=== PATIENT | female | born 1960 | race African-American/Black ===

== ENCOUNTER 2018-09-05 11:25 | Inpatient (IN) | payer OTHER ==
[2018-09-05 11:47] VITALS: BMI 39.7
--- NOTE | 2018-09-05 14:29 | HP ---
COWS - Scale Resting Pulse: 0= [place] 80 or Below Sweatin= Chills/Flushing Restless Observation: 3= Extraneous Movement Pupil Size: 1= Pupils >than Normal Bone or Joint Aches: 2= Severe Diffuse Aches Runny Nose/ Eye Tearin= Runny Nose/Eyes GI Upset > 30mins: 2= Nausea/Diarrhea Tremor Observation: 2= Slight Tremor Visible Yawning Observation: 1= 1-2x During Session Anxiety or Irritability: 2=Irritable/Anxious Goose Flesh Skin: 0=Smooth Skin COWS Score: 16 CIWA Score Nausea/Vomitin Muscle Tremors: 2 Anxiety: 2 Agitation: 2 Paroxysmal Sweats: 1-Minimal Palms Moist Orientation: 0-Oriented Tacttile Disturbances: 1-Very Mild Itch/Numbness Auditory Disturbances: 1-Very Mild Visual Disturbances: 0-None Headache: 2-Mild CIWA-Ar Total Score: 13 - Admission Criteria OASAS Guidelines: Admission for Medically Managed Detox: Requires at least one of the followin. CIWA greater than 12 2. Seizures within the past 24 hours 3. Delirium tremens within the past 24 hours 4. Hallucinations within the past 24 hours 5. Acute intervention needed for co occurring medical disorder 6. Acute intervention needed for co occurring psychiatric disorder 7. Severe withdrawal that cannot be handled at a lower level of care (continued vomiting, continued diarrhea, abnormal vital signs) requiring intravenous medication and/or fluids 8. Admission ROS [facility] - [facility] Chief Complaint: i need help to stop using heroin and alcohol Allergies/Adverse Reactions: Allergies Allergy/AdvReac Type Severity Reaction Status Date / Time Penicillins Allergy Severe Rash Verified 09/05/18 14:18 History of Present Illness: this 58 years old female with heroin and alcohol dependence,seeking detox, withdrawal symptom,never been in detox before in [facility] 2003 hepatitis c treated nicotine 20 to 30 cigarette/day,patch bipolar disorder,2005 overdose low back pain herniated disc on injection hypertension asthma longest sobriety 3 years [facility] - Ebola screening Have you traveled outside of the country in the last 21 days: No Have you had contact with anyone from an Ebola affected area: No Have you been sick,other than usual withdrawal symptoms: No Do you have a fever: No - Review of Systems Constitutional: Chills, Loss of Appetite, Malaise, Night Sweats, Changes in sleep, Weakness EENT: reports: Tearing, Nose Congestion Respiratory: reports: No Symptoms reported, Other (ashma) Cardiac: reports: No Symptoms Reported GI: reports: Constipated, Abdominal cramping : reports: No Symptoms Reported Musculoskeletal: reports: Back Pain, Joint Pain, Muscle Pain, Joint Stiffness Integumentary: reports: Dryness Neuro: reports: Headache, Tremors Endocrine: reports: No Symptoms Reported Hematology: reports: No Symptoms Reported Psychiatric: reports: No Sypmtoms Reported, Judgement Intact, Mood/Affect Appropiate, Orientated x3 Other Systems: Reviewed and Negative Patient History - Patient Medical History Hx Anemia: No Hx Asthma: Yes (on albuterol inhaler and symbicort) Hx Chronic Obstructive Pulmonary Disease (COPD): No Hx Cancer: No Hx Cardiac Disorders: No Hx Congestive Heart Failure: No Hx Hypertension: Yes (on med) Hx Hypercholesterolemia: No Hx Pacemaker: No HX Cerebrovascular Accident: No Hx Seizures: No Hx Dementia: No Hx Diabetes: No Hx Gastrointestinal Disorders: No Hx Liver Disease: No Hx Genitourinary Disorders: No Hx Sexually Transmitted Disorders: No Hx Renal Disease (ESRD): No Hx Thyroid Disease: No Hx Human Immunodeficiency Virus (HIV): No (last 2018 negative) Hx Hepatitis C: Yes (treated ) Hx Depression: Yes Hx Suicide Attempt: Yes Hx Bipolar Disorder: Yes Hx Schizophrenia: No Other Medical History: no suicidal,no homicidal,low back pain,herniated disc - Patient Surgical History Hx Section: Yes (in 1987) - PPD History Previous Implant?: Yes Documented Results: Negative w/o proof Implanted On Prior R Admission?: No PPD to be Administered?: Yes - Reproductive History Patient : No - Smoking Cessation Smoking history: Current every day smoker Have you smoked in the past 12 months: Yes Aproximately how many cigarettes per day: 30 Cigars Per Day: 0 Hx Chewing Tobacco Use: No Initiated information on smoking cessation: Yes 'Breaking Loose' booklet given: 09/05/18 - Substance & Tx. History Hx Alcohol Use: Yes Hx Substance Use: Yes Substance Use Type: Alcohol, Heroin Hx Substance Use Treatment: No - Substances Abused Heroin Route: Inhalation Frequency: Daily Amount used: 10 BAGS Age of first use: 12 Date of Last Use: 09/05/18 Alcohol Route: Oral Frequency: Daily Amount used: 2 -3 cups of banana liquer Age of first use: 12 Date of Last Use: 09/05/18 Marijuana/Hashish Route: Smoking Frequency: Daily Amount used: 1 joint Age of first use: 12 Date of Last Use: 09/04/18 Family Disease History - Family Disease History Family History: Denies Admission Physical Exam [facility] - Vital Signs Vital Signs: Vital Signs - 24 hr 09/05/18 11:45 Temperature 98.7 F Pulse Rate 71 Respiratory 18 Rate Blood Pressure 110/66 - Physical General Appearance: Yes: Moderate Distress, Tremorous, Irritable, Sweating, Anxious HEENTM: Yes: Normal ENT Inspection, ROBERTA, Pharynx Normal Respiratory: Yes: Lungs Clear, Normal Breath Sounds, No Respiratory Distress Neck: Yes: Within Normal Limits, Supple, Trachea in good position Breast: Yes: Breast Exam Deferred Cardiology: Yes: Within Normal Limits, Regular Rhythm, Regular Rate, S1, S2 Abdominal: Yes: Within Normal Limits, Normal Bowel Sounds, Soft, Pulsatile Mass Genitourinary: Yes: Within Normal Limits Back: Yes: Muscle Spasm Musculoskeletal: Yes: Back pain, Joint Stiffness, Muscle Pain Extremities: Yes: Within Normal Limits, Normal Range of Motion, Tremors 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, Alert, Motor Strength 5/5 Integumentary: Yes: Dry Lymphatic: Yes: Within Normal Limits - Diagnostic (1) Opioid dependence with withdrawal Current Visit: Yes Status: Acute (2) Alcohol abuse Current Visit: Yes Status: Acute (3) Low back pain Current Visit: Yes Status: Acute (4) Herniated vertebral disc Current Visit: Yes Status: Acute (5) Nicotine dependence Current Visit: Yes Status: Acute (6) No natural teeth Current Visit: Yes Status: Acute (7) Hepatitis C Current Visit: Yes Status: Acute (8) Dry skin Current Visit: Yes Status: Acute (9) Carpal tunnel syndrome Current Visit: Yes Status: Acute Cleared for Admission [facility] - Detox or Rehab [facility] Level of Care: Medically Managed Detox Regimen/Protocol: Methadone [facility] Breath Alcohol Content Breath Alcohol Content: 0 Urine Pregancy Test - Result Urine Test Results: Negative - NO line present Urine Drug Screen - Results Drug Screen Negative: No Urine Drug Screen Results: THC-Marijuana, OPI-Opiates, BZO-Benzodiazepines, OXY- Oxycodone, FEN-Fentanyl Inpatient Rehab Admission - Rehab Decision to Admit Inpatient rehab admission?: No
[2018-09-05] MEDS ORDERED: METHOCARBAMOL 500 MG TABLET PO PRN (14:50)
[2018-09-05] MEDS ORDERED: MAG HYDROX/AL HYDROX/SIMETH 30 ML UNIT-DOSE CUP PO PRN (14:50)
[2018-09-05] MEDS ORDERED: MELATONIN 5 MG TABLETS PO PRN (14:50)
[2018-09-05] MEDS ORDERED: hydrOXYzine PAMOATE 25 MG CAPSULE (FP) PO PRN (14:50)
[2018-09-05] MEDS ORDERED: ACETAMINOPHEN 325 MG TABLET (FP) PO PRN ×2 (14:50)
[2018-09-05] MEDS ORDERED: MENTHOL/PHENOL 1 EACH UD MM PRN (14:50)
[2018-09-05] MEDS ORDERED: BISMUTH SUBSALICYLATE 262 MG/15 ML BTL PO PRN (14:50)
[2018-09-05] MEDS ORDERED: IBUPROFEN 400 MG TABLET (FP) PO PRN (14:50)
[2018-09-05] MEDS ORDERED: MAGNESIUM HYDROX 2400MG/30ML ORAL SUSPENSION 30 ML CUP PO PRN (14:50)
[2018-09-05] MEDS ORDERED: MAGNESIUM CITRATE 300 ML BOTTLE PO PRN (14:50)
[2018-09-05] MEDS ORDERED: cloNIDine HCL 0.1 MG TABLET PO PRN (14:50)
[2018-09-05] MEDS ORDERED: METHADONE HCL 10 MG TABLET (FOR DETOX USE ONLY) PO ONE ×2 (15:41→23:00)
[2018-09-05] MEDS: GABAPENTIN 100 MG CAPSULE (FP) PO SCH ×2 (17:07→22:25)
[2018-09-05] MEDS: VITAMINS A AND D TOPICAL OINTMENT 60 GM TUBE TP SCH ×2 (18:25→23:02)
[2018-09-05] MEDS: THIAMINE HCL 100 MG TABLET (FP) PO SCH (22:24)
[2018-09-05] MEDS: BUDESONIDE/FORMETEROL FUMARATE 160/4.5 mcg INHALER IH SCH (22:24)
[2018-09-06] MEDS: GABAPENTIN 100 MG CAPSULE (FP) PO SCH ×3 (05:59→22:34)
[2018-09-06] MEDS: VITAMINS A AND D TOPICAL OINTMENT 60 GM TUBE TP SCH ×3 (05:59→19:52)
--- NOTE | 2018-09-06 09:30 | EKG ---
Test Reason : Blood Pressure : / mmHG Vent. Rate : 062 BPM Atrial Rate : 062 BPM P-R Int : 146 ms QRS Dur : 084 ms QT Int : 450 ms P-R-T Axes : 076 067 045 degrees QTc Int : 456 ms NORMAL SINUS RHYTHM NORMAL ECG NO PREVIOUS ECGS AVAILABLE Confirmed by JOSUÉ TIMMONS MD ([id number]) on 09/06/2018 9:29:35 AM Referred By: Confirmed By:JOSUÉ TIMMONS MD
[2018-09-06] MEDS ORDERED: METHADONE HCL 10 MG TABLET (FOR DETOX USE ONLY) PO ONE (10:00)
[2018-09-06] MEDS: PRENATAL VITAMINS W/ FOLIC ACID TABLET (FP) PO SCH (10:42)
[2018-09-06] MEDS: FUROSEMIDE 20 MG TABLET (FP) PO SCH (10:42)
[2018-09-06] MEDS: BUDESONIDE/FORMETEROL FUMARATE 160/4.5 mcg INHALER IH SCH ×2 (10:43→22:31)
[2018-09-06] MEDS: LOSARTAN 50MG/HCTZ 12.5MG 1 TAB (FP) PO SCH (10:44)
--- NOTE | 2018-09-06 11:48 | PN ---
[facility] CIWA - CIWA Score Nausea/Vomitin-No Nausea/No Vomiting Muscle Tremors: 4-Moderate,w/Arms Extend Anxiety: 3 Agitation: 4-Moderately Restless Paroxysmal Sweats: 3 Orientation: 0-Oriented Tacttile Disturbances: 0-None Auditory Disturbances: 0-None Visual Disturbances: 0-None Headache: 0-None Present CIWA-Ar Total Score: 14 [facility] COWS - Scale Resting Pulse: 0= [place] 80 or Below Sweatin=Flushed/Facial Moisture Restless Observation: 1= Difficult to Sit Still Pupil Size: 0= Normal to Room Light Bone or Joint Aches: 2= Severe Diffuse Aches Runny Nose/ Eye Tearin= Runny Nose/Eyes GI Upset > 30mins: 1= Stomach Cramp Tremor Observation of Outstretched Hands: 2= Slight Tremor Visible Yawning Observation: 2= >3x During Session Anxiety or Irritability: 2=Irritable/Anxious Goose Flesh Skin: 0=Smooth Skin COWS Score: 14 [facility] Progress Note (SOAP) Subjective: agitation sweats shakes interrupted sleep stomach ache nausea chills Objective: 09/06/18 11:45 Vital Signs Temperature 98.2 F 09/06/18 09:38 Pulse Rate 64 09/06/18 09:38 Respiratory Rate 18 09/06/18 09:38 Blood Pressure 144/74 09/06/18 09:38 O2 Sat by Pulse Oximetry (%) labs pending aaox3 ambulating no acute distress Assessment: 09/06/18 11:46 withdrawal sx Plan: continue detox increase fluids zofran prn
[2018-09-06] MEDS ORDERED: ONDANSETRON *ODT* 4 MG TABLET SL PRN (11:50)
[2018-09-06 12:28] LABS: HEMOGLOBIN 13.3 GM/dL (10.7-15.3); MCHC 33.2 g/dl (32.0-36.0); MEAN CELL VOLUME 84.4 fl (80-96); MEAN PLT VOLUME 10.4 fl (7.5-11.1); PLATELET COUNT 145 K/MM3 (134-434); RBC 4.74 M/mm3 (3.60-5.2); RDW 14.1 % (11.6-15.6); WHITE BLOOD COUNT 9.9 K/mm3 (4.0-10.0)
[2018-09-06 12:29] LABS: SICKLE CELL SCREEN NEGATIVE (NEGATIVE)
[2018-09-06 12:47] LABS: ALK PHOS 94 U/L (45-117); ANION GAP 7 MMOL/L (8-16); BILIRUBIN,TOTAL 0.5 mg/dL (0.2-1); BLOOD UREA NITROGEN 14 mg/dL (7-18); CALCIUM 8.8 mg/dL (8.5-10.1); CHLORIDE 105 mmol/L (98-107); CO2 30 mmol/L (21-32); CREATININE 0.9 mg/dL (0.55-1.3); GLUCOSE,RANDOM 134 mg/dL (74-106); POTASSIUM 4.1 mmol/L (3.5-5.1); SGOT/AST 15 U/L (15-37); SGPT/ALT 16 U/L (13-61); SODIUM 142 mmol/L (136-145); TOT PROT 6.7 g/dl (6.4-8.2)
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
[2018-09-06] MEDS: ARIPiprazole 10 MG TABLET PO SCH (14:55)
[2018-09-06] MEDS: THIAMINE HCL 100 MG TABLET (FP) PO SCH (22:33)
[2018-09-06] MEDS: diazePAM 5 MG TABLET PO PRN (22:34)
[2018-09-07] MEDS: GABAPENTIN 100 MG CAPSULE (FP) PO SCH ×3 (05:50→22:38)
[2018-09-07] MEDS: VITAMINS A AND D TOPICAL OINTMENT 60 GM TUBE TP SCH ×4 (07:42→23:40)
[2018-09-07] MEDS ORDERED: METHADONE HCL 10 MG TABLET (FOR DETOX USE ONLY) PO ONE (10:00)
[2018-09-07] MEDS: ARIPiprazole 10 MG TABLET PO SCH (10:34)
[2018-09-07] MEDS: BUDESONIDE/FORMETEROL FUMARATE 160/4.5 mcg INHALER IH SCH ×2 (10:34→22:37)
[2018-09-07] MEDS: FLUoxetine HCL 10 MG CAPSULE (FP) PO SCH (10:34)
[2018-09-07] MEDS: LOSARTAN 50MG/HCTZ 12.5MG 1 TAB (FP) PO SCH (10:35)
[2018-09-07] MEDS: PRENATAL VITAMINS W/ FOLIC ACID TABLET (FP) PO SCH (10:35)
[2018-09-07] MEDS: FUROSEMIDE 20 MG TABLET (FP) PO SCH (10:35)
--- NOTE | 2018-09-07 12:04 | PN ---
[facility] COWS - Scale Resting Pulse: 0= [place] 80 or Below Sweatin=Flushed/Facial Moisture Restless Observation: 1= Difficult to Sit Still Pupil Size: 0= Normal to Room Light Bone or Joint Aches: 0= None Runny Nose/ Eye Tearin= Nasal Congestion GI Upset > 30mins: 1= Stomach Cramp Tremor Observation of Outstretched Hands: 1= Tremor [place], Not Seen Yawning Observation: 2= >3x During Session Anxiety or Irritability: 2=Irritable/Anxious Goose Flesh Skin: 0=Smooth Skin COWS Score: 10 [facility] Progress Note (SOAP) Subjective: shakes sweats agitation interrupted sleep Objective: 09/07/18 12:04 Vital Signs Temperature 98.1 F 09/07/18 09:59 Pulse Rate 65 09/07/18 09:59 Respiratory Rate 18 09/07/18 09:59 Blood Pressure 116/73 09/07/18 09:59 O2 Sat by Pulse Oximetry (%) Laboratory Tests 09/06/18 09/06/18 09/06/18 07:30 07:30 07:30 WBC 9.9 RBC 4.74 Hgb 13.3 Hct 40.0 MCV 84.4 MCH 28.0 MCHC 33.2 RDW 14.1 Plt Count 145 MPV 10.4 Sickle Cell Screen Negative Sodium 142 Potassium 4.1 Chloride 105 Carbon Dioxide 30 Anion Gap 7 L BUN 14 Creatinine 0.9 Creat Clearance w eGFR 63.87 Random Glucose 134 H Calcium 8.8 Total Bilirubin 0.5 AST 15 ALT 16 Alkaline Phosphatase 94 Total Protein 6.7 Albumin 3.0 L RPR Titer Nonreactive aaox3 ambulating no acute distress Assessment: 09/07/18 12:06 withdrawal sx Plan: continue detox increase fluids
[2018-09-07] MEDS: THIAMINE HCL 100 MG TABLET (FP) PO SCH (22:39)
[2018-09-08] MEDS: GABAPENTIN 100 MG CAPSULE (FP) PO SCH ×3 (06:13→22:13)
[2018-09-08] MEDS: VITAMINS A AND D TOPICAL OINTMENT 60 GM TUBE TP SCH ×4 (06:14→23:36)
[2018-09-08] MEDS ORDERED: METHADONE HCL 10 MG TABLET (FOR DETOX USE ONLY) PO ONE (10:00)
[2018-09-08] MEDS: ARIPiprazole 10 MG TABLET PO SCH (10:40)
[2018-09-08] MEDS: FLUoxetine HCL 10 MG CAPSULE (FP) PO SCH (10:40)
[2018-09-08] MEDS: LOSARTAN 50MG/HCTZ 12.5MG 1 TAB (FP) PO SCH (10:41)
[2018-09-08] MEDS: FUROSEMIDE 20 MG TABLET (FP) PO SCH (10:41)
[2018-09-08] MEDS: PRENATAL VITAMINS W/ FOLIC ACID TABLET (FP) PO SCH (10:41)
[2018-09-08] MEDS: BUDESONIDE/FORMETEROL FUMARATE 160/4.5 mcg INHALER IH SCH ×2 (10:42→22:14)
--- NOTE | 2018-09-08 11:27 | PN ---
[facility] Progress Note (SOAP) Subjective: body aches anxiety feeling a bit better. Objective: 09/08/18 11:25 Vital Signs Temperature 97.9 F 09/08/18 09:50 Pulse Rate 56 L 09/08/18 09:50 Respiratory Rate 18 09/08/18 09:50 Blood Pressure 148/77 09/08/18 09:50 O2 Sat by Pulse Oximetry (%) aaox3 ambulating no acute distress Assessment: 09/08/18 11:26 mild withdrawal Plan: continue detox increase fluids d/c in am
[2018-09-08 21:32] VITALS: PULSE 64
[2018-09-08] MEDS: THIAMINE HCL 100 MG TABLET (FP) PO SCH (22:14)
[2018-09-08] MEDS: diazePAM 5 MG TABLET PO PRN (22:18)
[2018-09-09] MEDS: GABAPENTIN 100 MG CAPSULE (FP) PO SCH (05:50)
[2018-09-09] MEDS ORDERED: METHADONE HCL 5 MG TABLET (FOR DETOX USE ONLY) PO ONE (06:00)
[2018-09-09 06:29] VITALS: BP 143/70; TEMP 97.7
[2018-09-09] MEDS: VITAMINS A AND D TOPICAL OINTMENT 60 GM TUBE TP SCH (07:03)
--- NOTE | 2018-09-09 10:08 | DS ---
[facility] Detox Discharge Summary Admission Date: 09/05/18 Discharge Date: 09/09/18 - History Present History: Opioid Dependence - Physical Exam Results Vital Signs: Vital Signs Temperature 97.7 F 09/09/18 06:00 Pulse Rate 64 09/09/18 06:00 Respiratory Rate 18 09/09/18 06:00 Blood Pressure 143/70 09/09/18 06:00 O2 Sat by Pulse Oximetry (%) - Treatment Hospital Course: Detox Protocol Followed, Detoxed Safely, Responded well, Discharged Condition Good, Rehab Referral Accepted - Medication Discharge Medications: Ambulatory Orders Aripiprazole [Abilify -] 20 mg PO DAILY 09/05/18 Budesonide/Formeterol Fumarate [SYMBICORT 160/4.5mcg -] 1 inh PO BID 09/05/18 Fluoxetine HCl [Prozac -] 10 mg PO DAILY 09/05/18 Furosemide [Lasix -] 20 mg PO DAILY 09/05/18 Gabapentin [Neurontin -] 100 mg PO Q8H 09/05/18 Losartan/Hydrochlorothiazide [Losartan-Hctz 100-25 mg Tab] 1 each PO DAILY 09/05 - Diagnosis (1) Alcohol abuse Status: Chronic (2) Cannabis abuse Status: Chronic (3) Carpal tunnel syndrome Status: Chronic Qualifiers: Laterality: unspecified laterality Qualified Code(s): G56.00 - Carpal tunnel syndrome, unspecified upper limb (4) Dry skin Status: Chronic (5) No natural teeth Status: Chronic (6) Opioid dependence with withdrawal Status: Chronic (7) Substance-induced anxiety disorder Status: Acute (8) Bipolar disorder Status: Chronic (9) Herniated vertebral disc Status: Chronic (10) Low back pain Status: Chronic (11) Nicotine dependence Status: Chronic (12) Hepatitis C Status: Chronic Qualifiers: Viral hepatitis chronicity: chronic Hepatic coma status: without hepatic coma Qualified Code(s): B18.2 - Chronic viral hepatitis C - AMA Did Patient Leave Against Medical Advice: No (declined rehab; referred to outpatient)
== END 2018-09-09 08:45 | disposition home or self-care (01) | DRG 773 ==
LOC: YASAS 11:25 → Y6N 15:32
PROVIDERS: ADMIT Surgery; ATTEND Surgery
PROC: HZ2ZZZZ Detoxification Services for Substance Abuse Treatment (ICD-10-PCS; principal; 2018-09-05)
DX: F11.23 Opioid dependence with withdrawal (principal); F10.10 Alcohol abuse, uncomplicated; F12.10 Cannabis abuse, uncomplicated; F17.210 Nicotine dependence, cigarettes, uncomplicated; F19.280 Other psychoactive substance dependence with psychoactive substance-induced anxiety disorder; F31.9 Bipolar disorder, unspecified; I10 Essential (primary) hypertension; J45.909 Unspecified asthma, uncomplicated; L85.3 Xerosis cutis; B18.2 Chronic viral hepatitis C; K00.0 Anodontia; M51.27 Other intervertebral disc displacement, lumbosacral region; Z91.5 Personal history of self-harm; Z88.0 Allergy status to penicillin
CPT/HCPCS: 36415; 80053; 85027; 85660; 86593; 93005; 93010; J0735

== ENCOUNTER 2019-01-18 10:08 | Inpatient (IN) | payer OTHER ==
[2019-01-18 11:14] VITALS: BMI 38.5
--- NOTE | 2019-01-18 11:42 | HP ---
COWS - Scale Resting Pulse: 0= [place] 80 or Below Sweatin= Chills/Flushing Restless Observation: 1= Difficult to Sit Still Pupil Size: 1= Pupils >than Normal Bone or Joint Aches: 2= Severe Diffuse Aches Runny Nose/ Eye Tearin= Runny Nose/Eyes GI Upset > 30mins: 2= Nausea/Diarrhea Tremor Observation: 2= Slight Tremor Visible Yawning Observation: 1= 1-2x During Session Anxiety or Irritability: 2=Irritable/Anxious Goose Flesh Skin: 0=Smooth Skin COWS Score: 14 CIWA Score Nausea/Vomitin Muscle Tremors: 2 Anxiety: 3 Agitation: 3 Paroxysmal Sweats: 1-Minimal Palms Moist Orientation: 0-Oriented Tacttile Disturbances: 1-Very Mild Itch/Numbness Auditory Disturbances: 0-None Visual Disturbances: 0-None Headache: 2-Mild CIWA-Ar Total Score: 14 - Admission Criteria OASAS Guidelines: Admission for Medically Managed Detox: Requires at least one of the followin. CIWA greater than 12 2. Seizures within the past 24 hours 3. Delirium tremens within the past 24 hours 4. Hallucinations within the past 24 hours 5. Acute intervention needed for co occurring medical disorder 6. Acute intervention needed for co occurring psychiatric disorder 7. Severe withdrawal that cannot be handled at a lower level of care (continued vomiting, continued diarrhea, abnormal vital signs) requiring intravenous medication and/or fluids 8. Admission ROS [facility] - [facility] Chief Complaint: i need help to stop drinking alcohol and heroin Allergies/Adverse Reactions: Allergies Allergy/AdvReac Type Severity Reaction Status Date / Time Penicillins Allergy Severe Rash Verified 01/18/19 11:04 History of Present Illness: this 58 years old female with heroin and alcohol dependence,seeking detox, withdrawal symptom, multiple admissions in detox,,but keep relapsing last detox [facility] 09/05/18 to 09/09/18 hepatitis c treated nicotine dependence 1 pack/day,would like nicotine patch low back pain herniated disc longest sobriety 5 years plan for out patient program Exam Limitations: No Limitations - Ebola screening Have you traveled outside of the country in the last 21 days: No Have you had contact with anyone from an Ebola affected area: No Do you have a fever: No - Review of Systems Constitutional: Chills, Loss of Appetite, Malaise, Night Sweats, Changes in sleep, Weakness EENT: reports: Tearing, Nose Congestion Respiratory: reports: No Symptoms reported, Other (asthma) Cardiac: reports: No Symptoms Reported GI: reports: Diarrhea, Nausea, Vomiting, Abdominal cramping : reports: No Symptoms Reported Musculoskeletal: reports: No Symptoms Reported, Back Pain, Joint Pain, Muscle Pain Integumentary: reports: Dryness Neuro: reports: Headache, Tremors Endocrine: reports: No Symptoms Reported Hematology: reports: No Symptoms Reported Psychiatric: reports: No Sypmtoms Reported, Judgement Intact, Mood/Affect Appropiate, Orientated x3 Other Systems: Reviewed and Negative Patient History - Patient Medical History Hx Anemia: No Hx Asthma: Yes (on albuterol inhaler and symbicort) Hx Chronic Obstructive Pulmonary Disease (COPD): No Hx Cancer: No Hx Cardiac Disorders: No Hx Congestive Heart Failure: No Hx Hypertension: Yes (on med) Hx Hypercholesterolemia: No Hx Pacemaker: No HX Cerebrovascular Accident: No Hx Seizures: No Hx Dementia: No Hx Diabetes: No Hx Gastrointestinal Disorders: No Hx Liver Disease: No Hx Genitourinary Disorders: No Hx Sexually Transmitted Disorders: No Hx Renal Disease (ESRD): No Hx Thyroid Disease: No Hx Human Immunodeficiency Virus (HIV): No (last 2018 negative) Hx Hepatitis C: Yes (treated ) Hx Depression: Yes Hx Suicide Attempt: Yes Hx Bipolar Disorder: Yes Hx Schizophrenia: No Other Medical History: no suicidal,no homicidal - Patient Surgical History Past Surgical History: Yes Hx Section: Yes (in 1987) Other Surgical History: Pt had a cyst removed from her R eardrum at age 7 yrs old. Anesthesia Reaction: No - PPD History Previous Implant?: Yes Documented Results: Negative w/proof Implanted On Prior [facility] Admission?: Yes Date: 09/07/18 Results: 0 mm PPD to be Administered?: No - Reproductive History Patient is a Female of Child Bearing Age (11 -55 yrs old): No Patient : No - Smoking Cessation Smoking history: Current every day smoker Have you smoked in the past 12 months: Yes Aproximately how many cigarettes per day: 20 Cigars Per Day: 0 Hx Chewing Tobacco Use: No Initiated information on smoking cessation: Yes 'Breaking Loose' booklet given: 01/18/19 - Substance & Tx. History Hx Alcohol Use: Yes Hx Substance Use: Yes Substance Use Type: Alcohol, Heroin Hx Substance Use Treatment: Yes ([facility] 09/05/18 to 09/09/18) - Substances abused Alcohol Substance route: Oral Frequency: Daily Amount used: 3 CANS OF MARGUERITAS (16 OUNCES)/ 1/2pint of mehul Age of first use: 12 Date of last use: 01/18/19 Heroin Substance route: Inhalation Frequency: Daily Amount used: 10 BAGS Age of first use: 11 Date of last use: 01/18/19 Family Disease History - Family Disease History Family Disease History: Other: Mother (alcohol,dsa) Admission Physical Exam [facility] - Vital Signs Vital Signs: Vital Signs - 24 hr 01/18/19 11:07 Temperature 98.0 F Pulse Rate 64 Respiratory 17 Rate Blood Pressure 137/88 - Physical General Appearance: Yes: Moderate Distress, Tremorous, Irritable, Sweating, Anxious HEENTM: Yes: Normal ENT Inspection, ROBERTA, Pharynx Normal Respiratory: Yes: Lungs Clear, Normal Breath Sounds, No Respiratory Distress Neck: Yes: Within Normal Limits, Supple, Trachea in good position Breast: Yes: Breast Exam Deferred Cardiology: Yes: Within Normal Limits, Regular Rhythm, Regular Rate, S1, S2 Abdominal: Yes: Within Normal Limits, Normal Bowel Sounds, Non Tender, Soft Genitourinary: Yes: Within Normal Limits Back: Yes: Muscle Spasm Musculoskeletal: Yes: full range of Motion, Back pain, Muscle Pain Extremities: Yes: Within Normal Limits, Normal Range of Motion, Tremors 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 On medications. (4) Hepatitis C Current Visit: No Status: Chronic Qualifiers: Viral hepatitis chronicity: chronic Hepatic coma status: without hepatic coma Qualified Code(s): B18.2 - Chronic viral hepatitis C (5) Low back pain Current Visit: No Status: Chronic (6) Nicotine dependence Current Visit: Yes Status: Chronic (7) Herniated disc Current Visit: Yes Status: Acute (8) Asthma Current Visit: Yes Status: Acute Cleared for Admission [facility] - Detox or Rehab [facility] Level of Care: Medically Managed Detox Regimen/Protocol: Methadone/Librium Inpatient Rehab Admission - Rehab Decision to Admit Inpatient rehab admission?: No
[2019-01-18] MEDS ORDERED: METHOCARBAMOL 500 MG TABLET PO PRN (11:54)
[2019-01-18] MEDS ORDERED: hydrOXYzine PAMOATE 25 MG CAPSULE (FP) PO PRN (11:54)
[2019-01-18] MEDS ORDERED: MAGNESIUM HYDROX 2400MG/30ML ORAL SUSPENSION 30 ML CUP PO PRN (11:54)
[2019-01-18] MEDS ORDERED: MAG HYDROX/AL HYDROX/SIMETH 30 ML UNIT-DOSE CUP PO PRN (11:54)
[2019-01-18] MEDS ORDERED: ACETAMINOPHEN 325 MG TABLET (FP) PO PRN ×2 (11:54)
[2019-01-18] MEDS ORDERED: MAGNESIUM CITRATE 300 ML BOTTLE PO PRN (11:54)
[2019-01-18] MEDS ORDERED: IBUPROFEN 400 MG TABLET (FP) PO PRN (11:54)
[2019-01-18] MEDS ORDERED: MENTHOL/PHENOL 1 EACH UD MM PRN (11:54)
[2019-01-18] MEDS ORDERED: BISMUTH SUBSALICYLATE 524 MG/30 ML UD PO PRN (11:54)
[2019-01-18] MEDS ORDERED: chlordiazePOXIDE HCL 25 MG CAPSULE PO PRN (11:56)
[2019-01-18] MEDS ORDERED: cloNIDine HCL 0.1 MG TABLET PO PRN (11:57)
[2019-01-18] MEDS ORDERED: ALBUTEROL SO4 8 GM HFA INHALER IH PRN (12:00)
[2019-01-18] MEDS ORDERED: METHADONE HCL 10 MG TABLET (FOR DETOX USE ONLY) PO ONE (12:30)
[2019-01-18] MEDS: NICOTINE 21 MG/24 HOURS TOPICAL PATCH TD SCH (12:52)
[2019-01-18 15:52] LABS: HEMATOCRIT 40.6 % (32.4-45.2); MCH 27.5 pg (25.7-33.7); MEAN CELL VOLUME 85.8 fl (80-96); MEAN PLT VOLUME 11.2 fl (7.5-11.1); PLATELET COUNT 162 K/MM3 (134-434); RBC 4.74 M/mm3 (3.60-5.2); WHITE BLOOD COUNT 7.4 K/mm3 (4.0-10.0)
[2019-01-18 16:39] LABS: ALBUMIN 3.5 g/dl (3.4-5.0); BILIRUBIN,TOTAL 0.3 mg/dL (0.2-1); BLOOD UREA NITROGEN 16.6 mg/dL (7-18); POTASSIUM 3.9 mmol/L (3.5-5.1); TOT PROT 7.1 g/dl (6.4-8.2)
[2019-01-18] MEDS: VITAMINS A AND D TOPICAL OINTMENT 60 GM TUBE TP SCH (17:31)
[2019-01-18] MEDS: chlordiazePOXIDE HCL 25 MG CAPSULE PO SCH ×2 (17:32→22:30)
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
[2019-01-18] MEDS: BUDESONIDE/FORMETEROL FUMARATE 160/4.5 mcg INHALER IH SCH (22:29)
[2019-01-18] MEDS: THIAMINE HCL 100 MG TABLET (FP) PO SCH (22:30)
[2019-01-18] MEDS: MELATONIN 5 MG TABLETS PO PRN (22:31)
[2019-01-19] MEDS: VITAMINS A AND D TOPICAL OINTMENT 60 GM TUBE TP SCH ×4 (07:08→17:32)
[2019-01-19] MEDS: chlordiazePOXIDE HCL 25 MG CAPSULE PO SCH ×4 (07:08→22:21)
[2019-01-19] MEDS ORDERED: METHADONE HCL 5 MG TABLET (FOR DETOX USE ONLY) ONE (09:29)
[2019-01-19] MEDS ORDERED: METHADONE HCL 10 MG TABLET (FOR DETOX USE ONLY) ONE (09:29)
[2019-01-19] MEDS ORDERED: METHADONE (DETOX) 20 MG, METHADONE (DETOX) 5 MG PO ONE (10:00)
[2019-01-19] MEDS ORDERED: ARIPiprazole 20 MG TABLET PO SCH (10:00)
[2019-01-19] MEDS: PRENATAL VITAMINS W/ FOLIC ACID TABLET (FP) PO SCH (10:37)
[2019-01-19] MEDS: BUDESONIDE/FORMETEROL FUMARATE 160/4.5 mcg INHALER IH SCH ×2 (10:37→22:20)
[2019-01-19] MEDS: NICOTINE 21 MG/24 HOURS TOPICAL PATCH TD SCH (10:38)
[2019-01-19] MEDS: LOSARTAN 50MG/HCTZ 12.5MG 1 TAB (FP) PO SCH (10:38)
[2019-01-19] MEDS: FLUoxetine HCL 10 MG CAPSULE (FP) PO SCH (12:16)
[2019-01-19] MEDS: ARIPiprazole 10 MG TABLET PO SCH (12:17)
--- NOTE | 2019-01-19 15:10 | PN ---
S CIWA - CIWA Score Nausea/Vomitin-Mild Nausea/No Vomiting Muscle Tremors: 3 Anxiety: 3 Agitation: 2 Paroxysmal Sweats: 1-Minimal Palms Moist Orientation: 0-Oriented Tacttile Disturbances: 1-Very Mild Itch/Numbness Auditory Disturbances: 0-None Visual Disturbances: 0-None Headache: 0-None Present CIWA-Ar Total Score: 11 BHS COWS - Scale Resting Pulse: 0= [place] 80 or Below Sweatin= Chills/Flushing Restless Observation: 0= Sits Still Pupil Size: 0= Normal to Room Light Bone or Joint Aches: 1= Mild Discomfort Runny Nose/ Eye Tearin= Nasal Congestion GI Upset > 30mins: 1= Stomach Cramp Tremor Observation of Outstretched Hands: 2= Slight Tremor Visible Yawning Observation: 0= None Anxiety or Irritability: 2=Irritable/Anxious Goose Flesh Skin: 3=Piloerection COWS Score: 11 S Progress Note (SOAP) Subjective: 58 years old female admitted on 01/18/19 for alcohol and opiate withdrawal sx doing well with librium and methadone detox regimen ambulating on hallway social with peers tremor and body aches discuss medication assisted treatment program Objective: 01/19/19 15:09 Vital Signs Temperature 97.1 F L 01/19/19 13:39 Pulse Rate 58 L 01/19/19 13:39 Respiratory Rate 18 01/19/19 13:39 Blood Pressure 137/86 01/19/19 13:39 O2 Sat by Pulse Oximetry (%) Laboratory Last Values WBC 7.4 K/mm3 (4.0-10.0) 01/18/19 12:00 RBC 4.74 M/mm3 (3.60-5.2) 01/18/19 12:00 Hgb 13.0 GM/dL (10.7-15.3) 01/18/19 12:00 Hct 40.6 % (32.4-45.2) 01/18/19 12:00 MCV 85.8 fl (80-96) 01/18/19 12:00 MCH 27.5 pg (25.7-33.7) 01/18/19 12:00 MCHC 32.0 g/dl (32.0-36.0) 01/18/19 12:00 RDW 14.0 % (11.6-15.6) 01/18/19 12:00 Plt Count 162 K/MM3 (134-434) 01/18/19 12:00 MPV 11.2 fl (7.5-11.1) H 01/18/19 12:00 Sodium 143 mmol/L (136-145) 01/18/19 12:00 Potassium 3.9 mmol/L (3.5-5.1) 01/18/19 12:00 Chloride 107 mmol/L (98-107) 01/18/19 12:00 Carbon Dioxide 31 mmol/L (21-32) 01/18/19 12:00 Anion Gap 6 MMOL/L (8-16) L 01/18/19 12:00 BUN 16.6 mg/dL (7-18) 01/18/19 12:00 Creatinine 1.0 mg/dL (0.55-1.3) 01/18/19 12:00 Est GFR (CKD-EPI)AfAm 70.91 01/18/19 12:00 Est GFR (CKD-EPI)NonAf 61.19 01/18/19 12:00 Random Glucose 110 mg/dL (74-106) H 01/18/19 12:00 Calcium 9.0 mg/dL (8.5-10.1) 01/18/19 12:00 Total Bilirubin 0.3 mg/dL (0.2-1) 01/18/19 12:00 AST 16 U/L (15-37) 01/18/19 12:00 ALT 24 U/L (13-61) 01/18/19 12:00 Alkaline Phosphatase 104 U/L (45-117) 01/18/19 12:00 Total Protein 7.1 g/dl (6.4-8.2) 01/18/19 12:00 Albumin 3.5 g/dl (3.4-5.0) 01/18/19 12:00 RPR Titer Nonreactive (NONREACTIVE) 01/18/19 12:00 lab noted Assessment: 01/19/19 15:10 alcohol and opiate withdrawal sx Plan: continue alcohol and opiate detox
[2019-01-19] MEDS: THIAMINE HCL 100 MG TABLET (FP) PO SCH (22:20)
[2019-01-20] MEDS: VITAMINS A AND D TOPICAL OINTMENT 60 GM TUBE TP SCH ×5 (01:46→23:37)
[2019-01-20] MEDS: chlordiazePOXIDE HCL 25 MG CAPSULE PO SCH ×4 (05:56→22:31)
[2019-01-20] MEDS ORDERED: METHADONE HCL 10 MG TABLET (FOR DETOX USE ONLY) PO ONE (10:00)
[2019-01-20] MEDS: BUDESONIDE/FORMETEROL FUMARATE 160/4.5 mcg INHALER IH SCH ×2 (10:25→23:06)
[2019-01-20] MEDS: ARIPiprazole 10 MG TABLET PO SCH (10:25)
[2019-01-20] MEDS: LOSARTAN 50MG/HCTZ 12.5MG 1 TAB (FP) PO SCH (10:25)
[2019-01-20] MEDS: NICOTINE 21 MG/24 HOURS TOPICAL PATCH TD SCH (10:26)
[2019-01-20] MEDS: FLUoxetine HCL 10 MG CAPSULE (FP) PO SCH (10:26)
[2019-01-20] MEDS: PRENATAL VITAMINS W/ FOLIC ACID TABLET (FP) PO SCH (10:26)
--- NOTE | 2019-01-20 12:23 | PN ---
S CIWA - CIWA Score Nausea/Vomitin-No Nausea/No Vomiting Muscle Tremors: None Anxiety: 1-Mildly Anxious Agitation: 1-Slight > Activity Paroxysmal Sweats: No Perspiration Orientation: 0-Oriented Tacttile Disturbances: 0-None Auditory Disturbances: 0-None Visual Disturbances: 0-None Headache: 0-None Present CIWA-Ar Total Score: 2 BHS Progress Note (SOAP) Subjective: Patient has no complaints. Objective: 01/20/19 12:22 Patient on 3rd Day of detox protocol. Alcohol Withdrawals Laboratory 01/18/19 01/18/19 01/18/19 12:00 12:00 12:00 WBC 7.4 K/mm3 K/mm3 (4.0-10.0) RBC 4.74 M/mm3 M/mm3 (3.60-5.2) Hgb 13.0 GM/dL GM/dL (10.7-15.3) Hct 40.6 % % (32.4-45.2) MCV 85.8 fl fl (80-96) MCH 27.5 pg pg (25.7-33.7) MCHC 32.0 g/dl g/dl (32.0-36.0) RDW 14.0 % % (11.6-15.6) Plt Count 162 K/MM3 K/MM3 (134-434) MPV 11.2 fl H fl (7.5-11.1) Sodium 143 mmol/L mmol/L (136-145) Potassium 3.9 mmol/L mmol/L (3.5-5.1) Chloride 107 mmol/L mmol/L (98-107) Carbon Dioxide 31 mmol/L mmol/L (21-32) Anion Gap 6 MMOL/L L MMOL/L (8-16) BUN 16.6 mg/dL mg/dL (7-18) Creatinine 1.0 mg/dL mg/dL (0.55-1.3) Est GFR (CKD-EPI)AfAm 70.91 Est GFR (CKD-EPI)NonAf 61.19 Random Glucose 110 mg/dL H mg/dL (74-106) Calcium 9.0 mg/dL mg/dL (8.5-10.1) Total Bilirubin 0.3 mg/dL mg/dL (0.2-1) AST 16 U/L U/L (15-37) ALT 24 U/L U/L (13-61) Alkaline Phosphatase 104 U/L U/L (45-117) Total Protein 7.1 g/dl g/dl (6.4-8.2) Albumin 3.5 g/dl g/dl (3.4-5.0) RPR Titer Nonreactive (NONREACTIVE) Assessment: 01/20/19 12:23 Alcohol Withdrawals Plan: 1. Alcohol Withdrawals: Patient is stable and vitals are stable. Doing well on 3rd day of protocol Continue detox. Dr. Vergara
[2019-01-20] MEDS: THIAMINE HCL 100 MG TABLET (FP) PO SCH (22:31)
[2019-01-20] MEDS: MELATONIN 5 MG TABLETS PO PRN (22:31)
[2019-01-21] MEDS ORDERED: chlordiazePOXIDE HCL 10 MG CAPSULE PO PRN
[2019-01-21] MEDS: chlordiazePOXIDE HCL 10 MG CAPSULE PO SCH ×4 (05:53→22:35)
[2019-01-21] MEDS: VITAMINS A AND D TOPICAL OINTMENT 60 GM TUBE TP SCH ×4 (06:54→23:15)
[2019-01-21] MEDS ORDERED: METHADONE HCL 10 MG TABLET (FOR DETOX USE ONLY) ONE (08:26)
[2019-01-21] MEDS ORDERED: METHADONE HCL 5 MG TABLET (FOR DETOX USE ONLY) ONE (08:26)
[2019-01-21] MEDS ORDERED: METHADONE (DETOX) 10 MG, METHADONE (DETOX) 5 MG PO ONE (10:00)
[2019-01-21] MEDS: BUDESONIDE/FORMETEROL FUMARATE 160/4.5 mcg INHALER IH SCH ×2 (10:22→22:57)
[2019-01-21] MEDS: LOSARTAN 50MG/HCTZ 12.5MG 1 TAB (FP) PO SCH (10:22)
[2019-01-21] MEDS: FLUoxetine HCL 10 MG CAPSULE (FP) PO SCH (10:23)
[2019-01-21] MEDS: PRENATAL VITAMINS W/ FOLIC ACID TABLET (FP) PO SCH (10:23)
[2019-01-21] MEDS: ARIPiprazole 10 MG TABLET PO SCH (10:23)
[2019-01-21] MEDS: NICOTINE 21 MG/24 HOURS TOPICAL PATCH TD SCH (10:23)
[2019-01-21 12:58] LABS: PH,URINE 7.5 (5.0-8.0); URINE APPEARANCE CLEAR; URINE BILIRUBIN NEGATIVE (NEGATIVE); URINE COLOR YELLOW; URINE GLUCOSE (UA) NEGATIVE (NEGATIVE); URINE KETONE NEGATIVE (NEGATIVE); URINE LEUK ESTERASE NEGATIVE (NEGATIVE); URINE NITRITE NEGATIVE (NEGATIVE); URINE PROTEIN NEGATIVE (NEGATIVE)
--- NOTE | 2019-01-21 13:19 | PN ---
[facility] CIWA - CIWA Score Nausea/Vomitin-No Nausea/No Vomiting Muscle Tremors: None Anxiety: 3 Agitation: 2 Paroxysmal Sweats: 3 Orientation: 0-Oriented Tacttile Disturbances: 0-None Auditory Disturbances: 0-None Visual Disturbances: 0-None Headache: 0-None Present CIWA-Ar Total Score: 8 S COWS - Scale Resting Pulse: 0= [place] 80 or Below Sweatin= Beads of Sweat on Face Restless Observation: 1= Difficult to Sit Still Pupil Size: 0= Normal to Room Light Bone or Joint Aches: 2= Severe Diffuse Aches Runny Nose/ Eye Tearin= None GI Upset > 30mins: 0= None Tremor Observation of Outstretched Hands: 0= None Yawning Observation: 1= 1-2x During Session Anxiety or Irritability: 2=Irritable/Anxious Goose Flesh Skin: 0=Smooth Skin COWS Score: 9 [facility] Progress Note (SOAP) Subjective: c/o sweats, anxiety, irritability, and interrupted sleep. Objective: 01/21/19 13:19 Vital Signs 01/21/19 01/21/19 06:51 10:52 Temperature 98 F 96.1 F L Pulse Rate 61 73 Respiratory 18 16 Rate Blood Pressure 138/80 116/72 Lab Results WBC 7.4 K/mm3 (4.0-10.0) 01/18/19 12:00 RBC 4.74 M/mm3 (3.60-5.2) 01/18/19 12:00 Hgb 13.0 GM/dL (10.7-15.3) 01/18/19 12:00 Hct 40.6 % (32.4-45.2) 01/18/19 12:00 MCV 85.8 fl (80-96) 01/18/19 12:00 MCHC 32.0 g/dl (32.0-36.0) 01/18/19 12:00 RDW 14.0 % (11.6-15.6) 01/18/19 12:00 Plt Count 162 K/MM3 (134-434) 01/18/19 12:00 Sodium 143 mmol/L (136-145) 01/18/19 12:00 Potassium 3.9 mmol/L (3.5-5.1) 01/18/19 12:00 Chloride 107 mmol/L (98-107) 01/18/19 12:00 Carbon Dioxide 31 mmol/L (21-32) 01/18/19 12:00 Anion Gap 6 MMOL/L (8-16) L 01/18/19 12:00 BUN 16.6 mg/dL (7-18) 01/18/19 12:00 Creatinine 1.0 mg/dL (0.55-1.3) 01/18/19 12:00 Random Glucose 110 mg/dL (74-106) H 01/18/19 12:00 Calcium 9.0 mg/dL (8.5-10.1) 01/18/19 12:00 Labs noted. Assessment: 01/21/19 13:19 AOX3, in no acute respiratory distress Full ROM, ambulating in the unit. withdrawal symptoms. Plan: continue detox.
[2019-01-21] MEDS: MELATONIN 5 MG TABLETS PO PRN (22:35)
[2019-01-21] MEDS: THIAMINE HCL 100 MG TABLET (FP) PO SCH (22:35)
[2019-01-22] MEDS: VITAMINS A AND D TOPICAL OINTMENT 60 GM TUBE TP SCH ×3 (07:19→18:22)
[2019-01-22] MEDS: chlordiazePOXIDE HCL 10 MG CAPSULE PO SCH ×2 (07:49→17:49)
[2019-01-22] MEDS ORDERED: METHADONE HCL 10 MG TABLET (FOR DETOX USE ONLY) PO ONE (10:00)
[2019-01-22] MEDS: PRENATAL VITAMINS W/ FOLIC ACID TABLET (FP) PO SCH (10:19)
[2019-01-22] MEDS: FLUoxetine HCL 10 MG CAPSULE (FP) PO SCH (10:19)
[2019-01-22] MEDS: LOSARTAN 50MG/HCTZ 12.5MG 1 TAB (FP) PO SCH (10:20)
[2019-01-22] MEDS: ARIPiprazole 10 MG TABLET PO SCH (10:20)
[2019-01-22] MEDS: BUDESONIDE/FORMETEROL FUMARATE 160/4.5 mcg INHALER IH SCH ×2 (10:20→22:47)
[2019-01-22] MEDS: NICOTINE 21 MG/24 HOURS TOPICAL PATCH TD SCH (10:20)
--- NOTE | 2019-01-22 12:11 | PN ---
S CIWA - CIWA Score Nausea/Vomitin-No Nausea/No Vomiting Muscle Tremors: 2 Anxiety: 1-Mildly Anxious Agitation: 2 Paroxysmal Sweats: 1-Minimal Palms Moist Orientation: 0-Oriented Tacttile Disturbances: 0-None Auditory Disturbances: 0-None Visual Disturbances: 0-None Headache: 0-None Present CIWA-Ar Total Score: 6 BHS COWS - Scale Resting Pulse: 0= [place] 80 or Below Sweatin= Chills/Flushing Restless Observation: 0= Sits Still Pupil Size: 0= Normal to Room Light Bone or Joint Aches: 1= Mild Discomfort Runny Nose/ Eye Tearin= None GI Upset > 30mins: 0= None Tremor Observation of Outstretched Hands: 1= Tremor Cyrus, Not Seen Yawning Observation: 2= >3x During Session Anxiety or Irritability: 1=Feels Anxious/Irritable Goose Flesh Skin: 0=Smooth Skin COWS Score: 6 S Progress Note (SOAP) Subjective: 58 years old female admitted on 01/18/19 for acute alcohol and opiate withdrawal sx management doing with librium and methadone detox protocol feeling better less tremor mild body aches discharge tomorrow as per estimated date Objective: 01/22/19 12:09 Vital Signs Temperature 97.5 F L 01/22/19 09:28 Pulse Rate 47 L 01/22/19 09:28 Respiratory Rate 18 01/22/19 09:28 Blood Pressure 133/72 01/22/19 09:28 O2 Sat by Pulse Oximetry (%) Laboratory Last Values WBC 7.4 K/mm3 (4.0-10.0) 01/18/19 12:00 RBC 4.74 M/mm3 (3.60-5.2) 01/18/19 12:00 Hgb 13.0 GM/dL (10.7-15.3) 01/18/19 12:00 Hct 40.6 % (32.4-45.2) 01/18/19 12:00 MCV 85.8 fl (80-96) 01/18/19 12:00 MCH 27.5 pg (25.7-33.7) 01/18/19 12:00 MCHC 32.0 g/dl (32.0-36.0) 01/18/19 12:00 RDW 14.0 % (11.6-15.6) 01/18/19 12:00 Plt Count 162 K/MM3 (134-434) 01/18/19 12:00 MPV 11.2 fl (7.5-11.1) H 01/18/19 12:00 Sodium 143 mmol/L (136-145) 01/18/19 12:00 Potassium 3.9 mmol/L (3.5-5.1) 01/18/19 12:00 Chloride 107 mmol/L (98-107) 01/18/19 12:00 Carbon Dioxide 31 mmol/L (21-32) 01/18/19 12:00 Anion Gap 6 MMOL/L (8-16) L 01/18/19 12:00 BUN 16.6 mg/dL (7-18) 01/18/19 12:00 Creatinine 1.0 mg/dL (0.55-1.3) 01/18/19 12:00 Est GFR (CKD-EPI)AfAm 70.91 01/18/19 12:00 Est GFR (CKD-EPI)NonAf 61.19 01/18/19 12:00 Random Glucose 110 mg/dL (74-106) H 01/18/19 12:00 Calcium 9.0 mg/dL (8.5-10.1) 01/18/19 12:00 Total Bilirubin 0.3 mg/dL (0.2-1) 01/18/19 12:00 AST 16 U/L (15-37) 01/18/19 12:00 ALT 24 U/L (13-61) 01/18/19 12:00 Alkaline Phosphatase 104 U/L (45-117) 01/18/19 12:00 Total Protein 7.1 g/dl (6.4-8.2) 01/18/19 12:00 Albumin 3.5 g/dl (3.4-5.0) 01/18/19 12:00 Urine Color Yellow 01/21/19 12:00 Urine Appearance Clear 01/21/19 12:00 Urine pH 7.5 (5.0-8.0) 01/21/19 12:00 Ur Specific [place] 1.019 (1.010-1.035) 01/21/19 12:00 Urine Protein Negative (NEGATIVE) 01/21/19 12:00 Urine Glucose (UA) Negative (NEGATIVE) 01/21/19 12:00 Urine Ketones Negative (NEGATIVE) 01/21/19 12:00 Urine Blood Negative (NEGATIVE) 01/21/19 12:00 Urine Nitrite Negative (NEGATIVE) 01/21/19 12:00 Urine Bilirubin Negative (NEGATIVE) 01/21/19 12:00 Urine Urobilinogen 1.0 mg/dL (0.2-1.0) 01/21/19 12:00 Ur Leukocyte Esterase Negative (NEGATIVE) 01/21/19 12:00 RPR Titer Nonreactive (NONREACTIVE) 01/18/19 12:00 lab noted Assessment: 01/22/19 12:09 alchol and opiate withdrawal sx alert oriented x 3 speech clearlly Plan: continue libirum and methadone detox regimen
[2019-01-22] MEDS: THIAMINE HCL 100 MG TABLET (FP) PO SCH (22:47)
[2019-01-22] MEDS: MELATONIN 5 MG TABLETS PO PRN (22:47)
[2019-01-23] MEDS: VITAMINS A AND D TOPICAL OINTMENT 60 GM TUBE TP SCH ×2 (00:45→06:27)
[2019-01-23] MEDS ORDERED: chlordiazePOXIDE HCL 10 MG CAPSULE PO ONE (05:00)
[2019-01-23] MEDS ORDERED: METHADONE HCL 5 MG TABLET (FOR DETOX USE ONLY) PO ONE (06:00)
[2019-01-23 06:14] VITALS: BP 141/84; PULSE 60; TEMP 97.2
--- NOTE | 2019-01-23 14:01 | DS ---
[facility] Detox Discharge Summary Admission Date: 01/18/19 Discharge Date: 01/23/19 - History Present History: Alcohol Dependence, Opioid Dependence, Sedative Dependence Additional Comments: 58 years old female admitted on 01/18/19 for acute alcohol and opiate withdrawal sx management doing will with libirum and methadone detox regimen no complication through out the detox stay alert oriented x 3 denies dizziness no wheezing bilaterally no shortness of breathe, no dyspepsia, denies burning urination denies pain Pertinent Past History: hepatitis c asthma hypertension - Physical Exam Results Vital Signs: Vital Signs Temperature 97.2 F L 01/23/19 06:13 Pulse Rate 60 01/23/19 06:13 Respiratory Rate 18 01/23/19 06:13 Blood Pressure 141/84 01/23/19 06:13 O2 Sat by Pulse Oximetry (%) Pertinent Admission Physical Exam Findings: alcohol and opiate withdrawal sx Laboratory 01/18/19 01/18/19 01/18/19 12:00 12:00 12:00 WBC 7.4 K/mm3 K/mm3 (4.0-10.0) RBC 4.74 M/mm3 M/mm3 (3.60-5.2) Hgb 13.0 GM/dL GM/dL (10.7-15.3) Hct 40.6 % % (32.4-45.2) MCV 85.8 fl fl (80-96) MCH 27.5 pg pg (25.7-33.7) MCHC 32.0 g/dl g/dl (32.0-36.0) RDW 14.0 % % (11.6-15.6) Plt Count 162 K/MM3 K/MM3 (134-434) MPV 11.2 fl H fl (7.5-11.1) Sodium 143 mmol/L mmol/L (136-145) Potassium 3.9 mmol/L mmol/L (3.5-5.1) Chloride 107 mmol/L mmol/L (98-107) Carbon Dioxide 31 mmol/L mmol/L (21-32) Anion Gap 6 MMOL/L L MMOL/L (8-16) BUN 16.6 mg/dL mg/dL (7-18) Creatinine 1.0 mg/dL mg/dL (0.55-1.3) Est GFR (CKD-EPI)AfAm 70.91 Est GFR (CKD-EPI)NonAf 61.19 Random Glucose 110 mg/dL H mg/dL (74-106) Calcium 9.0 mg/dL mg/dL (8.5-10.1) Total Bilirubin 0.3 mg/dL mg/dL (0.2-1) AST 16 U/L U/L (15-37) ALT 24 U/L U/L (13-61) Alkaline Phosphatase 104 U/L U/L (45-117) Total Protein 7.1 g/dl g/dl (6.4-8.2) Albumin 3.5 g/dl g/dl (3.4-5.0) Urine Color Urine Appearance Urine pH Ur Specific [place] Urine Protein Urine Glucose (UA) Urine Ketones Urine Blood Urine Nitrite Urine Bilirubin Urine Urobilinogen Ur Leukocyte Esterase RPR Titer Nonreactive (NONREACTIVE) 01/21/19 12:00 WBC RBC Hgb Hct MCV MCH MCHC RDW Plt Count MPV Sodium Potassium Chloride Carbon Dioxide Anion Gap BUN Creatinine Est GFR (CKD-EPI)AfAm Est GFR (CKD-EPI)NonAf Random Glucose Calcium Total Bilirubin AST ALT Alkaline Phosphatase Total Protein Albumin Urine Color Yellow Urine Appearance Clear Urine pH 7.5 (5.0-8.0) Ur Specific [place] 1.019 (1.010-1.035) Urine Protein Negative (NEGATIVE) Urine Glucose (UA) Negative (NEGATIVE) Urine Ketones Negative (NEGATIVE) Urine Blood Negative (NEGATIVE) Urine Nitrite Negative (NEGATIVE) Urine Bilirubin Negative (NEGATIVE) Urine Urobilinogen 1.0 mg/dL mg/dL (0.2-1.0) Ur Leukocyte Esterase Negative (NEGATIVE) RPR Titer lab noted - Treatment Hospital Course: Detox Protocol Followed, Detoxed Safely, Responded well, Discharged Condition Good, Rehab Referral Accepted Patient has Accepted a Rehab Referral to: [facility] - Medication Discharge Medications: Ambulatory Orders Aripiprazole [Abilify -] 20 mg PO DAILY 09/05/18 Fluoxetine HCl [Prozac -] 10 mg PO DAILY 09/05/18 Furosemide [Lasix -] 20 mg PO DAILY 09/05/18 Losartan/Hydrochlorothiazide [Losartan-Hctz 100-25 mg Tab] 1 each PO DAILY 09/05 Albuterol Sulfate Inhaler - [Ventolin HFA Inhaler -] 2 puff IH Q4H PRN #1 inhaler 01/22/19 Budesonide/Formeterol Fumarate [SYMBICORT 160/4.5mcg -] 1 inh PO BID #1 inhaler 01/22/19 - Diagnosis (1) Opioid dependence with withdrawal Status: Acute (2) Nicotine dependence Status: Acute Qualifiers: Nicotine product type: cigarettes Substance use status: in withdrawal Qualified Code(s): F17.213 - Nicotine dependence, cigarettes, with withdrawal (3) Hepatitis C Status: Chronic Qualifiers: Viral hepatitis chronicity: chronic Hepatic coma status: without hepatic coma Qualified Code(s): B18.2 - Chronic viral hepatitis C (4) Alcohol dependence with uncomplicated withdrawal Status: Acute (5) Asthma Status: Chronic Qualifiers: Asthma severity: mild Asthma persistence: intermittent Asthma complication type: with status asthmaticus Qualified Code(s): J45.22 - Mild intermittent asthma with status asthmaticus - AMA Did Patient Leave Against Medical Advice: No
== END 2019-01-23 09:20 | disposition home or self-care (01) | DRG 773 ==
LOC: YASAS 10:08 → Y3N 12:06
PROVIDERS: ADMIT Surgery; ATTEND Surgery
PROC: HZ2ZZZZ Detoxification Services for Substance Abuse Treatment (ICD-10-PCS; principal; 2019-01-18)
DX: F11.23 Opioid dependence with withdrawal (principal); F10.230 Alcohol dependence with withdrawal, uncomplicated; F17.213 Nicotine dependence, cigarettes, with withdrawal; F31.9 Bipolar disorder, unspecified; I10 Essential (primary) hypertension; B18.2 Chronic viral hepatitis C; J45.22 Mild intermittent asthma with status asthmaticus; M54.5 Low back pain; G89.29 Other chronic pain; E66.9 Obesity, unspecified; Z68.38 Body mass index [BMI] 38.0-38.9, adult; Z88.0 Allergy status to penicillin
CPT/HCPCS: 36415; 80053; 81003; 85027; 86593; J0735

== ENCOUNTER 2020-01-02 13:48 | Inpatient (IN) | payer OTHER ==
[2020-01-02] MEDS ORDERED: SODIUM CHLORIDE 1,000 ML IV STA (14:35)
[2020-01-02] MEDS ORDERED: ONDANSETRON 4 MG/2 ML VIAL IVPUSH ONE (14:37)
[2020-01-02] MEDS ORDERED: MORPHINE SULFATE 2 MG/ML VIAL IVPUSH ONE (14:55)
[2020-01-02 14:58] LABS: INR 1.44 (0.83-1.09)
[2020-01-02 15:01] LABS: ACTIVATED PTT 38.9 SECONDS (25.2-36.5)
[2020-01-02 15:07] LABS: BASO % 0.6 % (0-2.0); HEMOGLOBIN 9.3 GM/dL (10.7-15.3); LYMPH % 11.6 % (8-40); MCH 26.5 pg (25.7-33.7); MEAN CELL VOLUME 85.4 fl (80-96); MONO % 5.4 % (3.8-10.2); NEUT % 82.4 % (42.8-82.8); PLATELET COUNT 381 K/MM3 (134-434); RBC 3.52 M/mm3 (3.60-5.2); RDW 17.2 % (11.6-15.6); WHITE BLOOD COUNT 16.5 K/mm3 (4.0-10.0)
[2020-01-02] MEDS ORDERED: MORPHINE SULFATE 2 MG/ML VIAL ONE (15:10)
--- NOTE | 2020-01-02 15:12 | PDOC ---
History of Present Illness - General Chief Complaint: Weakness Stated Complaint: Nausea/Vomiting Time Seen by Provider: 01/02/20 14:04 - History of Present Illness Initial Comments: 01/02/20 15:17 59 yo female with pmh of alcohol and drug disorder, HTN, COPD, and Hepatocellular carcinoma presents to the ED for nausea, vomitting, and weakness for two weeks. History was received from both pt and Dr. Abel Gallego oncologist. Pt explains she was recently diagnosed with Hepatocellular carcinoma in August at [facility]. She has been receiving immunotherapy (Atezolizumab with bidacizumab) with her last treatment on December 13. For the past two weeks she has been having chronic bloody diarrhea, decreased PO, and weakness. Today she had one episode of NBNB emesis. She called Dr. Carey through televisit who told her to come in to get admitted. Pt denies fevers, chlls, abdominal pain, chest pain, SOB, cough, skin rashes, or any urinary complaints. PMH: HTN, Hepatocellular Carcinoma (Stage 3), COPD From chart PMH: heroin and alcohol abuse Meds: Albuterol, aripiprazol, furosemide, losartan-hctz PSH: Social: quit smoking 1 month ago; denies alcohol or drug use PCP: Dr. Ella Bryant Onc: Dr. Abel Gallego Past History - Medical History Allergies/Adverse Reactions: Allergies Allergy/AdvReac Type Severity Reaction Status Date / Time Penicillins Allergy Severe Rash Verified 01/18/19 11:04 Home Medications: Ambulatory Orders Aripiprazole [Abilify -] 20 mg PO DAILY 09/05/18 Fluoxetine HCl [Prozac -] 10 mg PO DAILY 09/05/18 Furosemide [Lasix -] 20 mg PO DAILY 09/05/18 Losartan/Hydrochlorothiazide [Losartan-Hctz 100-25 mg Tab] 1 each PO DAILY 09/05/18 Albuterol Sulfate Inhaler - [Ventolin HFA Inhaler -] 2 puff IH Q4H PRN #1 inhaler 01/22/19 Budesonide/Formeterol Fumarate [SYMBICORT 160/4.5mcg -] 1 inh PO BID #1 inhaler 01/22/19 Anemia: No Asthma: Yes (on albuterol inhaler and symbicort) Cancer: No Cardiac Disorders: No CVA: No COPD: Yes CHF: No Dementia: No Diabetes: No GI Disorders: No Disorders: No HTN: Yes (on med) Hypercholesterolemia: No Kidney Stones: No Liver Disease: Yes (liver cancer) Seizures: No Thyroid Disease: No - Surgical History Abdominal Surgery: No Appendectomy: No Cardiac Surgery: No Cholecystectomy: No Lung Surgery: No Neurologic Surgery: No Orthopedic Surgery: No - Reproductive History PID: No - Immunization History Immunization Up to Date: Yes - Psycho-Social/Smoking History Smoking History: Former smoker Have you smoked in the past 12 months: Yes Number of Cigarettes Smoked Daily: 20 If you are a former smoker, when did you quit?: 1 month ago Cigars Per Day: 0 Information on smoking cessation initiated: No 'Breaking Loose' booklet given: 01/18/19 - Substance Abuse Hx (Audit-C & DAST Scrn) How often the patient has a drink containing alcohol: Never Score: In Men: 4 or > Positive; In Women: 3 or > Positive: 0 Screen Result (Pos requires Nsg. Audit-10AR): Negative In the last yr the pt used illegal drug/Rx for NonMed reason: No Score: Yes response is considered Positive: 0 Screen Result (Positive result requires Nsg. DAST-10): Negative Review of Systems - Review of Systems Comments:: 01/02/20 15:28 GENERAL/CONSTITUTIONAL: No fever or chills. Weakness. HEAD, EYES, EARS, NOSE AND THROAT: No change in vision. No ear pain or discharge. No sore throat. CARDIOVASCULAR: No chest pain or shortness of breath RESPIRATORY: No cough, wheezing, or hemoptysis. GASTROINTESTINAL: Nausea vomitting and bloody diarrhea GENITOURINARY: No dysuria, frequency, or change in urination. MUSCULOSKELETAL: No joint or muscle swelling or pain. No neck or back pain. SKIN: No rash NEUROLOGIC: No headache, vertigo, loss of consciousness ENDOCRINE: Decreased appetite for two weeks ALLERGIC/IMMUNOLOGIC: No hives or skin allergy. *Physical Exam - Vital Signs Last Vital Signs Temp Pulse Resp BP Pulse Ox 100.1 F H 95 H 18 119/66 100 01/02/20 14:00 01/02/20 14:00 01/02/20 14:00 01/02/20 14:00 01/02/20 14:00 - Physical Exam 01/02/20 15:29 GENERAL: Awake, alert, and fully oriented, in acute distress HEAD: No signs of trauma, normocephalic, atraumatic EYES: PERRLA, EOMI, sclera anicteric, conjunctiva clear ENT: Auricles normal inspection, hearing grossly normal, nares patent, oropharynx clear without exudates. Moist mucosa NECK: Normal ROM, supple, no lymphadenopathy, JVD, or masses LUNGS: No distress, speaks full sentences, clear to auscultation bilaterally HEART: Regular rate and rhythm, normal S1 and S2, no murmurs, rubs or gallops, peripheral pulses normal and equal bilaterally. ABDOMEN:Tenderness to palpation in RUQ and RLQ. EXTREMITIES : Normal inspection, Normal range of motion, no edema. No clubbing or cyanosis. NEUROLOGICAL: Cranial nerves II through XII grossly intact. Normal speech, 3/5 muscle strength in bilateral lower ext SKIN: Warm, Dry, normal turgor, no rashes or lesions noted ED Treatment Course - LABORATORY CBC & Chemistry Diagram: 01/03/20 06:32 01/03/20 06:32 - ADDITIONAL ORDERS Additional order review: Laboratory Results 01/02/20 14:00 PT with INR 17.00 H INR 1.44 H PTT (Actin FS) 38.9 H 01/02/20 15:00 RBC 3.52 L MCV 85.4 MCHC 31.0 L RDW 17.2 H MPV 10.0 D Neutrophils % 82.4 Lymphocytes % 11.6 Monocytes % 5.4 Eosinophils % 0.0 Basophils % 0.6 - RADIOLOGY Radiology Studies Ordered: Category Date Time Status ABDOMEN & PELVIS CT WITH CONTR [CT] Stat CT Scan 01/02/20 14:41 Ordered CHEST X-RAY PORTABLE* [RAD] Stat Radiology 01/02/20 14:38 Ordered - Medications Given in the ED: ED Medications Discontinued Medications Generic Name Dose Route Start Last Admin Trade Name Freq PRN Reason Stop Dose Admin Ondansetron HCl 4 mg 01/02/20 14:37 01/02/20 14:50 Zofran Injection IVPUSH 01/02/20 14:38 4 mg ONCE ONE Administration Medical Decision Making - Medical Decision Making 01/02/20 15:24 59 yo female with pmh of HCC (stage 3 on immunotherapy two weeks prior) presents with abdominal pain, n/v/d for two weeks. Will rule out neutropenic fever with CBC, CMP, CXR, blood cultures, UA, UC, CT scan of abd and pelvis with contrast. Will give fluids and pain med and admit. Talked to Dr. Carey who said she was dx with HCC on August 2019 at [facility] by imaging and biopsy. Has been receiving immunotherapy atezolizumab with bidacizumab. Pt had 2 cycles with last one December 13. Dr. Roman wants to check Hgb, dehydration status and GI evaluation. He explains sxs may be from medication Atelozumab causes colitis and bidacizumab may cause diarrhea. He also wanted us to consult Dr. Soria, which has been put in. 01/02/20 15:[address] Lantigua discussed case and he has accepted admission. He has said WEED COOKING OPERATOR Kaz will put in orders. 01/02/20 18:08 WEED COOKING OPERATOR Kaz was told about pt. Pt BP and Hgb are low. Will repeat CBC. Will put in order for 1 L NS. Discharge - Discharge Information Problems reviewed: Yes Clinical Impression/Diagnosis: Hepatocellular carcinoma, Melena Condition: Guarded - Admission Yes - Follow up/Referral - Patient Discharge Instructions - Post Discharge Activity
[2020-01-02 15:24] LABS: ALBUMIN 1.8 g/dl (3.4-5.0); ALK PHOS 292 U/L (45-117); ANION GAP 9 MMOL/L (8-16); BILIRUBIN,TOTAL 1.6 mg/dL (0.2-1); BLOOD UREA NITROGEN 41.4 mg/dL (7-18); CALCIUM 8.9 mg/dL (8.5-10.1); CHLORIDE 107 mmol/L (98-107); CO2 23 mmol/L (21-32); CREATININE 1.6 mg/dL (0.55-1.3); GLUCOSE,RANDOM 158 mg/dL (74-106); LIPASE 114 U/L (73-393); PHOSPHOROUS 3.9 mg/dL (2.5-4.9); POTASSIUM 4.6 mmol/L (3.5-5.1); SGOT/AST 201 U/L (15-37); SGPT/ALT 66 U/L (13-61); SODIUM 140 mmol/L (136-145)
--- NOTE | 2020-01-02 16:00 | PDOC ---
Attending Attestation - Resident Resident Name: Jose Black - ED Attending Attestation I have performed the following: I have examined & evaluated the patient, The case was reviewed & discussed with the resident, I agree w/resident's findings & plan - HPI HPI: 01/02/20 15:57 59y/o F h/o recently diagnosed hepatocellular ca on immunomodulators, polysubstance abuse sent by her oncologist for melena for 1-2 days and vomiting today. pt reports progressive abdominal pain, no f/c. no hematemesis, no urinary retention/complaints. no h/o GI bleed. - Physicial Exam PE: 01/02/20 15:58 low grade rectal temp 100.1, HD stable alert, chronically ill appearing, dry mucosa, no jaundice s1s2 rrr, ctab abd distended, diffusely tender with guarding neuro nonfocal - Critical Care Time Total Critical Care Time: 30 Critical Care Statement: The care of this patient involved high complexity decision making to prevent further life threatening deterioration of the patient's condition and/or to evaluate & treat vital organ system(s) failure or risk of failure. - Medical Decision Making 01/02/20 15:59 59y/o F with hepatocellular ca now with progressive abd pain, melena and vomiting. no known diagnosis of cirrhosis/portal hypertension or varices, ? progression of neoplasm verse complicating GI bleed v infection. labs, ivf ekg, cxr ctap admit 01/02/20 16:01 hgb 9 from 13 in 2019, Cr 1.6 from 1. CTAP pending, will do without contrast given VJ. admit Heart Score/ECG Review #1 ECG reviewed & interpreted by me at: 15:17 General ECG Interpretation: Sinus Rhythm, Normal Rate (87), Normal Intervals (qtc 476), No acute ischemic changes Discharge - Discharge Information Problems reviewed: Yes Clinical Impression/Diagnosis: Hepatocellular carcinoma, Melena Condition: Guarded - Follow up/Referral - Patient Discharge Instructions - Post Discharge Activity
--- NOTE | 2020-01-02 16:07 | EKG ---
Test Reason : Blood Pressure : / mmHG Vent. Rate : 087 BPM Atrial Rate : 087 BPM P-R Int : 128 ms QRS Dur : 088 ms QT Int : 396 ms P-R-T Axes : 065 057 067 degrees QTc Int : 476 ms POOR DATA QUALITY, INTERPRETATION MAY BE ADVERSELY AFFECTED NORMAL SINUS RHYTHM NORMAL ECG Confirmed by MD SALVADOR, CHEPE ([id number]) on 01/02/2020 4:07:35 PM Referred By: Confirmed By:CHEPE FRANCO MD
[2020-01-02] MEDS ORDERED: CEFEPIME HCL/D5W 1 GM/50 ML BAG IVPB ONE (16:10)
[2020-01-02] MEDS ORDERED: VANCOMYCIN 1 GM in D5W (PRE-DOCKED) 1,000 MG/250 ML IVPB ONE (16:11)
[2020-01-02] MEDS ORDERED: CEFEPIME HCL/D5W 2 GM/50 ML BAG IVPB ONE (16:25)
[2020-01-02] MEDS ORDERED: VANCOMYCIN 1 GRAM (PRE-DOCKED) 1,000 MG/250 ML BAG IVPB ONE (16:32)
[2020-01-02] MEDS ORDERED: CEFEPIME 2 GM/100 ML BAG IVPB ONE (16:33)
[2020-01-02] MEDS ORDERED: ALBUTEROL SO4 HFA INHALER IH PRN (18:28)
[2020-01-02] MEDS ORDERED: ONDANSETRON 4 MG/2 ML VIAL IVPUSH PRN (18:30)
--- NOTE | 2020-01-02 18:40 | HP ---
Admitting History and Physical - Primary Care Physician PCP: Mariza Lantigua - Admission Chief Complaint: Nausea/Vomiting/Diarrhea History of Present Illness: 59 yo female with pmh of alcohol and drug disorder, HTN, COPD, and Hepatocellular carcinoma presents to the ED for nausea, vomitting, and weakness for two weeks. History was received from both pt and Dr. Abel Gallego oncologist. Pt explains she was recently diagnosed with Hepatocellular carcinoma in August at [facility]. She has been receiving immunotherapy (Atezolizumab with bidacizumab) with her last treatment on December 13. For the past two weeks she has been having chronic bloody diarrhea, decreased PO, and weakness. Today she had one episode of NBNB emesis. She called Dr. Carey through televisit who told her to come in to get admitted. Pt denies fevers, chlls, abdominal pain, chest pain, SOB, cough, skin rashes, or any urinary complaints. History Source: Patient, Medical Record Limitations to Obtaining History: No Limitations - Past Medical History Hepatobiliary: Yes: Other (hepatocellular ca) - Smoking History Smoking history: Former smoker Have you smoked in the past 12 months: Yes Aproximately how many cigarettes per day: 20 If you are a former smoker, when did you quit?: 1 month ago - Alcohol/Substance Use Hx Alcohol Use: Yes Home Medications - Allergies Allergies/Adverse Reactions: Allergies Allergy/AdvReac Type Severity Reaction Status Date / Time Penicillins Allergy Severe Rash Verified 01/18/19 11:04 - Home Medications Home Medications: Ambulatory Orders Aripiprazole [Abilify -] 20 mg PO DAILY 09/05/18 Fluoxetine HCl [Prozac -] 10 mg PO DAILY 09/05/18 Furosemide [Lasix -] 20 mg PO DAILY 09/05/18 Losartan/Hydrochlorothiazide [Losartan-Hctz 100-25 mg Tab] 1 each PO DAILY 09/05/18 Albuterol Sulfate Inhaler - [Ventolin HFA Inhaler -] 2 puff IH Q4H PRN #1 inhaler 01/22/19 Budesonide/Formeterol Fumarate [SYMBICORT 160/4.5mcg -] 1 inh PO BID #1 inhaler 01/22/19 Review of Systems - Review of Systems Constitutional: reports: Fever, Loss of Appetite Eyes: reports: No Symptoms HENT: reports: No Symptoms Neck: reports: No Symptoms Cardiovascular: reports: No Symptoms Respiratory: reports: No Symptoms Gastrointestinal: reports: Abdominal Pain, Diarrhea, Nausea, Vomiting Genitourinary: reports: No Symptoms Breasts: reports: No Symptoms Reported Musculoskeletal: reports: No Symptoms Integumentary: reports: No Symptoms Neurological: reports: Weakness Endocrine: reports: No Symptoms Hematology/Lymphatic: reports: No Symptoms Psychiatric: reports: No Symptoms Pain Intensity: 10 Physical Examination Vital Signs: Vital Signs Temperature 100.1 F H 01/02/20 14:00 Pulse Rate 77 01/02/20 18:00 Respiratory Rate 16 01/02/20 18:00 Blood Pressure 99/58 L 01/02/20 18:00 O2 Sat by Pulse Oximetry (%) 96 01/02/20 18:20 Constitutional: Yes: Well Nourished, No Distress, Calm Cardiovascular: Yes: Regular Rate and Rhythm Respiratory: Yes: Regular, CTA Bilaterally Gastrointestinal: Yes: Soft, Abdomen, Obese, Hypoactive Bowel Sounds, Tenderness (diffuse) Renal/: Yes: WNL Musculoskeletal: Yes: Muscle Weakness Extremities: Yes: WNL Edema: No Peripheral Pulses WNL: Yes Neurological: Yes: Alert, Oriented Psychiatric: Yes: Alert, Oriented Labs: CBC, BMP 01/02/20 14:00 Problem List - Problems (1) Substance abuse Assessment/Plan: -GLOST PLACER no opiates prescribed -Urine tox + opiates + methadone Problems reviewed: Yes Code(s): F19.10 - OTHER PSYCHOACTIVE SUBSTANCE ABUSE, UNCOMPLICATED (2) VJ (acute kidney injury) Assessment/Plan: -Nephrology consult -likely dehydration -Continue IVF Problems reviewed: Yes Code(s): N17.9 - ACUTE KIDNEY FAILURE, UNSPECIFIED (3) Abdominal pain Assessment/Plan: -CTAP: metastatic liver ca, lesion on spleen, BL adrenal nodules -GI consult -Pain management -Oncology consult Problems reviewed: Yes Code(s): R10.9 - UNSPECIFIED ABDOMINAL PAIN (4) Anemia Assessment/Plan: -Low in iron% -Also, CD -monitor trend -transfuse if Hg <7.0 to avoid fluid overload -Check stool OB Problems reviewed: Yes Code(s): D64.9 - ANEMIA, UNSPECIFIED (5) Chemotherapy-induced nausea and vomiting Assessment/Plan: -Zofran PRN -Clear liquids as tolerated -Continue supportive IVF Problems reviewed: Yes Code(s): R11.2 - NAUSEA WITH VOMITING, UNSPECIFIED; T45.1X5A - ADVERSE EFFECT OF ANTINEOPLASTIC AND IMMUNOSUP DRUGS, INIT (6) Diarrhea Assessment/Plan: -Check cdiff -GI consult -Clear liquid diet -ID consult Problems reviewed: Yes Code(s): R19.7 - DIARRHEA, UNSPECIFIED (7) Hepatocellular carcinoma Assessment/Plan: -Sees Dr. Abel Gallego oncologist at [facility] -Last chemo 3 weeks ago dual immunotherapy- Atezolizumab and Bevacizumab -Oncology consult Problems reviewed: Yes Code(s): C22.0 - LIVER CELL CARCINOMA Assessment/Plan See problem list GI ppx DVT ppx
[2020-01-02 18:41] LABS: BASO % 0.2 % (0-2.0); EOS % 0.1 % (0-4.5); HEMATOCRIT 27.2 % (32.4-45.2); HEMOGLOBIN 8.4 GM/dL (10.7-15.3); LYMPH % 10.4 % (8-40); MCH 26.6 pg (25.7-33.7); MCHC 30.9 g/dl (32.0-36.0); MEAN PLT VOLUME 9.5 fl (7.5-11.1); MONO % 5.6 % (3.8-10.2); NEUT % 83.7 % (42.8-82.8); PLATELET COUNT 330 K/MM3 (134-434); RBC 3.17 M/mm3 (3.60-5.2); RDW 16.7 % (11.6-15.6); WHITE BLOOD COUNT 13.6 K/mm3 (4.0-10.0)
[2020-01-02 19:14] LABS: EPI CELLS 18 /uL (0-25.1); HYALINE CASTS 7 /uL (0-3.1); URINE APPEARANCE CLOUDY; URINE BACTERIA 545 /uL (0-1359); URINE BILIRUBIN 2+ (NEGATIVE); URINE COLOR DK YELLOW; URINE GLUCOSE (UA) NEGATIVE (NEGATIVE); URINE KETONE NEGATIVE (NEGATIVE); URINE LEUK ESTERASE TRACE (NEGATIVE); URINE NITRITE NEGATIVE (NEGATIVE); URINE PROTEIN 1+ (NEGATIVE); URINE WBC 12 /uL (0-25.8)
[2020-01-02 19:15] LABS: URINE RBC 20.2 /uL (0-23.9)
[2020-01-02 20:14] LABS: COCAINE, UR NEGATIVE ng/ml (CUTOFF=300); PHENCYCLIDINE,URINE NEGATIVE ng/ml (CUTOFF=25); URINE BARBITURATES NEGATIVE ng/ml (CUTOFF=200); URINE BENZODIAZEPINES NEGATIVE ng/ml (CUTOFF=200)
[2020-01-02 20:25] LABS: URINE AMPHETAMINES NEGATIVE ng/ml (CUTOFF=500)
[2020-01-02 20:28] LABS: OPIATES, URI POSITIVE ng/ml (CUTOFF=300)
[2020-01-02 20:29] LABS: METHADONE, UR POSITIVE ng/ml (CUTOFF=300)
[2020-01-02] MEDS: D5-NS + 20 MEQ KCL - 20 MEQ/1,000 ML INFUS.BAG IV SCH (22:50)
[2020-01-02] MEDS: BUDESONIDE/FORMETEROL FUMARATE 160/4.5 mcg INHALER IH SCH (22:51)
[2020-01-03 07:25] LABS: BASO % 0.4 % (0-2.0); EOS % 0.2 % (0-4.5); HEMATOCRIT 26.5 % (32.4-45.2); HEMOGLOBIN 8.2 GM/dL (10.7-15.3); LYMPH % 12.1 % (8-40); MCH 26.5 pg (25.7-33.7); MCHC 30.9 g/dl (32.0-36.0); MEAN CELL VOLUME 85.9 fl (80-96); MEAN PLT VOLUME 9.6 fl (7.5-11.1); MONO % 5.4 % (3.8-10.2); NEUT % 81.9 % (42.8-82.8); PLATELET COUNT 306 K/MM3 (134-434); RBC 3.09 M/mm3 (3.60-5.2); RDW 16.8 % (11.6-15.6)
[2020-01-03 07:35] VITALS: BMI 28.0
[2020-01-03 08:00] LABS: ALBUMIN 1.5 g/dl (3.4-5.0); BILIRUBIN,TOTAL 1.3 mg/dL (0.2-1); BLOOD UREA NITROGEN 26.4 mg/dL (7-18); CALCIUM 8.2 mg/dL (8.5-10.1); CREATININE 1.2 mg/dL (0.55-1.3); POTASSIUM 4.3 mmol/L (3.5-5.1); TOT PROT 6.1 g/dl (6.4-8.2)
--- NOTE | 2020-01-03 08:05 | CONSULT ---
Consult Consult Specialty:: Nephrology Reason for Consultation:: VJ - History of Present Illness Chief Complaint: weakness and diarrhea History of Present Illness: Pt is a 59 year old female with pmhx of etoh abuse, drug use, htn, copd, hepatocellular ca who presented with vomiting and diarrhea. She was treated with atezolizumab and bidacizumab with the last session being on December 13. She complains of decreased appetite and bloody diarrhea. She was found to have elevated visual merchandising coordinator and I was called to evaluate her. She feels a little better today. She denies shortness of breath. - History Source History Provided By: Patient - Past Medical History Cardio/Vascular: Yes: HTN - Alcohol/Substance Use Hx Alcohol Use: Yes - Smoking History Smoking history: Former smoker Have you smoked in the past 12 months: Yes Aproximately how many cigarettes per day: 20 If you are a former smoker, when did you quit?: 1 month ago Home Medications - Allergies Allergies/Adverse Reactions: Allergies Allergy/AdvReac Type Severity Reaction Status Date / Time Penicillins Allergy Severe Rash Verified 01/18/19 11:04 - Home Medications Home Medications: Ambulatory Orders Aripiprazole [Abilify -] 20 mg PO DAILY 09/05/18 Fluoxetine HCl [Prozac -] 10 mg PO DAILY 09/05/18 Furosemide [Lasix -] 20 mg PO DAILY 09/05/18 Losartan/Hydrochlorothiazide [Losartan-Hctz 100-25 mg Tab] 1 each PO DAILY 09/05/18 Albuterol Sulfate Inhaler - [Ventolin HFA Inhaler -] 2 puff IH Q4H PRN #1 inhaler 01/22/19 Budesonide/Formeterol Fumarate [SYMBICORT 160/4.5mcg -] 1 inh PO BID #1 inhaler 01/22/19 Family Medical History Family History: Denies Review of Systems - Review of Systems Constitutional: reports: Malaise, Weakness Eyes: reports: No Symptoms HENT: reports: No Symptoms Neck: reports: No Symptoms Cardiovascular: reports: No Symptoms Respiratory: reports: No Symptoms Gastrointestinal: reports: Abdominal Pain, Diarrhea, Vomiting Genitourinary: reports: No Symptoms Musculoskeletal: reports: No Symptoms Integumentary: reports: No Symptoms Neurological: reports: No Symptoms Endocrine: reports: No Symptoms Hematology/Lymphatic: reports: No Symptoms Psychiatric: reports: No Symptoms Physical Exam Vital Signs: Vital Signs Temperature 97.8 F 01/03/20 06:00 Pulse Rate 63 01/03/20 06:00 Respiratory Rate 18 01/03/20 06:00 Blood Pressure 119/67 01/03/20 06:00 O2 Sat by Pulse Oximetry (%) 97 01/03/20 06:00 Constitutional: Yes: Calm Eyes: Yes: Conjunctiva Clear HENT: Yes: Atraumatic Cardiovascular: Yes: S1, S2 Respiratory: Yes: CTA Bilaterally Gastrointestinal: Yes: Soft, Distention, Tenderness Renal/: Yes: WNL Musculoskeletal: Yes: WNL Neurological: Yes: Oriented Labs: CBC, BMP 01/03/20 06:32 01/03/20 06:32 Imaging - Results Cat Scan: Report Reviewed Assessment/Plan Current Medications Generic Name Dose Route Start Last Admin Trade Name Freq PRN Reason Stop Dose Admin Albuterol Sulfate 2 puff 01/02/20 18:28 Ventolin Hfa Inhaler - IH Q4H PRN SHORT OF BREATH/WHEEZING Aripiprazole 20 mg 01/03/20 10:00 Abilify PO DAILY [facility]IS[facility] Budesonide/Formoterol Fumarate 1 puff 01/02/20 22:00 01/02/20 22:51 Symbicort 160/4.5mcg - IH 1 puff BID LISSET[facility] Administration Fluoxetine HCl 10 mg 01/03/20 10:00 Prozac - PO DAILY LISSET[facility] Dextrose/Sodium Chloride 20 meq in 1,000 mls @ 75 mls/hr 01/02/20 18:45 01/02/20 22:50 Dextrose 5%-Normal Saline+20 Meq Kcl - IV 75 mls/hr ASDIR LISSET[facility] Administration Morphine Sulfate 2 mg 01/02/20 18:32 Morphine Sulfate IVPUSH Q4H PRN PAIN LEVEL 6-10 Ondansetron HCl 4 mg 01/02/20 18:30 Zofran Injection IVPUSH Q6H PRN NAUSEA AND/OR VOMITING Pantoprazole Sodium 40 mg 01/03/20 10:00 Protonix Iv IVPUSH DAILY [facility] Laboratory Tests 09/06/18 01/18/19 01/02/20 07:30 12:00 14:00 WBC Hgb Sodium Potassium Creatinine 0.9 1.0 1.6 H 07/21/20 07/22/20 07/22/20 18:00 06:32 06:32 WBC 13.6 H 13.0 H Hgb 8.2 L Sodium 141 Potassium 4.3 Creatinine 1.2 Impression 1. vj 2. dehydration 3. hepatocellular ca 4. depression Plan - visual merchandising coordinator improving - cont fluids - repeat labs in am - likely vj from pre-renal disease - oncology follow up - avoid nsaids
--- NOTE | 2020-01-03 09:55 | PN ---
Progress Note, Physician Chief Complaint: Nausea Vomiting Diarrhea History of Present Illness: NAD feels a little better decreased appetite c/o abd pain diarrhea this AM Symptoms ongoing for over a month now Pt is on chronic methadone dosage of 85 mg po daily- confirmed by [place] sushma easley. Pt is not on any other opiates. QUALITATIVE EXECUTIVE RESEARCHER negative. Pt denies using any other opiates. Pt's urine was collected after morphine was given to the pt in the ER- might have caused + results in Urine tox - Current Medication List Current Medications: Active Medications Albuterol Sulfate (Ventolin Hfa Inhaler -) 2 puff IH Q4H PRN PRN Reason: SHORT OF BREATH/WHEEZING Aripiprazole (Abilify) 20 mg PO DAILY [facility] Budesonide/Formoterol Fumarate (Symbicort 160/4.5mcg -) 1 puff IH BID [facility] Last Admin: 01/02/20 22:51 Dose: 1 puff Documented by: Fluoxetine HCl (Prozac -) 10 mg PO DAILY [facility] Dextrose/Sodium Chloride (Dextrose 5%-Normal Saline+20 Meq Kcl -) 20 meq in 1,000 mls @ 75 mls/hr IV ASDIR [facility] Last Admin: 01/02/20 22:50 Dose: 75 mls/hr Documented by: Morphine Sulfate (Morphine Sulfate) 2 mg IVPUSH Q4H PRN PRN Reason: PAIN LEVEL 6-10 Ondansetron HCl (Zofran Injection) 4 mg IVPUSH Q6H PRN PRN Reason: NAUSEA AND/OR VOMITING Pantoprazole Sodium (Protonix Iv) 40 mg IVPUSH DAILY [facility] - Objective Vital Signs: Vital Signs Temperature 97.8 F 01/03/20 06:00 Pulse Rate 63 01/03/20 06:00 Respiratory Rate 18 01/03/20 06:00 Blood Pressure 119/67 01/03/20 06:00 O2 Sat by Pulse Oximetry (%) 97 01/03/20 06:00 Constitutional: Yes: Well Nourished, No Distress, Calm Cardiovascular: Yes: Regular Rate and Rhythm Respiratory: Yes: Regular, CTA Bilaterally Gastrointestinal: Yes: Hypoactive Bowel Sounds, Tenderness (RUQ,RLQ) Genitourinary: Yes: WNL Musculoskeletal: Yes: WNL Labs: CBC, BMP 01/03/20 06:32 01/03/20 06:32 INR, PTT INR 1.44 (0.83-1.09) H 01/02/20 14:00 Problem List - Problems (1) Abdominal pain Assessment/Plan: -CTAP: metastatic liver ca, lesion on spleen, BL adrenal nodules -GI consult -Pain management -Oncology consult Problems reviewed: Yes Code(s): R10.9 - UNSPECIFIED ABDOMINAL PAIN (2) Chemotherapy-induced nausea and vomiting Assessment/Plan: -Zofran PRN -Clear liquids as tolerated -Continue supportive IVF Problems reviewed: Yes Code(s): R11.2 - NAUSEA WITH VOMITING, UNSPECIFIED; T45.1X5A - ADVERSE EFFECT OF ANTINEOPLASTIC AND IMMUNOSUP DRUGS, INIT (3) Diarrhea Assessment/Plan: -Check cdiff -GI consult -Clear liquid diet -ID consult Problems reviewed: Yes Code(s): R19.7 - DIARRHEA, UNSPECIFIED (4) Hepatocellular carcinoma Assessment/Plan: -Sees Dr. Abel Gallego oncologist at [facility] -Last chemo 3 weeks ago dual immunotherapy- Atezolizumab and Bevacizumab -Oncology consult Problems reviewed: Yes Code(s): C22.0 - LIVER CELL CARCINOMA (5) Anemia Assessment/Plan: -Low in iron% -Also, CD -monitor trend -transfuse if Hg <7.0 to avoid fluid overload -Check stool OB Problems reviewed: Yes Code(s): D64.9 - ANEMIA, UNSPECIFIED (6) VJ (acute kidney injury) Assessment/Plan: -Nephrology consult -likely dehydration -Continue IVF Problems reviewed: Yes Code(s): N17.9 - ACUTE KIDNEY FAILURE, UNSPECIFIED (7) Opiate abuse, episodic Assessment/Plan: -Urine + for opiated + methadone -QUALITATIVE EXECUTIVE RESEARCHER registry negative -Detox consult Problems reviewed: Yes Code(s): F11.10 - OPIOID ABUSE, UNCOMPLICATED Assessment/Plan See problem list
[2020-01-03] MEDS ORDERED: ARIPiprazole 20 MG TABLET PO SCH (10:00)
[2020-01-03] MEDS ORDERED: PT OWN MED DRAWER 7, Y5N ONE ×2 (10:10→12:22)
[2020-01-03] MEDS: PANTOPRAZOLE SODIUM 40 MG VIAL IVPUSH SCH (10:34)
[2020-01-03] MEDS: BUDESONIDE/FORMETEROL FUMARATE 160/4.5 mcg INHALER IH SCH ×2 (10:34→21:18)
--- NOTE | 2020-01-03 10:56 | PN ---
Progress Note (short form) - Note Progress Note: ID consult dictated imp/reccd 59 yo female with HCC-no history of liver cirrhosis- on atezolizumab and bevacizumab- admitted with two weeks of diarrhea- occasionally some blood- since last cheom was given vomiting times one yesterday +RUQ pain no fevers at home no cough or sob denies sick contacts denies travel boyfriend lives with her stopped smoking 3 months ago treated hep c, etoh/heroin in the past ct scan with multiple liver lesions, pleen lesion and adrenal lesion, no colitis noted received vanco/cefepime in the ED denies recent antiibotics as outpt diarrhea HCC on immunotherapy vj secondary to dehydration abdominal pain secondary to HCC supect diarrhea may be complication of her chemo would f/u cultures and stool studies (ordered) renal function improved with hydration observe off antibiotics for now Problem List - Problems (1) Diarrhea Code(s): R19.7 - DIARRHEA, UNSPECIFIED (2) Hepatocellular carcinoma Code(s): C22.0 - LIVER CELL CARCINOMA (3) VJ (acute kidney injury) Code(s): N17.9 - ACUTE KIDNEY FAILURE, UNSPECIFIED (4) Abdominal pain Code(s): R10.9 - UNSPECIFIED ABDOMINAL PAIN
[2020-01-03] MEDS: MORPHINE SULFATE 2 MG/ML VIAL IVPUSH PRN (10:58)
--- NOTE | 2020-01-03 11:42 | CON.GI ---
Consult Consult Specialty:: Gastroenterology Referred by:: Darnell Del Rio NP Reason for Consultation:: nausea and vomiting - History of Present Illness Chief Complaint: nausea and vomiting that she relates to her chemotherapy History of Present Illness: 59F tells me that she was diagnosed with hepatocellular carcinoma 3 months ago [address] y Dr Abel Gallego at [facility] who has been administering chemotherapy. This has caused such severe N/V that she has been unable to eat. She denies hematemesis or melena. She had a colonoscopy in 06/[address] Jarrell which revealed diverticulosis. He also treated her for HCV. A Fibroscan in 2016 did reveal F1- F2 fibrosis. She is a recovering alcoholic and multisubstance abuse. She snorted cocaine but denies IVDA - History Source History Provided By: Patient Limitations to Obtaining History: Poor Historian - Past Medical History Cardio/Vascular: Yes: HTN, Hyperlipdemia Pulmonary: Yes: COPD Hepatobiliary: Yes: Hepatitis C (genotype 1A was cured by Dr Jarrell), Other (Hepatocellular carcinoma) Heme/Onc: Yes: Cancer (hepatocellular carcinoma dx'ed [address] Abel Gallego at [facility] who has been administering chemotherapy) Psych: Yes: Bipolar, Other (recoveing multisubstance abuser) - Past Surgical History Past Surgical History: Yes: Additional Surgical History: right ear cyst surgery - Alcohol/Substance Use Hx Alcohol Use: Yes (recovering alcoholic) History of Substance Use: reports: Cocaine, Marijuana, Prescription (opiates) - Smoking History Smoking history: Former smoker Have you smoked in the past 12 months: Yes Aproximately how many cigarettes per day: 20 If you are a former smoker, when did you quit?: 1 month ago - Social History Usual Living Arrangement: Alone ADL: Independent 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 [employer] Place of : [facility] History of Recent Travel: No Home Medications - Allergies Allergies/Adverse Reactions: Allergies Allergy/AdvReac Type Severity Reaction Status Date / Time Penicillins Allergy Severe Rash Verified 01/18/19 11:04 - Home Medications Home Medications: Ambulatory Orders Aripiprazole [Abilify -] 20 mg PO DAILY 09/05/18 Fluoxetine HCl [Prozac -] 10 mg PO DAILY 09/05/18 Furosemide [Lasix -] 20 mg PO DAILY 09/05/18 Losartan/Hydrochlorothiazide [Losartan-Hctz 100-25 mg Tab] 1 each PO DAILY 09/05/18 Albuterol Sulfate Inhaler - [Ventolin HFA Inhaler -] 2 puff IH Q4H PRN #1 inhaler 01/22/19 Budesonide/Formeterol Fumarate [SYMBICORT 160/4.5mcg -] 1 inh PO BID #1 inhaler 01/22/19 Family Medical History Family History: Unremarkable (was adopted) Family Hx Cancer: Mother (had lung xcancer) Review of Systems - Review of Systems Constitutional: reports: Loss of Appetite, Unintentional Wgt. Loss, Weakness Eyes: reports: No Symptoms HENT: reports: No Symptoms Neck: reports: No Symptoms Cardiovascular: reports: No Symptoms Respiratory: reports: No Symptoms Gastrointestinal: reports: Abdominal Pain, Nausea, Vomiting Musculoskeletal: reports: Muscle Pain Physical Exam-GI Vital Signs: Vital Signs Temperature 98 F 01/03/20 10:04 Pulse Rate 93 H 01/03/20 10:04 Respiratory Rate 20 01/03/20 10:04 Blood Pressure 104/64 01/03/20 10:04 O2 Sat by Pulse Oximetry (%) 95 01/03/20 10:04 CBC,CMP WBC 13.0 K/mm3 (4.0-10.0) H 01/03/20 06:32 RBC 3.09 M/mm3 (3.60-5.2) L 01/03/20 06:32 Hgb 8.2 GM/dL (10.7-15.3) L 01/03/20 06:32 Hct 26.5 % (32.4-45.2) L 01/03/20 06:32 MCV 85.9 fl (80-96) 01/03/20 06:32 MCH 26.5 pg (25.7-33.7) 01/03/20 06:32 MCHC 30.9 g/dl (32.0-36.0) L 01/03/20 06:32 RDW 16.8 % (11.6-15.6) H 01/03/20 06:32 Plt Count 306 K/MM3 (134-434) 01/03/20 06:32 MPV 9.6 fl (7.5-11.1) 01/03/20 06:32 Absolute Neuts (auto) 10.7 K/mm3 (1.5-8.0) H 01/03/20 06:32 Neutrophils % 81.9 % (42.8-82.8) 01/03/20 06:32 Lymphocytes % 12.1 % (8-40) 01/03/20 06:32 Monocytes % 5.4 % (3.8-10.2) 01/03/20 06:32 Eosinophils % 0.2 % (0-4.5) D 01/03/20 06:32 Basophils % 0.4 % (0-2.0) 01/03/20 06:32 Nucleated RBC % 0 % (0-0) 01/03/20 06:32 Sodium 141 mmol/L (136-145) 01/03/20 06:32 Potassium 4.3 mmol/L (3.5-5.1) 01/03/20 06:32 Chloride 110 mmol/L (98-107) H 01/03/20 06:32 Carbon Dioxide 25 mmol/L (21-32) 01/03/20 06:32 Anion Gap 6 MMOL/L (8-16) L 01/03/20 06:32 BUN 26.4 mg/dL (7-18) H 01/03/20 06:32 Creatinine 1.2 mg/dL (0.55-1.3) 01/03/20 06:32 Est GFR (CKD-EPI)AfAm 56.49 01/03/20 06:32 Est GFR (CKD-EPI)NonAf 48.74 01/03/20 06:32 Random Glucose 162 mg/dL (74-106) H 01/03/20 06:32 Hemoglobin A1c % 5.5 % (4.2-6.3) 01/03/20 06:32 Lactic Acid 1.2 mmol/L (0.4-2.0) 01/02/20 14:00 Calcium 8.2 mg/dL (8.5-10.1) L 01/03/20 06:32 Phosphorus 3.9 mg/dL (2.5-4.9) 01/02/20 14:00 Magnesium 2.0 mg/dL (1.8-2.4) 01/02/20 14:00 Iron 21 ug/dL (50-175) L 01/03/20 06:32 TIBC 223 ug/dL (250-450) L 01/03/20 06:32 Iron Saturation 9 % (17.5-39) L 01/03/20 06:32 Unsaturated IBC 202 ug/dL (200-275) 01/03/20 06:32 Ferritin 1721.1 ng/ml (8-388) H 01/03/20 06:32 Total Bilirubin 1.3 mg/dL (0.2-1) H 01/03/20 06:32 AST 136 U/L (15-37) H 01/03/20 06:32 ALT 52 U/L (13-61) 01/03/20 06:32 Alkaline Phosphatase 240 U/L (45-117) H 01/03/20 06:32 Creatine Kinase 105 U/L (26-192) 01/02/20 14:00 Troponin I < 0.02 ng/ml (0.00-0.05) 01/02/20 14:00 Total Protein 6.1 g/dl (6.4-8.2) L 01/03/20 06:32 Albumin 1.5 g/dl (3.4-5.0) L 01/03/20 06:32 Lipase 114 U/L (73-393) 01/02/20 14:00 Vitamin B12 840 pg/ml (193-986) 01/03/20 06:32 Current Medications Generic Name Dose Route Start Last Admin Trade Name Freq PRN Reason Stop Dose Admin Albuterol Sulfate 2 puff 01/02/20 18:28 Ventolin Hfa Inhaler - IH Q4H PRN SHORT OF BREATH/WHEEZING Aripiprazole 20 mg 01/03/20 10:00 Abilify PO DAILY LISSETH Budesonide/Formoterol Fumarate 1 puff 01/02/20 22:00 01/03/20 10:34 Symbicort 160/4.5mcg - IH 1 puff BID LISSETH Administration Fluoxetine HCl 10 mg 01/03/20 10:00 Prozac - PO DAILY LISSETH Dextrose/Sodium Chloride 20 meq in 1,000 mls @ 75 mls/hr 01/02/20 18:45 01/02/20 22:50 Dextrose 5%-Normal Saline+20 Meq Kcl - IV 75 mls/hr ASDIR LISSETH Administration Morphine Sulfate 2 mg 01/02/20 18:32 01/03/20 10:58 Morphine Sulfate IVPUSH 2 mg Q4H PRN Administration PAIN LEVEL 6-10 Ondansetron HCl 4 mg 01/02/20 18:30 Zofran Injection IVPUSH Q6H PRN NAUSEA AND/OR VOMITING Pantoprazole Sodium 40 mg 01/03/20 10:00 01/03/20 10:34 Protonix Iv IVPUSH 40 mg DAILY LISSETH Administration Constitutional: Yes: Calm Eyes: Yes: Conjunctiva Clear HENT: Yes: Atraumatic Neck: Yes: Trachea Midline Cardiovascular: Yes: Regular Rate and Rhythm Respiratory: Yes: Rhonchi Gastrointestinal Inspection: Yes: Distention, Scars (healed Pfannensteil incision) ...Auscultate: Yes: Hypoactive Bowel Sounds ...Palpate: Yes: Soft, Tenderness (over palpable irregular liver surface) ...Rectal Exam: Yes: Guaiac Negative (brown guaiac negative stool) Labs: CBC, BMP 01/03/20 06:32 01/03/20 06:32 INR, PTT INR 1.44 (0.83-1.09) H 01/02/20 14:00 Laboratory Tests 04/17/19 01/02/20 01/03/20 10:30 15:00 06:32 Iron 21 L TIBC 223 L Iron Saturation 9 L Unsaturated IBC 202 Ferritin 1721.1 H COVID-19 (ARIANNA) Not detected HCV Quantitation Hcv not detected HCV RNA log copies/mL TNP Imaging - Results Cat Scan: Report Reviewed ( Final Report CT ABDOMEN & PELVIS CT W/O CONT R Show Printer-Friendly Version Patient Name: Nia Jacinto : 1960 ID: [id number] Study Date: 02-Jan-2020 17:29 Ana Jimenes Name: NIA JACINTO DEPARTMENT OF RADIOLOGY Phys: Jose Black RES EM : 1960 Age: 59 Sex: F [facility] Acct: [id number] Loc: [address] Exam Date: 01/02/20 Status: [place] [address] Unit Number: [id number] EXAM#: TYPE/EXAM: RESULT: [id number] CT/ABDOMEN PELVIS CT W/O CONTR Abdomen and pelvis CT (without contrast) Clinical information: right abdominal pain Multiplanar imaging was performed. No intravenous or enteric contrast was administered. In comparison to a prior CT study of 08/12/2012 interval development of multiple solid hepatic mass lesions is noted within the left and right lobes with resultant capsular bulging and hepatomegaly. The most prominent hepatic lesion measures approximate 5.4 cm in diameter. Note is also made of interval development of a 1.1 cm solid lesion within the spleen inferiorly. As on the prior study the spleen appears borderline in overall size. Possible development of a 2 cm bilateral adrenal soft tissue nodules is noted. Evaluation in those regions is somewhat difficult the current exam due to a paucity of retroperitoneal fat and lack of intravenous contrast. No evidence of pneumoperitoneum, ascites or bowel obstruction. There is no CT evidence of acute appendicitis or diverticulitis. No gross noncontrast small bowel abnormality is identified. The gallbladder, pancreas, and kidneys demonstrate no discrete noncontrast pathology. There is no aortic aneurysm. No definite lymphadenopathy is identified on the basis of size criteria. The pelvic soft tissue structures and urinary bladder demonstrate no obvious noncontrast abnormality. The osseous structures demonstrate no obvious acute pathology or neoplastic disease. Impression: In comparison to a 2013 CT exam interval development of multiple hepatic lesions is noted suggestive of metastatic neoplastic disease. There is resultant development of hepatomegaly. Interval development of a 1.1 cm solid splenic lesion is seen also suggestive of metastatic neoplastic disease. Possible bilateral adrenal nodules are noted. Reported By: Dhruv Sellers MD 01/02/201804 Technologist: Segundo Castano Transcribed Date/Time: 01/02/201804 Die Storage Clerk: Dhruv Sellers Printed Date/Time: By: Signed by: Dhruv Sellers Signed on: 02-Jan-2020 18:06) Problem List - Problems (1) Chemotherapy-induced nausea and vomiting Code(s): R11.2 - NAUSEA WITH VOMITING, UNSPECIFIED; T45.1X5A - ADVERSE EFFECT OF ANTINEOPLASTIC AND IMMUNOSUP DRUGS, INIT (2) COPD (chronic obstructive pulmonary disease) Code(s): J44.9 - CHRONIC OBSTRUCTIVE PULMONARY DISEASE, UNSPECIFIED (3) Abdominal pain Code(s): R10.9 - UNSPECIFIED ABDOMINAL PAIN (4) Hepatocellular carcinoma Code(s): C22.0 - LIVER CELL CARCINOMA (5) Alcohol dependence with uncomplicated withdrawal Code(s): F10.230 - ALCOHOL DEPENDENCE WITH WITHDRAWAL, UNCOMPLICATED (6) Opioid dependence with withdrawal Code(s): F11.23 - OPIOID DEPENDENCE WITH WITHDRAWAL (7) Substance-induced anxiety disorder Code(s): F19.980 - OTH PSYCHOACTIVE SUBSTANCE USE, UNSP W ANXIETY DISORDER (8) Bipolar disorder Code(s): F31.9 - BIPOLAR DISORDER, UNSPECIFIED (9) Cannabis abuse Code(s): F12.10 - CANNABIS ABUSE, UNCOMPLICATED (10) Hepatitis C Code(s): B19.20 - UNSPECIFIED VIRAL HEPATITIS C WITHOUT HEPATIC COMA Qualifiers: Viral hepatitis chronicity: chronic Hepatic coma status: without hepatic coma Qualified Code(s): B18.2 - Chronic viral hepatitis C Assessment/Plan Impression: - Chemotherapy associated N/V. Unfortunatelyu she cannot name her chemorx agents. She denies a past h/o ulcer or GERD. Improving with Ondansetron and wants diet to be advanced - Hepatocellular carcinoma - H/O Multiple substance abuse Plan: - Trial of full liquids then advance as tolerated - She informs me that Dr Gallego will see her here on - Continue Ondansetron and PPI
[2020-01-03] MEDS: FLUoxetine HCL 10 MG CAPSULE PO SCH (12:31)
--- NOTE | 2020-01-03 12:48 | CONS ---
INFECTIOUS DISEASE CONSULTATION DATE OF CONSULTATION: DATE OF DICTATION: 01/03/2020 HISTORY: This sis a 59-year-old woman. She has a history of hepatocellular carcinoma followed by Dr. Gallego, her oncologist. She is on immunotherapy, last given about early December which was her second treatment, reports she was diagnosed about 3 months. She reports since the second treatment she has had diarrhea up to 4 or 5 times a day, sometimes with some blood. She had 1 episode of vomiting yesterday. She denies any fevers or chills, any respiratory symptoms or dysuria. She reports right upper quadrant pain. She has no sick contacts and there is no history of any travel. She denies substance use history to me, though looking in the computer she has had a history of heroin and alcohol dependence in the past. She has a history of treated hepatitis C. She was last in rehab at [facility] in 2019. She apparently smokes cigarettes as well. PAST MEDICAL HISTORY: Notable for asthma. She has a history of hypertension. She was HIV tested and negative in 2018; a history of treated hepatitis C, depression. Her PPD status in 2019 was negative. SURGICAL HISTORY: Notable for and a cyst removed from her right ear at age 7. FAMILY HISTORY: Notable for a mother with a history of alcohol use. ALLERGIES: She is allergic to PENICILLIN, which apparently she got a rash in the past. MEDICATIONS: As an outpatient include losartan/hydrochlorothiazide, Prozac, Symbicort, Abilify, Ventolin and Lasix. REVIEW OF SYSTEMS: Notable for the fact that she reports she has had no further vomiting since admission and overnight she has had 1 stool that was apparently mixed with urine, nonbloody. PHYSICAL EXAMINATION: Vital Signs: She is afebrile. Temperature is 98. T-max was 100.1. Pulse of 93, blood pressure 104/64, respiratory rate is 20. She is saturating 95% on room air. General: She is an ill-appearing woman in no acute distress. HEENT: She is normocephalic. She has no thrush. Neck: Supple. Lungs: Clear to auscultation. Heart: Regular rate and rhythm. Abdomen: Protuberant. She has a palpable liver edge right upper quadrant that is very tender to touch. The rest of her abdominal exam is benign. Extremities: Without edema. LABORATORIES: Notable for a white count of 16.5 on admission, today is 13. Hemoglobin is 8.2. Her hemoglobin in January 2019 was 13. Her platelets are 306. INR is 1.4. BUN on admission was 41 and creatinine 1.6; with hydration are now 26 and 1.2. AST 136, alkaline phosphatase of 240, albumin is 1.5. Urinalysis is notable for 12 white cells. Her urine toxicology is notable for opiates and methadone and her COVID-19 is negative. She had recent hepatitis C serology done in April 2019, that shows viral load was not detected. Blood cultures and urine cultures are pending. She had a chest x-ray that is unremarkable. No acute chest pathology. She had a CAT scan of her abdomen and pelvis notable for development of multiple hepatic lesions suggestive of metastatic disease. There is hepatomegaly. There is a 1.1 cm solid splenic lesion and possibly bilateral adrenal nodules. There is no evidence of appendicitis or diverticulitis. In summary, this is a 59-year-old woman admitted with diarrhea on chemotherapy for her hepatitis C. I suspect this is a complication of her immunotherapy. Her treatment has included atezolizumab and bevacizumab. This is a complication of both including the bloody diarrhea. She denies a history of liver cirrhosis. CAT scan shows no evidence of colitis. Suggest we follow up her cultures and stool studies which I have ordered. Renal function appears improved with hydration. Will follow up blood cultures as well. Would observe off antibiotics for now. ROGER GARCIA M.D. [id number]
--- NOTE | 2020-01-03 12:56 | CONSULT ---
Consultation: REQUESTING PROVIDER: Dr. Link CONSULT REQUEST: We have been asked to medically evaluate this patient for adverse reaction to immunotherapy. HISTORY OF PRESENT ILLNESS: Pt. is a 59 y.o. F w/ PMHx. of HTN, Asthma, GERS and Hepatocellular Carcinoma( 2/2 HCV-cured in 2019, HCC diagnosed 3 months ago at [facility] currently on dual immunotherapy- Atezolizumab and Bevacizumab per chart review). Pt. states that she is in exquisite pain and states just talking makes it worse. P. endorses having a dark red bowel movement around 1 weeks ago and states that blood bowel movements are intermittent. Pt. unable to provide focused answers because of pain. Pt. states she has had poor appetite for over 2 months but has had nausea and vomiting for the last 2 weeks. Pt. denies any blood in the emesis. Pt. states she has had subjective intermittent fevers but is unable to state when the last fever was. Per discussion with RN Pt. had 1 BM over night that was brown and soft. Pt. has significant smoking history smoked 1-2 PPD for an unspecified amount of time. Pt. has EtOH and Drug abuse history inhaling heroin and Marijuana, unclear when last use was but UTox performed here was positive for only methadone and opiates (prescription per chart documentation). Pt. endorses rash and shortness of breath as reaction to penicillin. Pt. had CT A/P w/o contrast in ED that did not show any acute findings. It showed hepatomegaly, multiple hepatic masses, bilateral adrenal nodules and 1 solid nodule in the spleen. REVIEW OF SYSTEMS: As above PHYSICAL EXAMINATION Vital Signs - 24 hr 01/02/20 01/02/20 01/02/20 14:00 14:31 15:00 Temperature 100.1 F H Pulse Rate 95 H 92 H Pulse Rate [ 88 Apical] Respiratory 18 12 12 Rate Blood Pressure 119/66 115/78 Blood Pressure 115/78 [Left Arm] O2 Sat by Pulse 100 96 98 Oximetry (%) 01/02/20 01/02/20 01/02/20 16:00 17:00 18:00 Temperature Pulse Rate Pulse Rate [ 84 81 77 Apical] Respiratory 14 18 16 Rate Blood Pressure Blood Pressure 115/68 106/66 99/58 L [Left Arm] O2 Sat by Pulse 98 96 96 Oximetry (%) 01/02/20 01/02/20 01/02/20 18:20 19:30 21:00 Temperature 97.2 F L Pulse Rate 81 Pulse Rate [ 81 Apical] Respiratory 13 16 Rate Blood Pressure Blood Pressure 113/69 [Left Arm] O2 Sat by Pulse 96 95 96 Oximetry (%) 01/02/20 01/03/20 01/03/20 23:27 06:00 10:04 Temperature 97.9 F 97.8 F 98 F Pulse Rate 83 63 93 H Pulse Rate [ Apical] Respiratory 16 18 20 Rate Blood Pressure 116/60 119/67 104/64 Blood Pressure [Left Arm] O2 Sat by Pulse 96 97 95 Oximetry (%) GENERAL: Awake, alert, and fully oriented, in acute distress 2/2 pain. HEAD: Normal with no signs of trauma. EYES: Sclera anicteric, conjunctiva clear. EARS, NOSE, THROAT: Ears normal, nares patent, Moist mucous membranes. LUNGS: Breath sounds equal, clear to auscultation bilaterally anteriorly. No wheezes, and no crackles. No accessory muscle use. HEART: Regular rate and rhythm, normal S1 and S2 without murmur, rub or gallop. ABDOMEN: Diffuse abdominal tenderness most prominent in the RUQ where Pt. guards. Hepatomegaly. BS+, soft but protuberant. UPPER EXTREMITIES: warm, well-perfused. No peripheral edema. LOWER EXTREMITIES: 2+ dorsal pedal pulses, warm, well-perfused. No calf tenderness. No peripheral edema. NEUROLOGICAL: Lethargic PSYCHIATRIC: Minimally cooperative. SKIN: Warm, dry, normal turgor Laboratory Results - last 24 hr 01/02/20 01/02/20 01/02/20 14:00 14:00 14:00 WBC RBC Hgb Hct MCV MCH MCHC RDW Plt Count MPV Absolute Neuts (auto) Neutrophils % Lymphocytes % Monocytes % Eosinophils % Basophils % Nucleated RBC % PT with INR 17.00 H INR 1.44 H PTT (Actin FS) 38.9 H Sodium 140 Potassium 4.6 Chloride 107 Carbon Dioxide 23 Anion Gap 9 BUN 41.4 H Creatinine 1.6 H Est GFR (CKD-EPI)AfAm 39.89 Est GFR (CKD-EPI)NonAf 34.42 Random Glucose 158 H Hemoglobin A1c % Lactic Acid 1.2 Calcium 8.9 Phosphorus 3.9 Magnesium 2.0 Iron TIBC Iron Saturation Unsaturated IBC Ferritin Total Bilirubin 1.6 H AST 201 H ALT 66 H Alkaline Phosphatase 292 H Creatine Kinase 105 Troponin I < 0.02 Total Protein 7.0 Albumin 1.8 L Lipase 114 Vitamin B12 Urine Color Urine Appearance Urine pH Ur Specific Eugene Urine Protein Urine Glucose (UA) Urine Ketones Urine Blood Urine Nitrite Urine Bilirubin Urine Urobilinogen Ur Leukocyte Esterase Urine WBC (Auto) Urine RBC (Auto) Urine Casts (Auto) U Pathogenic Cast Auto U Epithel Cells (Auto) Urine Bacteria (Auto) Opiates Screen Methadone Screen Barbiturate Screen Phencyclidine Screen Ur Amphetamines Screen MDMA (Ecstasy) Screen Benzodiazepines Screen Cocaine Screen U Marijuana (THC) Screen COVID-19 (ARIANNA) Blood Type Antibody Screen 01/02/20 01/02/20 01/02/20 14:00 15:00 15:00 WBC 16.5 H RBC 3.52 L Hgb 9.3 L Hct 30.0 L D MCV 85.4 MCH 26.5 MCHC 31.0 L RDW 17.2 H Plt Count 381 D MPV 10.0 D Absolute Neuts (auto) 13.6 H Neutrophils % 82.4 Lymphocytes % 11.6 Monocytes % 5.4 Eosinophils % 0.0 Basophils % 0.6 Nucleated RBC % 0 PT with INR INR PTT (Actin FS) Sodium Potassium Chloride Carbon Dioxide Anion Gap BUN Creatinine Est GFR (CKD-EPI)AfAm Est GFR (CKD-EPI)NonAf Random Glucose Hemoglobin A1c % Lactic Acid Calcium Phosphorus Magnesium Iron TIBC Iron Saturation Unsaturated IBC Ferritin Total Bilirubin AST ALT Alkaline Phosphatase Creatine Kinase Troponin I Total Protein Albumin Lipase Vitamin B12 Urine Color Urine Appearance Urine pH Ur Specific Eugene Urine Protein Urine Glucose (UA) Urine Ketones Urine Blood Urine Nitrite Urine Bilirubin Urine Urobilinogen Ur Leukocyte Esterase Urine WBC (Auto) Urine RBC (Auto) Urine Casts (Auto) U Pathogenic Cast Auto U Epithel Cells (Auto) Urine Bacteria (Auto) Opiates Screen Methadone Screen Barbiturate Screen Phencyclidine Screen Ur Amphetamines Screen MDMA (Ecstasy) Screen Benzodiazepines Screen Cocaine Screen U Marijuana (THC) Screen COVID-19 (ARIANNA) Not detected Blood Type O POSITIVE Antibody Screen Negative 01/02/20 01/02/20 01/02/20 18:00 18:00 18:00 WBC 13.6 H RBC 3.17 L Hgb 8.4 L Hct 27.2 L MCV 86.0 MCH 26.6 MCHC 30.9 L RDW 16.7 H Plt Count 330 MPV 9.5 Absolute Neuts (auto) 11.3 H Neutrophils % 83.7 H Lymphocytes % 10.4 Monocytes % 5.6 Eosinophils % 0.1 D Basophils % 0.2 Nucleated RBC % 0 PT with INR INR PTT (Actin FS) Sodium Potassium Chloride Carbon Dioxide Anion Gap BUN Creatinine Est GFR (CKD-EPI)AfAm Est GFR (CKD-EPI)NonAf Random Glucose Hemoglobin A1c % Lactic Acid Calcium Phosphorus Magnesium Iron TIBC Iron Saturation Unsaturated IBC Ferritin Total Bilirubin AST ALT Alkaline Phosphatase Creatine Kinase Troponin I Total Protein Albumin Lipase Vitamin B12 Urine Color Dk yellow Urine Appearance Cloudy Urine pH 5.0 D Ur Specific Eugene 1.019 Urine Protein 1+ H Urine Glucose (UA) Negative Urine Ketones Negative Urine Blood 1+ H Urine Nitrite Negative Urine Bilirubin 2+ H Urine Urobilinogen 1.0 Ur Leukocyte Esterase Trace Urine WBC (Auto) 12 Urine RBC (Auto) 20.2 Urine Casts (Auto) 7 U Pathogenic Cast Auto None U Epithel Cells (Auto) 18 Urine Bacteria (Auto) 545 Opiates Screen Positive A* Methadone Screen Positive A* Barbiturate Screen Negative Phencyclidine Screen Negative Ur Amphetamines Screen Negative MDMA (Ecstasy) Screen Negative Benzodiazepines Screen Negative Cocaine Screen Negative U Marijuana (THC) Screen Negative COVID-19 (ARIANNA) Blood Type Antibody Screen 01/03/20 01/03/20 01/03/20 06:32 06:32 06:32 WBC 13.0 H RBC 3.09 L Hgb 8.2 L Hct 26.5 L MCV 85.9 MCH 26.5 MCHC 30.9 L RDW 16.8 H Plt Count 306 MPV 9.6 Absolute Neuts (auto) 10.7 H Neutrophils % 81.9 Lymphocytes % 12.1 Monocytes % 5.4 Eosinophils % 0.2 D Basophils % 0.4 Nucleated RBC % 0 PT with INR INR PTT (Actin FS) Sodium 141 Potassium 4.3 Chloride 110 H Carbon Dioxide 25 Anion Gap 6 L BUN 26.4 H Creatinine 1.2 Est GFR (CKD-EPI)AfAm 56.49 Est GFR (CKD-EPI)NonAf 48.74 Random Glucose 162 H Hemoglobin A1c % Lactic Acid Calcium 8.2 L Phosphorus Magnesium Iron 21 L TIBC 223 L Iron Saturation 9 L Unsaturated IBC 202 Ferritin 1721.1 H Total Bilirubin 1.3 H AST 136 H ALT 52 Alkaline Phosphatase 240 H Creatine Kinase Troponin I Total Protein 6.1 L Albumin 1.5 L Lipase Vitamin B12 840 Urine Color Urine Appearance Urine pH Ur Specific Eugene Urine Protein Urine Glucose (UA) Urine Ketones Urine Blood Urine Nitrite Urine Bilirubin Urine Urobilinogen Ur Leukocyte Esterase Urine WBC (Auto) Urine RBC (Auto) Urine Casts (Auto) U Pathogenic Cast Auto U Epithel Cells (Auto) Urine Bacteria (Auto) Opiates Screen Methadone Screen Barbiturate Screen Phencyclidine Screen Ur Amphetamines Screen MDMA (Ecstasy) Screen Benzodiazepines Screen Cocaine Screen U Marijuana (THC) Screen COVID-19 (ARIANNA) Blood Type Antibody Screen 01/03/20 06:32 WBC RBC Hgb Hct MCV MCH MCHC RDW Plt Count MPV Absolute Neuts (auto) Neutrophils % Lymphocytes % Monocytes % Eosinophils % Basophils % Nucleated RBC % PT with INR INR PTT (Actin FS) Sodium Potassium Chloride Carbon Dioxide Anion Gap BUN Creatinine Est GFR (CKD-EPI)AfAm Est GFR (CKD-EPI)NonAf Random Glucose Hemoglobin A1c % 5.5 Lactic Acid Calcium Phosphorus Magnesium Iron TIBC Iron Saturation Unsaturated IBC Ferritin Total Bilirubin AST ALT Alkaline Phosphatase Creatine Kinase Troponin I Total Protein Albumin Lipase Vitamin B12 Urine Color Urine Appearance Urine pH Ur Specific Eugene Urine Protein Urine Glucose (UA) Urine Ketones Urine Blood Urine Nitrite Urine Bilirubin Urine Urobilinogen Ur Leukocyte Esterase Urine WBC (Auto) Urine RBC (Auto) Urine Casts (Auto) U Pathogenic Cast Auto U Epithel Cells (Auto) Urine Bacteria (Auto) Opiates Screen Methadone Screen Barbiturate Screen Phencyclidine Screen Ur Amphetamines Screen MDMA (Ecstasy) Screen Benzodiazepines Screen Cocaine Screen U Marijuana (THC) Screen COVID-19 (ARIANNA) Blood Type Antibody Screen Active Medications Generic Name Dose Route Start Last Admin Trade Name Freq PRN Reason Stop Dose Admin Albuterol Sulfate 2 puff 01/02/20 18:28 Ventolin Hfa Inhaler - IH Q4H PRN SHORT OF BREATH/WHEEZING Aripiprazole 20 mg 01/03/20 10:00 01/03/20 12:31 Abilify PO 20 mg DAILY LISSETH Administration Budesonide/Formoterol Fumarate 1 puff 01/02/20 22:00 01/03/20 10:34 Symbicort 160/4.5mcg - IH 1 puff BID LISSETH Administration Fluoxetine HCl 10 mg 01/03/20 10:00 01/03/20 12:31 Prozac - PO 10 mg DAILY LISSETH Administration Dextrose/Sodium Chloride 20 meq in 1,000 mls @ 75 mls/hr 01/02/20 18:45 01/02/20 22:50 Dextrose 5%-Normal Saline+20 Meq Kcl - IV 75 mls/hr ASDIR LISSETH Administration Morphine Sulfate 2 mg 01/02/20 18:32 01/03/20 10:58 Morphine Sulfate IVPUSH 2 mg Q4H PRN Administration PAIN LEVEL 6-10 Ondansetron HCl 4 mg 01/02/20 18:30 Zofran Injection IVPUSH Q6H PRN NAUSEA AND/OR VOMITING Pantoprazole Sodium 40 mg 01/03/20 10:00 01/03/20 10:34 Protonix Iv IVPUSH 40 mg DAILY LISSETH Administration ASSESSMENT/PLAN: Pt. is a 59 y.o. F w/ PMHx. of HTN, Asthma, GERS and Hepatocellular Carcinoma( 2/2 HCV-cured in 2019, HCC diagnosed 3 months ago at [facility] currently on dual immunotherapy- Atezolizumab and Bevacizumab per chart review). #Abdominal Pain w/ Hx. of HCC on immunotherapy CT A/P noted, pain may be related to liver capsule stretch from masses. CT performed did not have contrast but did not show any free air or evidence of colitis Pt. describes bloody bowel movements there fore will empirically cover with Ceftriaxone and Flagyl and request GI consult. Pt. reportedly on Bevacizumab which is known to cause intestinal perforation and GI bleeds, will f/u with Dr. Gallego about alternative agents if this is deemed the cause of the abdominal pain. NPO c/w PPI and Zofran IVF Pt. has decreasing HgB, would benefit from IV iron once infective etiology is ruled out. F/u BCx. Trend CBC for WBcs and hemoglobin, Trend CMP to follow LFTs and Bilirubin (ALL currently down trending). Normal transfusion threshold Dispo: We will continue to follow the patient. Thank you for this consultative opportunity. Visit type - Emergency Visit Emergency Visit: Yes ED Registration Date: 01/02/20 Care time: The patient presented to the Emergency Department on the above date and was hospitalized for further evaluation of their emergent condition. - New Patient This patient is new to me today: Yes Date on this admission: 01/03/20 - Critical Care Critical Care patient: No ATTENDING PHYSICIAN STATEMENT I saw and evaluated the patient. I reviewed the resident's note and discussed the case with the resident. I agree with the resident's findings and plan as documented. SUBJECTIVE: OBJECTIVE: ASSESSMENT AND PLAN:
[2020-01-03] MEDS ORDERED: cefTRIAXone SODIUM 1 GM VIAL ONE (13:34)
[2020-01-03] MEDS ORDERED: DEXTROSE 5%-WATER - 50 ML IVPB ONE (13:34)
[2020-01-03] MEDS: D5-NS + 20 MEQ KCL - 20 MEQ/1,000 ML INFUS.BAG IV SCH ×2 (13:42→21:14)
[2020-01-03] MEDS: CEFTRIAXONE 1 GM in DEXTROSE 5%-WATER - 50 ML IVPB SCH (13:43)
--- NOTE | 2020-01-03 15:34 | CONSULT ---
- Consultation REQUESTING PROVIDER: Fidelina Horan MD CONSULT REQUEST: We have been asked to surgically evaluate this patient for abdominal pain, PCP:Mariza Lantigua HISTORY OF PRESENT ILLNESS:JUAN LUISP who is a 59 y/o A/A/F recently (3 months ago) diagnosed w/hepatocellular ca on immunomodulators; she has a h/o polysubstance abuse; she was sent by her oncologist at [facility] for melena for 1-2 days and vomiting today. Patient c/o progressive abdominal pain,she has NOC. PMHx: bipolar disorder/HTN/COPD PSHx: C-S only Home Medications Medication Instructions Recorded Aripiprazole [Abilify -] 20 mg PO DAILY 09/05/18 Fluoxetine HCl [Prozac -] 10 mg PO DAILY 09/05/18 Furosemide [Lasix -] 20 mg PO DAILY 09/05/18 Losartan/Hydrochlorothiazide 1 each PO DAILY 09/05/18 [Losartan-Hctz 100-25 mg Tab] Albuterol Sulfate Inhaler - 2 puff IH Q4H PRN #1 inhaler 01/22/19 [Ventolin HFA Inhaler -] Budesonide/Formeterol Fumarate 1 inh PO BID #1 inhaler 01/22/19 [SYMBICORT 160/4.5mcg -] Allergies Allergy/AdvReac Type Severity Reaction Status Date / Time Penicillins Allergy Severe Rash Verified 01/18/19 11:04 REVIEW OF SYSTEMS: CONSTITUTIONAL: Present: fever, chills, diaphoresis, generalized weakness, malaise, loss of appetite, weight change CARDIOVASCULAR: Absent: chest pain, syncope, palpitations, irregular heart rate, lightheadedness, peripheral edema RESPIRATORY: Present: cough, shortness of breath, dyspnea with exertion, wheezing, stridor, Absent: hemoptysis GASTROINTESTINAL: Present: abdominal pain, abdominal distension, nausea, vomiting, diarrhea, , melena, GENITOURINARY: Absent: dysuria, frequency, urgency, hesitancy, hematuria, flank pain, genital pain MUSCULOSKELETAL: Absent: myalgia, arthralgia, joint swelling, back pain, neck pain SKIN: Absent: rash, itching, pallor HEMATOLOGIC/IMMUNOLOGIC: Absent: easy bleeding, easy bruising, lymphadenopathy NEUROLOGIC: Absent: headache, focal weakness, paresthesias, dizziness, unsteady gait, seizure, mental status changes, bladder or bowel incontinence PSYCHIATRIC: Absent: anxiety, depression, suicidal or homicidal ideation, hallucinations. PHYSICAL EXAM: GENERAL: Awake, alert, and fully oriented, in slight acute distress. HEAD: Normal with no signs of trauma. EYES: sclera anicteric, conjunctiva clear. NECK: Normal ROM, supple without lymphadenopathy, JVD, or masses. ABDOMEN: Soft, tender w/hepatomegaly, not distended, normoactive bowel sounds, guarding, no rebound, no masses. No organomegaly. No evidence of an acute surgical abdomen. MUSCULOSKELETAL: Normal ROM at all joints. No bony deformities or tenderness. No CVA tenderness. UPPER EXTREMITIES: 2+ pulses, warm, well-perfused. No cyanosis. Cap refill <2 seconds. No peripheral edema. LOWER EXTREMITIES: 2+ pulses, warm, well-perfused. No calf tenderness. No peripheral edema. NEUROLOGICAL: Normal speech, gait not observed. PSYCH: Cooperative. Poor eye contact. Inappropriate mood and affect. SKIN: Warm, dry, normal turgor, no rashes or lesions noted. Vital Signs Temperature 98 F 01/03/20 10:04 Pulse Rate 93 H 01/03/20 10:04 Respiratory Rate 20 01/03/20 10:04 Blood Pressure 104/64 01/03/20 10:04 O2 Sat by Pulse Oximetry (%) 95 01/03/20 10:15 Lab Results WBC 13.0 K/mm3 (4.0-10.0) H 01/03/20 06:32 RBC 3.09 M/mm3 (3.60-5.2) L 01/03/20 06:32 Hgb 8.2 GM/dL (10.7-15.3) L 01/03/20 06:32 Hct 26.5 % (32.4-45.2) L 01/03/20 06:32 MCV 85.9 fl (80-96) 01/03/20 06:32 MCHC 30.9 g/dl (32.0-36.0) L 01/03/20 06:32 RDW 16.8 % (11.6-15.6) H 01/03/20 06:32 Plt Count 306 K/MM3 (134-434) 01/03/20 06:32 INR 1.44 (0.83-1.09) H 01/02/20 14:00 Sodium 141 mmol/L (136-145) 01/03/20 06:32 Potassium 4.3 mmol/L (3.5-5.1) 01/03/20 06:32 Chloride 110 mmol/L (98-107) H 01/03/20 06:32 Carbon Dioxide 25 mmol/L (21-32) 01/03/20 06:32 Anion Gap 6 MMOL/L (8-16) L 01/03/20 06:32 BUN 26.4 mg/dL (7-18) H 01/03/20 06:32 Creatinine 1.2 mg/dL (0.55-1.3) 01/03/20 06:32 Random Glucose 162 mg/dL (74-106) H 01/03/20 06:32 Calcium 8.2 mg/dL (8.5-10.1) L 01/03/20 06:32 Blood Type O POSITIVE 01/02/20 14:00 Antibody Screen Negative 01/02/20 14:00 CT scan a/p reviwed images and reports IMP: abdominal pain; metastatic hepatocellular carcinoma; no evidence of an acute surgical abdomen. PLAN: Medical management; I have nothing to contribute from a General Surgery point of view; main most likely from mass effect of liver lesions and hepatic capsular distention; assure adequate pain control. Jovanny Gary MD FACS
[2020-01-03] MEDS: ENOXAPARIN NA (PORCINE) 40 MG/0.4 ML DISP.SYRIN SQ SCH (17:31)
--- NOTE | 2020-01-03 18:58 | PN ---
Teaching Attending Note Name of Resident: Migel Edward ATTENDING PHYSICIAN STATEMENT I saw and evaluated the patient. I reviewed the resident's note and discussed the case with the resident. I agree with the resident's findings and plan as documented. ASSESSMENT AND PLAN: 59 y.o. F w/ PMHx. of HTN, Asthma, GERD and Hepatocellular Carcinoma( 2/2 HCV- cured in 2019, HCC diagnosed 3 months ago at [facility] currently on- Atezolizumab and Bevacizumab ). PAtient comes in with one episode of bloody diarrhea Multiple hepatic lesions, 1.1cm splenic lesion , b/l adrenal nodules on CT scan On exam hepatomegaly/RUQ tenderness Disease burden and pain control On rocephin/flagyl while awaiting cultures Pain control Monitor for further episodes of bleeding/ clinical course
[2020-01-03] MEDS ORDERED: FERRIC CARBOXYMALTOSE 750 MG in SODIUM CHLORIDE 250 ML IVPB ONE (19:52)
[2020-01-04] MEDS: D5-NS + 20 MEQ KCL - 20 MEQ/1,000 ML INFUS.BAG IV SCH ×2 (04:05→20:09)
[2020-01-04 07:31] LABS: BASO % 0.5 % (0-2.0); EOS % 0.1 % (0-4.5); HEMATOCRIT 26.4 % (32.4-45.2); HEMOGLOBIN 8.2 GM/dL (10.7-15.3); LYMPH % 10.7 % (8-40); MCH 26.6 pg (25.7-33.7); MEAN CELL VOLUME 85.6 fl (80-96); MEAN PLT VOLUME 9.9 fl (7.5-11.1); MONO % 4.2 % (3.8-10.2); NEUT % 84.5 % (42.8-82.8); PLATELET COUNT 267 K/MM3 (134-434); RBC 3.08 M/mm3 (3.60-5.2); RDW 16.7 % (11.6-15.6); WHITE BLOOD COUNT 12.2 K/mm3 (4.0-10.0)
[2020-01-04 07:59] LABS: ALBUMIN 1.4 g/dl (3.4-5.0); BLOOD UREA NITROGEN 14.5 mg/dL (7-18); CALCIUM 7.8 mg/dL (8.5-10.1); POTASSIUM 4.4 mmol/L (3.5-5.1); TOT PROT 5.9 g/dl (6.4-8.2)
[2020-01-04] MEDS ORDERED: PT OWN MED DRAWER 7, Y5N ONE (09:08)
[2020-01-04] MEDS: ARIPiprazole 10 MG TABLET PO SCH (09:15)
[2020-01-04] MEDS: IRON POLYSACCHARIDES 150 MG CAPSULE PO SCH (09:16)
[2020-01-04] MEDS: FLUoxetine HCL 10 MG CAPSULE PO SCH (09:16)
[2020-01-04] MEDS: PANTOPRAZOLE SODIUM 40 MG VIAL IVPUSH SCH (09:17)
[2020-01-04] MEDS: BUDESONIDE/FORMETEROL FUMARATE 160/4.5 mcg INHALER IH SCH ×2 (09:17→21:24)
[2020-01-04] MEDS: ENOXAPARIN NA (PORCINE) 40 MG/0.4 ML DISP.SYRIN SQ SCH (09:19)
[2020-01-04] MEDS ORDERED: DEXTROSE 5%-WATER - 50 ML IVPB ONE (10:27)
[2020-01-04] MEDS ORDERED: cefTRIAXone SODIUM 1 GM VIAL ONE (10:27)
--- NOTE | 2020-01-04 10:27 | PN ---
Progress Note, Physician Chief Complaint: Nausea Vomiting Diarrhea History of Present Illness: NAD feels a little better decreased appetite c/o abd pain diarrhea this AM Symptoms ongoing for over a month now Pt is on chronic methadone dosage of 85 mg po daily- confirmed by [facility] sushma [facility]. Pt is not on any other opiates. [employer] negative. Pt denies using any other opiates. Pt's urine was collected after morphine was given to the pt in the ER- might have caused + results in Urine tox UC + UTI Cdiff pending - Current Medication List Current Medications: Active Medications Albuterol Sulfate (Ventolin Hfa Inhaler -) 2 puff IH Q4H PRN PRN Reason: SHORT OF BREATH/WHEEZING Aripiprazole (Abilify) 20 mg PO DAILY [facility] Last Admin: 01/04/20 09:15 Dose: 20 mg Documented by: Budesonide/Formoterol Fumarate (Symbicort 160/4.5mcg -) 1 puff IH BID [facility] Last Admin: 01/04/20 09:17 Dose: 1 puff Documented by: Enoxaparin Sodium (Lovenox -) 40 mg SQ DAILY [facility] Last Admin: 01/04/20 09:19 Dose: 40 mg Documented by: Fluoxetine HCl (Prozac -) 10 mg PO DAILY [facility] Last Admin: 01/04/20 09:16 Dose: 10 mg Documented by: Dextrose/Sodium Chloride (Dextrose 5%-Normal Saline+20 Meq Kcl -) 20 meq in 1,000 mls @ 75 mls/hr IV ASDIR [facility] Last Admin: 01/04/20 04:05 Dose: 75 mls/hr Documented by: Metronidazole (Flagyl 500mg Premixed Ivpb -) 500 mg in 100 mls @ 100 mls/hr IVP B Q8H-IV LISSETH Last Admin: 01/04/20 09:16 Dose: 100 mls/hr Documented by: Ceftriaxone Sodium 1 gm/ (Dextrose) 50 mls @ 200 mls/hr IVPB DAILY [facility]; Protocol Last Admin: 01/03/20 13:43 Dose: 200 mls/hr Documented by: Morphine Sulfate (Morphine Sulfate) 2 mg IVPUSH Q4H PRN PRN Reason: PAIN LEVEL 6-10 Last Admin: 01/03/20 10:58 Dose: 2 mg Documented by: Ondansetron HCl (Zofran Injection) 4 mg IVPUSH Q6H PRN PRN Reason: NAUSEA AND/OR VOMITING Pantoprazole Sodium (Protonix Iv) 40 mg IVPUSH DAILY [facility] Last Admin: 01/04/20 09:17 Dose: 40 mg Documented by: Polysaccharide Iron Complex (Niferex-150 -) 150 mg PO DAILY [facility] Last Admin: 01/04/20 09:16 Dose: 150 mg Documented by: - Objective Vital Signs: Vital Signs Temperature 98.0 F 01/04/20 05:49 Pulse Rate 100 H 01/04/20 05:49 Respiratory Rate 18 01/04/20 05:49 Blood Pressure 118/62 01/04/20 05:49 O2 Sat by Pulse Oximetry (%) 94 L 01/04/20 05:49 Constitutional: Yes: Well Nourished, No Distress, Calm Cardiovascular: Yes: Regular Rate and Rhythm Respiratory: Yes: Regular, CTA Bilaterally Gastrointestinal: Yes: Abdomen, Obese, Hypoactive Bowel Sounds, Tenderness (diffuse) Genitourinary: Yes: Incontinence Musculoskeletal: Yes: Muscle Weakness Extremities: Yes: WNL Edema: No Peripheral Pulses WNL: Yes Neurological: Yes: Alert, Oriented Psychiatric: Yes: Alert, Oriented Labs: CBC, BMP 01/04/20 06:20 01/04/20 06:20 INR, PTT INR 1.44 (0.83-1.09) H 01/02/20 14:00 Problem List - Problems (1) Substance abuse Assessment/Plan: -Continue methadone 85 mg po daily-confirmed with [facility] -Opiates + due to morphine being given to pt before urine tox was collected Problems reviewed: Yes Code(s): F19.10 - OTHER PSYCHOACTIVE SUBSTANCE ABUSE, UNCOMPLICATED (2) VJ (acute kidney injury) Assessment/Plan: -Nephrology consult -likely dehydration -Continue IVF Problems reviewed: Yes Code(s): N17.9 - ACUTE KIDNEY FAILURE, UNSPECIFIED (3) Abdominal pain Assessment/Plan: -CTAP: metastatic liver ca, lesion on spleen, BL adrenal nodules -GI consult -Pain management -Oncology consult Problems reviewed: Yes Code(s): R10.9 - UNSPECIFIED ABDOMINAL PAIN (4) Anemia Assessment/Plan: -Low in iron% -Also, CD -monitor trend -transfuse if Hg <7.0 to avoid fluid overload -Check stool OB Problems reviewed: Yes Code(s): D64.9 - ANEMIA, UNSPECIFIED (5) Chemotherapy-induced nausea and vomiting Assessment/Plan: -Zofran PRN -Clear liquids as tolerated -Continue supportive IVF Problems reviewed: Yes Code(s): R11.2 - NAUSEA WITH VOMITING, UNSPECIFIED; T45.1X5A - ADVERSE EFFECT OF ANTINEOPLASTIC AND IMMUNOSUP DRUGS, INIT (6) Diarrhea Assessment/Plan: -Check cdiff -GI consult -Continue Full liquid diet -ID consult Problems reviewed: Yes Code(s): R19.7 - DIARRHEA, UNSPECIFIED (7) Hepatocellular carcinoma Assessment/Plan: -Sees Dr. Abel Gallego oncologist at [facility] -Last chemo 3 weeks ago dual immunotherapy- Atezolizumab and Bevacizumab -Oncology consult Problems reviewed: Yes Code(s): C22.0 - LIVER CELL CARCINOMA (8) UTI (urinary tract infection) Assessment/Plan: -UC- Microbiology 01/02/20 18:00 Urine Culture - Preliminary Urine - Urine Clean Catch Lactose Fermenting Neg Bacilli 01/02/20 15:15 Blood Culture - Preliminary Blood - Peripheral Venous NO GROWTH OBTAINED AFTER 24 HOURS, INCUBATION TO CONTINUE FOR 4 DAYS. 01/02/20 15:15 Blood Culture - Preliminary Blood - Peripheral Venous NO GROWTH OBTAINED AFTER 24 HOURS, INCUBATION TO CONTINUE FOR 4 DAYS. -IV abx -ID consult -Afebrile Problems reviewed: Yes Code(s): N39.0 - URINARY TRACT INFECTION, SITE NOT SPECIFIED Assessment/Plan See problem list
[2020-01-04] MEDS: CEFTRIAXONE 1 GM in DEXTROSE 5%-WATER - 50 ML IVPB SCH (10:31)
--- NOTE | 2020-01-04 10:37 | PN ---
Physical Exam: SUBJECTIVE: Patient seen and examined. Pt. states pain has not improved. Pt. again states that breathing makes her pain worse. Pt. pointing to ?RLQ and stating that where the pain is. OBJECTIVE: Vital Signs Period Temp Pulse Resp BP Sys/Del Rosario Pulse Ox Last 24 Hr 98.0 F-98.5 F 88-100 16-20 103-126/60-73 93-95 GENERAL: Awake, alert, and fully oriented, in acute distress 2/2 pain. HEAD: Normal with no signs of trauma. EYES: Sclera anicteric, conjunctiva clear. EARS, NOSE, THROAT: Ears normal, nares patent, Moist mucous membranes. LUNGS: Breath sounds equal, clear to auscultation bilaterally anteriorly. No wheezes, and no crackles. No accessory muscle use. HEART: Regular rate and rhythm, normal S1 and S2 without murmur, rub or gallop. ABDOMEN: Diffuse abdominal tenderness most prominent in the RUQ where Pt. guards. Hepatomegaly. BS+, soft but protuberant. UPPER EXTREMITIES: warm, well-perfused. No peripheral edema. LOWER EXTREMITIES: 2+ dorsal pedal pulses, warm, well-perfused. No calf tenderness. No peripheral edema. NEUROLOGICAL: Lethargic PSYCHIATRIC: Minimally cooperative. SKIN: Warm, dry, normal turgor Laboratory Results - last 24 hr 01/04/20 01/04/20 01/04/20 06:20 06:20 06:20 WBC 12.2 H RBC 3.08 L Hgb 8.2 L Hct 26.4 L MCV 85.6 MCH 26.6 MCHC 31.0 L RDW 16.7 H Plt Count 267 MPV 9.9 Absolute Neuts (auto) 10.3 H Neutrophils % 84.5 H Lymphocytes % 10.7 Monocytes % 4.2 Eosinophils % 0.1 Basophils % 0.5 Nucleated RBC % 0 Retic Count 3.79 H Sodium 143 Potassium 4.4 Chloride 113 H Carbon Dioxide 22 Anion Gap 8 BUN 14.5 Creatinine 1.0 Est GFR (CKD-EPI)AfAm 70.42 Est GFR (CKD-EPI)NonAf 60.76 Random Glucose 167 H Calcium 7.8 L Total Bilirubin 1.0 AST 85 H ALT 44 Alkaline Phosphatase 230 H Total Protein 5.9 L Albumin 1.4 L Active Medications Generic Name Dose Route Start Last Admin Trade Name Freq PRN Reason Stop Dose Admin Albuterol Sulfate 2 puff 01/02/20 18:28 Ventolin Hfa Inhaler - IH Q4H PRN SHORT OF BREATH/WHEEZING Aripiprazole 20 mg 01/04/20 07:17 01/04/20 09:15 Abilify PO 20 mg DAILY LISSETH Administration Budesonide/Formoterol Fumarate 1 puff 01/02/20 22:00 01/04/20 09:17 Symbicort 160/4.5mcg - IH 1 puff BID LISSETH Administration Enoxaparin Sodium 40 mg 01/03/20 16:30 01/04/20 09:19 Lovenox - SQ 40 mg DAILY LISSET[facility] Administration Fluoxetine HCl 10 mg 01/03/20 10:00 01/04/20 09:16 Prozac - PO 10 mg DAILY LISSETH Administration Dextrose/Sodium Chloride 20 meq in 1,000 mls @ 75 mls/hr 01/02/20 18:45 01/04/20 04:05 Dextrose 5%-Normal Saline+20 Meq Kcl - IV 75 mls/hr ASDIR LIS[facility] Administration Metronidazole 500 mg in 100 mls @ 100 mls/hr 01/03/20 13:00 01/04/20 09:16 Flagyl 500mg Premixed Ivpb - IVPB 100 mls/hr Q8H-IV LISSETH Administration Ceftriaxone Sodium 1 gm/ 50 mls @ 200 mls/hr 01/03/20 13:00 01/04/20 10:31 Dextrose IVPB 200 mls/hr DAILY LISSETH Administration Protocol Morphine Sulfate 2 mg 01/02/20 18:32 01/03/20 10:58 Morphine Sulfate IVPUSH 2 mg Q4H PRN Administration PAIN LEVEL 6-10 Ondansetron HCl 4 mg 01/02/20 18:30 Zofran Injection IVPUSH Q6H PRN NAUSEA AND/OR VOMITING Pantoprazole Sodium 40 mg 01/03/20 10:00 01/04/20 09:17 Protonix Iv IVPUSH 40 mg DAILY LISSETH Administration Polysaccharide Iron Complex 150 mg 01/04/20 10:00 01/04/20 09:16 Niferex-150 - PO 150 mg DAILY LISSETH Administration ASSESSMENT/PLAN: Pt. is a 59 y.o. F w/ PMHx. of HTN, Asthma, GERS and Hepatocellular Carcinoma (2/2 HCV-cured in 2019, HCC diagnosed 3 months ago at [facility] currently on dual immunotherapy- Atezolizumab and Bevacizumab per chart review). #Abdominal Pain w/ Hx. of HCC on immunotherapy CT A/P noted, pain may be related to liver capsule stretch from masses. CT performed did not have contrast but did not show any free air or evidence of colitis Pt. describes bloody bowel movements therefore will empirically cover with Ceftriaxone and Flagyl and request GI consult. Pt. reportedly on Bevacizumab which is known to cause intestinal perforation and GI bleeds, will f/u with Dr. Gallego about alternative agents if this is deemed the cause of the abdominal pain. f/u AFP, Stool O&P, C.Diff, ANCA, Smooth Muscle Abs. and Hepatitis panel Diet advanced per GI Surgery consult appreciated: no intervention at this time and Surgery is contraindicated for 1 month after receiving Bevacizumab. c/w PPI and Zofran IVF Pt. has decreasing HgB, would benefit from IV iron once infective etiology is ruled out. F/u BCx. Trend CBC for WBcs and hemoglobin, Trend CMP to follow LFTs and Bilirubin (ALL currently down trending). Normal transfusion threshold will start Decadron 4mg Q12H - to decrease inflammation in hepatic capsule(low suspicion for infection at this time) f/u NH3 level Visit type - Emergency Visit Emergency Visit: Yes ED Registration Date: 01/02/20 Care time: The patient presented to the Emergency Department on the above date and was hospitalized for further evaluation of their emergent condition. - New Patient This patient is new to me today: No - Critical Care Critical Care patient: No - Discharge Referral Referred to [facility] Med P.C[facility] No ATTENDING PHYSICIAN STATEMENT I saw and evaluated the patient. I reviewed the resident's note and discussed the case with the resident. I agree with the resident's findings and plan as documented. SUBJECTIVE: OBJECTIVE: ASSESSMENT AND PLAN:
[2020-01-04] MEDS ORDERED: METHADONE HCL 10 MG TABLET PO SCH (10:45)
[2020-01-04] MEDS ORDERED: METHADONE HCL 40 MG DISPERSABLE TABLET ONE (12:43)
[2020-01-04] MEDS ORDERED: METHADONE HCL 5 MG TABLET ONE (12:43)
[2020-01-04] MEDS: METHADONE 80 MG, METHADONE 5 MG PO SCH (12:46)
--- NOTE | 2020-01-04 13:47 | PN ---
Progress Note (short form) - Note Progress Note: no stool studies sent GI and surgery notes reviewed- continued RUQ pain (liver) Vital Signs Period Temp Pulse Resp BP Sys/Del Rosario Pulse Ox Last 24 Hr 98.0 F-98.5 F 88-103 16-20 103-126/56-73 93-95 cor-rrr llungs clear abd firm, RUQ tender to palpation ext no edema CBC, BMP 01/04/20 06:20 01/04/20 06:20 Microbiology 01/02/20 18:00 Urine - Urine Clean Catch Urine Culture - Preliminary Lactose Fermenting Neg Bacilli 01/02/20 15:15 Blood - Peripheral Venous Blood Culture - Preliminary NO GROWTH OBTAINED AFTER 24 HOURS, INCUBATION TO CONTINUE FOR 4 DAYS. 01/02/20 15:15 Blood - Peripheral Venous Blood Culture - Preliminary NO GROWTH OBTAINED AFTER 24 HOURS, INCUBATION TO CONTINUE FOR 4 DAYS. diarrhea HCC on immunotherapy vj secondary to dehydration abdominal pain secondary to HCC supect diarrhea may be complication of her chemo would f/u cultures and stool studies (ordered) on rocephin/flagyl- d/c antiiboitcs in am if cultures remain negative low colony count urine culture- no dysuria- she does not have a symptomatic UTI pain management per PMD Problem List - Problems (1) Diarrhea Code(s): R19.7 - DIARRHEA, UNSPECIFIED (2) Hepatocellular carcinoma Code(s): C22.0 - LIVER CELL CARCINOMA (3) VJ (acute kidney injury) Code(s): N17.9 - ACUTE KIDNEY FAILURE, UNSPECIFIED (4) Abdominal pain Code(s): R10.9 - UNSPECIFIED ABDOMINAL PAIN
--- NOTE | 2020-01-04 15:38 | PN ---
Progress Note, Physician History of Present Illness: Pt seen and examined at bedside. She still has abd pain. She has poor po intake. - Current Medication List Current Medications: Active Medications Albuterol Sulfate (Ventolin Hfa Inhaler -) 2 puff IH Q4H PRN PRN Reason: SHORT OF BREATH/WHEEZING Aripiprazole (Abilify) 20 mg PO DAILY [facility] Last Admin: 01/04/20 09:15 Dose: 20 mg Documented by: Budesonide/Formoterol Fumarate (Symbicort 160/4.5mcg -) 1 puff IH BID [facility] Last Admin: 01/04/20 09:17 Dose: 1 puff Documented by: Enoxaparin Sodium (Lovenox -) 40 mg SQ DAILY [facility] Last Admin: 01/04/20 09:19 Dose: 40 mg Documented by: Fluoxetine HCl (Prozac -) 10 mg PO DAILY [facility] Last Admin: 01/04/20 09:16 Dose: 10 mg Documented by: Dextrose/Sodium Chloride (Dextrose 5%-Normal Saline+20 Meq Kcl -) 20 meq in 1,000 mls @ 75 mls/hr IV ASDIR [facility] Last Admin: 01/04/20 04:05 Dose: 75 mls/hr Documented by: Metronidazole (Flagyl 500mg Premixed Ivpb -) 500 mg in 100 mls @ 100 mls/hr IVPB Q8H-IV [facility] Last Admin: 01/04/20 09:16 Dose: 100 mls/hr Documented by: Ceftriaxone Sodium 1 gm/ (Dextrose) 50 mls @ 200 mls/hr IVPB DAILY [facility]; Protocol Last Admin: 01/04/20 10:31 Dose: 200 mls/hr Documented by: Methadone HCl 80 mg/ Methadone (HCl 5 mg) 85 mg PO 0600 [facility] Last Admin: 01/04/20 12:46 Dose: 85 mg Documented by: Morphine Sulfate (Morphine Sulfate) 2 mg IVPUSH Q4H PRN PRN Reason: PAIN LEVEL 6-10 Last Admin: 01/03/20 10:58 Dose: 2 mg Documented by: Ondansetron HCl (Zofran Injection) 4 mg IVPUSH Q6H PRN PRN Reason: NAUSEA AND/OR VOMITING Pantoprazole Sodium (Protonix Iv) 40 mg IVPUSH DAILY [facility] Last Admin: 01/04/20 09:17 Dose: 40 mg Documented by: Polysaccharide Iron Complex (Niferex-150 -) 150 mg PO DAILY [facility] Last Admin: 01/04/20 09:16 Dose: 150 mg Documented by: - Objective Vital Signs: Vital Signs Temperature 98.3 F 01/04/20 08:00 Pulse Rate 103 H 01/04/20 08:00 Respiratory Rate 01/04/20 08:00 Blood Pressure 106/56 L 01/04/20 08:00 O2 Sat by Pulse Oximetry (%) 94 L 01/04/20 08:00 Constitutional: Yes: Calm Eyes: Yes: Conjunctiva Clear HENT: Yes: Atraumatic Cardiovascular: Yes: S1, S2 Respiratory: Yes: CTA Bilaterally Gastrointestinal: Yes: Tenderness Genitourinary: Yes: Incontinence Musculoskeletal: Yes: WNL Edema: No Neurological: Yes: Oriented Labs: CBC, BMP 01/04/20 06:20 01/04/20 06:20 INR, PTT INR 1.44 (0.83-1.09) H 01/02/20 14:00 Assessment/Plan Current Medications Generic Name Dose Route Start Last Admin Trade Name Freq PRN Reason Stop Dose Admin Albuterol Sulfate 2 puff 01/02/20 18:28 Ventolin Hfa Inhaler - IH Q4H PRN SHORT OF BREATH/WHEEZING Aripiprazole 20 mg 01/04/20 07:17 01/04/20 09:15 Abilify PO 20 mg DAILY LISSETH Administration Budesonide/Formoterol Fumarate 1 puff 01/02/20 22:00 01/04/20 09:17 Symbicort 160/4.5mcg - IH 1 puff BID LISSETH Administration Enoxaparin Sodium 40 mg 01/03/20 16:30 01/04/20 09:19 Lovenox - SQ 40 mg DAILY LISSETH Administration Fluoxetine HCl 10 mg 01/03/20 10:00 01/04/20 09:16 Prozac - PO 10 mg DAILY LISSETH Administration Dextrose/Sodium Chloride 20 meq in 1,000 mls @ 75 mls/hr 01/02/20 18:45 01/04/20 04:05 Dextrose 5%-Normal Saline+20 Meq Kcl - IV 75 mls/hr ASDIR LISSETH Administration Metronidazole 500 mg in 100 mls @ 100 mls/hr 01/03/20 13:00 01/04/20 09:16 Flagyl 500mg Premixed Ivpb - IVPB 100 mls/hr Q8H-IV LISSETH Administration Ceftriaxone Sodium 1 gm/ 50 mls @ 200 mls/hr 01/03/20 13:00 01/04/20 10:31 Dextrose IVPB 200 mls/hr DAILY LISSETH Administration Protocol Methadone HCl 80 mg/ Methadone 85 mg 01/04/20 12:15 01/04/20 12:46 HCl 5 mg PO 85 mg 0600 LISSETH Administration Morphine Sulfate 2 mg 01/02/20 18:32 01/03/20 10:58 Morphine Sulfate IVPUSH 2 mg Q4H PRN Administration PAIN LEVEL 6-10 Ondansetron HCl 4 mg 01/02/20 18:30 Zofran Injection IVPUSH Q6H PRN NAUSEA AND/OR VOMITING Pantoprazole Sodium 40 mg 01/03/20 10:00 01/04/20 09:17 Protonix Iv IVPUSH 40 mg DAILY LISSETH Administration Polysaccharide Iron Complex 150 mg 01/04/20 10:00 01/04/20 09:16 Niferex-150 - PO 150 mg DAILY LISSETH Administration Impression 1. jay 2. dehydration 3. hepatocellular ca 4. depression Plan - cont fluids - monitor lytes - likely jay from pre-renal disease - oncology follow up - avoid nsaids
[2020-01-04] MEDS: DEXAMETHASONE SOD PHOSPHATE 4 MG/1 ML VIAL IVPUSH SCH (19:04)
--- NOTE | 2020-01-04 19:40 | PN ---
Teaching Attending Note Name of Resident: Migel Edward ATTENDING PHYSICIAN STATEMENT I saw and evaluated the patient. I reviewed the resident's note and discussed the case with the resident. I agree with the resident's findings and plan as documented. 59 yo F with recent dx of multifocal HCC with dominant R. lobe mass. Prior tx of HCV, negative viral load. No h/o cirrhosis. On methadone program. Baseline RUQ pains and poor appetite. H/o occasional diarrhea prior to HCC tx. S/p cycle #2 of bevacizumab/atezolizumab on 12-14-2019. Admitted with approx 2 weeks of diarrhea, weakness, decreased po, and worsening RUQ abd pains. Concern for adverse effect of atezolizumab including colitis, or worsening diarrhea from bevacizumab. Pt remains weak, not very interactive. Some volume of yellow stool today. Pt did not give h/o N/V when sent to ED on 01-02-2020. On IVFs, and abx's. ID following. GI following. -trial of dexamethasone 4mg iv q12hrs for capsular hepatic pains. -c/w current pain regimen. -c/w ivfs. -check c. diff. -GI follow-up for persistent diarrhea. Tx-related colitis?
[2020-01-05] MEDS ORDERED: METHADONE HCL 5 MG TABLET ONE (04:44)
[2020-01-05] MEDS ORDERED: METHADONE HCL 40 MG DISPERSABLE TABLET ONE (04:44)
[2020-01-05] MEDS: DEXAMETHASONE SOD PHOSPHATE 4 MG/1 ML VIAL IVPUSH SCH ×3 (05:43→17:33)
[2020-01-05] MEDS: METHADONE 80 MG, METHADONE 5 MG PO SCH ×2 (05:43→06:56)
[2020-01-05 06:55] LABS: BASO % 0.1 % (0-2.0); EOS % 0.1 % (0-4.5); HEMATOCRIT 24.6 % (32.4-45.2); HEMOGLOBIN 7.7 GM/dL (10.7-15.3); LYMPH % 14.2 % (8-40); MCH 26.7 pg (25.7-33.7); MCHC 31.3 g/dl (32.0-36.0); MEAN CELL VOLUME 85.3 fl (80-96); MEAN PLT VOLUME 9.8 fl (7.5-11.1); MONO % 4.8 % (3.8-10.2); NEUT % 80.8 % (42.8-82.8); PLATELET COUNT 283 K/MM3 (134-434); RBC 2.88 M/mm3 (3.60-5.2); RDW 16.9 % (11.6-15.6); WHITE BLOOD COUNT 9.5 K/mm3 (4.0-10.0)
[2020-01-05 07:23] LABS: ALBUMIN 1.3 g/dl (3.4-5.0); BILIRUBIN,TOTAL 0.8 mg/dL (0.2-1); CALCIUM 7.9 mg/dL (8.5-10.1); POTASSIUM 4.5 mmol/L (3.5-5.1); TOT PROT 5.8 g/dl (6.4-8.2)
[2020-01-05] MEDS ORDERED: DEXTROSE 5%-WATER - 50 ML IVPB ONE (10:16)
[2020-01-05] MEDS ORDERED: cefTRIAXone SODIUM 1 GM VIAL ONE (10:16)
[2020-01-05] MEDS: IRON POLYSACCHARIDES 150 MG CAPSULE PO SCH (10:21)
[2020-01-05] MEDS: PANTOPRAZOLE SODIUM 40 MG VIAL IVPUSH SCH (10:21)
[2020-01-05] MEDS: ENOXAPARIN NA (PORCINE) 40 MG/0.4 ML DISP.SYRIN SQ SCH (10:21)
[2020-01-05] MEDS: CEFTRIAXONE 1 GM in DEXTROSE 5%-WATER - 50 ML IVPB SCH (10:21)
[2020-01-05] MEDS: BUDESONIDE/FORMETEROL FUMARATE 160/4.5 mcg INHALER IH SCH ×2 (10:22→22:35)
[2020-01-05] MEDS: FLUoxetine HCL 10 MG CAPSULE PO SCH (10:22)
[2020-01-05] MEDS: ARIPiprazole 10 MG TABLET PO SCH ×2 (10:22→10:46)
--- NOTE | 2020-01-05 10:32 | PN ---
Progress Note, Physician Chief Complaint: Nausea Vomiting Diarrhea History of Present Illness: NAD Feels a little better Appetite a bit better c/o abd pain diarrhea yesterday Symptoms ongoing for over a month now, likely colitis r/t chemo Pt is on chronic methadone dosage of 85 mg po daily- confirmed by juan diego claire. Pt is not on any other opiates. [facility]NA[facility] negative. Pt denies using any other opiates. Pt's urine was collected after morphine was given to the pt in the ER- might have caused + results in Urine tox UC + UTI Cdiff + O&P pending Refused her abilify and methadone this AM - Current Medication List Current Medications: Active Medications Albuterol Sulfate (Ventolin Hfa Inhaler -) 2 puff IH Q4H PRN PRN Reason: SHORT OF BREATH/WHEEZING Aripiprazole (Abilify) 20 mg PO DAILY [facility] Last Admin: 01/05/20 10:22 Dose: 20 mg Documented by: Budesonide/Formoterol Fumarate (Symbicort 160/4.5mcg -) 1 puff IH BID [facility] Last Admin: 01/05/20 10:22 Dose: 1 puff Documented by: Dexamethasone Sodium Phosphate (Decadron Injection -) 4 mg IVPUSH Q12H [facility]ISSET[facility] Last Admin: 01/05/20 05:55 Dose: 4 mg Documented by: Enoxaparin Sodium (Lovenox -) 40 mg SQ DAILY [facility] Last Admin: 01/05/20 10:21 Dose: 40 mg Documented by: Fluoxetine HCl (Prozac -) 10 mg PO DAILY [facility] Last Admin: 01/05/20 10:22 Dose: 10 mg Documented by: Dextrose/Sodium Chloride (Dextrose 5%-Normal Saline+20 Meq Kcl -) 20 meq in 1,000 mls @ 75 mls/hr IV ASDIR LISSETH Last Admin: 01/04/20 20:09 Dose: 75 mls/hr Documented by: Metronidazole (Flagyl 500mg Premixed Ivpb -) 500 mg in 100 mls @ 100 mls/hr IVPB Q8H-IV [facility] Last Admin: 01/05/20 10:21 Dose: 100 mls/hr Documented by: Ceftriaxone Sodium 1 gm/ (Dextrose) 50 mls @ 200 mls/hr IVPB DAILY [facility]IS[facility]; Protocol Last Admin: 01/05/20 10:21 Dose: 200 mls/hr Documented by: Methadone HCl 80 mg/ Methadone (HCl 5 mg) 85 mg PO 0600 [facility] Last Admin: 01/05/20 06:56 Dose: Not Given Documented by: Morphine Sulfate (Morphine Sulfate) 2 mg IVPUSH Q4H PRN PRN Reason: PAIN LEVEL 6-10 Last Admin: 01/03/20 10:58 Dose: 2 mg Documented by: Ondansetron HCl (Zofran Injection) 4 mg IVPUSH Q6H PRN PRN Reason: NAUSEA AND/OR VOMITING Pantoprazole Sodium (Protonix Iv) 40 mg IVPUSH DAILY [facility] Last Admin: 01/05/20 10:21 Dose: 40 mg Documented by: Polysaccharide Iron Complex (Niferex-150 -) 150 mg PO DAILY [facility] Last Admin: 01/05/20 10:21 Dose: 150 mg Documented by: - Objective Vital Signs: Vital Signs Temperature 98.2 F 01/05/20 08:50 Pulse Rate 78 01/05/20 08:50 Respiratory Rate 16 01/05/20 08:51 Blood Pressure 112/66 01/05/20 08:50 O2 Sat by Pulse Oximetry (%) 96 01/05/20 08:51 Constitutional: Yes: Well Nourished, No Distress, Calm Cardiovascular: Yes: Regular Rate and Rhythm Respiratory: Yes: Regular, CTA Bilaterally Gastrointestinal: Yes: Soft, Hypoactive Bowel Sounds, Tenderness (diffuse) Genitourinary: Yes: WNL Musculoskeletal: Yes: Muscle Weakness Edema: No Peripheral Pulses WNL: Yes Neurological: Yes: Alert, Oriented Psychiatric: Yes: Alert, Oriented Labs: CBC, BMP 01/05/20 06:15 01/05/20 06:15 INR, PTT INR 1.44 (0.83-1.09) H 01/02/20 14:00 Problem List - Problems (1) Substance abuse Assessment/Plan: -Continue methadone 85 mg po daily-confirmed with [facility] -Opiates + due to morphine being given to pt before urine tox was collected Problems reviewed: Yes Code(s): F19.10 - OTHER PSYCHOACTIVE SUBSTANCE ABUSE, UNCOMPLICATED (2) VJ (acute kidney injury) Assessment/Plan: -Nephrology consult -likely dehydration -Continue IVF Problems reviewed: Yes Code(s): N17.9 - ACUTE KIDNEY FAILURE, UNSPECIFIED (3) Abdominal pain Assessment/Plan: -CTAP: metastatic liver ca, lesion on spleen, BL adrenal nodules -GI consult -Pain management -Oncology consult Problems reviewed: Yes Code(s): R10.9 - UNSPECIFIED ABDOMINAL PAIN (4) Anemia Assessment/Plan: -Low in iron% -Also, CD -monitor trend -transfuse if Hg <7.0 to avoid fluid overload -Check stool OB Problems reviewed: Yes Code(s): D64.9 - ANEMIA, UNSPECIFIED (5) Chemotherapy-induced nausea and vomiting Assessment/Plan: -Zofran PRN -Full liquids as tolerated -Continue supportive IVF Problems reviewed: Yes Code(s): R11.2 - NAUSEA WITH VOMITING, UNSPECIFIED; T45.1X5A - ADVERSE EFFECT OF ANTINEOPLASTIC AND IMMUNOSUP DRUGS, INIT (6) Diarrhea Assessment/Plan: -Cdiff + O&P pending -GI consult -Continue Full liquid diet -ID consult Problems reviewed: Yes Code(s): R19.7 - DIARRHEA, UNSPECIFIED (7) Hepatocellular carcinoma Assessment/Plan: -Sees Dr. Abel Gallego oncologist at [facility] -Last chemo 3 weeks ago dual immunotherapy- Atezolizumab and Bevacizumab -Oncology consult -Started on dexamethasone IV for hepatic pains Problems reviewed: Yes Code(s): C22.0 - LIVER CELL CARCINOMA (8) UTI (urinary tract infection) Assessment/Plan: -UC- Microbiology 01/02/20 18:00 Urine Culture - Preliminary Urine - Urine Clean Catch Lactose Fermenting Neg Bacilli 01/02/20 15:15 Blood Culture - Preliminary Blood - Peripheral Venous NO GROWTH OBTAINED AFTER 24 HOURS, INCUBATION TO CONTINUE FOR 4 DAYS. 01/02/20 15:15 Blood Culture - Preliminary Blood - Peripheral Venous NO GROWTH OBTAINED AFTER 24 HOURS, INCUBATION TO CONTINUE FOR 4 DAYS. -IV abx -ID consult -Afebrile Problems reviewed: Yes Code(s): N39.0 - URINARY TRACT INFECTION, SITE NOT SPECIFIED Assessment/Plan See problem list
--- NOTE | 2020-01-05 13:56 | PN.GI ---
GI Progress Note Subjective: GI NOte: In reviewing other art consultant's notes reference has been made to melena prior to admission and diarrhea in the hospital. Nia cannot confirm either and tells me that she has not moved her bowels sine yesterday. The nurse confirms this but tells me that when Ahsan has a BM it has been pasty. Dr. Gallego raised concerns for colitis associated with her chemotherapeutic agents. Given these I have proposed that Nia undergo an EGD with possible banding of esophageal varices and a colonoscopy to exclude a "Keytruda type colitis". I have informed Ahsan of the potential for such complications as perf oration and hemorrhage that could lead to surgery or transfusions. Nia has granted informed consents for both which I have scheduled for Wednesday - Objective Vital Signs: Vital Signs Temperature 97.8 F 01/05/20 12:33 Pulse Rate 82 01/05/20 12:33 Respiratory Rate 01/05/20 12:33 Blood Pressure 107/70 01/05/20 12:33 O2 Sat by Pulse Oximetry (%) 97 01/05/20 12:33 Laboratory Tests 01/02/20 01/02/20 01/04/20 14:00 15:00 06:20 Hgb 9.3 L Retic Count 3.79 H PT with INR 17.00 H INR 1.44 H Albumin Tumor Marker AFP 01/04/20 01/05/20 01/05/20 06:25 06:15 06:15 Hgb 7.7 L Retic Count PT with INR INR Albumin 1.3 L Tumor Marker AFP Pending Constitutional: Calm ...Auscultate: Yes: Normoactive Bowel Sounds ...Palpate: Yes: Soft, Other (nontender) Labs: CBC, BMP 01/05/20 06:15 01/05/20 06:15 INR, PTT INR 1.44 (0.83-1.09) H 01/02/20 14:00 Assessment/Plan Impression: - Melena and diarrhea as per oncology consultants supported by a dwindling Hb and albumin. - Hepatocellular carcinoma - H/O Multiple substance abuse Plan: - Informed consent has been obtained for EGD and colonoscopy which has been scheduled for Wednesday. Problem List - Problems (1) Chemotherapy-induced nausea and vomiting Code(s): R11.2 - NAUSEA WITH VOMITING, UNSPECIFIED; T45.1X5A - ADVERSE EFFECT OF ANTINEOPLASTIC AND IMMUNOSUP DRUGS, INIT (2) COPD (chronic obstructive pulmonary disease) Code(s): J44.9 - CHRONIC OBSTRUCTIVE PULMONARY DISEASE, UNSPECIFIED (3) Abdominal pain Code(s): R10.9 - UNSPECIFIED ABDOMINAL PAIN (4) Hepatocellular carcinoma Code(s): C22.0 - LIVER CELL CARCINOMA (5) Alcohol dependence with uncomplicated withdrawal Code(s): F10.230 - ALCOHOL DEPENDENCE WITH WITHDRAWAL, UNCOMPLICATED (6) Opioid dependence with withdrawal Code(s): F11.23 - OPIOID DEPENDENCE WITH WITHDRAWAL (7) Substance-induced anxiety disorder Code(s): F19.980 - OTH PSYCHOACTIVE SUBSTANCE USE, UNSP W ANXIETY DISORDER (8) Bipolar disorder Code(s): F31.9 - BIPOLAR DISORDER, UNSPECIFIED (9) Cannabis abuse Code(s): F12.10 - CANNABIS ABUSE, UNCOMPLICATED (10) Hepatitis C Code(s): B19.20 - UNSPECIFIED VIRAL HEPATITIS C WITHOUT HEPATIC COMA Qualifiers: Viral hepatitis chronicity: chronic Hepatic coma status: without hepatic coma Qualified Code(s): B18.2 - Chronic viral hepatitis C (11) Diarrhea Code(s): R19.7 - DIARRHEA, UNSPECIFIED (12) Melena Code(s): K92.1 - MELENA
[2020-01-05] MEDS ORDERED: PHYTONADIONE 10 MG/1 ML AMP IVPB ONE (15:45)
--- NOTE | 2020-01-05 16:00 | PN ---
Progress Note, Physician History of Present Illness: Pt seen and examined at bedside. She is awake and more alert today. She is tolerating clears. - Current Medication List Current Medications: Active Medications Albuterol Sulfate (Ventolin Hfa Inhaler -) 2 puff IH Q4H PRN PRN Reason: SHORT OF BREATH/WHEEZING Aripiprazole (Abilify) 20 mg PO DAILY [facility] Last Admin: 01/05/20 10:46 Dose: Not Given Documented by: Budesonide/Formoterol Fumarate (Symbicort 160/4.5mcg -) 1 puff IH BID [facility] Last Admin: 01/05/20 10:22 Dose: 1 puff Documented by: Dexamethasone Sodium Phosphate (Decadron Injection -) 4 mg IVPUSH Q12H [facility] Last Admin: 01/05/20 05:55 Dose: 4 mg Documented by: Enoxaparin Sodium (Lovenox -) 40 mg SQ DAILY [facility] Last Admin: 01/05/20 10:21 Dose: 40 mg Documented by: Fluoxetine HCl (Prozac -) 10 mg PO DAILY [facility] Last Admin: 01/05/20 10:22 Dose: 10 mg Documented by: Dextrose/Sodium Chloride (Dextrose 5%-Normal Saline+20 Meq Kcl -) 20 meq in 1,000 mls @ 75 mls/hr IV ASDIR [facility] Last Admin: 01/04/20 20:09 Dose: 75 mls/hr Documented by: Metronidazole (Flagyl 500mg Premixed Ivpb -) 500 mg in 100 mls @ 100 mls/hr IVPB Q8H-IV [facility] Last Admin: 01/05/20 10:21 Dose: 100 mls/hr Documented by: Ceftriaxone Sodium 1 gm/ (Dextrose) 50 mls @ 200 mls/hr IVPB DAILY [facility]; Pro tocol Last Admin: 01/05/20 10:21 Dose: 200 mls/hr Documented by: Methadone HCl 80 mg/ Methadone (HCl 5 mg) 85 mg PO 0600 [facility] Last Admin: 01/05/20 06:56 Dose: Not Given Documented by: Morphine Sulfate (Morphine Sulfate) 2 mg IVPUSH Q4H PRN PRN Reason: PAIN LEVEL 6-10 Last Admin: 01/03/20 10:58 Dose: 2 mg Documented by: Ondansetron HCl (Zofran Injection) 4 mg IVPUSH Q6H PRN PRN Reason: NAUSEA AND/OR VOMITING Pantoprazole Sodium (Protonix Iv) 40 mg IVPUSH DAILY [facility] Last Admin: 01/05/20 10:21 Dose: 40 mg Documented by: Polyethylene Glycol (Miralax (For Daily Use) -) 17 gm PO TID [facility] Polyethylene Glycol/Electrolytes (Golytely Solution -) 4,000 ml PO ONCE ONE Stop: 01/07/20 09:01 Polysaccharide Iron Complex (Niferex-150 -) 150 mg PO DAILY [facility] Last Admin: 01/05/20 10:21 Dose: 150 mg Documented by: - Objective Vital Signs: Vital Signs Temperature 97.6 F 01/05/20 14:38 Pulse Rate 85 01/05/20 14:38 Respiratory Rate 20 01/05/20 14:38 Blood Pressure 119/64 01/05/20 14:38 O2 Sat by Pulse Oximetry (%) 97 01/05/20 12:33 Constitutional: Yes: Calm Eyes: Yes: Conjunctiva Clear HENT: Yes: Atraumatic Neck: Yes: Supple Cardiovascular: Yes: S1, S2 Respiratory: Yes: CTA Bilaterally Gastrointestinal: Yes: Normal Bowel Sounds, Soft, Tenderness Musculoskeletal: Yes: WNL Edema: No Neurological: Yes: Oriented Psychiatric: Yes: Oriented Labs: CBC, BMP 01/05/20 06:15 01/05/20 06:15 INR, PTT INR 1.44 (0.83-1.09) H 01/02/20 14:00 Assessment/Plan Current Medications Generic Name Dose Route Start Last Admin Trade Name Freq PRN Reason Stop Dose Admin Albuterol Sulfate 2 puff 01/02/20 18:28 Ventolin Hfa Inhaler - IH Q4H PRN SHORT OF BREATH/WHEEZING Aripiprazole 20 mg 01/04/20 07:17 01/05/20 10:46 Abilify PO Not Given DAILY [facility] Budesonide/Formoterol Fumarate 1 puff 01/02/20 22:00 01/05/20 10:22 Symbicort 160/4.5mcg - IH 1 puff BID [facility] Administration Dexamethasone Sodium Phosphate 4 mg 01/04/20 18:30 01/05/20 05:55 Decadron Injection - IVPUSH 4 mg Q12H [facility] Administration Enoxaparin Sodium 40 mg 01/03/20 16:30 01/05/20 10:21 Lovenox - SQ 40 mg DAILY [facility] Administration Fluoxetine HCl 10 mg 01/03/20 10:00 01/05/20 10:22 Prozac - PO 10 mg DAILY [facility] Administration Dextrose/Sodium Chloride 20 meq in 1,000 mls @ 75 mls/hr 01/02/20 18:45 01/04/20 20:09 Dextrose 5%-Normal Saline+20 Meq Kcl - IV 75 mls/hr ASDIR [facility] Administration Metronidazole 500 mg in 100 mls @ 100 mls/hr 01/03/20 13:00 01/05/20 10:21 Flagyl 500mg Premixed Ivpb - IVPB 100 mls/hr Q8H-IV [facility] Administration Ceftriaxone Sodium 1 gm/ 50 mls @ 200 mls/hr 01/03/20 13:00 01/05/20 10:21 Dextrose IVPB 200 mls/hr DAILY [facility] Administration Protocol Methadone HCl 80 mg/ Methadone 85 mg 01/04/20 12:15 01/05/20 06:56 HCl 5 mg PO Not Given 0600 [facility] Morphine Sulfate 2 mg 01/02/20 18:32 01/03/20 10:58 Morphine Sulfate IVPUSH 2 mg Q4H PRN Administration PAIN LEVEL 6-10 Ondansetron HCl 4 mg 01/02/20 18:30 Zofran Injection IVPUSH Q6H PRN NAUSEA AND/OR VOMITING Pantoprazole Sodium 40 mg 01/03/20 10:00 01/05/20 10:21 Protonix Iv IVPUSH 40 mg DAILY [facility] Administration Polyethylene Glycol 17 gm 01/05/20 22:00 Miralax (For Daily Use) - PO TID [facility] Polyethylene Glycol/Electrolytes 4,000 ml 01/07/20 09:00 Golytely Solution - PO 01/07/20 09:01 ONCE ONE Polysaccharide Iron Complex 150 mg 01/04/20 10:00 01/05/20 10:21 Niferex-150 - PO 150 mg DAILY [facility] Administration Impression 1. jay 2. dehydration 3. hepatocellular ca 4. depression Plan - encourage po intake - cont fluids for now - repaet labs in am - renal function improving - monitor lytes - likely jay from pre-renal disease - avoid nsaids
--- NOTE | 2020-01-05 16:27 | CON.PSL ---
Psychology Consult Consult Specialty:: Clinical Psychology History Provided By: Patient, Medical Record, Caregiver Limitations to Obtaining History: Clinical Condition Current Medications: Active Medications Albuterol Sulfate (Ventolin Hfa Inhaler -) 2 puff IH Q4H PRN PRN Reason: SHORT OF BREATH/WHEEZING Aripiprazole (Abilify) 20 mg PO DAILY [facility] Last Admin: 01/05/20 10:46 Dose: Not Given Documented by: Budesonide/Formoterol Fumarate (Symbicort 160/4.5mcg -) 1 puff IH BID [facility] Last Admin: 01/05/20 10:22 Dose: 1 puff Documented by: Dexamethasone Sodium Phosphate (Decadron Injection -) 4 mg IVPUSH Q12H [facility] Last Admin: 01/05/20 05:55 Dose: 4 mg Documented by: Enoxaparin Sodium (Lovenox -) 40 mg SQ DAILY [facility] Last Admin: 01/05/20 10:21 Dose: 40 mg Documented by: Fluoxetine HCl (Prozac -) 10 mg PO DAILY [facility] Last Admin: 01/05/20 10:22 Dose: 10 mg Documented by: Dextrose/Sodium Chloride (Dextrose 5%-Normal Saline+20 Meq Kcl -) 20 meq in 1,000 mls @ 75 mls/hr IV ASDIR [facility] Last Admin: 01/04/20 20:09 Dose: 75 mls/hr Documented by: Metronidazole (Flagyl 500mg Premixed Ivpb -) 500 mg in 100 mls @ 100 mls/hr IVPB Q8H-IV [facility] Last Admin: 01/05/20 10:21 Dose: 100 mls/hr Documented by: Ceftriaxone Sodium 1 gm/ (Dextrose) 50 mls @ 200 mls/hr IVPB DAILY [facility]; Protocol Last Admin: 01/05/20 10:21 Dose: 200 mls/hr Documented by: Methadone HCl 80 mg/ Methadone (HCl 5 mg) 85 mg PO 0600 [facility] Last Admin: 01/05/20 06:56 Dose: Not Given Documented by: Morphine Sulfate (Morphine Sulfate) 2 mg IVPUSH Q4H PRN PRN Reason: PAIN LEVEL 6-10 Last Admin: 01/03/20 10:58 Dose: 2 mg Documented by: Ondansetron HCl (Zofran Injection) 4 mg IVPUSH Q6H PRN PRN Reason: NAUSEA AND/OR VOMITING Pantoprazole Sodium (Protonix Iv) 40 mg IVPUSH DAILY [facility] Last Admin: 01/05/20 10:21 Dose: 40 mg Documented by: Polyethylene Glycol (Miralax (For Daily Use) -) 17 gm PO TID [facility] Polyethylene Glycol/Electrolytes (Golytely Solution -) 4,000 ml PO ONCE ONE Stop: 01/07/20 09:01 Polysaccharide Iron Complex (Niferex-150 -) 150 mg PO DAILY [facility] Last Admin: 01/05/20 10:21 Dose: 150 mg Documented by: Allergies: Allergies Allergy/AdvReac Type Severity Reaction Status Date / Time Penicillins Allergy Severe Rash Verified 01/18/19 11:04 Does patient have pain?: Yes Pain Location Body Site: Abdomen Pain Description: Non-Descriptive Hx Alcohol Use: Yes Hx Substance Use: Yes Substance Use Type: Alcohol, Heroin Hx Substance Use Treatment: Yes Current Medical Exam-Psy Immediate Term Memory: 06/16 Expressive: Slurred Receptive: Age Appropriate Comprehension of Spoken Words Hallucinations: Absent Thought Process: Intact Depression: None Hopelessness: No Loss of Interest: No Anxiety Level: Mild Danger to Self and Others: No Sleep: Well Appetite: Poor Serial Sevens Intact: No Repeats 3 words told earlier: 0/3 Support System: Significant Other, Child/Children Leisure activities: With Family Problem List - Problem (1) Anxiety about health Code(s): F41.8 - OTHER SPECIFIED ANXIETY DISORDERS Assessment/Plan The patient record was reviewed in addition to speaking with her nurse. She was going to ask the patient if she would be willing to have a telephone session with this provider as he cannot come in to the hospital. As per the medical record, the patient is dealing with a number of medical complaints including hepatocellular carcinoma, abdominal and low back pain, and is on Methadone perhaps related to her hx of heroin abuse. She also has a hx of alcohol abuse. The patient had been given a previous diagnosis of Bipolar Disorder. This consult request was for her depressed feelings associated with her medical conditions. Her nurse indicated that the patient refused taking a couple of her ps ychotropics (Abilify is one of the medications). A consultation with Dr. Mckoy for a psychiatric - pharmacological evaluation is recommended. I finally had the good fortune to speak with Nia Jacinto. She sounded quite fatigued and we were able to perform a basic mental status examination. She denies being depressed but admits to mild anxiety. I shared with her nurse some acupressure technique and a chi gong technique that may relieve her anxiety and life her mood in any case. We plan to have a follow up session next week via telephone. My number is on her room's board. Thank you for the referral. Dr. Segundo Oliveira Certified Heart Math Practitioner Certified Chi Gong/Marty Chi Practice Leader Certificate in Mind Body Medicine-[place] [facility]
[2020-01-05] MEDS: D5-NS + 20 MEQ KCL - 20 MEQ/1,000 ML INFUS.BAG IV SCH (19:25)
--- NOTE | 2020-01-05 21:16 | PN.HO ---
Progress Note (short form) - Note Progress Note: Patient seen and examined Feels well. AFVSS Cor: RSR, No murmurs, No gallops Lungs: Clear to P&A Abd: Soft, Normal bowel sounds,RUQ tenderness/hepatomegaly LAbs/MEds reviewed A/P 59 yo F with recent dx of multifocal HCC with dominant R. lobe mass. Prior tx of HCV, negative viral load. No h/o cirrhosis. On methadone program. Baseline RUQ pains and poor appetite from disease burden H/o occasional diarrhea prior to HCC tx. S/p cycle #2 of bevacizumab/atezolizumab on 12-14-2019. Admitted with approx 2 weeks of diarrhea, weakness, decreased po, and worsening RUQ abd pains. Concern for adverse effect of atezolizumab including colitis, or worsening diarrhea from bevacizumab vs gi pathology related to liver disease For GI w/u on Wednesday On rocephin/flagyl
[2020-01-05] MEDS: POLYETHYLENE GLYCOL 3350 119 GM BTL PO SCH (22:40)
[2020-01-05 23:17] LABS: HEP B CORE AB, TOT Negative (Negative)
[2020-01-06] MEDS: NYSTATIN 500,000 UNITS/5 ML SUSPENSION PO SCH ×5 (01:01→23:43)
[2020-01-06] MEDS: MORPHINE SULFATE 2 MG/ML VIAL IVPUSH PRN ×4 (03:08→23:43)
[2020-01-06 06:05] LABS: BASO % 0.1 % (0-2.0); HEMATOCRIT 24.1 % (32.4-45.2); HEMOGLOBIN 7.6 GM/dL (10.7-15.3); LYMPH % 13.3 % (8-40); MCH 26.9 pg (25.7-33.7); MCHC 31.5 g/dl (32.0-36.0); MEAN CELL VOLUME 85.3 fl (80-96); MONO % 4.3 % (3.8-10.2); NEUT % 82.3 % (42.8-82.8); PLATELET COUNT 296 K/MM3 (134-434); RBC 2.83 M/mm3 (3.60-5.2); RDW 16.7 % (11.6-15.6); WHITE BLOOD COUNT 10.8 K/mm3 (4.0-10.0)
[2020-01-06] MEDS ORDERED: METHADONE HCL 5 MG TABLET ONE (06:10)
[2020-01-06] MEDS ORDERED: METHADONE HCL 40 MG DISPERSABLE TABLET ONE (06:11)
[2020-01-06 06:14] LABS: INR 1.17 (0.83-1.09); PROTHROMBIN TIME (PATIENT) 13.8 SEC (9.7-13.0)
[2020-01-06] MEDS: D5-NS + 20 MEQ KCL - 20 MEQ/1,000 ML INFUS.BAG IV SCH ×2 (06:19→16:23)
[2020-01-06] MEDS: DEXAMETHASONE SOD PHOSPHATE 4 MG/1 ML VIAL IVPUSH SCH ×2 (06:20→17:31)
[2020-01-06] MEDS: METHADONE 80 MG, METHADONE 5 MG PO SCH (06:26)
[2020-01-06] MEDS: POLYETHYLENE GLYCOL 3350 119 GM BTL PO SCH ×3 (06:36→21:02)
[2020-01-06 06:38] LABS: ALBUMIN 1.3 g/dl (3.4-5.0); BILIRUBIN,TOTAL 0.7 mg/dL (0.2-1); BLOOD UREA NITROGEN 18.5 mg/dL (7-18); CALCIUM 7.8 mg/dL (8.5-10.1); CREATININE 0.9 mg/dL (0.55-1.3); POTASSIUM 3.9 mmol/L (3.5-5.1); TOT PROT 5.5 g/dl (6.4-8.2)
[2020-01-06] MEDS ORDERED: cefTRIAXone SODIUM 1 GM VIAL ONE (08:45)
[2020-01-06] MEDS ORDERED: DEXTROSE 5%-WATER - 50 ML IVPB ONE (08:45)
[2020-01-06] MEDS ORDERED: PT OWN MED DRAWER 7, Y5N ONE (09:00)
[2020-01-06] MEDS: PANTOPRAZOLE SODIUM 40 MG VIAL IVPUSH SCH (09:03)
[2020-01-06] MEDS: ENOXAPARIN NA (PORCINE) 40 MG/0.4 ML DISP.SYRIN SQ SCH (09:03)
[2020-01-06] MEDS: IRON POLYSACCHARIDES 150 MG CAPSULE PO SCH (09:03)
[2020-01-06] MEDS: CEFTRIAXONE 1 GM in DEXTROSE 5%-WATER - 50 ML IVPB SCH (09:05)
[2020-01-06] MEDS: FLUoxetine HCL 10 MG CAPSULE PO SCH (09:06)
[2020-01-06] MEDS: ARIPiprazole 10 MG TABLET PO SCH (09:06)
[2020-01-06] MEDS: BUDESONIDE/FORMETEROL FUMARATE 160/4.5 mcg INHALER IH SCH ×2 (09:07→21:03)
--- NOTE | 2020-01-06 09:24 | PN ---
Progress Note, Physician Chief Complaint: Nausea Vomiting Diarrhea History of Present Illness: NAD Feels a little better Appetite is still low c/o abd pain diarrhea overnight Symptoms ongoing for over a month now, likely colitis r/t chemo Pt is on chronic methadone dosage of 85 mg po daily- confirmed by juan diego claire. Pt is not on any other opiates. 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 Pt denies using any other opiates. Pt's urine was collected after morphine was given to the pt in the ER- might have caused + results in Urine tox UC + UTI Cdiff + O&P pending Seen by GI Plan for colonoscopy on Wednesday - Current Medication List Current Medications: Active Medications Albuterol Sulfate (Ventolin Hfa Inhaler -) 2 puff IH Q4H PRN PRN Reason: SHORT OF BREATH/WHEEZING Aripiprazole (Abilify) 20 mg PO DAILY [facility] Last Admin: 01/06/20 09:06 Dose: 20 mg Documented by: Budesonide/Formoterol Fumarate (Symbicort 160/4.5mcg -) 1 puff IH BID [facility] Last Admin: 01/06/20 09:07 Dose: 1 puff Documented by: Dexamethasone Sodium Phosphate (Decadron Injection -) 4 mg IVPUSH Q12H [facility] Last Admin: 01/06/20 06:20 Dose: 4 mg Documented by: Enoxaparin Sodium (Lovenox -) 40 mg SQ DAILY [facility] Last Admin: 01/06/20 09:03 Dose: 40 mg Documented by: Fluoxetine HCl (Prozac -) 10 mg PO DAILY [facility] Last Admin: 01/06/20 09:06 Dose: 10 mg Documented by: Dextrose/Sodium Chloride (Dextrose 5%-Normal Saline+20 Meq Kcl -) 20 meq in 1,000 mls @ 75 mls/hr IV ASDIR [facility] Last Admin: 01/06/20 06:19 Dose: 75 mls/hr Documented by: Metronidazole (Flagyl 500mg Premixed Ivpb -) 500 mg in 100 mls @ 100 mls/hr IVPB Q8H-IV [facility] Last Admin: 01/06/20 09:05 Dose: 100 mls/hr Documented by: Ceftriaxone Sodium 1 gm/ (Dextrose) 50 mls @ 200 mls/hr IVPB DAILY [facility]; Protocol Last Admin: 01/06/20 09:05 Dose: 200 mls/hr Documented by: Methadone HCl 80 mg/ Methadone (HCl 5 mg) 85 mg PO 0600 [facility] Last Admin: 01/06/20 06:26 Dose: 45 mg Documented by: Morphine Sulfate (Morphine Sulfate) 2 mg IVPUSH Q4H PRN PRN Reason: PAIN LEVEL 6-10 Last Admin: 01/06/20 09:04 Dose: 2 mg Documented by: Nystatin (Nystatin Oral Suspension -) 500,000 units PO Q6HPO [facility] Last Admin: 01/06/20 06:19 Dose: 500,000 units Documented by: Ondansetron HCl (Zofran Injection) 4 mg IVPUSH Q6H PRN PRN Reason: NAUSEA AND/OR VOMITING Pantoprazole Sodium (Protonix Iv) 40 mg IVPUSH DAILY [facility] Last Admin: 01/06/20 09:03 Dose: 40 mg Documented by: Polyethylene Glycol (Miralax (For Daily Use) -) 17 gm PO TID [facility] Last Admin: 01/06/20 06:36 Dose: Not Given Documented by: Polyethylene Glycol/Electrolytes (Golytely Solution -) 4,000 ml PO ONCE ONE Stop: 01/07/20 09:01 Polysaccharide Iron Complex (Niferex-150 -) 150 mg PO DAILY [facility] Last Admin: 01/06/20 09:03 Dose: 150 mg Documented by: - Objective Vital Signs: Vital Signs Temperature 98.4 F 01/06/20 06:00 Pulse Rate 66 01/06/20 06:00 Respiratory Rate 18 01/06/20 06:00 Blood Pressure 107/60 01/06/20 06:00 O2 Sat by Pulse Oximetry (%) 98 01/06/20 06:00 Constitutional: Yes: Well Nourished, No Distress, Calm Cardiovascular: Yes: Regular Rate and Rhythm Respiratory: Yes: Regular, Diminished (BLL) Gastrointestinal: Yes: Abdomen, Obese, Hypoactive Bowel Sounds, Tenderness (di ffuse) Genitourinary: Yes: WNL Musculoskeletal: Yes: Muscle Weakness Extremities: Yes: WNL Edema: No Peripheral Pulses WNL: Yes Neurological: Yes: Alert, Oriented Psychiatric: Yes: Alert, Oriented Labs: CBC, BMP 01/06/20 05:20 01/06/20 05:20 INR, PTT INR 1.17 (0.83-1.09) H 01/06/20 05:20 Problem List - Problems (1) Substance abuse Assessment/Plan: -Continue methadone 85 mg po daily-confirmed with [facility] -Opiates + due to morphine being given to pt before urine tox was collected Problems reviewed: Yes Code(s): F19.10 - OTHER PSYCHOACTIVE SUBSTANCE ABUSE, UNCOMPLICATED (2) VJ (acute kidney injury) Assessment/Plan: -Nephrology consult -likely dehydration -Continue IVF Problems reviewed: Yes Code(s): N17.9 - ACUTE KIDNEY FAILURE, UNSPECIFIED (3) Abdominal pain Assessment/Plan: -CTAP: metastatic liver ca, lesion on spleen, BL adrenal nodules -GI consult -Pain management -Oncology consult Problems reviewed: Yes Code(s): R10.9 - UNSPECIFIED ABDOMINAL PAIN (4) Anemia Assessment/Plan: -Low in iron% -Also, CD -monitor trend -transfuse if Hg <7.0 to avoid fluid overload -stool OB negative Problems reviewed: Yes Code(s): D64.9 - ANEMIA, UNSPECIFIED (5) Chemotherapy-induced nausea and vomiting Assessment/Plan: -Zofran PRN -Full liquids as tolerated -Continue supportive IVF Problems reviewed: Yes Code(s): R11.2 - NAUSEA WITH VOMITING, UNSPECIFIED; T45.1X5A - ADVERSE EFFECT OF ANTINEOPLASTIC AND IMMUNOSUP DRUGS, INIT (6) Diarrhea Assessment/Plan: -Cdiff + O&P pending -GI consult -Continue Full liquid diet -ID consult -Colonoscopy on Wednesday Problems reviewed: Yes Code(s): R19.7 - DIARRHEA, UNSPECIFIED (7) Hepatocellular carcinoma Assessment/Plan: -Sees Dr. Abel Gallego oncologist at [facility] -Last chemo 3 weeks ago dual immunotherapy- Atezolizumab and Bevacizumab -Oncology consult -Started on dexamethasone IV for hepatic pains Problems reviewed: Yes Code(s): C22.0 - LIVER CELL CARCINOMA (8) UTI (urinary tract infection) Assessment/Plan: -UC- Microbiology 01/02/20 18:00 Urine Culture - Preliminary Urine - Urine Clean Catch Lactose Fermenting Neg Bacilli 01/02/20 15:15 Blood Culture - Preliminary Blood - Peripheral Venous NO GROWTH OBTAINED AFTER 24 HOURS, INCUBATION TO CONTINUE FOR 4 DAYS. 01/02/20 15:15 Blood Culture - Preliminary Blood - Peripheral Venous NO GROWTH OBTAINED AFTER 24 HOURS, INCUBATION TO CONTINUE FOR 4 DAYS. -IV abx -ID consult -Afebrile Problems reviewed: Yes Code(s): N39.0 - URINARY TRACT INFECTION, SITE NOT SPECIFIED Assessment/Plan See problem list
--- NOTE | 2020-01-06 15:03 | PN ---
Progress Note, Physician History of Present Illness: Pt seen and examined at bedside. She is tolerating full liquid diet. - Current Medication List Current Medications: Active Medications Albuterol Sulfate (Ventolin Hfa Inhaler -) 2 puff IH Q4H PRN PRN Reason: SHORT OF BREATH/WHEEZING Aripiprazole (Abilify) 20 mg PO DAILY [facility] Last Admin: 01/06/20 09:06 Dose: 20 mg Documented by: Budesonide/Formoterol Fumarate (Symbicort 160/4.5mcg -) 1 puff IH BID [facility] Last Admin: 01/06/20 09:07 Dose: 1 puff Documented by: Dexamethasone Sodium Phosphate (Decadron Injection -) 4 mg IVPUSH Q12H [facility] Last Admin: 01/06/20 06:20 Dose: 4 mg Documented by: Enoxaparin Sodium (Lovenox -) 40 mg SQ DAILY [facility] Last Admin: 01/06/20 09:03 Dose: 40 mg Documented by: Fluoxetine HCl (Prozac -) 10 mg PO DAILY [facility] Last Admin: 01/06/20 09:06 Dose: 10 mg Documented by: Dextrose/Sodium Chloride (Dextrose 5%-Normal Saline+20 Meq Kcl -) 20 meq in 1,000 mls @ 75 mls/hr IV ASDIR [facility] Last Admin: 01/06/20 06:19 Dose: 75 mls/hr Documented by: Methadone HCl 80 mg/ Methadone (HCl 5 mg) 85 mg PO 0600 [facility] Last Admin: 01/06/20 06:26 Dose: 45 mg Documented by: Morphine Sulfate (Morphine Sulfate) 2 mg IVPUSH Q4H PRN PRN Reason: PAIN LEVEL 6-10 Last Admin: 01/06/20 09:04 Dose: 2 mg Documented by: Nystatin (Nystatin Oral Suspension -) 500,000 units PO Q6HPO [facility] Last Admin: 01/06/20 12:14 Dose: 500,000 units Documented by: Ondansetron HCl (Zofran Injection) 4 mg IVPUSH Q6H PRN PRN Reason: NAUSEA AND/OR VOMITING Pantoprazole Sodium (Protonix Iv) 40 mg IVPUSH DAILY [facility] Last Admin: 01/06/20 09:03 Dose: 40 mg Documented by: Polyethylene Glycol (Miralax (For Daily Use) -) 17 gm PO TID [facility] Last Admin: 01/06/20 14:19 Dose: 17 gm Documented by: Polyethylene Glycol/Electrolytes (Golytely Solution -) 4,000 ml PO ONCE ONE Stop: 01/07/20 09:01 Polysaccharide Iron Complex (Niferex-150 -) 150 mg PO DAILY [facility] Last Admin: 01/06/20 09:03 Dose: 150 mg Documented by: - Objective Vital Signs: Vital Signs Temperature 97.5 F L 01/06/20 14:01 Pulse Rate 64 01/06/20 14:01 Respiratory Rate 20 01/06/20 14:01 Blood Pressure 104/58 L 01/06/20 14:01 O2 Sat by Pulse Oximetry (%) 94 L 01/06/20 10:00 Constitutional: Yes: Calm Eyes: Yes: Conjunctiva Clear HENT: Yes: Atraumatic Neck: Yes: Supple Cardiovascular: Yes: S1, S2 Respiratory: Yes: CTA Bilaterally Gastrointestinal: Yes: Soft, Tenderness Genitourinary: Yes: WNL Musculoskeletal: Yes: WNL Edema: No Neurological: Yes: Oriented Labs: CBC, BMP 01/06/20 05:20 01/06/20 05:20 INR, PTT INR 1.17 (0.83-1.09) H 01/06/20 05:20 Assessment/Plan Current Medications Generic Name Dose Route Start Last Admin Trade Name Rosas PRN Reason Stop Dose Admin Albuterol Sulfate 2 puff 01/02/20 18:28 Ventolin Hfa Inhaler - IH Q4H PRN SHORT OF BREATH/WHEEZING Aripiprazole 20 mg 01/04/20 07:17 01/06/20 09:06 Abilify PO 20 mg DAILY [facility] Administration Budesonide/Formoterol Fumarate 1 puff 01/02/20 22:00 01/06/20 09:07 Symbicort 160/4.5mcg - IH 1 puff BID [facility] Administration Dexamethasone Sodium Phosphate 4 mg 01/04/20 18:30 01/06/20 06:20 Decadron Injection - IVPUSH 4 mg Q12H [facility] Administration Enoxaparin Sodium 40 mg 01/03/20 16:30 01/06/20 09:03 Lovenox - SQ 40 mg DAILY [facility] Administration Fluoxetine HCl 10 mg 01/03/20 10:00 01/06/20 09:06 Prozac - PO 10 mg DAILY [facility] Administration Dextrose/Sodium Chloride 20 meq in 1,000 mls @ 75 mls/hr 01/02/20 18:45 01/06/20 06:19 Dextrose 5%-Normal Saline+20 Meq Kcl - IV 75 mls/hr ASDIR [facility] Administration Methadone HCl 80 mg/ Methadone 85 mg 01/04/20 12:15 01/06/20 06:26 HCl 5 mg PO 45 mg 0600 [facility] Administration Morphine Sulfate 2 mg 01/02/20 18:32 01/06/20 09:04 Morphine Sulfate IVPUSH 2 mg Q4H PRN Administration PAIN LEVEL 6-10 Nystatin 500,000 units 01/06/20 00:00 01/06/20 12:14 Nystatin Oral Suspension - PO 500,000 units Q6HPO [facility] Administration Ondansetron HCl 4 mg 01/02/20 18:30 Zofran Injection IVPUSH Q6H PRN NAUSEA AND/OR VOMITING Pantoprazole Sodium 40 mg 01/03/20 10:00 01/06/20 09:03 Protonix Iv IVPUSH 40 mg DAILY [facility] Administration Polyethylene Glycol 17 gm 01/05/20 22:00 01/06/20 14:19 Miralax (For Daily Use) - PO 17 gm TID [facility] Administration Polyethylene Glycol/Electrolytes 4,000 ml 01/07/20 09:00 Golytely Solution - PO 01/07/20 09:01 ONCE ONE Polysaccharide Iron Complex 150 mg 01/04/20 10:00 01/06/20 09:03 Niferex-150 - PO 150 mg DAILY [facility] Administration Impression 1. jay 2. dehydration 3. hepatocellular ca 4. depression Plan - encourage po intake - cont fluids, decrease rate - repeat labs in am - likely jay from pre-renal disease - avoid nsaids
--- NOTE | 2020-01-06 20:19 | PN ---
Progress Note (short form) - Note Progress Note: Patient seen in follow up. No new complaints. No significant events overnight. No diarrhea this morning. Denies pain (when she is still) Inpatient Meds reviewed. Current Medications Generic Name Dose Route Start Last Admin Trade Name Freq PRN Reason Stop Dose Admin Albuterol Sulfate 2 puff 01/02/20 18:28 Ventolin Hfa Inhaler - IH Q4H PRN SHORT OF BREATH/WHEEZING Aripiprazole 20 mg 01/04/20 07:17 01/06/20 09:06 Abilify PO 20 mg DAILY [facility] Administration Budesonide/Formoterol Fumarate 1 puff 01/02/20 22:00 01/06/20 09:07 Symbicort 160/4.5mcg - IH 1 puff BID [facility] Administration Dexamethasone Sodium Phosphate 4 mg 01/04/20 18:30 01/06/20 17:31 Decadron Injection - IVPUSH 4 mg Q12H [facility] Administration Enoxaparin Sodium 40 mg 01/03/20 16:30 01/06/20 09:03 Lovenox - SQ 40 mg DAILY [facility] Administration Fluoxetine HCl 10 mg 01/03/20 10:00 01/06/20 09:06 Prozac - PO 10 mg DAILY [facility] Administration Dextrose/Sodium Chloride 20 meq in 1,000 mls @ 50 mls/hr 01/06/20 15:03 01/06/20 16:23 Dextrose 5%-Normal Saline+20 Meq Kcl - IV 50 mls/hr ASDIR [facility] Administration Methadone HCl 40 mg/ Methadone 60 mg 01/07/20 06:00 HCl 20 mg PO DAILY@0600 [facility] Morphine Sulfate 2 mg 01/02/20 18:32 01/06/20 20:08 Morphine Sulfate IVPUSH 2 mg Q4H PRN Administration PAIN LEVEL 6-10 Nystatin 500,000 units 01/06/20 00:00 01/06/20 17:31 Nystatin Oral Suspension - PO 500,000 units Q6HPO [facility] Administration Ondansetron HCl 4 mg 01/02/20 18:30 Zofran Injection IVPUSH Q6H PRN NAUSEA AND/OR VOMITING Pantoprazole Sodium 40 mg 01/03/20 10:00 01/06/20 09:03 Protonix Iv IVPUSH 40 mg DAILY [facility] Administration Polyethylene Glycol 17 gm 01/05/20 22:00 01/06/20 14:19 Miralax (For Daily Use) - PO 17 gm TID [facility] Administration Polyethylene Glycol/Electrolytes 4,000 ml 01/07/20 09:00 Golytely Solution - PO 01/07/20 09:01 ONCE ONE Polysaccharide Iron Complex 150 mg 01/04/20 10:00 01/06/20 09:03 Niferex-150 - PO 150 mg DAILY [facility] Administration On Examination: Last Vital Signs Temp Pulse Resp BP Pulse Ox 97.9 F 63 18 116/67 100 01/06/20 18:53 01/06/20 18:53 01/06/20 18:53 01/06/20 18:53 01/06/20 18:53 General: In no acute distress, lying in bed. Extremities: No pallor or icterus. No pedal edema. No palpable lymphadenopathy. CVS: S1, S2, regular, no gallop or murmur. Chest: good air entry bilaterally, clear Abdomen: Non-distended, tender++. hepatomegaly. Neuro: Alert, oriented, non-focal. Labs: CBC, BMP 01/06/20 05:20 01/06/20 05:20 Assessment. Multifocal HCC, receiving Atezolizumab and Bevacizumab, last dose 12/13, admitted with several weeks diarrhea. 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 Colonoscopy pending
[2020-01-07] MEDS ORDERED: METHADONE HCL 40 MG DISPERSABLE TABLET ONE (04:48)
[2020-01-07] MEDS ORDERED: METHADONE HCL 10 MG TABLET ONE (04:48)
[2020-01-07] MEDS: MORPHINE SULFATE 2 MG/ML VIAL IVPUSH PRN ×2 (04:55→22:59)
[2020-01-07] MEDS: POLYETHYLENE GLYCOL 3350 119 GM BTL PO SCH ×3 (04:57→21:17)
[2020-01-07] MEDS: NYSTATIN 500,000 UNITS/5 ML SUSPENSION PO SCH ×4 (04:59→22:59)
[2020-01-07] MEDS: DEXAMETHASONE SOD PHOSPHATE 4 MG/1 ML VIAL IVPUSH SCH ×2 (05:30→17:38)
[2020-01-07] MEDS ORDERED: METHADONE HCL 10 MG TABLET PO SCH (06:00)
[2020-01-07] MEDS: METHADONE 40 MG, METHADONE 20 MG PO SCH (06:25)
[2020-01-07 06:26] LABS: BASO % 0.2 % (0-2.0); EOS % 0.2 % (0-4.5); LYMPH % 17.1 % (8-40); MCH 26.8 pg (25.7-33.7); MCHC 31.9 g/dl (32.0-36.0); MEAN CELL VOLUME 84.1 fl (80-96); MEAN PLT VOLUME 9.7 fl (7.5-11.1); MONO % 5.5 % (3.8-10.2); PLATELET COUNT 336 K/MM3 (134-434); RBC 2.97 M/mm3 (3.60-5.2); RDW 17.1 % (11.6-15.6); WHITE BLOOD COUNT 8.6 K/mm3 (4.0-10.0)
[2020-01-07 06:53] LABS: ALBUMIN 1.4 g/dl (3.4-5.0); BILIRUBIN,TOTAL 0.6 mg/dL (0.2-1); BLOOD UREA NITROGEN 17.1 mg/dL (7-18); CALCIUM 7.8 mg/dL (8.5-10.1); POTASSIUM 4.1 mmol/L (3.5-5.1); TOT PROT 5.7 g/dl (6.4-8.2)
--- NOTE | 2020-01-07 08:04 | PN ---
Progress Note, Physician Chief Complaint: Nausea Vomiting Diarrhea History of Present Illness: Feeling a lot better today Sitting at the edge of the bed Dexamethasone helping c/o abd pain diarrhea overnight Symptoms ongoing for over a month now, likely colitis r/t chemo Pt is on chronic methadone dosage of 85 mg po daily- confirmed by [place] sushma [facility]. Pt is not on any other opiates. [employer] negative. Pt denies using any other opiates. Pt's urine was collected after morphine was given to the pt in the ER- might hav e caused + results in Urine tox UC + UTI Cdiff + O&P pending Seen by GI Plan for colonoscopy on Wednesday - Current Medication List Current Medications: Active Medications Albuterol Sulfate (Ventolin Hfa Inhaler -) 2 puff IH Q4H PRN PRN Reason: SHORT OF BREATH/WHEEZING Aripiprazole (Abilify) 20 mg PO DAILY [facility] Last Admin: 01/06/20 09:06 Dose: 20 mg Documented by: Budesonide/Formoterol Fumarate (Symbicort 160/4.5mcg -) 1 puff IH BID [facility] Last Admin: 01/06/20 21:03 Dose: 1 puff Documented by: Dexamethasone Sodium Phosphate (Decadron Injection -) 4 mg IVPUSH Q12H [facility] Last Admin: 01/07/20 05:30 Dose: 4 mg Documented by: Enoxaparin Sodium (Lovenox -) 40 mg SQ DAILY [facility] Last Admin: 01/06/20 09:03 Dose: 40 mg Documented by: Fluoxetine HCl (Prozac -) 10 mg PO DAILY [facility] Last Admin: 01/06/20 09:06 Dose: 10 mg Documented by: Dextrose/Sodium Chloride (Dextrose 5%-Normal Saline+20 Meq Kcl -) 20 meq in 1,000 mls @ 50 mls/hr IV ASDIR [facility] Last Admin: 01/06/20 16:23 Dose: 50 mls/hr Documented by: Methadone HCl 40 mg/ Methadone (HCl 20 mg) 60 mg PO DAILY@0600 [facility] Last Admin: 01/07/20 06:25 Dose: 60 mg Documented by: Morphine Sulfate (Morphine Sulfate) 2 mg IVPUSH Q4H PRN PRN Reason: PAIN LEVEL 6-10 Last Admin: 01/07/20 04:55 Dose: 2 mg Documented by: Nystatin (Nystatin Oral Suspension -) 500,000 units PO Q6HPO [facility] Last Admin: 01/07/20 04:59 Dose: 500,000 units Documented by: Ondansetron HCl (Zofran Injection) 4 mg IVPUSH Q6H PRN PRN Reason: NAUSEA AND/OR VOMITING Pantoprazole Sodium (Protonix Iv) 40 mg IVPUSH DAILY [facility] Last Admin: 01/06/20 09:03 Dose: 40 mg Documented by: Polyethylene Glycol (Miralax (For Daily Use) -) 17 gm PO TID [facility] Last Admin: 01/07/20 04:57 Dose: 17 gm Documented by: Polyethylene Glycol/Electrolytes (Golytely Solution -) 4,000 ml PO ONCE ONE Stop: 01/07/20 09:01 Polysaccharide Iron Complex (Niferex-150 -) 150 mg PO DAILY [facility] Last Admin: 01/06/20 09:03 Dose: 150 mg Documented by: - Objective Vital Signs: Vital Signs Temperature 98.7 F 01/07/20 05:03 Pulse Rate 69 01/07/20 05:03 Respiratory Rate 17 01/07/20 05:03 Blood Pressure 130/72 01/07/20 05:03 O2 Sat by Pulse Oximetry (%) 95 01/07/20 05:03 Constitutional: Yes: Well Nourished, No Distress, Calm Cardiovascular: Yes: Regular Rate and Rhythm Respiratory: Yes: Regular, CTA Bilaterally Gastrointestinal: Yes: Normal Bowel Sounds, Soft, Abdomen, Obese, Tenderness (mild-diffuse) Genitourinary: Yes: WNL Musculoskeletal: Yes: Muscle Weakness Extremities: Yes: WNL Edema: Yes Edema: LLE: 1+, RLE: 1+ Peripheral Pulses WNL: Yes Neurological: Yes: Alert, Oriented Psychiatric: Yes: Alert, Oriented Labs: CBC, BMP 01/07/20 05:43 01/07/20 05:43 INR, PTT INR 1.17 (0.83-1.09) H 01/06/20 05:20 Problem List - Problems (1) Substance abuse Assessment/Plan: -Taper methadone over 10 days to the lowest tolerated dose -Opiates + due to morphine being given to pt before urine tox was collected Problems reviewed: Yes Code(s): F19.10 - OTHER PSYCHOACTIVE SUBSTANCE ABUSE, UNCOMPLICATED (2) VJ (acute kidney injury) Assessment/Plan: -Nephrology consult -likely dehydration -Continue IVF Problems reviewed: Yes Code(s): N17.9 - ACUTE KIDNEY FAILURE, UNSPECIFIED (3) Abdominal pain Assessment/Plan: -CTAP: metastatic liver ca, lesion on spleen, BL adrenal nodules -GI consult -Pain management -Oncology consult -Colonoscopy once COVID 19 PCR results Problems reviewed: Yes Code(s): R10.9 - UNSPECIFIED ABDOMINAL PAIN (4) Anemia Assessment/Plan: -Low in iron% -Also, CD -Injectafer x 1 this admission -monitor trend -transfuse if Hg <7.0 to avoid fluid overload -stool OB negative Problems reviewed: Yes Code(s): D64.9 - ANEMIA, UNSPECIFIED (5) Chemotherapy-induced nausea and vomiting Assessment/Plan: -Zofran PRN -Full liquids as tolerated -Continue supportive IVF -Needs COVID PCR before colonoscopy Problems reviewed: Yes Code(s): R11.2 - NAUSEA WITH VOMITING, UNSPECIFIED; T45.1X5A - ADVERSE EFFECT OF ANTINEOPLASTIC AND IMMUNOSUP DRUGS, INIT (6) Diarrhea Assessment/Plan: -Cdiff + O&P pending -GI consult -Continue Full liquid diet -ID consult -Colonoscopy when COVID 19 PCR results Problems reviewed: Yes Code(s): R19.7 - DIARRHEA, UNSPECIFIED (7) Hepatocellular carcinoma Assessment/Plan: -Sees Dr. Abel Gallego oncologist at [facility] -Last chemo 3 weeks ago dual immunotherapy- Atezolizumab and Bevacizumab -Oncology consult -Started on dexamethasone IV for hepatic pains Problems reviewed: Yes Code(s): C22.0 - LIVER CELL CARCINOMA (8) UTI (urinary tract infection) Assessment/Plan: -[facility]- Microbiology 01/02/20 18:00 Urine Culture - Preliminary Urine - Urine Clean Catch Lactose Fermenting Neg Bacilli 01/02/20 15:15 Blood Culture - Preliminary Blood - Peripheral Venous NO GROWTH OBTAINED AFTER 24 HOURS, INCUBATION TO CONTINUE FOR 4 DAYS. 01/02/20 15:15 Blood Culture - Preliminary Blood - Peripheral Venous NO GROWTH OBTAINED AFTER 24 HOURS, INCUBATION TO CONTINUE FOR 4 DAYS. -IV abx -ID consult -Afebrile Problems reviewed: Yes Code(s): N39.0 - URINARY TRACT INFECTION, SITE NOT SPECIFIED Assessment/Plan See problem list
[2020-01-07] MEDS ORDERED: PT OWN MED DRAWER 7, Y5N ONE (08:52)
[2020-01-07] MEDS ORDERED: PEG 3350/NA SULF BICARB CL/KCL 4000 ML SOLN.RECON PO ONE (09:00)
[2020-01-07] MEDS: ARIPiprazole 10 MG TABLET PO SCH ×2 (09:07→09:12)
[2020-01-07] MEDS: FLUoxetine HCL 10 MG CAPSULE PO SCH (09:08)
[2020-01-07] MEDS: IRON POLYSACCHARIDES 150 MG CAPSULE PO SCH (09:08)
[2020-01-07] MEDS: BUDESONIDE/FORMETEROL FUMARATE 160/4.5 mcg INHALER IH SCH ×2 (09:08→21:18)
[2020-01-07] MEDS: PANTOPRAZOLE SODIUM 40 MG VIAL IVPUSH SCH (10:11)
[2020-01-07] MEDS: ENOXAPARIN NA (PORCINE) 40 MG/0.4 ML DISP.SYRIN SQ SCH ×2 (10:11→16:00)
--- NOTE | 2020-01-07 10:17 | PN ---
Progress Note (short form) - Note Progress Note: feels much better much less pain oob and smiling Vital Signs Period Temp Pulse Resp BP Sys/[place] Pulse Ox Last 24 Hr 97.5 F-98.7 F 63-69 17-20 104-130/58-72 94-100 cor-rrr llungs clear abd soft, NT,+liver edge ext no edema CBC, BMP 01/07/20 05:43 01/07/20 05:43 Microbiology 01/02/20 15:15 Blood - Peripheral Venous Blood Culture - Preliminary NO GROWTH OBTAINED AFTER 96 HOURS, INCUBATION TO CONTINUE FOR 1 DAYS. 01/02/20 15:15 Blood - Peripheral Venous Blood Culture - Preliminary NO GROWTH OBTAINED AFTER 96 HOURS, INCUBATION TO CONTINUE FOR 1 DAYS. 01/05/20 01:45 Stool Gram Stain - Final 01/05/20 01:45 Stool Salmonella/Shigella Culture - Preliminary NO ENTERIC PATHOGENS, 24 HOURS, ON PRIMARY PLATES 01/05/20 01:45 Stool Vibrio Culture - Final NO GROWTH OF VIBRIO SPECIES OBTAINED 01/05/20 01:45 Stool Escherichia coli 0157 Culture - Final NO GROWTH OF E COLI 0157 OBTAINED 01/05/20 01:45 Stool Clostridioides difficile Antigen - Final 01/05/20 01:45 Stool Clostridioides difficile Toxin Assay - Final 01/02/20 18:00 Urine - Urine Clean Catch Urine Culture - Final Escherichia Coli a/p diarrhea-resolved HCC on immunotherapy vj secondary to dehydration-resolved abdominal pain secondary to HCC-improved d/c antibiotics please call back if needed Problem List - Problems (1) Diarrhea Code(s): R19.7 - DIARRHEA, UNSPECIFIED (2) Hepatocellular carcinoma Code(s): C22.0 - LIVER CELL CARCINOMA (3) VJ (acute kidney injury) Code(s): N17.9 - ACUTE KIDNEY FAILURE, UNSPECIFIED (4) Abdominal pain Code(s): R10.9 - UNSPECIFIED ABDOMINAL PAIN
[2020-01-07] MEDS: D5-NS + 20 MEQ KCL - 20 MEQ/1,000 ML INFUS.BAG IV SCH (12:12)
--- NOTE | 2020-01-07 14:22 | PN ---
Progress Note (short form) - Note Progress Note: Patient seen in follow up. No new complaints. Reports 3 episodes of non-bloody diarrhea this morning. Abdominal pain improved. Inpatient Meds reviewed. On Examination: Last Vital Signs Temp Pulse Resp BP Pulse Ox 97.7 F 88 18 146/87 97 01/07/20 10:00 01/07/20 10:00 01/07/20 10:00 01/07/20 10:00 01/07/20 10:00 General: In no acute distress. Extremities: No pallor or icterus. No pedal edema. No palpable lymphadenopathy. CVS: S1, S2, regular, no gallop or murmur. Chest: good air entry bilaterally, clear Abdomen: Non-distended, tender+, hepatomegaly. Neuro: Alert, oriented, non-focal. Labs: CBC, BMP 01/07/20 05:43 01/07/20 05:43 Assessment. Multifocal HCC, receiving Atezolizumab and Bevacizumab, last dose 12/13, admitted with several weeks diarrhea. 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 Colonoscopy pending
--- NOTE | 2020-01-07 14:39 | PN.GI ---
GI Progress Note Subjective: GI NOte: Bowel prep cancelled as Nia needs an updated Covid 19 status in order to undergo the endoscopies. She was reswabbed today - Objective Vital Signs: Vital Signs Temperature 97.7 F 01/07/20 10:00 Pulse Rate 88 01/07/20 10:00 Respiratory Rate 18 01/07/20 10:00 Blood Pressure 146/87 01/07/20 10:00 O2 Sat by Pulse Oximetry (%) 97 01/07/20 10:00 Laboratory Tests 01/06/20 01/06/20 01/07/20 05:20 05:20 05:43 Hgb 7.6 L 8.0 L PT with INR 13.80 H Potassium BUN Creatinine Alkaline Phosphatase Albumin 01/07/20 05:43 Hgb PT with INR Potassium 4.1 BUN 17.1 Creatinine 1.0 Alkaline Phosphatase 215 H Albumin 1.4 L Constitutional: Calm ...Auscultate: Yes: Normoactive Bowel Sounds ...Palpate: Yes: Soft, Other (nontender) Labs: CBC, BMP 01/07/20 05:43 01/07/20 05:43 INR, PTT INR 1.17 (0.83-1.09) H 01/06/20 05:20 Assessment/Plan Impression: - Melena and diarrhea as per oncology consultants supported by a dwindling Hb an d albumin. - Hepatocellular carcinoma - H/O Multiple substance abuse Plan: - Informed consent has been obtained for EGD and colonoscopy which has been rescheduled for Wednesday Problem List - Problems (1) Chemotherapy-induced nausea and vomiting Code(s): R11.2 - NAUSEA WITH VOMITING, UNSPECIFIED; T45.1X5A - ADVERSE EFFECT OF ANTINEOPLASTIC AND IMMUNOSUP DRUGS, INIT (2) COPD (chronic obstructive pulmonary disease) Code(s): J44.9 - CHRONIC OBSTRUCTIVE PULMONARY DISEASE, UNSPECIFIED (3) Abdominal pain Code(s): R10.9 - UNSPECIFIED ABDOMINAL PAIN (4) Hepatocellular carcinoma Code(s): C22.0 - LIVER CELL CARCINOMA (5) Alcohol dependence with uncomplicated withdrawal Code(s): F10.230 - ALCOHOL DEPENDENCE WITH WITHDRAWAL, UNCOMPLICATED (6) Opioid dependence with withdrawal Code(s): F11.23 - OPIOID DEPENDENCE WITH WITHDRAWAL (7) Substance-induced anxiety disorder Code(s): F19.980 - OTH PSYCHOACTIVE SUBSTANCE USE, UNSP W ANXIETY DISORDER (8) Bipolar disorder Code(s): F31.9 - BIPOLAR DISORDER, UNSPECIFIED (9) Cannabis abuse Code(s): F12.10 - CANNABIS ABUSE, UNCOMPLICATED (10) Hepatitis C Code(s): B19.20 - UNSPECIFIED VIRAL HEPATITIS C WITHOUT HEPATIC COMA Qualifiers: Viral hepatitis chronicity: chronic Hepatic coma status: without hepatic coma Qualified Code(s): B18.2 - Chronic viral hepatitis C (11) Diarrhea Code(s): R19.7 - DIARRHEA, UNSPECIFIED (12) Melena Code(s): K92.1 - MELENA
--- NOTE | 2020-01-07 15:33 | PN ---
Progress Note, Physician History of Present Illness: Pt seen and examined at bedside. She is awake and alert. - Current Medication List Current Medications: Active Medications Albuterol Sulfate (Ventolin Hfa Inhaler -) 2 puff IH Q4H PRN PRN Reason: SHORT OF BREATH/WHEEZING Aripiprazole (Abilify) 20 mg PO DAILY [facility] Last Admin: 01/07/20 09:12 Dose: Not Given Documented by: Bisacodyl (Dulcolax -) 20 mg PO ONCE ONE Stop: 01/08/20 18:01 Budesonide/Formoterol Fumarate (Symbicort 160/4.5mcg -) 1 puff IH BID [facility] Last Admin: 01/07/20 09:08 Dose: 1 puff Documented by: Dexamethasone Sodium Phosphate (Decadron Injection -) 4 mg IVPUSH Q12H [facility] Last Admin: 01/07/20 05:30 Dose: 4 mg Documented by: Enoxaparin Sodium (Lovenox -) 40 mg SQ DAILY [facility] Fluoxetine HCl (Prozac -) 10 mg PO DAILY [facility] Last Admin: 01/07/20 09:08 Dose: 10 mg Documented by: Dextrose/Sodium Chloride (Dextrose 5%-Normal Saline+20 Meq Kcl -) 20 meq in 1,000 mls @ 50 mls/hr IV ASDIR [facility] Last Admin: 01/07/20 12:12 Dose: 50 mls/hr Documented by: Methadone HCl 40 mg/ Methadone (HCl 20 mg) 60 mg PO DAILY@0600 [facility] Last Admin: 01/07/20 06:25 Dose: 60 mg Documented by: Methylnaltrexone [place] (Relistor -) 12 mg SQ DAILY [facility] Morphine Sulfate (Morphine Sulfate) 2 mg IVPUSH Q4H PRN PRN Reason: PAIN LEVEL 6-10 Last Admin: 01/07/20 04:55 Dose: 2 mg Documented by: Nystatin (Nystatin Oral Suspension -) 500,000 units PO Q6HPO [facility] Last Admin: 01/07/20 12:01 Dose: 500,000 units Documented by: Ondansetron HCl (Zofran Injection) 4 mg IVPUSH Q6H PRN PRN Reason: NAUSEA AND/OR VOMITING Pantoprazole Sodium (Protonix Iv) 40 mg IVPUSH DAILY [facility] Last Admin: 01/07/20 10:11 Dose: 40 mg Documented by: Polyethylene Glycol (Miralax (For Daily Use) -) 17 gm PO TID [facility] Last Admin: 01/07/20 13:43 Dose: Not Given Documented by: Polyethylene Glycol/Electrolytes (Golytely Solution -) 4,000 ml PO ONCE ONE Stop: 01/08/20 11:01 Polysaccharide Iron Complex (Niferex-150 -) 150 mg PO DAILY [facility] Last Admin: 01/07/20 09:08 Dose: 150 mg Documented by: - Objective Vital Signs: Vital Signs Temperature 97.7 F 01/07/20 10:00 Pulse Rate 88 01/07/20 10:00 Respiratory Rate 18 01/07/20 10:00 Blood Pressure 146/87 01/07/20 10:00 O2 Sat by Pulse Oximetry (%) 97 01/07/20 10:00 Constitutional: Yes: Calm Eyes: Yes: WNL Cardiovascular: Yes: S1, S2 Respiratory: Yes: CTA Bilaterally Gastrointestinal: Yes: Soft, Abdomen, Obese, Tenderness Musculoskeletal: Yes: WNL Edema: No Neurological: Yes: Oriented Psychiatric: Yes: Oriented Labs: CBC, BMP 01/07/20 05:43 01/07/20 05:43 INR, PTT INR 1.17 (0.83-1.09) H 01/06/20 05:20 Assessment/Plan Current Medications Generic Name Dose Route Start Last Admin Trade Name Freq PRN Reason Stop Dose Admin Albuterol Sulfate 2 puff 01/02/20 18:28 Ventolin Hfa Inhaler - IH Q4H PRN SHORT OF BREATH/WHEEZING Aripiprazole 20 mg 01/04/20 07:17 01/07/20 09:12 Abilify PO Not Given DAILY [facility] Bisacodyl 20 mg 01/08/20 18:00 Dulcolax - PO 01/08/20 18:01 ONCE ONE Budesonide/Formoterol Fumarate 1 puff 01/02/20 22:00 01/07/20 09:08 Symbicort 160/4.5mcg - IH 1 puff BID [facility] Administration Dexamethasone Sodium Phosphate 4 mg 01/04/20 18:30 01/07/20 05:30 Decadron Injection - IVPUSH 4 mg Q12H [facility] Administration Enoxaparin Sodium 40 mg 01/07/20 14:45 Lovenox - SQ DAILY [facility] Fluoxetine HCl 10 mg 01/03/20 10:00 01/07/20 09:08 Prozac - PO 10 mg DAILY [facility] Administration Dextrose/Sodium Chloride 20 meq in 1,000 mls @ 50 mls/hr 01/06/20 15:03 01/07/20 12:12 Dextrose 5%-Normal Saline+20 Meq Kcl - IV 50 mls/hr ASDIR [facility] Administration Methadone HCl 40 mg/ Methadone 60 mg 01/07/20 06:00 01/07/20 06:25 HCl 20 mg PO 60 mg DAILY@0600 [facility] Administration Methylnaltrexone [place] 12 mg 01/08/20 10:00 Relistor - SQ DAILY [facility] Morphine Sulfate 2 mg 01/02/20 18:32 01/07/20 04:55 Morphine Sulfate IVPUSH 2 mg Q4H PRN Administration PAIN LEVEL 6-10 Nystatin 500,000 units 01/06/20 00:00 01/07/20 12:01 Nystatin Oral Suspension - PO 500,000 units Q6HPO [facility] Administration Ondansetron HCl 4 mg 01/02/20 18:30 Zofran Injection IVPUSH Q6H PRN NAUSEA AND/OR VOMITING Pantoprazole Sodium 40 mg 01/03/20 10:00 01/07/20 10:11 Protonix Iv IVPUSH 40 mg DAILY [facility] Administration Polyethylene Glycol 17 gm 01/05/20 22:00 01/07/20 13:43 Miralax (For Daily Use) - PO Not Given TID [facility] Polyethylene Glycol/Electrolytes 4,000 ml 01/08/20 11:00 Golytely Solution - PO 01/08/20 11:01 ONCE ONE Polysaccharide Iron Complex 150 mg 01/04/20 10:00 01/07/20 09:08 Niferex-150 - PO 150 mg DAILY [facility] Administration Impression 1. jay 2. dehydration 3. hepatocellular ca 4. depression Plan - cont fluid - change fluids to 1/2 ns with potassium - repeat labs in am - likely jay from pre-renal disease - avoid nsaids
[2020-01-07] MEDS: D5-1/2NS+20 MEQ KCL - 20 MEQ/1,000 ML INFUS.BAG IV SCH (17:39)
[2020-01-08] MEDS: D5-NS + 20 MEQ KCL - 20 MEQ/1,000 ML INFUS.BAG IV SCH (00:56)
[2020-01-08] MEDS ORDERED: METHADONE HCL 10 MG TABLET ONE (05:03)
[2020-01-08] MEDS ORDERED: METHADONE HCL 40 MG DISPERSABLE TABLET ONE (05:04)
[2020-01-08] MEDS: NYSTATIN 500,000 UNITS/5 ML SUSPENSION PO SCH ×4 (05:56→23:11)
[2020-01-08] MEDS: METHADONE 40 MG, METHADONE 20 MG PO SCH (05:57)
[2020-01-08] MEDS ORDERED: DEXAMETHASONE SOD PHOSPHATE 4 MG/1 ML VIAL IM ONE (06:03)
[2020-01-08] MEDS: DEXAMETHASONE SOD PHOSPHATE 4 MG/1 ML VIAL IVPUSH SCH ×2 (06:12→17:51)
[2020-01-08] MEDS: POLYETHYLENE GLYCOL 3350 119 GM BTL PO SCH ×3 (06:13→23:11)
[2020-01-08 08:27] LABS: ALBUMIN 1.6 g/dl (3.4-5.0); BILIRUBIN,TOTAL 0.9 mg/dL (0.2-1); BLOOD UREA NITROGEN 13.8 mg/dL (7-18); CREATININE 0.9 mg/dL (0.55-1.3); POTASSIUM 3.8 mmol/L (3.5-5.1); TOT PROT 6.1 g/dl (6.4-8.2)
[2020-01-08 08:35] LABS: BASO % 0.4 % (0-2.0); EOS % 0.3 % (0-4.5); HEMATOCRIT 29.5 % (32.4-45.2); HEMOGLOBIN 8.8 GM/dL (10.7-15.3); LYMPH % 19.7 % (8-40); MCH 26.5 pg (25.7-33.7); MCHC 29.7 g/dl (32.0-36.0); MEAN CELL VOLUME 89.4 fl (80-96); MEAN PLT VOLUME 10.3 fl (7.5-11.1); NEUT % 73.6 % (42.8-82.8); PLATELET COUNT 276 K/MM3 (134-434); RBC 3.31 M/mm3 (3.60-5.2); RDW 17.8 % (11.6-15.6); WHITE BLOOD COUNT 8.3 K/mm3 (4.0-10.0)
--- NOTE | 2020-01-08 08:55 | PN ---
Progress Note, Physician History of Present Illness: Feeling a lot better today Sitting at the edge of the bed Dexamethasone helping c/o abd pain diarrhea overnight Symptoms ongoing for over a month now, likely colitis r/t chemo Pt is on chronic methadone dosage of 85 mg po daily- confirmed by [place] sushma [place]ley. Pt is not on any other opiates. 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 Pt denies using any other opiates. Pt's urine was collected after morphine was given to the pt in the ER- might have caused + results in Urine tox UC + UTI Cdiff + O&P pending Seen by GI Plan for colonoscopy on Wednesday - Current Medication List Current Medications: Active Medications Albuterol Sulfate (Ventolin Hfa Inhaler -) 2 puff IH Q4H PRN PRN Reason: SHORT OF BREATH/WHEEZING Aripiprazole (Abilify) 20 mg PO DAILY [facility] Last Admin: 01/07/20 09:12 Dose: Not Given Documented by: Bisacodyl (Dulcolax -) 20 mg PO ONCE ONE Stop: 01/08/20 18:01 Budesonide/Formoterol Fumarate (Symbicort 160/4.5mcg -) 1 puff IH BID [facility] Last Admin: 01/07/20 21:18 Dose: 1 puff Documented by: Dexamethasone Sodium Phosphate (Decadron Injection -) 4 mg IVPUSH Q12H [facility] Last Admin: 01/08/20 06:12 Dose: Not Given Documented by: Enoxaparin Sodium (Lovenox -) 40 mg SQ DAILY [facility] Last Admin: 01/07/20 16:00 Dose: Not Given Documented by: Fluoxetine HCl (Prozac -) 10 mg PO DAILY [facility] Last Admin: 01/07/20 09:08 Dose: 10 mg Documented by: Potassium Chloride/Dextrose/Sod Cl (D5-1/2ns+20 Meq Kcl -) 20 meq in 1,000 mls @ 50 mls/hr IV ASDIR [facility] Last Admin: 01/07/20 17:39 Dose: Not Given Documented by: Methadone HCl 40 mg/ Methadone (HCl 20 mg) 60 mg PO DAILY@0600 [facility] Last Admin: 01/08/20 05:57 Dose: 60 mg Documented by: Methylnaltrexone [place] (Relistor -) 12 mg SQ DAILY [facility] Morphine Sulfate (Morphine Sulfate) 2 mg IVPUSH Q4H PRN PRN Reason: PAIN LEVEL 6-10 Last Admin: 01/07/20 22:59 Dose: 2 mg Documented by: Nystatin (Nystatin Oral Suspension -) 500,000 units PO Q6HPO [facility] Last Admin: 01/08/20 05:56 Dose: 500,000 units Documented by: Ondansetron HCl (Zofran Injection) 4 mg IVPUSH Q6H PRN PRN Reason: NAUSEA AND/OR VOMITING Pantoprazole Sodium (Protonix Iv) 40 mg IVPUSH DAILY [facility] Last Admin: 01/07/20 10:11 Dose: 40 mg Documented by: Polyethylene Glycol (Miralax (For Daily Use) -) 17 gm PO TID [facility] Last Admin: 01/08/20 06:13 Dose: Not Given Documented by: Polyethylene Glycol/Electrolytes (Golytely Solution -) 4,000 ml PO ONCE ONE Stop: 01/08/20 11:01 Polysaccharide Iron Complex (Niferex-150 -) 150 mg PO DAILY [facility] Last Admin: 01/07/20 09:08 Dose: 150 mg Documented by: - Objective Vital Signs: Vital Signs Temperature 98.1 F 01/08/20 06:00 Pulse Rate 61 01/08/20 06:00 Respiratory Rate 18 01/08/20 06:00 Blood Pressure 124/68 01/08/20 06:00 O2 Sat by Pulse Oximetry (%) 99 01/08/20 06:00 Cardiovascular: Yes: S1, S2 Respiratory: Yes: Regular, CTA Bilaterally Gastrointestinal: Yes: Distention, Tenderness Labs: CBC, BMP 01/08/20 07:29 01/08/20 07:29 INR, PTT INR 1.17 (0.83-1.09) H 01/06/20 05:20 Assessment/Plan - Problems (1) Substance abuse Assessment/Plan: -Taper methadone over 10 days to the lowest tolerated dose -Opiates + due to morphine being given to pt before urine tox was collected Problems reviewed: Yes Code(s): F19.10 - OTHER PSYCHOACTIVE SUBSTANCE ABUSE, UNCOMPLICATED (2) VJ (acute kidney injury) Assessment/Plan: -Nephrology consult -likely dehydration -Continue IVF Problems reviewed: Yes Code(s): N17.9 - ACUTE KIDNEY FAILURE, UNSPECIFIED (3) Abdominal pain Assessment/Plan: -CTAP: metastatic liver ca, lesion on spleen, BL adrenal nodules -GI consult -Pain management -Oncology consult -Colonoscopy once COVID 19 PCR results Problems reviewed: Yes Code(s): R10.9 - UNSPECIFIED ABDOMINAL PAIN (4) Anemia Assessment/Plan: -Low in iron% -Also, CD -Injectafer x 1 this admission -monitor trend -transfuse if Hg <7.0 to avoid fluid overload -stool OB negative Problems reviewed: Yes Code(s): D64.9 - ANEMIA, UNSPECIFIED (5) Chemotherapy-induced nausea and vomiting Assessment/Plan: -Zofran PRN -Full liquids as tolerated -Continue supportive IVF -Needs COVID PCR before colonoscopy Problems reviewed: Yes Code(s): R11.2 - NAUSEA WITH VOMITING, UNSPECIFIED; T45.1X5A - ADVERSE EFFECT OF ANTINEOPLASTIC AND IMMUNOSUP DRUGS, INIT (6) Diarrhea Assessment/Plan: -Cdiff + O&P pending -GI consult -Continue Full liquid diet -ID consult -Colonoscopy when COVID 19 PCR results Problems reviewed: Yes Code(s): R19.7 - DIARRHEA, UNSPECIFIED (7) Hepatocellular carcinoma Assessment/Plan: -Sees Dr. Abel Gallego oncologist at [facility] -Last chemo 3 weeks ago dual immunotherapy- Atezolizumab and Bevacizumab -Oncology consult -Started on dexamethasone IV for hepatic pains Problems reviewed: Yes Code(s): C22.0 - LIVER CELL CARCINOMA (8) UTI (urinary tract infection) Assessment/Plan: -UC- Microbiology 01/02/20 18:00 Urine Culture - Preliminary Urine - Urine Clean Catch Lactose Fermenting Neg Bacilli 01/02/20 15:15 Blood Culture - Preliminary Blood - Peripheral Venous NO GROWTH OBTAINED AFTER 24 HOURS, INCUBATION TO CONTINUE FOR 4 DAYS. 01/02/20 15:15 Blood Culture - Preliminary Blood - Peripheral Venous NO GROWTH OBTAINED AFTER 24 HOURS, INCUBATION TO CONTINUE FOR 4 DAYS. -IV abx -ID consult -Afebrile Problems reviewed: Yes Code(s): N39.0 - URINARY TRACT INFECTION, SITE NOT SPECIFIED
[2020-01-08] MEDS: IRON POLYSACCHARIDES 150 MG CAPSULE PO SCH (09:33)
[2020-01-08] MEDS: ARIPiprazole 10 MG TABLET PO SCH (09:34)
[2020-01-08] MEDS: FLUoxetine HCL 10 MG CAPSULE PO SCH (09:34)
[2020-01-08] MEDS: BUDESONIDE/FORMETEROL FUMARATE 160/4.5 mcg INHALER IH SCH ×2 (09:36→23:11)
--- NOTE | 2020-01-08 10:04 | PN.GI ---
GI Progress Note Subjective: GI NOte: COVID status still pending. Will proceed with bowel prep as I suspect that Nia has a methadone associated fecal impaction and may come to need two days of Golytely prep. Will continue Relistor as she has sluggish BMs - Objective Vital Signs: Vital Signs Temperature 98 F 01/08/20 09:16 Pulse Rate 75 01/08/20 09:16 Respiratory Rate 18 01/08/20 09:16 Blood Pressure 129/76 01/08/20 09:16 O2 Sat by Pulse Oximetry (%) 94 L 01/08/20 09:16 Laboratory Tests 01/04/20 01/04/20 01/07/20 06:20 06:25 05:43 Hgb 8.0 L Retic Count 3.79 H EUGENIO Screen Pending [place] [place]c &TITLE CHECKER Intrp 13 Hep A IgM Ab Confirm Negative Hepatitis A Ab Total Positive H Hep Bs Antigen Negative Hep Bs Antibody Non reactive Hep B Core Total Ab Negative HCV Quantitation Hcv not detected 01/08/20 07:29 Hgb 8.8 L Retic Count EUGENIO Screen Smooth Musc &TITLE CHECKER Intrp Hep A IgM Ab Confirm Hepatitis A Ab Total Hep Bs Antigen Hep Bs Antibody Hep B Core Total Ab HCV Quantitation Constitutional: Calm Gastrointestinal Inspection: Yes: Distention ...Auscultate: Yes: Hypoactive Bowel Sounds, Other (nontender) Labs: CBC, BMP 01/08/20 07:29 01/08/20 07:29 INR, PTT INR 1.17 (0.83-1.09) H 01/06/20 05:20 Assessment/Plan Impression: - Melena and diarrhea as per oncology consultants supported by a dwindling of Hb and albumin. - Hepatocellular carcinoma - H/O Multiple substance abuse Plan: - Informed consent has been obtained for EGD and colonoscopy which has been rescheduled for Wednesday. If COVID status is not ready then will need to push it back Problem List - Problems (1) Chemotherapy-induced nausea and vomiting Code(s): R11.2 - NAUSEA WITH VOMITING, UNSPECIFIED; T45.1X5A - ADVERSE EFFECT OF ANTINEOPLASTIC AND IMMUNOSUP DRUGS, INIT (2) COPD (chronic obstructive pulmonary disease) Code(s): J44.9 - CHRONIC OBSTRUCTIVE PULMONARY DISEASE, UNSPECIFIED (3) Abdominal pain Code(s): R10.9 - UNSPECIFIED ABDOMINAL PAIN (4) Hepatocellular carcinoma Code(s): C22.0 - LIVER CELL CARCINOMA (5) Alcohol dependence with uncomplicated withdrawal Code(s): F10.230 - ALCOHOL DEPENDENCE WITH WITHDRAWAL, UNCOMPLICATED (6) Opioid dependence with withdrawal Code(s): F11.23 - OPIOID DEPENDENCE WITH WITHDRAWAL (7) Substance-induced anxiety disorder Code(s): F19.980 - OTH PSYCHOACTIVE SUBSTANCE USE, UNSP W ANXIETY DISORDER (8) Bipolar disorder Code(s): F31.9 - BIPOLAR DISORDER, UNSPECIFIED (9) Cannabis abuse Code(s): F12.10 - CANNABIS ABUSE, UNCOMPLICATED (10) Hepatitis C Code(s): B19.20 - UNSPECIFIED VIRAL HEPATITIS C WITHOUT HEPATIC COMA Qualifiers: Viral hepatitis chronicity: chronic Hepatic coma status: without hepatic coma Qualified Code(s): B18.2 - Chronic viral hepatitis C (11) Diarrhea Code(s): R19.7 - DIARRHEA, UNSPECIFIED (12) Melena Code(s): K92.1 - MELENA
[2020-01-08] MEDS ORDERED: PEG 3350/NA SULF BICARB CL/KCL 4000 ML SOLN.RECON PO ONE (11:00)
[2020-01-08] MEDS ORDERED: PT OWN MED DRAWER 7, Y5N ONE (11:11)
[2020-01-08] MEDS: Methylnaltrexone Bromide 12 MG/0.6 ML KIT SQ SCH (11:31)
[2020-01-08] MEDS: PANTOPRAZOLE SODIUM 40 MG VIAL IVPUSH SCH (14:28)
--- NOTE | 2020-01-08 16:22 | RAPID ---
<Sonya Cuevas - Last Filed: 01/08/20 17:34> Physical Examination Vital Signs: Last Vital Signs Temp Pulse Resp BP Pulse Ox 98 F 59 L 18 107/69 95 01/08/20 16:24 01/08/20 16:24 01/08/20 16:24 01/08/20 16:24 01/08/20 14:00 Constitutional: Yes: Well Nourished, No Distress, Calm Eyes: Yes: WNL, Conjunctiva Clear, EOM Intact HENT: Yes: WNL, Atraumatic Neck: Yes: WNL, Supple Cardiovascular: Yes: WNL, Regular Rate and Rhythm Respiratory: Yes: WNL, Regular, CTA Bilaterally (R base expiratory wheezing) Gastrointestinal: Yes: Hyperactive Bowel Sounds ...Rectal Exam: Yes: Deferred Renal/: Yes: WNL Breast(s): Yes: WNL Musculoskeletal: Yes: WNL Extremities: Yes: WNL Edema: No Peripheral Pulses WNL: Yes Neurological: Yes: WNL, Alert, Oriented ...Motor Strength: WNL Labs: CBC, BMP 01/08/20 07:29 01/08/20 07:29 Rapid Response - Rapid Response Assessment: RR called 16:17. RR team arrived within 2 minutes. Patient was laying on the floor status post fall. She was trying get up from the bed 1 minute after nursing left the room. She fell on her right side and back, did not hit her hear, no LOC. Denied dizziness, light headedness, weakness, palpitations & chest pain. Patient was wearing slippers she was not supposed to be wearing instead of the fall risk socks. Exam as noted was WNL. Denies pain to palpation of her head, stomach, BL LE, BL UE, and back. Patient stable. <Coleen Forbes - Last Filed: 01/24/20 20:47> Physical Examination Vital Signs: Labs: CBC, BMP 01/10/20 06:40 01/10/20 06:40 Critical Care Total Critical Care Time (in minutes): 20
--- NOTE | 2020-01-08 17:01 | PN ---
Progress Note, Physician History of Present Illness: Pt seen and examined at bedside. She is awake and alert. She is getting her prep for endoscopy. - Current Medication List Current Medications: Active Medications Albuterol Sulfate (Ventolin Hfa Inhaler -) 2 puff IH Q4H PRN PRN Reason: SHORT OF BREATH/WHEEZING Amino Acids (Prosource No Carb Liquid Pkt) 30 ml PO BID@0800,1730 [facility] Aripiprazole (Abilify) 20 mg PO DAILY [facility] Last Admin: 01/08/20 09:34 Dose: 20 mg Documented by: Bisacodyl (Dulcolax -) 20 mg PO ONCE ONE Stop: 01/08/20 18:01 Budesonide/Formoterol Fumarate (Symbicort 160/4.5mcg -) 1 puff IH BID [facility] Last Admin: 01/08/20 09:36 Dose: 1 puff Documented by: Dexamethasone Sodium Phosphate (Decadron Injection -) 4 mg IVPUSH Q12H [facility] Last Admin: 01/08/20 06:12 Dose: Not Given Documented by: Enoxaparin Sodium (Lovenox -) 40 mg SQ DAILY [facility] Last Admin: 01/07/20 16:00 Dose: Not Given Documented by: Fluoxetine HCl (Prozac -) 10 mg PO DAILY [facility] Last Admin: 01/08/20 09:34 Dose: 10 mg Documented by: Potassium Chloride/Dextrose/Sod Cl (D5-1/2ns+20 Meq Kcl -) 20 meq in 1,000 mls @ 50 mls/hr IV ASDIR [facility] Last Admin: 01/07/20 17:39 Dose: Not Given Documented by: Methadone HCl 40 mg/ Methadone (HCl 20 mg) 60 mg PO DAILY@0600 [facility] Last Admin: 01/08/20 05:57 Dose: 60 mg Documented by: Methylnaltrexone [place] (Relistor -) 12 mg SQ DAILY [facility] Last Admin: 01/08/20 11:31 Dose: 12 mg Documented by: Morphine Sulfate (Morphine Sulfate) 2 mg IVPUSH Q4H PRN PRN Reason: PAIN LEVEL 6-10 Last Admin: 01/07/20 22:59 Dose: 2 mg Documented by: Nystatin (Nystatin Oral Suspension -) 500,000 units PO Q6HPO [facility] Last Admin: 01/08/20 14:28 Dose: 500,000 units Documented by: Ondansetron HCl (Zofran Injection) 4 mg IVPUSH Q6H PRN PRN Reason: NAUSEA AND/OR VOMITING Pantoprazole Sodium (Protonix Iv) 40 mg IVPUSH DAILY [facility] Last Admin: 01/08/20 14:28 Dose: Not Given Documented by: Polyethylene Glycol (Miralax (For Daily Use) -) 17 gm PO TID [facility] Last Admin: 01/08/20 14:09 Dose: Not Given Documented by: Polysaccharide Iron Complex (Niferex-150 -) 150 mg PO DAILY [facility] Last Admin: 01/08/20 09:33 Dose: 150 mg Documented by: - Objective Vital Signs: Vital Signs Temperature 97.9 F 01/08/20 14:00 Pulse Rate 58 L 01/08/20 14:00 Respiratory Rate 18 01/08/20 14:00 Blood Pressure 98/60 01/08/20 14:00 O2 Sat by Pulse Oximetry (%) 95 01/08/20 14:00 Constitutional: Yes: Calm Eyes: Yes: Conjunctiva Clear HENT: Yes: Atraumatic Cardiovascular: Yes: S1, S2 Respiratory: Yes: CTA Bilaterally Gastrointestinal: Yes: Soft Musculoskeletal: Yes: WNL Edema: No Neurological: Yes: Oriented Psychiatric: Yes: Oriented Labs: CBC, BMP 01/08/20 07:29 01/08/20 07:29 INR, PTT INR 1.17 (0.83-1.09) H 01/06/20 05:20 Assessment/Plan Current Medications Generic Name Dose Route Start Last Admin Trade Name Freq PRN Reason Stop Dose Admin Albuterol Sulfate 2 puff 01/02/20 18:28 Ventolin Hfa Inhaler - IH Q4H PRN SHORT OF BREATH/WHEEZING Amino Acids 30 ml 01/08/20 17:30 Prosource No Carb Liquid Pkt PO BID@0800,1730 [facility] Aripiprazole 20 mg 01/04/20 07:17 01/08/20 09:34 Abilify PO 20 mg DAILY [facility] Administration Bisacodyl 20 mg 01/08/20 18:00 Dulcolax - PO 01/08/20 18:01 ONCE ONE Budesonide/Formoterol Fumarate 1 puff 01/02/20 22:00 01/08/20 09:36 Symbicort 160/4.5mcg - IH 1 puff BID [facility] Administration Dexamethasone Sodium Phosphate 4 mg 01/04/20 18:30 01/08/20 06:12 Decadron Injection - IVPUSH Not Given Q12H [facility] Enoxaparin Sodium 40 mg 01/07/20 14:45 01/07/20 16:00 Lovenox - SQ Not Given DAILY [facility] Fluoxetine HCl 10 mg 01/03/20 10:00 01/08/20 09:34 Prozac - PO 10 mg DAILY [facility] Administration Potassium Chloride/Dextrose/Sod Cl 20 meq in 1,000 mls @ 50 mls/hr 01/07/20 15:45 01/07/20 17:39 D5-1/2ns+20 Meq Kcl - IV Not Given ASDIR [facility] Methadone HCl 40 mg/ Methadone 60 mg 01/07/20 06:00 01/08/20 05:57 HCl 20 mg PO 60 mg DAILY@0600 [facility] Administration Methylnaltrexone [place] 12 mg 01/08/20 10:00 01/08/20 11:31 Relistor - SQ 12 mg DAILY [facility] Administration Morphine Sulfate 2 mg 01/02/20 18:32 01/07/20 22:59 Morphine Sulfate IVPUSH 2 mg Q4H PRN Administration PAIN LEVEL 6-10 Nystatin 500,000 units 01/06/20 00:00 01/08/20 14:28 Nystatin Oral Suspension - PO 500,000 units Q6HPO [facility] Administration Ondansetron HCl 4 mg 01/02/20 18:30 Zofran Injection IVPUSH Q6H PRN NAUSEA AND/OR VOMITING Pantoprazole Sodium 40 mg 01/03/20 10:00 01/08/20 14:28 Protonix Iv IVPUSH Not Given DAILY [facility] Polyethylene Glycol 17 gm 01/05/20 22:00 01/08/20 14:09 Miralax (For Daily Use) - PO Not Given TID [facility] Polysaccharide Iron Complex 150 mg 01/04/20 10:00 01/08/20 09:33 Niferex-150 - PO 150 mg DAILY [facility] Administration Impression 1. jay 2. dehydration 3. hepatocellular ca 4. depression Plan - will restart fluids as she is taking the endoscopy prep - repeat labs in am - encourage po intake - likely jay from pre-renal disease - avoid nsaids
[2020-01-08] MEDS: D5-1/2NS+20 MEQ KCL - 20 MEQ/1,000 ML INFUS.BAG IV SCH (17:52)
[2020-01-08] MEDS: AMINO ACIDS/PROTEIN HYDROLYS 30 ML LIQUID.PKT PO SCH (17:52)
[2020-01-08] MEDS ORDERED: BISACODYL 5 MG TABLET.DR (FP) PO ONE (18:00)
[2020-01-09] MEDS: D5-1/2NS+20 MEQ KCL - 20 MEQ/1,000 ML INFUS.BAG IV SCH ×2 (03:04→17:25)
[2020-01-09] MEDS: POLYETHYLENE GLYCOL 3350 119 GM BTL PO SCH ×2 (05:48→13:27)
[2020-01-09] MEDS: DEXAMETHASONE SOD PHOSPHATE 4 MG/1 ML VIAL IVPUSH SCH ×2 (05:49→17:30)
[2020-01-09] MEDS: NYSTATIN 500,000 UNITS/5 ML SUSPENSION PO SCH ×3 (05:49→17:25)
[2020-01-09] MEDS: METHADONE 40 MG, METHADONE 20 MG PO SCH (07:06)
[2020-01-09 07:21] LABS: BASO % 0.4 % (0-2.0); EOS % 0.3 % (0-4.5); HEMATOCRIT 26.2 % (32.4-45.2); HEMOGLOBIN 8.2 GM/dL (10.7-15.3); LYMPH % 17.4 % (8-40); MCH 26.6 pg (25.7-33.7); MCHC 31.2 g/dl (32.0-36.0); MEAN CELL VOLUME 85.2 fl (80-96); MEAN PLT VOLUME 9.1 fl (7.5-11.1); MONO % 5.4 % (3.8-10.2); NEUT % 76.5 % (42.8-82.8); PLATELET COUNT 353 K/MM3 (134-434); RBC 3.08 M/mm3 (3.60-5.2); RDW 17.6 % (11.6-15.6); WHITE BLOOD COUNT 7.3 K/mm3 (4.0-10.0)
[2020-01-09 07:59] LABS: ALBUMIN 1.5 g/dl (3.4-5.0); BILIRUBIN,TOTAL 0.6 mg/dL (0.2-1); BLOOD UREA NITROGEN 12.5 mg/dL (7-18); CALCIUM 7.7 mg/dL (8.5-10.1); CREATININE 0.9 mg/dL (0.55-1.3); POTASSIUM 3.4 mmol/L (3.5-5.1); TOT PROT 5.3 g/dl (6.4-8.2)
[2020-01-09] MEDS: AMINO ACIDS/PROTEIN HYDROLYS 30 ML LIQUID.PKT PO SCH ×2 (08:03→17:25)
[2020-01-09] MEDS: ARIPiprazole 10 MG TABLET PO SCH (10:53)
[2020-01-09] MEDS: PANTOPRAZOLE SODIUM 40 MG VIAL IVPUSH SCH (10:54)
[2020-01-09] MEDS: FLUoxetine HCL 10 MG CAPSULE PO SCH (10:54)
[2020-01-09] MEDS: IRON POLYSACCHARIDES 150 MG CAPSULE PO SCH (10:54)
[2020-01-09] MEDS ORDERED: PT OWN MED DRAWER 7, Y5N ONE ×2 (10:57→21:08)
[2020-01-09] MEDS: BUDESONIDE/FORMETEROL FUMARATE 160/4.5 mcg INHALER IH SCH ×2 (10:58→21:41)
[2020-01-09] MEDS: Methylnaltrexone Bromide 12 MG/0.6 ML KIT SQ SCH (10:58)
--- NOTE | 2020-01-09 14:11 | PN.GI ---
GI Progress Note Subjective: GI Procedure NOte: Please see scanned EGD and colonoscopy reports. NO colitis or varices found. Has a patent Schatzki ring above a hiatal hernia, mild sigmoid diverticulosis and large hemorrhoids. Ko resume diet. No GI objections to discharge - Objective Vital Signs: Vital Signs Temperature 97.5 F L 01/09/20 13:40 Pulse Rate 60 01/09/20 13:55 Respiratory Rate 17 01/09/20 13:55 Blood Pressure 114/61 01/09/20 13:55 O2 Sat by Pulse Oximetry (%) 100 01/09/20 13:55 Constitutional: Calm ...Auscultate: Yes: Normoactive Bowel Sounds ...Palpate: Yes: Soft, Other (nontender) Labs: CBC, BMP 01/09/20 07:05 01/09/20 07:05 INR, PTT INR 1.17 (0.83-1.09) H 01/06/20 05:20 Assessment/Plan Impression: - No esophageal or gastric varices. No source of melena found but has sliding hiatal hernia with patent Schatzki ring, - Mild sigmoid diverticulosis but no evidence of colitis - Hepatocellular carcinoma - H/O Multiple substance abuse Plan: - Resume diet - No GI objections to discharge Problem List - Problems (1) Chemotherapy-induced nausea and vomiting Code(s): R11.2 - NAUSEA WITH VOMITING, UNSPECIFIED; T45.1X5A - ADVERSE EFFECT OF ANTINEOPLASTIC AND IMMUNOSUP DRUGS, INIT (2) COPD (chronic obstructive pulmonary disease) Code(s): J44.9 - CHRONIC OBSTRUCTIVE PULMONARY DISEASE, UNSPECIFIED (3) Abdominal pain Code(s): R10.9 - UNSPECIFIED ABDOMINAL PAIN (4) Hepatocellular carcinoma Code(s): C22.0 - LIVER CELL CARCINOMA (5) Alcohol dependence with uncomplicated withdrawal Code(s): F10.230 - ALCOHOL DEPENDENCE WITH WITHDRAWAL, UNCOMPLICATED (6) Opioid dependence with withdrawal Code(s): F11.23 - OPIOID DEPENDENCE WITH WITHDRAWAL (7) Substance-induced anxiety disorder Code(s): F19.980 - OTH PSYCHOACTIVE SUBSTANCE USE, UNSP W ANXIETY DISORDER (8) Bipolar disorder Code(s): F31.9 - BIPOLAR DISORDER, UNSPECIFIED (9) Cannabis abuse Code(s): F12.10 - CANNABIS ABUSE, UNCOMPLICATED (10) Hepatitis C Code(s): B19.20 - UNSPECIFIED VIRAL HEPATITIS C WITHOUT HEPATIC COMA Qualifiers: Viral hepatitis chronicity: chronic Hepatic coma status: without hepatic coma Qualified Code(s): B18.2 - Chronic viral hepatitis C (11) Diarrhea Code(s): R19.7 - DIARRHEA, UNSPECIFIED (12) Melena Code(s): K92.1 - MELENA (13) Schatzki's ring of distal esophagus Code(s): K22.2 - ESOPHAGEAL OBSTRUCTION (14) Hiatal hernia Code(s): K44.9 - DIAPHRAGMATIC HERNIA WITHOUT OBSTRUCTION OR GANGRENE (15) Diverticulosis Code(s): K57.90 - DVRTCLOS OF INTEST, PART UNSP, W/O PERF OR ABSCESS W/O BLEED
[2020-01-09] MEDS ORDERED: POTASSIUM CHLORIDE TABS 10 MEQ TABLET.ER (FP) PO ONE (15:48)
--- NOTE | 2020-01-09 15:48 | PN ---
Progress Note, Physician Chief Complaint: Nausea Vomiting Diarrhea History of Present Illness: Feeling a lot better today Sitting at the edge of the bed, fell last evening, mechanical fall Dexamethasone helping Denies any N/V/D or abd pain Pt is on chronic methadone dosage of 85 mg po daily- confirmed by juan diego sood. Pt is not on any other opiates. TABBER negative. Pt denies using any other opiates. Pt's urine was collected after morphine was given to the pt in the ER- might have caused + results in Urine tox UC + UTI- finished IV rocephin Cdiff + O&P negative Seen by GI - Current Medication List Current Medications: Active Medications Albuterol Sulfate (Ventolin Hfa Inhaler -) 2 puff IH Q4H PRN PRN Reason: SHORT OF BREATH/WHEEZING Amino Acids (Prosource No Carb Liquid Pkt) 30 ml PO BID@0800,1730 [facility] Last Admin: 01/09/20 08:03 Dose: Not Given Documented by: Aripiprazole (Abilify) 20 mg PO DAILY [facility] Last Admin: 01/09/20 10:53 Dose: Not Given Documented by: Budesonide/Formoterol Fumarate (Symbicort 160/4.5mcg -) 1 puff IH BID [facility] Last Admin: 01/09/20 10:58 Dose: 1 puff Documented by: Dexamethasone Sodium Phosphate (Decadron Injection -) 4 mg IVPUSH Q12H [facility] Last Admin: 01/09/20 05:49 Dose: 4 mg Documented by: Enoxaparin Sodium (Lovenox -) 40 mg SQ DAILY [facility] Last Admin: 01/07/20 16:00 Dose: Not Given Documented by: Fluoxetine HCl (Prozac -) 10 mg PO DAILY [facility] Last Admin: 01/09/20 10:54 Dose: Not Given Documented by: Potassium Chloride/Dextrose/Sod Cl (D5-1/2ns+20 Meq Kcl -) 20 meq in 1,000 mls @ 65 mls/hr IV ASDIR [facility] Last Admin: 01/08/20 17:52 Dose: 65 mls/hr Documented by: Methadone HCl 40 mg/ Methadone (HCl 20 mg) 60 mg PO DAILY@0600 [facility] Last Admin: 01/09/20 07:06 Dose: Not Given Documented by: Nystatin (Nystatin Oral Suspension -) 500,000 units PO Q6HPO [facility] Last Admin: 01/09/20 13:27 Dose: Not Given Documented by: Ondansetron HCl (Zofran Injection) 4 mg IVPUSH Q6H PRN PRN Reason: NAUSEA AND/OR VOMITING Pantoprazole Sodium (Protonix -) 40 mg PO DAILY [facility] Polyethylene Glycol (Miralax (For Daily Use) -) 17 gm PO DAILY [facility] Polysaccharide Iron Complex (Niferex-150 -) 150 mg PO DAILY [facility] Last Admin: 01/09/20 10:54 Dose: Not Given Documented by: - Objective Vital Signs: Vital Signs Temperature 97.6 F 01/09/20 15:00 Pulse Rate 79 01/09/20 15:00 Respiratory Rate 16 01/09/20 15:00 Blood Pressure 124/70 01/09/20 15:00 O2 Sat by Pulse Oximetry (%) 98 01/09/20 15:00 Constitutional: Yes: Well Nourished, No Distress, Calm Cardiovascular: Yes: Regular Rate and Rhythm Respiratory: Yes: Regular, CTA Bilaterally Gastrointestinal: Yes: Normal Bowel Sounds, Soft, Abdomen, Obese Genitourinary: Yes: WNL Musculoskeletal: Yes: Muscle Weakness Extremities: Yes: WNL Edema: No Peripheral Pulses WNL: Yes Neurological: Yes: Alert, Oriented Psychiatric: Yes: Alert, Oriented Labs: CBC, BMP 01/09/20 07:05 01/09/20 07:05 INR, PTT INR 1.17 (0.83-1.09) H 01/06/20 05:20 Problem List - Problems (1) Substance abuse Assessment/Plan: -Taper methadone over 10 days to the lowest tolerated dose -Opiates + due to morphine being given to pt before urine tox was collected Problems reviewed: Yes Code(s): F19.10 - OTHER PSYCHOACTIVE SUBSTANCE ABUSE, UNCOMPLICATED (2) VJ (acute kidney injury) Assessment/Plan: -Resolved -Nephrology consult -likely dehydration Problems reviewed: Yes Code(s): N17.9 - ACUTE KIDNEY FAILURE, UNSPECIFIED (3) Abdominal pain Assessment/Plan: -resolved -CTAP: metastatic liver ca, lesion on spleen, BL adrenal nodules -GI consult -Oncology consult -Colonoscopy- no colitis Problems reviewed: Yes Code(s): R10.9 - UNSPECIFIED ABDOMINAL PAIN (4) Anemia Assessment/Plan: -Low in iron% -Also, CD -Injectafer x 1 this admission -monitor trend -transfuse if Hg <7.0 to avoid fluid overload -stool OB negative Problems reviewed: Yes Code(s): D64.9 - ANEMIA, UNSPECIFIED (5) Chemotherapy-induced nausea and vomiting Assessment/Plan: -Zofran PRN -Low sodium diet -Transition to Oral decadron 4 mg po bid Problems reviewed: Yes Code(s): R11.2 - NAUSEA WITH VOMITING, UNSPECIFIED; T45.1X5A - ADVERSE EFFECT OF ANTINEOPLASTIC AND IMMUNOSUP DRUGS, INIT (6) Diarrhea Assessment/Plan: -Resolved -Cdiff + O&P negative -GI consult -Low Na diet -ID consult Problems reviewed: Yes Code(s): R19.7 - DIARRHEA, UNSPECIFIED (7) Hepatocellular carcinoma Assessment/Plan: -Will f/u with Dr. Abel Gallego oncologist at [facility] -Last chemo on 12/14/19 dual immunotherapy- Atezolizumab and Bevacizumab -Oncology consult -Started on dexamethasone IV -transition to oral, can be tapered outpatient by oncology Problems reviewed: Yes Code(s): C22.0 - LIVER CELL CARCINOMA (8) UTI (urinary tract infection) Assessment/Plan: -UC- Microbiology 01/02/20 15:15 Blood - Peripheral Venous Blood Culture - Final NO GROWTH AFTER 5 DAYS INCUBATION 01/02/20 15:15 Blood - Peripheral Venous Blood Culture - Final NO GROWTH AFTER 5 DAYS INCUBATION 01/05/20 01:45 Stool Gram Stain - Final 01/05/20 01:45 Stool Salmonella/Shigella Culture - Final NO GROWTH OF SALMONELLA OR SHIGELLA SPECIES OBTAINED 01/05/20 01:45 Stool Campylobacter Culture - Final NO GROWTH OF CAMPYLOBACTER SPECIES OBTAINED 01/05/20 01:45 Stool Yersinia Culture - Final NO GROWTH OF YERSINIA SPECIES OBTAINED 01/05/20 01:45 Stool Vibrio Culture - Final NO GROWTH OF VIBRIO SPECIES OBTAINED 01/05/20 01:45 Stool Escherichia coli 0157 Culture - Final NO GROWTH OF E COLI 0157 OBTAINED 01/05/20 01:45 Stool Clostridioides difficile Antigen - Final 01/05/20 01:45 Stool Clostridioides difficile Toxin Assay - Final 01/02/20 18:00 Urine - Urine Clean Catch Urine Culture - Final Escherichia Coli -Finished IV rocephin -ID consult -Afebrile Problems reviewed: Yes Code(s): N39.0 - URINARY TRACT INFECTION, SITE NOT SPECIFIED Assessment/Plan See problem list D/C home in AM, if asymptomatic
--- NOTE | 2020-01-09 17:11 | PN ---
Progress Note, Physician History of Present Illness: Pt seen and examined at bedside. She is awake and alert. She denies shortness of breath. - Current Medication List Current Medications: Active Medications Albuterol Sulfate (Ventolin Hfa Inhaler -) 2 puff IH Q4H PRN PRN Reason: SHORT OF BREATH/WHEEZING Amino Acids (Prosource No Carb Liquid Pkt) 30 ml PO BID@0800,1730 [facility] Last Admin: 01/09/20 08:03 Dose: Not Given Documented by: Aripiprazole (Abilify) 20 mg PO DAILY [facility] Last Admin: 01/09/20 10:53 Dose: Not Given Documented by: Budesonide/Formoterol Fumarate (Symbicort 160/4.5mcg -) 1 puff IH BID [facility] Last Admin: 01/09/20 10:58 Dose: 1 puff Documented by: Dexamethasone Sodium Phosphate (Decadron Injection -) 4 mg IVPUSH Q12H [facility] Last Admin: 01/09/20 05:49 Dose: 4 mg Documented by: Enoxaparin Sodium (Lovenox -) 40 mg SQ DAILY [facility] Last Admin: 01/07/20 16:00 Dose: Not Given Documented by: Fluoxetine HCl (Prozac -) 10 mg PO DAILY [facility] Last Admin: 01/09/20 10:54 Dose: Not Given Documented by: Potassium Chloride/Dextrose/Sod Cl (D5-1/2ns+20 Meq Kcl -) 20 meq in 1,000 mls @ 65 mls/hr IV ASDIR [facility] Last Admin: 01/08/20 17:52 Dose: 65 mls/hr Documented by: Methadone HCl (Dolophine -) 40 mg PO DAILY@0600 [facility] Nystatin (Nystatin Oral Suspension -) 500,000 units PO Q6HPO [facility] Last Admin: 01/09/20 13:27 Dose: Not Given Documented by: Ondansetron HCl (Zofran Injection) 4 mg IVPUSH Q6H PRN PRN Reason: NAUSEA AND/OR VOMITING Pantoprazole Sodium (Protonix -) 40 mg PO DAILY [facility] Polyethylene Glycol (Miralax (For Daily Use) -) 17 gm PO DAILY [facility] Polysaccharide Iron Complex (Niferex-150 -) 150 mg PO DAILY [facility] Last Admin: 01/09/20 10:54 Dose: Not Given Documented by: - Objective Vital Signs: Vital Signs Temperature 97.6 F 01/09/20 15:00 Pulse Rate 79 01/09/20 15:00 Respiratory Rate 16 01/09/20 15:00 Blood Pressure 124/70 01/09/20 15:00 O2 Sat by Pulse Oximetry (%) 98 01/09/20 15:00 Constitutional: Yes: Calm Eyes: Yes: Conjunctiva Clear HENT: Yes: Atraumatic Neck: Yes: Supple Cardiovascular: Yes: S1, S2 Respiratory: Yes: CTA Bilaterally Gastrointestinal: Yes: Normal Bowel Sounds, Soft Genitourinary: Yes: WNL Musculoskeletal: Yes: WNL Edema: No Neurological: Yes: Oriented Psychiatric: Yes: Oriented Labs: CBC, BMP 01/09/20 07:05 01/09/20 07:05 INR, PTT INR 1.17 (0.83-1.09) H 01/06/20 05:20 Assessment/Plan Current Medications Generic Name Dose Route Start Last Admin Trade Name Freq PRN Reason Stop Dose Admin Albuterol Sulfate 2 puff 01/02/20 18:28 Ventolin Hfa Inhaler - IH Q4H PRN SHORT OF BREATH/WHEEZING Amino Acids 30 ml 01/08/20 17:30 01/09/20 08:03 Prosource No Carb Liquid Pkt PO Not Given BID@0800,1730 [facility] Aripiprazole 20 mg 01/04/20 07:17 01/09/20 10:53 Abilify PO Not Given DAILY [facility] Budesonide/Formoterol Fumarate 1 puff 01/02/20 22:00 01/09/20 10:58 Symbicort 160/4.5mcg - IH 1 puff BID [facility] Administration Dexamethasone Sodium Phosphate 4 mg 01/04/20 18:30 01/09/20 05:49 Decadron Injection - IVPUSH 4 mg Q12H [facility] Administration Enoxaparin Sodium 40 mg 01/07/20 14:45 01/07/20 16:00 Lovenox - SQ Not Given DAILY [facility] Fluoxetine HCl 10 mg 01/03/20 10:00 01/09/20 10:54 Prozac - PO Not Given DAILY [facility] Potassium Chloride/Dextrose/Sod Cl 20 meq in 1,000 mls @ 65 mls/hr 01/08/20 17:01 01/08/20 17:52 D5-1/2ns+20 Meq Kcl - IV 65 mls/hr ASDIR [facility] Administration Methadone HCl 40 mg 01/10/20 06:00 Dolophine - PO DAILY@0600 [facility] Nystatin 500,000 units 01/06/20 00:00 01/09/20 13:27 Nystatin Oral Suspension - PO Not Given Q6HPO [facility] Ondansetron HCl 4 mg 01/02/20 18:30 Zofran Injection IVPUSH Q6H PRN NAUSEA AND/OR VOMITING Pantoprazole Sodium 40 mg 01/10/20 10:00 Protonix - PO DAILY [facility] Polyethylene Glycol 17 gm 01/10/20 10:00 Miralax (For Daily Use) - PO DAILY [facility] Polysaccharide Iron Complex 150 mg 01/04/20 10:00 01/09/20 10:54 Niferex-150 - PO Not Given DAILY [facility] Impression 1. jay 2. dehydration 3. hepatocellular ca 4. depression Plan - can d/c fluids after endoscopy - repeat labs in am - replace potassium - likely jay from pre-renal disease - avoid nsaids
[2020-01-09] MEDS ORDERED: METHADONE HCL 40 MG DISPERSABLE TABLET PO ONE (17:15)
[2020-01-09] MEDS: DEXAMETHASONE 4 MG TABLET (FP) PO SCH (21:41)
[2020-01-10] MEDS: METHADONE HCL 40 MG DISPERSABLE TABLET PO SCH (05:53)
[2020-01-10 07:24] LABS: BASO % 0.2 % (0-2.0); HEMATOCRIT 28.1 % (32.4-45.2); HEMOGLOBIN 8.8 GM/dL (10.7-15.3); LYMPH % 21.1 % (8-40); MCHC 31.4 g/dl (32.0-36.0); MEAN CELL VOLUME 85.8 fl (80-96); MEAN PLT VOLUME 9.6 fl (7.5-11.1); MONO % 3.5 % (3.8-10.2); NEUT % 75.2 % (42.8-82.8); PLATELET COUNT 472 K/MM3 (134-434); RBC 3.27 M/mm3 (3.60-5.2); RDW 17.8 % (11.6-15.6); WHITE BLOOD COUNT 8.5 K/mm3 (4.0-10.0)
[2020-01-10 07:38] LABS: ALBUMIN 1.8 g/dl (3.4-5.0); BLOOD UREA NITROGEN 12.8 mg/dL (7-18); CALCIUM 8.5 mg/dL (8.5-10.1); CREATININE 0.9 mg/dL (0.55-1.3); POTASSIUM 3.7 mmol/L (3.5-5.1)
[2020-01-10 07:40] LABS: BILIRUBIN,TOTAL 0.7 mg/dL (0.2-1); TOT PROT 6.4 g/dl (6.4-8.2)
[2020-01-10] MEDS: AMINO ACIDS/PROTEIN HYDROLYS 30 ML LIQUID.PKT PO SCH ×2 (08:59→18:24)
[2020-01-10] MEDS ORDERED: PT OWN MED DRAWER 7, Y5N ONE (10:13)
[2020-01-10] MEDS: ENOXAPARIN NA (PORCINE) 40 MG/0.4 ML DISP.SYRIN SQ SCH ×2 (10:15→10:21)
[2020-01-10] MEDS: ARIPiprazole 10 MG TABLET PO SCH (10:15)
[2020-01-10] MEDS: PANTOPRAZOLE 40 MG TABLET PO SCH (10:15)
[2020-01-10] MEDS: IRON POLYSACCHARIDES 150 MG CAPSULE PO SCH (10:15)
[2020-01-10] MEDS: FLUoxetine HCL 10 MG CAPSULE PO SCH (10:15)
[2020-01-10] MEDS: DEXAMETHASONE 4 MG TABLET (FP) PO SCH ×2 (10:15→22:02)
[2020-01-10] MEDS: POLYETHYLENE GLYCOL 3350 119 GM BTL PO SCH (10:16)
[2020-01-10] MEDS: BUDESONIDE/FORMETEROL FUMARATE 160/4.5 mcg INHALER IH SCH ×2 (10:16→22:02)
[2020-01-10] MEDS ORDERED: FUROSEMIDE 40 MG/4 ML INJECTABLE VIAL IVPUSH ONE (10:58)
[2020-01-10] MEDS ORDERED: POTASSIUM CHLORIDE TABS 20 MEQ TABLET.ER (FP) PO ONE ×2 (10:59→11:30)
--- NOTE | 2020-01-10 12:09 | PN ---
Progress Note, Physician Chief Complaint: Nausea Vomiting Diarrhea History of Present Illness: Feeling a lot better today Sitting at the edge of the bed, fell last evening, mechanical fall Pt is on chronic methadone dosage of 85 mg po daily- confirmed by [place] sushma easley. Pt is not on any other opiates. CADDY negative. Pt denies using any other opiates. Pt's urine was collected after morphine was given to the pt in the ER- might have caused + results in Urine tox Dexamethasone helping- changed to PO last evening Denies any N/V/D or abd pain UC + UTI- finished IV rocephin Cdiff + O&P negative Seen by GI KHAI + 3, feals weak today - Current Medication List Current Medications: Active Medications Albuterol Sulfate (Ventolin Hfa Inhaler -) 2 puff IH Q4H PRN PRN Reason: SHORT OF BREATH/WHEEZING Amino Acids (Prosource No Carb Liquid Pkt) 30 ml PO BID@0800,1730 [facility] Last Admin: 01/10/20 08:59 Dose: 30 ml Documented by: Aripiprazole (Abilify) 20 mg PO DAILY [facility] Last Admin: 01/10/20 10:15 Dose: 20 mg Documented by: Budesonide/Formoterol Fumarate (Symbicort 160/4.5mcg -) 1 puff IH BID [facility] Last Admin: 01/10/20 10:16 Dose: 1 puff Documented by: Dexamethasone (Decadron -) 4 mg PO BID [facility] Last Admin: 01/10/20 10:15 Dose: 4 mg Documented by: Enoxaparin Sodium (Lovenox -) 40 mg SQ DAILY [facility] Last Admin: 01/10/20 10:21 Dose: Not Given Documented by: Fluoxetine HCl (Prozac -) 10 mg PO DAILY [facility] Last Admin: 01/10/20 10:15 Dose: 10 mg Documented by: Methadone HCl (Dolophine -) 40 mg PO DAILY@0600 [facility] Last Admin: 01/10/20 05:53 Dose: 40 mg Documented by: Ondansetron HCl (Zofran Injection) 4 mg IVPUSH Q6H PRN PRN Reason: NAUSEA AND/OR VOMITING Pantoprazole Sodium (Protonix -) 40 mg PO DAILY [facility] Last Admin: 01/10/20 10:15 Dose: 40 mg Documented by: Polyethylene Glycol (Miralax (For Daily Use) -) 17 gm PO DAILY [facility] Last Admin: 01/10/20 10:16 Dose: Not Given Documented by: Polysaccharide Iron Complex (Niferex-150 -) 150 mg PO DAILY [facility] Last Admin: 01/10/20 10:15 Dose: 150 mg Documented by: - Objective Vital Signs: Vital Signs Temperature 98.2 F 01/10/20 10:00 Pulse Rate 61 01/10/20 10:00 Respiratory Rate 18 01/10/20 10:00 Blood Pressure 112/60 01/10/20 10:00 O2 Sat by Pulse Oximetry (%) 96 01/10/20 10:00 Constitutional: Yes: Well Nourished, No Distress, Calm Cardiovascular: Yes: Regular Rate and Rhythm Respiratory: Yes: Regular, CTA Bilaterally Gastrointestinal: Yes: Normal Bowel Sounds, Soft, Abdomen, Obese Genitourinary: Yes: WNL Musculoskeletal: Yes: Muscle Weakness Extremities: Yes: WNL Edema: Yes Edema: LLE: 3+, RLE: 3+ Peripheral Pulses WNL: Yes Neurological: Yes: Alert, Oriented Psychiatric: Yes: Alert, Oriented Labs: CBC, BMP 01/10/20 06:40 01/10/20 06:40 INR, PTT INR 1.17 (0.83-1.09) H 01/06/20 05:20 Problem List - Problems (1) Substance abuse Assessment/Plan: -Taper methadone over 10 days to the lowest tolerated dose -Opiates + due to morphine being given to pt before urine tox was collected Problems reviewed: Yes Code(s): F19.10 - OTHER PSYCHOACTIVE SUBSTANCE ABUSE, UNCOMPLICATED (2) VJ (acute kidney injury) Assessment/Plan: -Resolved -Nephrology consult -likely dehydration Problems reviewed: Yes Code(s): N17.9 - ACUTE KIDNEY FAILURE, UNSPECIFIED (3) Abdominal pain Assessment/Plan: -resolved -CTAP: metastatic liver ca, lesion on spleen, BL adrenal nodules -GI consult -Oncology consult -Colonoscopy- no colitis Problems reviewed: Yes Code(s): R10.9 - UNSPECIFIED ABDOMINAL PAIN (4) Anemia Assessment/Plan: -Low in iron% -Also, CD -Injectafer x 1 this admission -monitor trend -transfuse if Hg <7.0 to avoid fluid overload -stool OB negative Problems reviewed: Yes Code(s): D64.9 - ANEMIA, UNSPECIFIED (5) Chemotherapy-induced nausea and vomiting Assessment/Plan: -Zofran PRN -Low sodium diet -Transition to Oral decadron 4 mg po bid Problems reviewed: Yes Code(s): R11.2 - NAUSEA WITH VOMITING, UNSPECIFIED; T45.1X5A - ADVERSE EFFECT OF ANTINEOPLASTIC AND IMMUNOSUP DRUGS, INIT (6) Diarrhea Assessment/Plan: -Resolved -Cdiff + O&P negative -GI consult -Low Na diet -ID consult Problems reviewed: Yes Code(s): R19.7 - DIARRHEA, UNSPECIFIED (7) Hepatocellular carcinoma Assessment/Plan: -Will f/u with Dr. Abel Gallego oncologist at [facility] -Last chemo on 12/14/19 dual immunotherapy- Atezolizumab and Bevacizumab -Oncology consult -Started on dexamethasone IV -transitioned to oral, can be tapered outpatient by oncology Problems reviewed: Yes Code(s): C22.0 - LIVER CELL CARCINOMA (8) UTI (urinary tract infection) Assessment/Plan: -[facility]- Microbiology 01/02/20 15:15 Blood - Peripheral Venous Blood Culture - Final NO GROWTH AFTER 5 DAYS INCUBATION 01/02/20 15:15 Blood - Peripheral Venous Blood Culture - Final NO GROWTH AFTER 5 DAYS INCUBATION 01/05/20 01:45 Stool Gram Stain - Final 01/05/20 01:45 Stool Salmonella/Shigella Culture - Final NO GROWTH OF SALMONELLA OR SHIGELLA SPECIES OBTAINED 01/05/20 01:45 Stool Campylobacter Culture - Final NO GROWTH OF CAMPYLOBACTER SPECIES OBTAINED 01/05/20 01:45 Stool Yersinia Culture - Final NO GROWTH OF YERSINIA SPECIES OBTAINED 01/05/20 01:45 Stool Vibrio Culture - Final NO GROWTH OF VIBRIO SPECIES OBTAINED 01/05/20 01:45 Stool Escherichia coli 0157 Culture - Final NO GROWTH OF E COLI 0157 OBTAINED 01/05/20 01:45 Stool Clostridioides difficile Antigen - Final 01/05/20 01:45 Stool Clostridioides difficile Toxin Assay - Final 01/02/20 18:00 Urine - Urine Clean Catch Urine Culture - Final Escherichia Coli -Finished IV rocephin -ID consult -Afebrile Problems reviewed: Yes Code(s): N39.0 - URINARY TRACT INFECTION, SITE NOT SPECIFIED (9) Bilateral lower extremity edema Assessment/Plan: -Furosemide 40 mg IVP once -KCL 40 meq once -Resume Furosemide 20 mg po daily upon d/c in AM along with KCl 20 meq po daily Code(s): R60.0 - LOCALIZED EDEMA Assessment/Plan See problem list D/C home in AM
--- NOTE | 2020-01-10 12:30 | PN ---
Progress Note, Physician History of Present Illness: Pt seen and examined at bedside. She complains of lower ext edema. - Current Medication List Current Medications: Active Medications Albuterol Sulfate (Ventolin Hfa Inhaler -) 2 puff IH Q4H PRN PRN Reason: SHORT OF BREATH/WHEEZING Amino Acids (Prosource No Carb Liquid Pkt) 30 ml PO BID@0800,1730 [facility] Last Admin: 01/10/20 08:59 Dose: 30 ml Documented by: Aripiprazole (Abilify) 20 mg PO DAILY [facility] Last Admin: 01/10/20 10:15 Dose: 20 mg Documented by: Budesonide/Formoterol Fumarate (Symbicort 160/4.5mcg -) 1 puff IH BID [facility] Last Admin: 01/10/20 10:16 Dose: 1 puff Documented by: Dexamethasone (Decadron -) 4 mg PO BID [facility] Last Admin: 01/10/20 10:15 Dose: 4 mg Documented by: Enoxaparin Sodium (Lovenox -) 40 mg SQ DAILY [facility] Last Admin: 01/10/20 10:21 Dose: Not Given Documented by: Fluoxetine HCl (Prozac -) 10 mg PO DAILY [facility] Last Admin: 01/10/20 10:15 Dose: 10 mg Documented by: Methadone HCl (Dolophine -) 40 mg PO DAILY@0600 [facility] Last Admin: 01/10/20 05:53 Dose: 40 mg Documented by: Ondansetron HCl (Zofran Injection) 4 mg IVPUSH Q6H PRN PRN Reason: NAUSEA AND/OR VOMITING Pantoprazole Sodium (Protonix -) 40 mg PO DAILY [facility] Last Admin: 01/10/20 10:15 Dose: 40 mg Documented by: Polyethylene Glycol (Miralax (For Daily Use) -) 17 gm PO DAILY [facility] Last Admin: 01/10/20 10:16 Dose: Not Given Documented by: Polysaccharide Iron Complex (Niferex-150 -) 150 mg PO DAILY [facility] Last Admin: 01/10/20 10:15 Dose: 150 mg Documented by: - Objective Vital Signs: Vital Signs Temperature 98.2 F 01/10/20 10:00 Pulse Rate 61 01/10/20 10:00 Respiratory Rate 18 01/10/20 10:00 Blood Pressure 112/60 01/10/20 10:00 O2 Sat by Pulse Oximetry (%) 96 07/29/20 10:00 Constitutional: Yes: Calm Eyes: Yes: Conjunctiva Clear HENT: Yes: Atraumatic Neck: Yes: Supple Cardiovascular: Yes: S1, S2 Respiratory: Yes: CTA Bilaterally Gastrointestinal: Yes: Normal Bowel Sounds, Soft Genitourinary: Yes: WNL Musculoskeletal: Yes: WNL Edema: Yes Edema: LLE: 2+, RLE: 2+ Neurological: Yes: Oriented Psychiatric: Yes: Oriented Labs: CBC, BMP 01/10/20 06:40 01/10/20 06:40 INR, PTT INR 1.17 (0.83-1.09) H 01/06/20 05:20 Assessment/Plan Current Medications Generic Name Dose Route Start Last Admin Trade Name Freq PRN Reason Stop Dose Admin Albuterol Sulfate 2 puff 01/02/20 18:28 Ventolin Hfa Inhaler - IH Q4H PRN SHORT OF BREATH/WHEEZING Amino Acids 30 ml 01/08/20 17:30 01/10/20 08:59 Prosource No Carb Liquid Pkt PO 30 ml BID@0800,1730 [facility] Administration Aripiprazole 20 mg 01/04/20 07:17 01/10/20 10:15 Abilify PO 20 mg DAILY [facility] Administration Budesonide/Formoterol Fumarate 1 puff 01/02/20 22:00 01/10/20 10:16 Symbicort 160/4.5mcg - IH 1 puff BID [facility] Administration Dexamethasone 4 mg 01/09/20 22:00 01/10/20 10:15 Decadron - PO 4 mg BID [facility] Administration Enoxaparin Sodium 40 mg 01/07/20 14:45 01/10/20 10:21 Lovenox - SQ Not Given DAILY [facility] Fluoxetine HCl 10 mg 01/03/20 10:00 01/10/20 10:15 Prozac - PO 10 mg DAILY [facility] Administration Methadone HCl 40 mg 01/10/20 06:00 01/10/20 05:53 Dolophine - PO 40 mg DAILY@0600 [facility] Administration Ondansetron HCl 4 mg 01/02/20 18:30 Zofran Injection IVPUSH Q6H PRN NAUSEA AND/OR VOMITING Pantoprazole Sodium 40 mg 01/10/20 10:00 01/10/20 10:15 Protonix - PO 40 mg DAILY [facility] Administration Polyethylene Glycol 17 gm 01/10/20 10:00 01/10/20 10:16 Miralax (For Daily Use) - PO Not Given DAILY [facility] Polysaccharide Iron Complex 150 mg 01/04/20 10:00 01/10/20 10:15 Niferex-150 - PO 150 mg DAILY [facility] Administration Impression 1. jay 2. dehydration 3. hepatocellular ca 4. depression Plan - restart lasix - give potassium - monitor volume status - discussed with medical team - likely jay from pre-renal disease - avoid nsaids
--- NOTE | 2020-01-10 15:28 | PN.GI ---
GI Progress Note Subjective: GI NOte: No adverse reactions to [facility] endoscopis. Findings massimon discussed. She reports postprandial diarrhea today. No overt colitis seen at colonoscopy but biopsy is pending - Objective Vital Signs: Vital Signs Temperature 97.4 F L 01/10/20 15:18 Pulse Rate 62 01/10/20 15:18 Respiratory Rate 20 01/10/20 15:18 Blood Pressure 102/57 L 01/10/20 15:18 O2 Sat by Pulse Oximetry (%) 99 01/10/20 15:18 Constitutional: No Distress ...Auscultate: Yes: Normoactive Bowel Sounds ...Palpate: Yes: Soft, Other (nontender) Labs: CBC, BMP 01/10/20 06:40 01/10/20 06:40 INR, PTT INR 1.17 (0.83-1.09) H 01/06/20 05:20 Assessment/Plan Impression: - No esophageal or gastric varices. No source of melena found but has sliding hiatal hernia with patent Schatzki ring, - Mild sigmoid diverticulosis but no evidence of colitis - Hepatocellular carcinoma - H/O Multiple substance abuse Plan: - Await biopsy Problem List - Problems (1) Chemotherapy-induced nausea and vomiting Code(s): R11.2 - NAUSEA WITH VOMITING, UNSPECIFIED; T45.1X5A - ADVERSE EFFECT OF ANTINEOPLASTIC AND IMMUNOSUP DRUGS, INIT (2) COPD (chronic obstructive pulmonary disease) Code(s): J44.9 - CHRONIC OBSTRUCTIVE PULMONARY DISEASE, UNSPECIFIED (3) Abdominal pain Code(s): R10.9 - UNSPECIFIED ABDOMINAL PAIN (4) Hepatocellular carcinoma Code(s): C22.0 - LIVER CELL CARCINOMA (5) Alcohol dependence with uncomplicated withdrawal Code(s): F10.230 - ALCOHOL DEPENDENCE WITH WITHDRAWAL, UNCOMPLICATED (6) Opioid dependence with withdrawal Code(s): F11.23 - OPIOID DEPENDENCE WITH WITHDRAWAL (7) Substance-induced anxiety disorder Code(s): F19.980 - OTH PSYCHOACTIVE SUBSTANCE USE, UNSP W ANXIETY DISORDER (8) Bipolar disorder Code(s): F31.9 - BIPOLAR DISORDER, UNSPECIFIED (9) Cannabis abuse Code(s): F12.10 - CANNABIS ABUSE, UNCOMPLICATED (10) Hepatitis C Code(s): B19.20 - UNSPECIFIED VIRAL HEPATITIS C WITHOUT HEPATIC COMA Qualifiers: Viral hepatitis chronicity: chronic Hepatic coma status: without hepatic coma Qualified Code(s): B18.2 - Chronic viral hepatitis C (11) Diarrhea Code(s): R19.7 - DIARRHEA, UNSPECIFIED (12) Melena Code(s): K92.1 - MELENA (13) Schatzki's ring of distal esophagus Code(s): K22.2 - ESOPHAGEAL OBSTRUCTION (14) Hiatal hernia Code(s): K44.9 - DIAPHRAGMATIC HERNIA WITHOUT OBSTRUCTION OR GANGRENE (15) Diverticulosis Code(s): K57.90 - DVRTCLOS OF INTEST, PART UNSP, W/O PERF OR ABSCESS W/O BLEED
[2020-01-11] MEDS: METHADONE HCL 40 MG DISPERSABLE TABLET PO SCH (06:03)
[2020-01-11] MEDS: PANTOPRAZOLE 40 MG TABLET PO SCH (09:01)
[2020-01-11] MEDS: IRON POLYSACCHARIDES 150 MG CAPSULE PO SCH (09:01)
[2020-01-11] MEDS: FLUoxetine HCL 10 MG CAPSULE PO SCH (09:01)
[2020-01-11] MEDS: DEXAMETHASONE 4 MG TABLET (FP) PO SCH (09:01)
[2020-01-11] MEDS: AMINO ACIDS/PROTEIN HYDROLYS 30 ML LIQUID.PKT PO SCH ×2 (09:01→09:08)
[2020-01-11] MEDS: ENOXAPARIN NA (PORCINE) 40 MG/0.4 ML DISP.SYRIN SQ SCH (09:02)
[2020-01-11] MEDS: POLYETHYLENE GLYCOL 3350 119 GM BTL PO SCH (09:02)
[2020-01-11] MEDS: ARIPiprazole 10 MG TABLET PO SCH ×2 (09:02→09:08)
[2020-01-11] MEDS: BUDESONIDE/FORMETEROL FUMARATE 160/4.5 mcg INHALER IH SCH (09:02)
[2020-01-11 09:58] VITALS: BP 109/66; PULSE 78; TEMP 98.3
--- NOTE | 2020-01-11 10:09 | DS ---
Physical Examination Vital Signs: Vital Signs Temperature 98.3 F 01/11/20 09:00 Pulse Rate 78 01/11/20 09:00 Respiratory Rate 18 01/11/20 09:00 Blood Pressure 109/66 01/11/20 09:00 O2 Sat by Pulse Oximetry (%) 99 01/11/20 09:00 Findings/Remarks: (1) Substance abuse Assessment/Plan: -Taper methadone over 10 days to the lowest tolerated dose -Opiates + due to morphine being given to pt before urine tox was collected Problems reviewed: Yes Code(s): F19.10 - OTHER PSYCHOACTIVE SUBSTANCE ABUSE, UNCOMPLICATED (2) VJ (acute kidney injury) Assessment/Plan: -Resolved -Nephrology consult -likely dehydration Problems reviewed: Yes Code(s): N17.9 - ACUTE KIDNEY FAILURE, UNSPECIFIED (3) Abdominal pain Assessment/Plan: -resolved -CTAP: metastatic liver ca, lesion on spleen, BL adrenal nodules -GI consult -Oncology consult -Colonoscopy- no colitis Problems reviewed: Yes Code(s): R10.9 - UNSPECIFIED ABDOMINAL PAIN (4) Anemia Assessment/Plan: -Low in iron% -Also, CD -Injectafer x 1 this admission -monitor trend -transfuse if Hg <7.0 to avoid fluid overload -stool OB negative Problems reviewed: Yes Code(s): D64.9 - ANEMIA, UNSPECIFIED (5) Chemotherapy-induced nausea and vomiting Assessment/Plan: -Zofran PRN -Low sodium diet -Transition to Oral decadron 4 mg po bid Problems reviewed: Yes Code(s): R11.2 - NAUSEA WITH VOMITING, UNSPECIFIED; T45.1X5A - ADVERSE EFFECT OF ANTINEOPLASTIC AND IMMUNOSUP DRUGS, INIT (6) Diarrhea Assessment/Plan: -Resolved -Cdiff + O&P negative -GI consult -Low Na diet -ID consult Problems reviewed: Yes Code(s): R19.7 - DIARRHEA, UNSPECIFIED (7) Hepatocellular carcinoma Assessment/Plan: -Will f/u with Dr. Abel Gallego oncologist at [facility] -Last chemo on 12/14/19 dual immunotherapy- Atezolizumab and Bevacizumab -Oncology consult -Started on dexamethasone IV -transitioned to oral-tolerating well , can be tapered outpatient by oncology Problems reviewed: Yes Code(s): C22.0 - LIVER CELL CARCINOMA (8) UTI (urinary tract infection) Assessment/Plan: -UC- Microbiology 01/02/20 15:15 Blood - Peripheral Venous Blood Culture - Final NO GROWTH AFTER 5 DAYS INCUBATION 01/02/20 15:15 Blood - Peripheral Venous Blood Culture - Final NO GROWTH AFTER 5 DAYS INCUBATION 01/05/20 01:45 Stool Gram Stain - Final 01/05/20 01:45 Stool Salmonella/Shigella Culture - Final NO GROWTH OF SALMONELLA OR SHIGELLA SPECIES OBTAINED 01/05/20 01:45 Stool Campylobacter Culture - Final NO GROWTH OF CAMPYLOBACTER SPECIES OBTAINED 01/05/20 01:45 Stool Yersinia Culture - Final NO GROWTH OF YERSINIA SPECIES OBTAINED 01/05/20 01:45 Stool Vibrio Culture - Final NO GROWTH OF VIBRIO SPECIES OBTAINED 01/05/20 01:45 Stool Escherichia coli 0157 Culture - Final NO GROWTH OF E COLI 0157 OBTAINED 01/05/20 01:45 Stool Clostridioides difficile Antigen - Final 01/05/20 01:45 Stool Clostridioides difficile Toxin Assay - Final 01/02/20 18:00 Urine - Urine Clean Catch Urine Culture - Final Escherichia Coli -Finished IV rocephin -ID consult -Afebrile Problems reviewed: Yes Code(s): N39.0 - URINARY TRACT INFECTION, SITE NOT SPECIFIED (9) Bilateral lower extremity edema Assessment/Plan: -Furosemide 40 mg IVP once yesterday -KCL 40 meq once yesterday -Resume Furosemide 20 mg po daily upon d/c along with KCl 20 meq po daily Code(s): R60.0 - LOCALIZED EDEMA Assessment/Plan See problem list Labs: CBC, BMP 01/10/20 06:40 01/10/20 06:40 Discharge Summary Problems reviewed: Yes Reason For Visit: HEPATOCELLULAR CARCINOMA Current Active Problems VJ (acute kidney injury) (Acute) Abdominal pain (Acute) Anemia (Acute) Anxiety about health (Acute) Bilateral lower extremity edema (Acute) COPD (chronic obstructive pulmonary disease) (Acute) Chemotherapy-induced nausea and vomiting (Acute) Diarrhea (Acute) Diverticulosis (Acute) Hepatocellular carcinoma (Acute) Hiatal hernia (Acute) Melena (Acute) Opiate abuse, episodic (Acute) Schatzki's ring of distal esophagus (Acute) Substance abuse (Acute) UTI (urinary tract infection) (Acute) Condition: Stable - Instructions Referrals: Ella Bryant [Primary Care Provider] - Abel Gallego MD [Staff Physician] - Disposition: VNS/HOME HEALTH CARE - Home Medications Comprehensive Discharge Medication List: Ambulatory Orders Aripiprazole [Abilify -] 20 mg PO DAILY 09/05/18 Fluoxetine HCl [Prozac -] 10 mg PO DAILY 09/05/18 Furosemide [Lasix -] 20 mg PO DAILY 09/05/18 Albuterol Sulfate Inhaler - [Ventolin HFA Inhaler -] 2 puff IH Q4H PRN #1 inhaler 01/22/19 Budesonide/Formeterol Fumarate [SYMBICORT 160/4.5mcg -] 1 inh PO BID #1 inhaler 01/22/19 Dexamethasone [Decadron -] 4 mg PO BID #60 tablet 01/10/20 Iron Polysaccharides [Niferex-150 -] 150 mg PO DAILY #30 capsule 01/10/20 Methadone [Dolophine -] 40 mg PO DAILY@0600 tablet 01/10/20 Pantoprazole Sodium [Protonix -] 40 mg PO DAILY #30 tablet.ec 01/10/20 Polyethylene Glycol 3350 [Miralax 119 gm Btl -] 17 gm PO DAILY #1 bottle 01/10/20 Potassium Chloride 20 meq PO DAILY #30 tablet.er 01/10/20
--- NOTE | 2020-01-11 10:09 | PATH ---
Surgical Pathology Report Patient Name: YASMIN SOTO [facility]. Rec. #: [id number] /Age/Gender: 1960 (Age: 59) / F Account: [id number] Location: [facility] MED/SURG Taken: 01/09/2020 Received: 01/09/2020 Reported: 01/11/2020 Physicians: Sarah Lagunas M.D. Specimen(s) Received A: GASTRIC ANTRUM B: SIGMOID COLON Clinical History Melena, rule out colitis (" Keytruda" colitis) Final Diagnosis A. GASTRIC ANTRUM, BIOPSY: GASTRIC ANTRAL MUCOSA WITH MODERATE CHRONIC ACTIVE GASTRITIS. IMMUNOHISTOCHEMICAL STAIN FOR H. PYLORI IS POSITIVE (RARE). B. SIGMOID COLON, BIOPSY: MINUTE SUPERFICIAL FRAGMENTS OF COLONIC EPITHELIUM ADMIXED WITH MUCUS. DEEPER LEVELS HAVE BEEN EXAMINED. SEE COMMENT. Comment: Part B, findings are insufficient for definitive evaluation of colitis. Suggest clinical and endoscopic correlation. Positive and negative controls (internal if applicable) show appropriate results. Electronically Signed Ella Hancock M.D. Gross Description A. Received in formalin, labeled "gastric antrum" is a tejada, irregular portion of soft tissue measuring 0.4 cm. in greatest dimension. The specimen is submitted in toto in one cassette. B. Received in formalin, labeled "sigmoid colon" is a tejada, irregular portion of soft tissue measuring 0.2 cm. in greatest dimension. The specimen is submitted in toto in one cassette.
--- NOTE | 2020-01-11 14:55 | PN ---
Progress Note, Physician History of Present Illness: Pt seen and examined at bedside. She is awake and alert. She feels that her lower ext edema is improving. - Objective Vital Signs: Vital Signs Temperature 98.3 F 01/11/20 09:00 Pulse Rate 78 01/11/20 09:00 Respiratory Rate 18 01/11/20 09:00 Blood Pressure 109/66 01/11/20 09:00 O2 Sat by Pulse Oximetry (%) 99 01/11/20 09:00 Constitutional: Yes: Calm Eyes: Yes: Conjunctiva Clear HENT: Yes: Atraumatic Neck: Yes: Supple Cardiovascular: Yes: S1, S2 Respiratory: Yes: CTA Bilaterally Gastrointestinal: Yes: Normal Bowel Sounds, Soft Genitourinary: Yes: WNL Musculoskeletal: Yes: WNL Edema: Yes Edema: LLE: 2+, RLE: 2+ Neurological: Yes: Oriented Psychiatric: Yes: Oriented Labs: CBC, BMP 01/10/20 06:40 01/10/20 06:40 INR, PTT INR 1.17 (0.83-1.09) H 01/06/20 05:20 Assessment/Plan Current Medications Generic Name Dose Route Start Last Admin Trade Name Freq PRN Reason Stop Dose Admin Albuterol Sulfate 2 puff 01/02/20 18:28 Ventolin Hfa Inhaler - IH Q4H PRN SHORT OF BREATH/WHEEZING Amino Acids 30 ml 01/08/20 17:30 01/10/20 08:59 Prosource No Carb Liquid Pkt PO 30 ml BID@0800,1730 LISSETH Administration Aripiprazole 20 mg 01/04/20 07:17 01/10/20 10:15 Abilify PO 20 mg DAILY LISSETH Administration Budesonide/Formoterol Fumarate 1 puff 01/02/20 22:00 01/10/20 10:16 Symbicort 160/4.5mcg - IH 1 puff BID LISSETH Administration Dexamethasone 4 mg 01/09/20 22:00 01/10/20 10:15 Decadron - PO 4 mg BID LISSETH Administration Enoxaparin Sodium 40 mg 01/07/20 14:45 01/10/20 10:21 Lovenox - SQ Not Given DAILY LISSETH Fluoxetine HCl 10 mg 01/03/20 10:00 01/10/20 10:15 Prozac - PO 10 mg DAILY LISSETH Administration Methadone HCl 40 mg 01/10/20 06:00 01/10/20 05:53 Dolophine - PO 40 mg DAILY@0600 LISSETH Administration Ondansetron HCl 4 mg 01/02/20 18:30 Zofran Injection IVPUSH Q6H PRN NAUSEA AND/OR VOMITING Pantoprazole Sodium 40 mg 01/10/20 10:00 01/10/20 10:15 Protonix - PO 40 mg DAILY LISSETH Administration Polyethylene Glycol 17 gm 01/10/20 10:00 01/10/20 10:16 Miralax (For Daily Use) - PO Not Given DAILY LISSETH Polysaccharide Iron Complex 150 mg 01/04/20 10:00 01/10/20 10:15 Niferex-150 - PO 150 mg DAILY LISSETH Administration Impression 1. jay 2. dehydration 3. hepatocellular ca 4. depression Plan - cont lasix - potassium stable - monitor volume status - outpt followup - likely jay from pre-renal disease - avoid nsaids
== END 2020-01-11 14:08 | disposition home health service (06) | DRG 281 ==
LOC: JER 13:48 → SUPCPDRO 13:48 → JERBED 16:00 → J7W 20:29
PROVIDERS: ADMIT Family Medicine; ATTEND Family Medicine
PROC: 0DB68ZX Excision of Stomach, Via Natural or Artificial Opening Endoscopic, Diagnostic (ICD-10-PCS; 2020-01-09)
PROC: 0DBN8ZX Excision of Sigmoid Colon, Via Natural or Artificial Opening Endoscopic, Diagnostic (ICD-10-PCS; principal; 2020-01-09 12:30)
DX: C22.0 Liver cell carcinoma (principal); F41.8 Other specified anxiety disorders; T45.1X5A Adverse effect of antineoplastic and immunosuppressive drugs, initial encounter; R19.7 Diarrhea, unspecified; K57.90 Diverticulosis of intestine, part unspecified, without perforation or abscess without bleeding; K44.9 Diaphragmatic hernia without obstruction or gangrene; D64.9 Anemia, unspecified; K56.41 Fecal impaction; N17.9 Acute kidney failure, unspecified; F11.20 Opioid dependence, uncomplicated; K22.2 Esophageal obstruction; K52.1 Toxic gastroenteritis and colitis; N39.0 Urinary tract infection, site not specified; R91.8 Other nonspecific abnormal finding of lung field; J44.9 Chronic obstructive pulmonary disease, unspecified; I10 Essential (primary) hypertension; E86.0 Dehydration; B18.2 Chronic viral hepatitis C; F31.9 Bipolar disorder, unspecified; K21.9 Gastro-esophageal reflux disease without esophagitis; K92.1 Melena; F19.980 Other psychoactive substance use, unspecified with psychoactive substance-induced anxiety disorder; R60.0 Localized edema; K64.8 Other hemorrhoids; D49.0 Neoplasm of unspecified behavior of digestive system
CPT/HCPCS: 36415; 71045-TC-FY; 74176-TC; 80048; 80053; 80307; 81003; 82105; 82140; 82272; 82550; 82607; 82728; 83036; 83516; 83540; 83550; 83605; 83690; 83735; 84100; 84484; 85025; 85044; 85610; 85730; 86038; 86140; 86704; 86706; 86707; 86708; 86709; 86850; 86900; 86901; 87040; 87045; 87046; 87086; 87177; 87186; 87205; 87209; 87324; 87340; 87449; 87522; 88305-TC; 93005; 93010; 97116-GP; 97161-GP; 99291; U0003

== ENCOUNTER 2020-03-02 18:11 | Inpatient (IN) | payer OTHER ==
--- OUTSIDE RECORDS SUMMARY | 2020-03-02 18:51 | XMS ---
:1960 [facility] Care Team Providers Name Role Phone Wesley-Banchs, Sandraliz Unavailable [phone] Wesley-Banchs, Sandraliz Unavailable [phone] Wesley-Banchs, Sandraliz Unavailable [phone] DANITA ESPINOZA Unavailable Unavailable Jossy Samayoa MD Unavailable Unavailable Jossy Samayoa MD Unavailable Unavailable Jossy Samayoa MD Unavailable Unavailable Ringstad, Meghan Unavailable Unavailable Ringstad, Meghan Unavailable Unavailable Ringstad, Meghan Unavailable Unavailable Ringstad, Meghan Unavailable Unavailable Ringstad, Meghan Unavailable Unavailable Ringstad, Meghan Unavailable Unavailable Ringstad, Meghan Unavailable Unavailable Ringstad, Meghan Unavailable Unavailable Ringstad, Meghan Unavailable Unavailable Ringstad, Meghan Unavailable Unavailable Ringstad, Meghan Unavailable Unavailable William Ghotra Unavailable [phone] Paradise, William Unavailable [phone] Aszalos, Ella Katina Unavailable Unavailable Aszalos, Katina Unavailable Unavailable Aszalos, Katina Unavailable Unavailable Aszalos, Katina Unavailable Unavailable Aszalos, Katina Unavailable Unavailable Aszalos, Katina Unavailable Unavailable Aszalos, Katina Unavailable Unavailable Aszalos, Katina Unavailable Unavailable Aszalos, Katina Unavailable Unavailable NOLAN Beaulieu Unavailable Unavailable Gabby Chun MD Unavailable Unavailable Gabby Chun MD Unavailable Unavailable Gabby Chun MD Unavailable Unavailable Gabby Chun MD Unavailable Unavailable Gabby Chun MD Unavailable Unavailable Gabby Chun MD Unavailable Unavailable Gabby Chun MD Unavailable Unavailable Gabby Chun MD Unavailable Unavailable Gabby Chun MD Unavailable Unavailable Gabby Chun MD Unavailable Unavailable Gabby Chun MD Unavailable Unavailable Gabby Chun MD Unavailable Unavailable Gabby Chun MD Unavailable Unavailable Gabby Chun MD Unavailable Unavailable Gabby Chun MD Unavailable Unavailable Nlam Unavailable [phone] Nlam Unavailable [phone] Veselinovic Unavailable [phone] Veselinovic Unavailable [phone] Stout Unavailable [phone] Stout Unavailable [phone] Heller Unavailable [phone] Heller Unavailable [phone] Pieter Unavailable [phone] Renee, C Unavailable Unavailable Renee, C Unavailable Unavailable Renee, C Unavailable Unavailable Renee, C Unavailable Unavailable Renee, C Unavailable Unavailable Renee, C Unavailable Unavailable Renee, C Unavailable Unavailable Renee, C Unavailable Unavailable Renee, C Unavailable Unavailable Luis Alberto Unavailable [phone] VESELINOVIC REBECCA Unavailable Unavailable Jenkins Unavailable Unavailable Jenkins Unavailable Unavailable Jenkins Unavailable Unavailable Coon Unavailable Unavailable Coon Unavailable Unavailable Coon Unavailable Unavailable Coon Unavailable Unavailable Coon Unavailable Unavailable Coon Unavailable Unavailable Eun-Edmond Unavailable [phone] Eun-Edmond Unavailable [phone] JASS KHRIS P Unavailable Unavailable Valerio Unavailable Unavailable Valerio Unavailable Unavailable Valerio Unavailable Unavailable Valerio Unavailable Unavailable Valerio Unavailable Unavailable Valerio Unavailable Unavailable Valerio Unavailable Unavailable Valerio Unavailable Unavailable Valerio Unavailable Unavailable Valerio Unavailable Unavailable Aszalos, Katina Unavailable Unavailable Aszalos, Katina Unavailable Unavailable Aszalos, Katina Unavailable Unavailable Aszalos, Katina Unavailable Unavailable Aszalos, Katina Unavailable Unavailable Aszalos, Katina Unavailable Unavailable Aszalos, Katina Unavailable Unavailable Aszalos, Katina Unavailable Unavailable Aszalos, Katina Unavailable Unavailable [facility] Unavailable Unavailable [facility] Unavailable Unavailable Toumeh Unavailable [phone] Javier, J MD Unavailable Unavailable Javier, J MD Unavailable Unavailable Javier, J MD Unavailable Unavailable Javier, J MD Unavailable Unavailable Javier, J MD Unavailable Unavailable Javier, J MD Unavailable Unavailable Javier, J MD Unavailable Unavailable Javier, J MD Unavailable Unavailable Javier, J MD Unavailable Unavailable Javier, J MD Unavailable Unavailable Javier, J MD Unavailable Unavailable Javier, J MD Unavailable Unavailable Javier, J MD Unavailable Unavailable Javier, J MD Unavailable Unavailable Javier, J MD Unavailable Unavailable Javier, J MD Unavailable Unavailable Javier, J MD Unavailable Unavailable Javier, J MD Unavailable Unavailable Javier, J MD Unavailable Unavailable Javier, J MD Unavailable Unavailable Javier, J MD Unavailable Unavailable Dre Unavailable [phone] Dre Unavailable [phone] Re-disclosure Warning The records that you are about to access may contain information from federally- assisted alcohol or drug abuse programs. If such information is present, then the following federally mandated warning applies: This information has been disclosed to you from records protected by federal confidentiality rules (42 CFR part 2). The federal rules prohibit you from making any further disclosure of this information unless further disclosure is expressly permitted by the written consent of the person to whom it pertains or as otherwise permitted by 42 CFR part 2. A general authorization for the release of medical or other information is NOT sufficient for this purpose. The Federal rules restrict any use of the information to criminally investigate or prosecute any alcohol or drug abuse patient.The records that you are about to access may contain highly sensitive health information, the redisclosure of which is protected by Article 27-F of the [facility] Public Health law. If you continue you may haveaccess to information: Regarding HIV / AIDS; Provided by facilities licensed or operated by the [facility] Office of Mental Health; or Provided by the [facility] Office for People With Developmental Disabilities. If such information is present, then the following [facility] mandated warning applies: This information has been disclosed to you from confidential records which are protected by state law. State law prohibits you from making any further disclosure of this information without the specific written consent of the person to whom it pertains, or as otherwise permitted by law. Any unauthorized further disclosure in violation of state law may result in a fine or penitentiary sentence or both. A general authorization for the release of medical or other information is NOT sufficient authorization for further disclosure. Allergies and Adverse Reactions Type Description Substance Reaction Status Data Source(s ) propensity to Substance with Penicillins Anaphylaxis Active NEXT EN ([facility] adverse reactions penicillin [facility] to drug and antibacterial Center) mechanism of action (substance) Family History Family Member Family Member Family Member Date of Description Data Source(s) Name Gender Status Status Unknown [facility] [facility]) Unknown Female Problem [facility] 12[facility]:[address] [facility]) Encounters Encounter Providers Location Date Indications Data Source(s ) Outpatient 03/05/2020 [facility] 01:12:00 [facility] PM EDT Outpatient 03/05/2020 [facility] 12:00:00 [facility] AM EDT Attender: [facility] 02/26/2020 MARIE N ([facility] 10:54:00 [facility]T - Center) 02/26/2020 10:54:00 AM EDT Outpatient 02/20/2020 [facility] 02:29:00 [facility] PM EDT Outpatient Attender: [facility] 02/20/2020 [facility] AsmariilosAdmitter: 10:37:00 [facility] EDT AszalosReferrer: [facility] Manny OutpatientOFFICE/ Attender: [facility] 02/20/2020 [facility] ([facility] OUTPATIENT VISIT, [facility] 10:37:00 [facility] EDT - Center) 02/20/2020 10:37:00 AM EDT Outpatient 02/20/2020 [facility] 12:00:00 [facility] AM EDT Attender: [facility] 02/13/2020 NEXTGEN ([facility] 02:31:00 [facility] [place] PM EDT - Center) 02/13/2020 02:31:00 PM EDT Attender: [facility] 02/09/2020 NEXT N ([facility] 02:50:00 [facility] PM [facility]T - Center) 02/09/2020 02:50:00 PM EDT Attender: [facility] 02/07/2020 NEXTGE N ([facility] 02:11:00 [facility] PM [facility]T - Center) 02/07/2020 02:11:00 PM EDT OutpatientOFFICE/ Attender: Mental Health 02/06/2020 NEXT GEN ([facility] OUTPATIENT VISIT, [facility] 03:19:00 [facility] Medical EST [place] PM EDT - Center) 02/06/2020 03:19:00 PM EDT Outpatient Attender: Ella Pati 01/30/2020 [facility] AszalosAdmitter: 11:21:00 [facility] AM EDT AszalosReferrer: Ella Manny OutpatientOFFICE/ Attender: [facility] 01/30/2020 MARIEGEN ([facility] OUTPATIENT VISIT, [facility] 11:21:00 [facility] Medical EST AM EDT - Center) 01/30/2020 11:21:00 AM EDT 01/30/2020 [facility] 12:00:00 Medical [place] AM EDT Attender: [facility] 01/25/2020 NEXTGE N ([facility] 11:37:00 [facility] AM [facility]T - Center) 01/25/2020 11:37:00 AM EDT Outpatient Attender: Ella Krueger 01/24/2020 [facility] AszagarrettsAdmitter: 05:23:00 [facility] PM EDT AszalosReferrer: Ella Manny OutpatientOFFICE/ Attender: [facility] 01/24/2020 MARIEGEN ([facility] OUTPATIENT VISIT, [facility] 05:23:00 [facility] Medical EST PM EDT - Center) 01/24/2020 05:23:00 PM EDT Outpatient 01/24/2020 [facility] 03:57:00 Medical [place] PM EDT Outpatient 01/24/2020 [facility] 12:00:00 Medical Center AM EDT Attender: [facility] 01/03/2020 NEXTGE N ([facility] 01:40:00 [facility] PM [facility]T - Center) 01/03/2020 01:40:00 PM EDT Attender: [facility] 12/25/2019 NEXTGE N ([facility] 09:55:00 [facility] AM [facility]T - Center) 12/25/2019 09:55:00 AM EDT Attender: [facility] 12/19/2019 [facility] ([facility] 11:48:00 [facility]T - Center) 12/19/2019 11:48:00 AM EDT Outpatient Att[facility] 12/06/2019 [facility] ([facility] 11:36:37 [facility] EDT Collaborative) Patient admitted. Outpatient Attender: [address] 12/06/2019 11:33:36 AM [facility] ([facility] EDT [facility]) Patient admitted. Outpatient Attender: [address] 12/06/2019 11:31:51 AM [facility] ([facility] EDT [facility]) Patient admitted. Attender: [facility] 11/23/2019 [facility] 09:36:00 AM EDT ([facility] 11/23/2019 [facility] 09:36:00 AM EDT Medical Center) Attender: [facility] 11/03/2019 [facility] 04:45:00 PM EDT ([facility] 11/03/2019 [facility] 04:45:00 PM EDT Medical Center) Attender: [facility] 11/02/2019 [facility] 01:20:00 PM EDT ([facility] 11/02/2019 [facility] 01:20:00 PM EDT Medical Center) Attender: [facility] 10/29/2019 [facility] 11:30:00 PM EDT ([facility] 10/29/2019 [facility] 11:30:00 PM EDT Medical Center) Attender: [facility] 10/20/2019 [facility] 04:04:00 PM EDT ([facility] 10/20/2019 [facility] 04:04:00 PM EDT Medical Center) Attender: [facility] Mental [facility] 10/20/2019 [facility] E[facility] 08:24:00 AM EDT ([facility] 10/20/2019 [facility] 08:24:00 AM EDT Medical Center) Individual Attender: [facility] Mental [facility] 10/19/2019 NEXT N Psychotherapy ([facility] 12:02:00 PM EDT ( [facility] - 10/19/2019 [facility] 12:02:00 PM EDT Medical Center) Attender: [facility] 03:36:00 PM EDT (Rochelle t 10/17/2019 [facility] 03:36:00 PM EDT Medical Center) Attender: [facility] 10/12/2019 ANA Bryant [place] 02:00:00 PM EDT ([facility] 10/12/2019 [facility] 02:00:00 PM EDT Medical Center) Attender: [facility] 10/12/2019 ANA Chun MD [place] 09:34:00 AM EDT ([facility] 10/12/2019 [facility] 09:34:00 AM EDT Medical Center) Outpatient Attender: [facility] 10/11/2019 [facility] Mckeonitter: 11:43:00 AM EDT [facility] AszalosReferrer: Elal Bryant PHONE E/M BY PHYS Attender: [facility] 10/11/2019 [facility] 11:[facility] AM [facility] ([facility] 10/11/2019 [facility] 11:43:00 AM EDT Medical Center) Attender: [facility] 10/09/2019 ANA Chun MD [place] 02:04:00 PM EDT ([facility] 10/09/2019 [facility] 02:04:00 PM EDT Medical Center) Attender: [facility] 10/09/2019 ANA Bryant [place] 10:59:00 AM EDT ([facility] 10/09/2019 [facility] 10:59:00 AM EDT Medical Center) Outpatient Attender: Ella 10/05/2019 [facility] Napoleon Mckeonitter: 09:09:00 AM EDT Med [facility] 10/05/2019 [place] AsMarlenerrer: 11:45:00 AM EDT [facility] Manny Attender: [facility] 10/05/2019 [facility] Manny 09:09:00 AM EDT ([facility] 10/05/2019 [facility] 09:09:00 AM EDT Medical Center) Attender: [facility] 10/03/2019 [facility] Manny 12:50:00 PM EDT ([facility] 10/03/2019 [facility] 12:50:00 PM EDT Medical Center) Outpatient 10/03/2019 [facility] 10:30:00 AM EDT Medical Center Outpatient Attender: [facility] 10/03/2019 [facility] Napoleon Hyattdmitter: 10:09:00 AM EDT [facility] AskarleesReferrer: [facility] Manny OutpatientOFFICE/OUT Attender: [facility] 10/03/2019 [facility] PATIENT VISIT, [facility] 10:09:00 AM EDT ( [facility] 10/03/2019 [facility] 10:09:00 AM EDT Medical Center) Outpatient 10/03/2019 [facility] 12:00:00 AM EDT Medical Center Attender: [facility] 10/02/2019 [facility] 10:21:00 AM EDT ([facility] 10/02/2019 [facility] 10:21:00 AM EDT Medical Center) Attender: [facility] 09/29/2019 [facility] 05:05:00 PM EDT ([facility] 09/29/2019 [facility] 05:05:00 PM EDT Medical Center) Attender: [facility] 09[facility]29/2019 [facility] 12:48[facility]00 PM EDT ([facility] 09/29/2019 [facility] 12:48:00 PM EDT Medical Center) Attender: [facility] 09/25/2019 [facility] 04:41:00 PM EDT ([facility] 09/25/2019 [facility] 04:41:00 PM EDT Medical Center) Attender: [facility] 09/24/2019 [facility] 09:41:00 AM EDT ([facility] 09/24/2019 [facility] 09:41:00 AM EDT Medical Center) Attender: Mental Health 09/20/2019 [facility] 04:51:00 PM EDT ([facility] 09/20/2019 [facility] 04:51:00 PM EDT Medical Center) Attender: [facility] 09/18/2019 [facility] 04:23:00 PM EDT ([facility] 09/18/2019 [facility] 04:23:00 PM EDT Medical Center) Outpatient Attender: Ella 09/15/2019 [facility] 03:20:00 PM EDT [facility] AszalosReferrer: Ella Bryant PHONE E/M BY PHYS Attender: Ella [facility]15/2019 [facility]20 [facility] Aszalos [place] 03:20:00 PM EDT ([facility] 09/15/2019 [facility] 03:20:00 PM EDT Medical Center) Attender: [facility] 09/08/2019 [facility] Renee [place] 01:36:00 PM EDT ([facility] 09/08/2019 [facility] 01:36:00 PM EDT Medical Center) Attender: Ella 09/05/2019 [facility] 12:[facility] PM EDT ([facility] 09/05/2019 [facility] 12:42:00 PM EDT Medical Center) Attender: [facility] 08/29/2019 [facility] 02:52:00 PM EDT ([facility] 08/29/2019 [facility] 02:52:00 PM EDT Medical Center) [facility] 08/[facility]/2019 [facility] EN Stout [place] 11:56:00 AM EDT ([facility] 08/24/2019 [facility] 11:56:00 AM EDT Medical Center) Outpatient 08/24/2019 [facility] 10:49:00 AM EDT Medical Center Outpatient 08/24/2019 [facility] 12:00:00 AM EDT Medical Center Outpatient 08/22/2019 [facility] 11:10:00 AM EDT Medical Center Outpatient 08/22/2019 [facility] 12:00:00 AM EDT Medical Center Attender: [facility] 08/18/2019 [facility] 05:07:00 PM EST ([facility] 08/18/2019 [facility] 05:07:00 PM EST Medical Center) Attender: [facility] 08/16/2019 [facility] 10:33:00 AM EST ([facility] 08/16/2019 [facility] 10:33:00 AM EST Medical Center) Individual Attender: [facility] 08/09/2019 NEXT N Psychotherapy (30 [facility] 01:29:00 PM EST ( [facility]) - 08/09/2019 [facility] 01:29:00 PM EST Medical Center) Outpatient 08/08/2019 [facility] 03:38:00 PM [facility] Medical Center Outpatient Attender: KHRIS Krueger 08/08/2019 Shania еленаserafin JASS PINEDO 09:50:00 AM [facility] Medical PAdmitter: KHRIS PINEDO PReferrer: KHRIS Mary OutpatientOFFICE/OUT Attender: [facility] 08/08/2019 [facility] PATIENT VISIT, EST Sunday [place] 09:50:00 AM EST ([facility] 08/08/2019 [facility] 09:50:00 AM [facility] Medical Center) Outpatient 08/08/2019 [facility] 12:00:00 AM [facility] Medical Center Attender: [facility] 08/07/2019 [facility] 11[facility]04:00 AM [facility] ([facility] 08/07/2019 [facility] 11:04:00 AM [facility] Medical [place]) OutpatientOFFICE/OUT Attender: [facility] 08/02/2019 [facility] PATIENT VISIT, EST [facility] 02:43:00 PM [facility] ( [facility] 08/02/2019 [facility] 02:43:00 PM [facility] Medical [place]) Outpatient Attender: MHAW9 08/01/2019 [facility] ([facility] 12:16:00 PM [facility]) Patient admitted. Outpatient Attender: Ella Krueger 07/26/2019 [facility] lucia Hyattdmitter: Ella 06:13:00 PM [facility] Medical AszalosReferrer: Ella Bryant OutpatientOFFICE/OUT Attender: lEla Silveira 07/26/2019 [facility] PATIENT VISIT, EST [facility] 06:13:00 PM [facility] ( [facility] - 07/26/2019 [facility] 06:13:00 PM [facility] Medical Center) Outpatient 07/26/2019 [facility] 04:49:00 PM [facility] Medical Center Outpatient 07/26/2019 [facility] 12:00:00 AM [facility] Medical Center Attender: Ella [facility] 07/20/2019 [facility] 11:23:00 AM [facility] ([facility] - 07/20/2019 [facility] 11:23:00 AM [facility] Medical [place]) Attender: Ella Silveira 07/19/2019 [facility] 04:41:00 PM EST ([facility] 07/19/2019 [facility] 04:41:00 PM [facility] Medical [place]) Outpatient Attender: Ella Pati 07/18/2019 [facility] AszalosAdmitter: Ella 03:14:00 PM EST Medical AszalosReferrer: Ella Bryant OutpatientOFFICE/OUT Attender: Ella Silveira 07/18/2019 [facility] 03:14:[facility] PM EST ( [facility] - 07/18/2019 [facility] 03:14:00 PM [facility] Medical [place]) Outpatient 07/18/2019 [facility] 12:43:00 PM [facility] Medical Center Outpatient 07/18/2019 [facility] 12:00:00 AM [facility] Medical Center Attender: Wanda Chun Family 07/10/2019 MICA SORTO MD Health 03:50:00 PM EST ([facility] - 07/10/2019 [facility] 03:50:00 PM [facility] Medical [place]) Outpatient Attender: DANITA Krueger 06/24/2019 [facility] еленаserafin LOBITO SAMAYOA 01:40:00 PM EST Medic al MAttender: [facility] Ridgedmitter: ADNITA Diaz Attender: Rebecca [facility] 06/24/2019 [facility] 01:40:00 PM EST ([facility] - 06/24/2019 [facility] 01:40:00 PM [facility] Medical [place]) Attender: Tess Mental 05/09/2019 [facility] 04:17:00 PM EST ([facility] - 05/09/2019 [facility] 04:17:00 PM [facility] Medical [place]) Attender: Wanda Adiel 04/28/2019 MICA SORTO MD Health 11:35:00 AM EST ([facility] - 04/28/2019 [facility] 11:35:00 AM [facility] Medical [place]) Outpatient Attender: Ella Pati 04/25/2019 [facility] AszalosAdmitter: Ella 02:16:00 PM EST Medical AszalosReferrer: Ella Bryant Attender: Ella Silveira 04/25/2019 [facility] 02:16:00 PM EST ([facility] - 04/25/2019 [facility] 02:16:00 PM [facility] Medical [place]) Outpatient 04/25/2019 [facility] 12:23:00 PM [facility] Medical Center Outpatient 04/25/2019 [facility] 12:00:00 AM [facility] Medical Center Attender: Troy Silveira 04/21/2019 [facility] 09:39:00 AM EST ([facility] - 04/21/2019 [facility] 09:39:00 AM [facility] Medical [place]) Attender: Wanda Villegasson Family 04/19/2019 MICA SORTO MD Health 02:33:00 PM EST ([facility] - 04/19/2019 [facility] 02:33:00 PM [facility] Medical [place]) Outpatient Attender: Ella Krueger 03/22/2019 [facility] AszalosAdmitter: Ella 05:27:00 PM EDT Medical AszalosReferrer: Ella Proctor peggyleo Asronnell OutpatientOFFICE/OUT Attender: Ella Silveira [facility], [facility] [facility] PM ED[facility] ( [facility] - 03/22/2019 [facility] 05:27:00 PM EDT Medical Center) Outpatient 03/22/2019 [facility] 01:42:00 PM EDT Medical Center Outpatient 03/22/2019 [facility] 12:00:00 AM EDT Medical Center Attender: Ella Silveira 03/21/2019 [facility] 10:00:00 AM EDT ([facility] - 03/21/2019 [facility] 10:00:00 AM EDT Medical Center) Individual Attender: Alberto Brand Mental 03/16/2019 NEXT GEN Psychotherapy (30 Luis [facility] 04:49:00 PM EDT ([facility] - 03/16/2019 [facility] 04:49:00 PM EDT Medical Center) OutpatientOFFICE/OUT Attender: Tess Mental 03/14/2019 [facility]IS[facility], [facility] 04:06:00 PM EDT ( [facility] - 03/14/2019 [facility] 04:06:00 PM EDT Medical Center) Attender: Ella Silveira 02/25/2019 [facility] 02:33:00 PM EDT ([facility] - 02/25/2019 [facility] 02:33:00 PM EDT Medical Center) Outpatient 02/22/2019 [facility] 04:48:00 PM EDT Medical Center Attender: Wanda Chun Family 02/22/2019 MICA SORTO MD Health 02:35:00 PM EDT ([facility] - 02/22/2019 [facility] 02:35:00 PM EDT Medical Center) Outpatient 02/22/2019 [facility] 12:00:00 AM EDT Medical Center Attender: Ella Silveira 02/21/2019 [facility] 04:[facility]00 PM ED[facility] ([facility] - 02/21/2019 [place] 04:57:00 PM EDT Medical Center) Outpatient Attender: Ella Krueger 02/03/2019 [facility] AszalosAdmitter: Ella 03:09:00 PM EDT Medical AszalosReferrer: Ella Bryant OutpatientOFFICE/OUT Attender: Ella Silveira 02/03/2019 [facility], [facility] 03:09:00 PM EDT ( [facility] - 02/03/2019 [facility] 03:09:00 PM EDT Medical Center) Outpatient 02/03/2019 [facility] 02:25:00 PM EDT Medical Center Outpatient 02/03/2019 [facility] 12:00:00 AM EDT Medical Center Attender: Ella Silveira 01/30/2019 [facility] 10:10:00 AM EDT ([facility] - 01/30/2019 [facility] 10:10:00 AM EDT Medical Center) Attender: Wanda Silveira 01/27/2019 [facility] 02:56:00 PM EDT ([facility] - 01/27/2019 [facility] 02:56:00 PM EDT Medical Center) Outpatient 01/27/2019 [facility] 01:56:00 PM EDT Medical Center Outpatient 01/27/2019 [facility] 12:00:00 AM EDT Medical Center Attender: Ella Silveira 01/25/2019 [facility] 10:41:00 AM EDT ([facility] - 01/25/2019 [facility] 10:41:00 AM EDT Medical Center) Outpatient 01/13/2019 [facility] ([facility] 11:31:[address] [facility]) Patient admitted. Outpatient 01/13/2019 11:31:56 AM EDT [facility] ([facility]) Patient admitted. Attender: [facility] 01/06/2019 [facility] ([facility] 04:13:00 PM EDT [place] [facility] - 01/06/2019 Medical 04:13:00 PM EDT Center) Attender: [facility] 01/04/2019 NEXTGEN (Sa int Louis Herrera MD Center 02:46:00 PM EDT [facility] - 01/04/2019 Medical 02:46:00 PM EDT Center) Individual Psychotherapy Attender: Alberto Mental [facility] 12/14/2018 [facility]EXT[facility] ([facility] (30 Min) [facility] 11:59:00 AM EDT [facility] - 12/14/2018 Medical 11:59:00 AM EDT Center) OutpatientOFFICE/OUTPATI Attender: Mental Health 12/14/2018 NEXT[facility] ([facility] ENT VISIT, EST [facility] 11:51:00 AM EDT [facility] - 12/14/2018 Medical 11:51:00 AM EDT Center) OutpatientOFFICE/OUTPATI Attender: Mental Health 10/19/2018 NEXTGEN ([facility] ENT VISIT, EST [facility] 11:12:00 AM EDT [place] [facility] - 10/19/2018 Medical 11:12:00 AM EDT Center) Attender: [facility] 10/18/2018 NEXTGE N ([facility] Adiel [place] 04:09:00 PM EDT [facility] - 10/18/2018 Medical 04:09:00 PM EDT Center) Attender: [facility] 10/14/2018 NEXTRYAN N ([facility] Adiel [facility] [place] 09:03:00 AM EDT [facility] - 10/14/2018 Medical 09:03:00 AM EDT Center) Attender: [facility] 10/13/2018 NEXTGEN ([facility] 02:54:00 PM EDT [facility] [place] - 10/13/2018 Medica l 02:54:00 PM EDT Center) Attender: Lizbet [facility] 10/11/2018 NEXTG EN ([facility] 03:59:00 PM EDT [facility] - 10/11/2018 Medical 03:59:00 PM EDT Center) Attender: Ella [facility] 09/21/2018 NEXTGE N ([facility] 10:50:00 AM EDT [facility] - 09/21/2018 Medical 10:50:00 AM EDT Center) Outpatient 09/20/2018 [facility] [place] 12:19:00 PM EDT Medical C enter Outpatient 09/20/2018 [facility] 12:00:00 AM EDT Medical C enter Outpatient 09/12/2018 [facility] 03:01:00 PM EDT Medical C enter Attender: [facility] 09/12/2018 [facility] N ([facility] 01:01:00 PM EDT [facility] - 09/12/2018 Medical 01:01:00 PM EDT Center) Outpatient Attender: aKelyn Krueger 09/12/2018 Fletcherserafin ValerioAdmitter: 11:45:00 AM EDT Medic al Center Kaelyn ValerioReferrer: Kaelyn Valerio Individual Psychotherapy Attender: [facility] 09/12/2018 [facility] ([facility] (45 Min) [facility] 11:45:00 AM EDT [facility] - 09/12/2018 Medical 11:45:00 AM EDT Center) Outpatient 09/12/2018 [facility] 12:00:00 AM EDT Medical C enter Attender: [facility] 09/02/2018 [facility] N ([facility] 09:40:00 AM EDT [facility] - 09/02/2018 Medical 09:40:00 AM EDT Center) Individual Psychotherapy Attender: [facility] 08/24/2018 [facility] ([facility] (30 Min) [facility] 05:03:00 PM EDT [facility] - 08/24/2018 Medical 05:03:00 PM EDT Center) OutpatientOFFICE/OUTPATI Attender: [facility] 08/24/2018 [facility] ([facility] ENT VISIT, [facility] 03:18:00 PM EDT [place] [facility] - 08/24/2018 Medical 03:18:00 PM EDT Center) Attender: [facility] 08/15/2018 [facility] N ([facility] 02:20:00 PM EST [facility] - 08/15/2018 Medical 02:20:00 PM EST Center) Individual Psychotherapy Attender: [facility] 07/20/2018 [facility] ([facility] (30 Min) [facility] 04:42:00 PM EST [facility] - 07/20/2018 Medical 04:42:00 PM EST Center) OutpatientOFFICE/OUTPATI Attender: [facility] 07/01/2018 [facility] ([facility] ENT VISIT, [facility] 03:00[facility]00 PM EST Johnny taylor - 07/01/2018 Medical 03:00:00 PM EST Center) Individual Psychotherapy Attender: [facility] 06/22/2018 [facility] ([facility] (30 Min) [facility] 04:56:00 PM [facility] - 06/22/2018 Medical 04:56:00 PM EST Center) OutpatientOFFICE/OUTPATI Attender: [facility] 06/22/2018 [facility] ([facility] ENT VISIT, [facility] 04:10:00 PM EST [facility] armando Peralesnett - 06/22/2018 Medical 04:10:00 PM EST Center) Outpatient Attender: H 06/22/2018 [facility] TESS 10:05:00 AM [facility] NOLAN PULIDO RAdmitter: TESS Beaulieu OutpatientOFFICE/OUTPATI Attender: [facility] 03/29/2018 [facility] ([facility] ENT VISIT, [facility] 02:00:00 PM EDT [facility] - 03/29/2018 Medical 02:00:00 PM EDT Center) Individual Psychotherapy Attender: [facility] 03/08/2018 [facility] ([facility] (45 Min) [facility] 12:20:00 PM EDT [facility] - 03/08/2018 Medical 12:20:00 PM EDT Center) OutpatientOFFICE/OUTPATI Attender: [facility] 03/02/2018 [facility] ([facility] ENT VISIT, [facility] 11:08:00 AM EDT [facility] - 03/02/2018 Medical 11:08:00 AM EDT Center) Individual Psychotherapy Attender: [facility] 02/22/2018 [facility] ([facility] (45 Min) [facility] 03:17:00 PM EDT [facility] - 02/22/2018 Medical 03:17:00 PM EDT Center) Attender: [facility] 02/22/2018 [facility] N ([facility] 02:30:00 PM EDT [facility] - 02/22/2018 Medical 02:30:00 PM EDT Center) Individual Psychotherapy Attender: [facility] 02/18/2018 [facility] ([facility] (30 Min) [facility] 10:56:00 AM EDT [facility] - 02/18/2018 Medical 10:56:00 AM EDT Center) OutpatientOFFICE/OUTPATI Attender: [facility] 01/28/2018 [facility]EXTGEN ([facility] ENT VISIT, EST [facility] 03:50:00 PM EDT Johnny hs - 01/28/2018 Medical 03:50:00 PM EDT Center) OutpatientOFFICE/OUTPATI Attender: [facility] 12/29/2017 [facility]EXTGEN ([facility] ENT VISIT, EST [facility] 10:13:00 AM EDT Johnny [facility] - 12/29/2017 Medical 10:13:00 AM EDT Center) OutpatientOFFICE/OUTPATI Attender: [facility] 12/17/2017 [facility]EXT[facility] ([facility] ENT VISIT, EST [facility] 02:49:00 PM EDT Johnny hs - 12/17/2017 Medical 02:49:00 PM EDT Center) OutpatientOFFICE/OUTPATI Attender: [facility] 11/30/2017 [facility] ENT VISIT, EST [facility] 02:21:00 PM EDT [facility] 11/30/2017 Medical 02:21:00 PM EDT Center) Attender: [facility] 11/16/2017 NEXT EN ([facility] 04:43:00 PM EDT [facility] 11/16/2017 Medical 04:43:00 PM EDT Center) OutpatientOFFICE/OUTPATI Attender: [facility] 11/16/2017 NEXTGEN ([facility] ENT VISIT, EST [facility] 01:44:00 PM EDT [facility] 11/16/2017 Medical 01:44:00 PM EDT Center) OutpatientOFFICE/OUTPATI Attender: [facility] 11/02/2017 [facility]EXTGEN ([facility] ENT VISIT, EST [facility] 02:47:00 PM [facility]2017 Medical 02:47:00 PM EDT Center) OutpatientOFFICE/OUTPATI Attender: [facility] 10/19/2017 [facility]EXTGEN ([facility] ENT VISIT, EST [facility] 01:06:00 PM EDT [facility] 10/19/2017 Medical 01:06:00 PM EDT Center) OutpatientOFFICE/OUTPATI Attender: [facility] 10/05/2017 [facility]EXT[facility] ([facility] ENT VISIT, EST [facility] 01:57:00 PM EDT [facility] 10/05/2017 Medical 01:57:00 PM EDT Center) OutpatientOFFICE/OUTPATI Attender: [facility] 09/20/2017 [facility] ENT VISIT, EST [facility] 01:43:00 PM EDT Johnny - 09/20/2017 Medical 01:43:00 PM EDT Center) OutpatientOFFICE/OUTPATI Attender: [facility] 08/31/2017 [facility] ([facility] ENT VISIT, EST [facility] 01:20:00 PM EDT Johnny - 08/31/2017 Medical 01:20:00 PM EDT Center) OutpatientOFFICE/OUTPATI Attender: [facility] 08/17/2017 [facility] ENT VISIT, EST [facility] 02:59:00 PM EST Johnny - 08/17/2017 Medical 02:59:00 PM EST Center) OutpatientOFFICE/OUTPATI Attender: [facility] 07/30/2017 [facility] ([facility] ENT VISIT, EST [facility] 03:37:00 PM EST Johnny - 07/30/2017 Medical 03:37:00 PM EST Center) OutpatientOFFICE/OUTPATI Attender: [facility] 07/23/2017 [facility] ([facility] ENT VISIT, EST [facility] 02:17:00 PM EST Johnny - 07/23/2017 Medical 02:17:00 PM EST Center) OutpatientOFFICE/OUTPATI Attender: [facility] 07/09/2017 [facility] ([facility] ENT VISIT, EST [facility] 02:21:00 PM EST Johnny - 07/09/2017 Medical 02:21:00 PM EST Center) OutpatientOFFICE/OUTPATI Attender: [facility] 06/29/2017 [facility] ([facility] ENT VISIT, EST [facility] 03:02:00 PM EST Johnny - 06/29/2017 Medical 03:02:00 PM EST Center) OutpatientOFFICE/OUTPATI Attender: [facility] 03/01/2017 [facility] ENT VISIT, EST [facility] 10:37:00 AM EDT Johnny - 03/01/2017 Medical 10:37:00 AM EDT Center) OutpatientOFFICE/OUTPATI Attender: [facility] 01/26/2017 [facility] ENT VISIT, EST [facility] 03:32:00 PM EDT Johnny - 01/26/2017 Medical 03:32:00 PM EDT Center) OutpatientOFFICE/OUTPATI Attender: [facility] 01/12/2017 [facility] ENT VISIT, EST [facility] 01:53:00 PM [facility] 01/12/2017 Medical 01:53:00 PM EDT Center) Psychiatric Diagnostic Attender: [facility] 01/12/2017 [facility] ([facility] Interview (45+ Min) [facility] 12:09:00 PM EDT [facility] 01/12/2017 Medical 12:09:00 PM EDT Center) OutpatientOFFICE/OUTPATI Attender: [facility] 12/01/2016 [facility] ENT VISIT, EST [facility] 03:20:00 PM EDT [facility] 12/01/2016 Medical 03:20:00 PM EDT Center) OutpatientOFFICE/OUTPATI [facility] 11/20/2016 [facility] ENT VISIT, EST [facility] 02:15:00 PM [facility] 11/20/2016 Medical 02:15:00 PM EDT Center) OutpatientOFFICE/OUTPATI Attender: [facility] 10/20/2016 [facility] ENT VISIT, EST [facility] 01:44:00 PM EDT [facility] 10/20/2016 Medical 01:44:00 PM EDT Center) OutpatientOFFICE/OUTPATI Attender: [facility] 10/06/2016 [facility] ENT VISIT, EST [facility] 03:14:00 PM EDT [facility] 10/06/2016 Medical 03:14:00 PM EDT Center) OutpatientOFFICE/OUTPATI Attender: [facility] 09/23/2016 [facility] ENT VISIT, EST [facility] 10:42:00 AM EDT [facility] 09/23/2016 Medical 10:42:00 AM EDT Center) OutpatientOFFICE/OUTPATI Attender: [facility] 09/10/2016 [facility] ([facility] ENT VISIT, EST [facility] 12:39:00 PM [facility] 09/10/2016 Medical 12:39:00 PM EDT Center) OutpatientOFFICE/OUTPATI Attender: [facility] 08/28/2016 [facility] ([facility] ENT VISIT, EST [facility] 01:52:00 PM EDT Johnny - 08/28/2016 Medical 01:52:00 PM EDT Center) OutpatientOFFICE/OUTPATI Attender: [facility] 08/17/2016 [facility] ENT VISIT, EST [facility] 10:51:00 AM EST Johnny - 08/17/2016 Medical 10:51:00 AM EST Center) OutpatientOFFICE/OUTPATI Attender: [facility] 07/21/2016 [facility] ENT VISIT, EST [facility] 01:42:00 PM EST Johnny - 07/21/2016 Medical 01:42:00 PM EST Center) OutpatientOFFICE/OUTPATI Attender: [facility] 06/24/2016 [facility] ENT VISIT, EST [facility] 09:50:00 AM EST Johnny - 06/24/2016 Medical 09:50:00 AM EST Center) OutpatientOFFICE/OUTPATI Attender: [facility] 05/26/2016 [facility] ENT VISIT, EST [facility] 03:03:00 PM EST Johnny - 05/26/2016 Medical 03:03:00 PM EST Center) OutpatientOFFICE/OUTPATI Attender: [facility] 04/20/2016 [facility] ENT VISIT, EST [facility] 10:08:00 AM EST Johnny - 04/20/2016 Medical 10:08:00 AM EST Center) OutpatientOFFICE/OUTPATI Attender: [facility] 03/19/2016 [facility] ([facility] ENT VISIT, EST [facility] 02:13:00 PM EDT Johnny hs - 03/19/2016 Medical 02:13:00 PM EDT Center) OutpatientOFFICE/OUTPATI Attender: [facility] 02/19/2016 [facility] ENT VISIT, EST [facility] 11:33:00 AM EDT Johnny - 02/19/2016 Medical 11:33:00 AM EDT Center) OutpatientOFFICE/OUTPATI Attender: [facility] 02/06/2016 [facility] ([facility] ENT VISIT, EST [facility] 10:56:00 AM EDT Johnny - 02/06/2016 Medical 10:56:00 AM EDT Center) OutpatientOFFICE/OUTPATI Attender: [facility] 01/09/2016 [facility] ([facility] ENT VISIT, EST [facility] 09:54:00 AM EDT Johnny hs - 01/09/2016 Medical 09:54:00 AM EDT Center) OutpatientOFFICE/OUTPATI Attender: [facility] 12/18/2015 [facility] ENT VISIT, EST [facility] 10:28:00 AM EDT Johnny hs - 12/18/2015 Medical 10:28:00 AM EDT Center) OutpatientOFFICE/OUTPATI Attender: [facility] 11/21/2015 [facility] ENT VISIT, EST [facility] 10:49:00 AM EDT Johnny hs - 11/21/2015 Medical 10:49:00 AM EDT Center) OutpatientOFFICE/OUTPATI Attender: [facility] 11/08/2015 [facility] ENT VISIT, EST [facility] Center 11:45:00 AM EDT [facility] - 11/08/2015 Medical 11:45:00 AM EDT Center) OutpatientOFFICE/OUTPATI Attender: [facility] 10/24/2015 [facility] ENT VISIT, EST [facility] 01:42:00 PM EDT Johnny hs - 10/24/2015 Medical 01:42:00 PM EDT Center) OutpatientOFFICE/OUTPATI Attender: [facility] 10/10/2015 [facility] ENT VISIT, EST [facility] 10:01:00 AM [facility] 10/10/2015 Medical 10:01:00 AM EDT Center) OutpatientOFFICE/OUTPATI Attender: [facility] 09/26/2015 [facility] ENT VISIT, EST [place] [facility] 11:32:00 AM [facility] 09/26/2015 Medical 11:32:00 AM EDT Center) OutpatientOFFICE/OUTPATI Attender: [facility] 09/12/2015 [facility] ENT VISIT, EST [facility] 11:33:00 AM EDT [facility] 09/12/2015 Medical 11:33:00 AM EDT Center) OutpatientOFFICE/OUTPATI Attender: [facility] 08/29/2015 [facility] ENT VISIT, EST [facility] 11:30:00 AM EDT [facility] 08/29/2015 Medical 11:30:00 AM EDT Center) OutpatientOFFICE/OUTPATI Attender: [facility] 08/09/2015 [facility] ENT VISIT, EST [facility] 10:53:00 AM EST Johnny - 08/09/2015 Medical 10:53:00 AM EST Center) OutpatientOFFICE/OUTPATI Attender: [facility] 07/25/2015 [facility] ENT VISIT, EST [facility] 01:36:00 PM EST Johnny - 07/25/2015 Medical 01:36:00 PM EST Center) OutpatientOFFICE/OUTPATI Attender: [facility] 06/21/2015 [facility] ENT VISIT, EST [facility] 11:12:00 AM EST Johnny - 06/21/2015 Medical 11:12:00 AM EST Center) OutpatientOFFICE/OUTPATI Attender: [facility] 05/23/2015 [facility] ENT VISIT, EST [facility] 10:47:00 AM EST Johnny hs - 05/23/2015 Medical 10:47:00 AM EST Center) OutpatientOFFICE/OUTPATI Attender: [facility] 05/07/2015 [facility] ENT VISIT, EST [facility] 11:06:00 AM EST Johnny hs - 05/07/2015 Medical 11:06:00 AM EST Center) OutpatientOFFICE/OUTPATI Attender: [facility] 04/25/2015 [facility] ([facility] ENT VISIT, EST [facility] 01:31:00 PM EST Johnny hs - 04/25/2015 Medical 01:31:00 PM EST Center) OutpatientOFFICE/OUTPATI Attender: [facility] 04/05/2015 [facility] ENT VISIT, EST [facility] 11:31:00 AM EDT Johnny hs - 04/05/2015 Medical 11:31:00 AM EDT Center) OutpatientOFFICE/OUTPATI Attender: [facility] 03/22/2015 [facility] ([facility] ENT VISIT, EST [facility] 10:13:00 AM EDT Johnny - 03/22/2015 Medical 10:13:00 AM EDT Center) OutpatientOFFICE/OUTPATI Attender: [facility] 02/21/2015 [facility] ENT VISIT, EST [facility] 02:11:00 PM EDT Johnny - 02/21/2015 Medical 02:11:00 PM EDT Center) OutpatientOFFICE/OUTPATI Attender: [facility] 01/24/2015 [facility] ([facility] ENT VISIT, EST [facility] 01:32:00 PM [facility] 01/24/2015 Medical 01:32:00 PM EDT Center) OutpatientOFFICE/OUTPATI Attender: [facility] 12/21/2014 [facility] ([facility] ENT VISIT, EST [facility] 11:45:00 AM EDT Johnny hs - 12/21/2014 Medical 11:45:00 AM EDT Center) OutpatientOFFICE/OUTPATI Attender: [facility] 11/23/2014 [facility] ([facility] ENT VISIT, EST [facility] 11:32:00 AM EDT Johnny hs - 11/23/2014 Medical 11:32:00 AM EDT Center) OutpatientOFFICE/OUTPATI Attender: [facility] 10/26/2014 [facility] ([facility] ENT VISIT, EST [facility] 11:41:00 AM EDT [facility] 10/26/2014 Medical 11:41:00 AM EDT Center) OutpatientFocused Attender: [facility] 09/26/2014 [facility] History/exam - [facility] 11[facility]32[facility] 11:32:00 AM EDT Center) OutpatientOFFICE/OUTPATI Attender: [facility] 08/23/2014 [facility] ([facility] ENT VISIT, EST [facility] 02:00:00 PM [facility] 08/23/2014 Medical 02:00:00 PM EDT Center) OutpatientOFFICE/OUTPATI Attender: [facility] 07/27/2014 [facility] ENT VISIT, EST [facility] 10:52:00 AM EST Johnny hs - 07/27/2014 Medical 10:52:00 AM EST Center) OutpatientOFFICE/OUTPATI Attender: [facility] 07/06/2014 [facility] ([facility] ENT VISIT, EST [facility] 10:42:00 AM EST Johnny hs - 07/06/2014 Medical 10:42:00 AM EST Center) OutpatientOFFICE/OUTPATI Attender: [facility] 06/22/2014 [facility] ENT VISIT, EST [facility] 10:46:00 AM EST Johnny hs - 06/22/2014 Medical 10:46:00 AM EST Center) Attender: [facility] 06/01/2014 NEXTGE N ([facility] 12:54:00 PM EST [facility] - 06/01/2014 Medical 12:54:00 PM EST Center) Attender: [facility] 05/18/2014 MARIE N ([facility] 12:27:00 PM EST [facility] - 05/18/2014 Medical 12:27:00 PM EST Center) OutpatientOFFICE/OUTPATI Attender: [facility] 05/03/2014 [facility] ENT VISIT, EST [facility] 10:48:00 AM EST Johnny hs - 05/03/2014 Medical 10:48:00 AM EST Center) OutpatientOFFICE/OUTPATI Attender: [facility] 04/26/2014 [facility] ENT VISIT, EST [facility] 10:31:00 AM EST Johnny hs - 04/26/2014 Medical 10:31:00 AM EST Center) OutpatientOFFICE/OUTPATI Attender: [facility] 03/22/2014 [facility] ([facility] ENT VISIT, EST [facility] 02:19:00 PM EDT [facility] - 03/22/2014 Medical 02:19:00 PM EDT Center) OutpatientOFFICE/OUTPATI Attender: [facility] 02/23/2014 [facility] ([facility] ENT VISIT, EST [facility] 11:56:00 AM EDT [facility] - 02/23/2014 Medical 11:56:00 AM EDT Center) OutpatientOFFICE/OUTPATI Attender: [facility] 01/23/2014 [facility] ENT VISIT, EST [facility] 04:57:00 PM EDT [facility] - 01/23/2014 Medical 04:57:00 PM EDT Center) OutpatientOFFICE/OUTPATI Attender: [facility] 12/21/2013 [facility] ([facility] ENT VISIT, EST [facility] 11:22:00 AM EDT Johnny hs - 12/21/2013 Medical 11:22:00 AM EDT Center) Outpatient [facility] 12/12/2013 [facility] 02:40:00 PM EDT [facility] - 02/21/2014 04:32:00 PM EDT Attender: [facility] 11/23/2013 [facility] N ([facility] 01:30:00 PM EDT [place] - 11/23/2013 Medical 01:30:00 PM EDT Center) OutpatientOFFICE/OUTPATI Attender: [facility] 10/20/2013 MARIEGEN ([facility] 11:34:00 AM EDT [facility] - 10/20/2013 Medical 11:34:00 AM EDT Center) OutpatientOFFICE/OUTPATI Attender: [facility] 09/20/2013 CAIT ([facility]IT, EST [facility] 11:22:00 AM EDT [facility] hs - 09/20/2013 Medical 11:22:00 AM EDT Center) OutpatientOFFICE/OUTPATI Attender: [facility] 08/24/2013 CAIT ([facility]IT, EST [facility] 01:22:00 PM EDT [facility] hs - 08/24/2013 Medical 01:22:00 PM EDT Center) OutpatientOFFICE/OUTPATI Attender: [facility] 07/26/2013 CAIT ([facility]IT, EST [facility] 09:39:00 AM EST [facility] hs - 07/26/2013 Medical 09:39:00 AM EST Center) OutpatientOFFICE/OUTPATI Attender: [facility] 06/23/2013 CAIT ([facility], EST [facility] 11:23:00 AM EST [facility] - 06/23/2013 Medical 11:23:00 AM EST Center) OutpatientOFFICE/OUTPATI Attender: [facility] 05/25/2013 CAIT ([facility]IT, EST [facility] 01:33:00 PM EST Johnny - 05/25/2013 Medical 01:33:00 PM EST Center) OutpatientOFFICE Attender: [facility] 04/25/2013 LUZ ELENA EN [facility] 01[facility]26:00 PM EST [place] Valerod - 04/25/2013 Medical 01:26:00 PM EST Center) OutpatientOFFICE/OUTPATI Attender: [facility] 03/24/2013 CAIT ([facility]ISIT, EST [facility] 09:24:00 AM EDT Johnny hs - 03/24/2013 Medical 09:24:00 AM EDT Center) OutpatientOFFICE/OUTPATI Attender: [facility] 02/23/2013 NEXTGEN ([facility] 03:[facility]:00 PM EDT Johnny taylor [place] - 02/23/2013 Medical 03:51:00 PM EDT Center) Attender: [facility] 06/17/2012 NEXTGE N ([facility] 10:46:00 AM [facility] - 06/17/2012 Medical 10:46:00 AM EST Center) OutpatientOFFICE Attender: [facility] 06/01/2012 NEXTGEN ([facility] 10:52:00 AM [facility] - 06/01/2012 Medical 10:52:00 AM EST Center) Immunizations Vaccine Date Status Description Data Source(s) Tdap 02/03/2019 12:00:00 AM completed Tdap NEXTG EN ([facility] EDT Center) Source: New Immunization Record IIV3. This is one 03/19/2016 12:00:00 completed Influenza, seaso nal, NEXTGEN ([facility] AM EDT injectable (3 yrs or [facility] Medical replacing CVX 15, older) Center) which is being retired. Source: New Immunization Record This CVX code has little completed Influenza vaccin e NEXTGEN ([facility] utility and should rarely be Medical Center) used. Source: New Immunization Record This CVX code has little completed Td vaccine NEX TGEN ([facility] utility and should rarely be Center) used. Source: New Immunization Record New in 2011. IIV4 completed Influenza, Injectable, NEXTGEN ([facility] Quadrivalent [facility] Center) Note: Refused ; Source: New Immunization Record Medications Medication Brand Start Product Dose Route [facility] Indications Reaction Description Data Name Date Form Instructions Instructions Source(s) Furosemide FUROSE ORAL complet TAKE 1 NEXTGEN 20 MG Oral MIDE 2019 {tabl ed TABLET BY (Sa int Tablet 12:00: et} ORAL ROUTE Johnny hs FUROSEMIDE 20MG 00 AM EVERY DAY Med ical 20MG TAB TAB EDT Center) Medication administered onsite Methadone methadone 02/26/2020 15 ORAL active ta ke 15 NEXTGEN Hydrochloride 2 10 mg/5 mL 12:00:00 AM mL milliliter ([facility] MG/ML Oral oral EDT by oral Dhruv s Solution solution route every Medical methadone [address]) mg/5 mL oral solution of 03/22/19 at [facility]; 30mg as of 02/26/20 Furosemide furosemide 02/26/2020 1 {tablet} ORAL active take 1 NEXTGEN 20 MG Oral 20 mg tablet 12:00:00 AM tablet ([facility] Tablet EDT by oral [place] furosemide route Medical 20 mg tablet every Center ) day sent electronically 120 ACTUAT Symbicort 160 02/20/2020 2.00 RESPIRATORY active 120 ACTUAT NEXTGEN Budesonide mcg-4.5 12:00:00 AM {puff} (INHALATION) budesonide ([facility] 0.16 MG/ACTUAT mcg/actuation EDT 0 .16 [place] / formoterol HFA aerosol MG/AC TUAT / Medical fumarate inhaler formoterol Ce nter) 0.0045 fumarate MG/ACTUAT 0.0045 Metered Dose MG/ACTUAT Inhaler Metered Dose [Symbicort] Inhaler Symbicort 160 [Symbicort] mcg-4.5 mcg/actuation HFA aerosol inhaler Furosemide 20 furosemide 20 02/13/2020 1.00 ORAL complet take 1 NEXTGEN MG Oral Tablet mg tablet 12:00:00 AM {tablet ed tablet by ([facility] furosemide 20 EDT } oral route [place] mg tablet every day Medic al [place]) Hydrochlorothi losartan 100 02/09/2020 1.00 ORAL complet take 1 NEXTGEN azide 25 MG / mg-hydrochloro 12:00:00 AM {tablet ed tablet by ([facility] Losartan thiazide 25 mg EDT } oral r oute [place] Potassium 100 tablet every day Medical MG Oral Tablet Cente r) losartan 100 mg-hydrochloro thiazide 25 mg tablet Fluoxetine 10 Prozac 10 mg 02/06/2020 3 ORAL active fluoxetine NEXTGEN MG Oral capsule 12:00:00 AM {capsul 10 M G Oral ([facility] Capsule EDT e} Capsule [place] [Prozac] [Prozac] Medical Prozac 10 mg [place]) capsule aripiprazole Abilify 20 mg 02/06/2020 1.00 ORAL active aripiprazole NEXTGEN 20 MG Oral tablet 12:00:00 AM {tablet 20 MG Oral ([facility] Tablet EDT } Tablet [place] [Abilify] [Abilify] Medic al Abilify 20 mg [place] ) tablet Methadone methadone 10 01/24/2020 42 mL ORAL complet take 42 NEXTGEN Hydrochloride mg/5 mL oral 12:00:00 AM ed milliliter ([facility] 2 MG/ML Oral solution EDT by oral [place] Solution route every Med ical methadone [address]) mg/5 mL oral solution of 03/22/19 at [facility]; 40mg as of 01/24/20 120 ACTUAT Symbicort 160 01/24/2020 2.00 RESPIRATORY complet ed 120 ACTUAT NEXTGEN Budesonide mcg-4.5 12:00:00 AM {puff} (INHALATION) budesonide ([facility] 0.16 MG/ACTUAT mcg/actuation EDT 0 .16 [place] / formoterol HFA aerosol MG/AC TUAT / Medical fumarate inhaler formoterol Ce nter) 0.0045 fumarate MG/ACTUAT 0.0045 Metered Dose MG/ACTUAT Inhaler Metered Dose [Symbicort] Inhaler Symbicort 160 [Symbicort] mcg-4.5 mcg/actuation HFA aerosol inhaler Furosemide 20 furosemide 20 01/24/2020 1.00 ORAL completed take 1 NEXTGEN MG Oral Tablet mg tablet 12:00:00 AM {tablet tablet by ([facility] furosemide 20 EDT } oral route [place] mg tablet every day Medic al Center) atorvastatin ATORVASTATIN 12/25/2019 completed TAKE ONE NEXTGEN 20 MG Oral 20MG TAB 12:00:00 AM TABLET BY ([facility] Tablet EDT MOUTH DAILY Dhruv s ATORVASTATIN Medical 20MG TAB [place]) 200 ACTUAT ALBUTEROL 11/23/2019 active N [id number] NEXTGEN Albuterol 0.09 (VENTOLIN) 12:00:00 AM 200 ACTUAT ([facility] MG/ACTUAT 90MCG/ACT AER EDT [place] Metered Dose 0.09 Medical Inhaler MG/ACTUAT Center) [Ventolin] Metered Dose ALBUTEROL Inhaler (VENTOLIN) [Ventolin] 90MCG/ACT AER Hydrochlorothi losartan 100 10/29/2019 1.00 ORAL completed take 1 NEXTGEN azide 25 MG / mg-hydrochloro 12:00:00 AM {tablet tablet by ([facility] Losartan thiazide 25 mg EDT } oral r oute [place] Potassium 100 tablet every day Medical MG Oral Tablet Cente r) losartan 100 mg-hydrochloro thiazide 25 mg tablet atorvastatin ATORVASTATIN 09/24/2019 completed TAKE ONE NEXTGEN 20 MG Oral CALCIUM 20MG 12:00:00 AM TABLET BY ([facility] Tablet TAB EDT MOUTH DAILY Dhruv s ATORVASTATIN Medical CALCIUM 20MG [place]) TAB Fluoxetine 10 Prozac 10 mg 09/20/2019 3 ORAL completed fluoxetine NEXTGEN MG Oral capsule 12:00:00 AM {capsul 10 M G Oral ([facility] Capsule EDT e} Capsule [place] [Prozac] [Prozac] Medical Prozac 10 mg [place]) capsule aripiprazole Abilify 20 mg 09/20/2019 1.00 ORAL completed aripiprazole NEXTGEN 20 MG Oral tablet 12:00:00 AM {tablet 20 MG Oral ([facility] Tablet EDT } Tablet [place] [Abilify] [Abilify] Medic al Abilify 20 mg [place] ) tablet aripiprazole Abilify 20 mg 08/02/2019 1.00 ORAL completed aripiprazole NEXTGEN 20 MG Oral tablet 12:00:00 AM {tbl} 20 M G Oral ([facility] Tablet EST Tablet [place] [Abilify] [Abilify] Medic al Abilify 20 mg [place] ) tablet Fluoxetine 10 Prozac 10 mg 08/02/2019 3 ORAL completed Fluoxetine NEXTGEN MG Oral capsule 12:00:00 AM {capsul 10 M G Oral ([facility] Capsule EST e} Capsule [place] [Prozac] [Prozac] Medical Prozac 10 mg [place]) capsule 200 ACTUAT Ventolin HFA 07/26/2019 completed [id number] NEXTGEN Albuterol 0.09 90 12:00:00 AM 200 ACTUAT ([facility] MG/ACTUAT mcg/actuation EST [place] Metered Dose aerosol 0.09 Medi kurtis Inhaler inhaler MG/ACTUAT Cent er) [Ventolin] Metered Dose Ventolin HFA Inhaler 90 [Ventolin] mcg/actuation aerosol inhaler atorvastatin atorvastatin 07/18/2019 1.00 ORAL completed take 1 NEXTGEN 20 MG Oral 20 mg tablet 12:00:00 AM {tbl} tablet by ([facility] Tablet EST oral route [place] atorvastatin every day Me dical 20 mg tablet Center) Methadone methadone 10 07/18/2019 42 mL ORAL completed take 42 NEXTGEN Hydrochloride mg/5 mL oral 12:00:00 AM milliliter ([facility] 2 MG/ML Oral solution EST by oral [place] Solution route every Med ical methadone [address]) mg/5 mL oral solution of 03/22/19 at [facility]; 85mg/ d as of 07/18/19 aripiprazole 20 Abilify 20 05/09/2019 1.00 ORAL completed aripiprazole NEXTGEN MG Oral Tablet mg tablet 12:00:00 AM {tbl} 20 MG Oral (Saint [Abilify] EST Tablet [place] Abilify 20 mg [Abilify] edical tablet [place]) Fluoxetine 10 MG Prozac 10 05/09/2019 3 ORAL completed Fluoxetine 10 NEXTGEN Oral Capsule mg capsule 12:00:00 AM {capsu MG Oral ([facility] [Prozac] Prozac EST le} Capsule J [facility]seph[facility] Hydrochlor[facility] losartan 03/22/2019 1.00 ORAL completed take 1 tablet NEXTGEN angel 25 MG / 100 12:00:00 AM {tbl} by or al route ( Losartan mg-hydroch EDT every day [place] Potassium 100 MG lorothiazi Medical Oral Tablet de 25 mg Cent er) losartan 100 tablet mg-hydrochloroth iazide 25 mg tablet aripiprazole 20 Abilify 20 03/14/2019 1.00 ORAL completed aripiprazole NEXTGEN MG Oral Tablet mg tablet 12:00:00 AM {tbl} 20 MG Oral (Saint [Abilify] EDT Tablet [place] Abilify 20 mg [Abilify] edical tablet [place]) Fluoxetine 10 MG Prozac 10 03/14/2019 3 ORAL completed Fluoxetine 10 NEXTGEN Oral Capsule mg capsule 12:00:00 AM {capsu MG Oral (Saint [Prozac] Prozac EDT le} Capsule J osephs 10 mg [facility] Bup[facility]ine 8 Suboxone 8 02/03/2019 completed Buprenorphine NEXTGEN MG / Naloxone 2 mg-2 mg 12:00:00 AM 8 MG / (Saint MG Oral Strip sublingual EDT Nalox one 2 MG [place] [Suboxone] film Oral Strip Med ical Suboxone 8 mg-2 [Suboxone ] Center) mg sublingual film [id number] Buprenorphine Suboxone 12 02/03/2019 1 SUBLINGUAL complet ed Buprenorphine NEXTGEN 12 MG / mg-3 mg 12:00:00 AM film 12 MG / ([facility] Naloxone 3 MG sublingual EDT Nalox one 3 MG [place] Oral Strip film Oral Strip Med ical [Suboxone] [Suboxone] [place] [facility]) Suboxone 12 mg-3 mg sublingual film Nicotine 2 MG nicotine 02/03/2019 completed take one NEXTGEN Oral Lozenge (polacrilex 12:00:00 AM lozenge ([facility] nicotine ) 2 mg EDT instead of a J osephs (polacrilex) 2 buccal mini cig arette; max Medical mg buccal mini lozenge 6/day C enter) lozenge Hydrochlorothi losartan 01/06/2019 1.00 ORAL completed take 1 tablet NEXTGEN azide 25 MG / 100 12:00:00 AM {tbl} by oral route ([facility] Losartan mg-hydrochl EDT every day [place] Potassium 100 orothiazide Medical MG Oral Tablet 25 mg Cent er) losartan 100 tablet mg-hydrochloro thiazide 25 mg tablet Fluoxetine 10 Prozac 10 12/14/2018 3 ORAL completed Fluoxetine 10 NEXTGEN MG Oral mg capsule 12:00:00 AM {caps MG Oral ([facility] Capsule EDT ule} Capsule [place] [Prozac] [Prozac] Medical Prozac 10 mg Center) capsule aripiprazole Abilify 20 12/14/2018 1.00 ORAL completed aripiprazole NEXTGEN 20 MG Oral mg tablet 12:00:00 AM {tbl} 2 0 MG Oral ([facility] Tablet EDT Tablet [place] [Abilify] [Abilify] Medic al Abilify 20 mg Center ) tablet Fluoxetine 10 Prozac 10 10/19/2018 3 ORAL completed Fluoxetine 10 NEXTGEN MG Oral mg capsule 12:00:00 AM {caps MG Oral ([facility] Capsule EDT ule} Capsule [place] [Prozac] [Prozac] Medical Prozac 10 mg Center) capsule aripiprazole Abilify 20 10/19/2018 1.00 ORAL completed aripiprazole NEXTGEN 20 MG Oral mg tablet 12:00:00 AM {tbl} 2 0 MG Oral ([facility] Tablet EDT Tablet [place] [Abilify] [Abilify] Medic al Abilify 20 mg Center ) tablet Buprenorphine Suboxone 8 09/12/2018 completed Buprenorphine NEXTGEN 8 MG / mg-2 mg 12:00:00 AM 8 MG / ( [facility] Naloxone 2 MG sublingual EDT Nalox one 2 MG [place] Oral Strip film Oral Strip Med ical [Suboxone] [Suboxone] [place] [facility]) Suboxone 8 mg-2 mg sublingual film [id number] Fluoxetine 10 Prozac 10 08/24/2018 3 ORAL completed Fluoxetine 10 NEXTGEN MG Oral mg capsule 12:00:00 AM {capsule} MG Oral ([facility] Capsule EDT Capsule [place] [Prozac] [Proza] Medical Prozac 10 mg [place]) capsule aripiprazole fy 20 08/24/2018 1.00 {tbl} ORAL completed aripiprazole NEXTGEN 20 MG Oral mg tablet 12:00:00 AM 20 MG Oral ([facility] Tablet EDT Tablet [place] [Abilify] [Abilify] Medic al Abilify 20 mg [place] ) tablet Hydrochloroth losartan 08/15/2018 1.00 {tbl} ORAL completed take 1 tablet NEXTGEN iazide 25 MG 100 12:00:00 AM by or al route (Saint / Losartan mg-hydroch EST every d ay [place] Potassium 100 lorothiazi Medical MG Oral de 25 mg [place]) Tablet tablet losartan 100 mg-hydrochlor othiazide 25 mg tablet aripiprazole y 20 06/22/2018 1.00 {tbl} ORAL completed aripiprazole NEXTGEN 20 MG Oral mg tablet 12:00:00 AM 20 MG Oral ([facility] Tablet EST Tablet [place] [Abilify] [Abilify] Medic al Abilify 20 mg [place] ) tablet Fluoxetine 10 Prozac 10 06/22/2018 3 ORAL completed Fluoxetine 10 NEXTGEN MG Oral mg capsule 12:00:00 AM {capsule} MG Oral ([facility] Capsule EST Capsule [place] [Prozac] [Prozac] Medical Prozac 10 mg [place]) capsule Buprenorphine Suboxone 8 02/22/2018 active Buprenorphine NEXTGEN 8 MG / mg-2 mg 12:00:00 AM 8 MG / ( [facility] Naloxone 2 MG sublingual EDT Nalox one 2 MG [place] Oral Strip film Oral Strip Med ical [Suboxone] [Suboxone] [place] [facility]) Suboxone 8 mg-2 mg sublingual film [id number] Aspirin 81 MG Aspir-81 81 mg 12/29/2017 1.00 ORAL completed take 1 NEXTGEN Delayed Release tablet,delayed 12:00:00 AM {tbl} tablet ( Oral Tablet release EDT by oral Shania еленаserafin Aspir-[address] [facility] tablet,delayed every Cent er) release day Acetaminophen acetaminophen 11/16/2017 2 ORAL completed take 2 NEXTGEN 500 MG Oral 500 mg tablet 12:00:00 AM {tbl} tablet ( Tablet EDT by oral [place] acetaminophen route Medic al 500 mg tablet every [address]) hours as needed as needed for arthtrit is pain 24 HR Nicotine nicotine 14 07/23/2017 1.00 TRANSDE completed apply 1 NEXTGEN 0.583 MG/HR mg/24 hr daily 12:00:00 AM patch RMAL patch by ([facility] Transdermal transdermal EST transd er [facility] Patch nicotine patch mal [facility] 14 mg/24 hr route Center) daily every transdermal day patch Narcan 4 naloxone 06/29/2017 0.10 NASAL active nal oxone NEXTGEN mg/actuation hydrochloride 12:00:00 AM mL hydrochl ( nasal spray 40 MG/ML Nasal EST genie de 40 [facility] [place] MG/ML [facility] Nasal [place]) [place] [Narcan] Methadone methadone 10 25 mL ORAL completed t barb 25 NEXTGEN Hydrochloride 2 mg/5 mL oral m illilit (Saint MG/ML Oral solution er by [facility] Solution oral Medical methadone 10 route Center ) mg/5 mL oral every 24 solution hours of 03/22/19 at [facility] Furosemide 20 furosemide 20 1 {tablet} ORAL completed take 1 NEXTGEN MG Oral Tablet mg tablet table t by ( furosemide 20 oral route 2 [place] mg tablet times every Med ical day Center) Fluoxetine 20 Prozac 20 mg 3 ORAL completed Fluoxetine NEXTGEN MG Oral capsule {capsule} 20 MG Ora l ([facility] Capsule Capsule [place] [Prozac] [Prozac] Medical Prozac 20 mg Center) capsule Abilify 15 mg aripiprazole 1.00 {tbl} ORAL completed take 1 NEXTGEN tablet 15 MG Oral tablet (Rochelle t Tablet (15MG) by [place] [Abilify] oral route Medi kurtis every day Center) Clotrimazole clotrimazole 1.00 ORAL completed take 1 NEXTGEN 10 MG Oral 10 mg dani {tablet} ta blet by ([facility] Lozenge oral route 5 [facility] clotrimazole times every Medical 10 mg dani day Center) dissolved slowly in the mouth Potassium potassium 1.00 ORAL active take 1 N EXTGEN Chloride 20 chloride ER 20 {tablet} tablet by ([facility] MEQ Extended mEq oral route J osephs Release Oral tablet,extende ev crystal day Medical Tablet d release with food [place] [facility]) potassium chloride ER 20 mEq tablet,extende d release Fluoxetine 10 fluoxetine 10 3 {tablet} ORAL completed take 3 NEXTGEN MG Oral Tablet mg tablet table t by ([facility] fluoxetine 10 oral route [place] mg tablet every day in Ut dicpr the morning Center) takes 30mg Dexamethasone 4 Decadron 4 1 {tablet} ORAL completed dexamethasone NEXTGEN MG Oral Tablet mg tablet 4 MG Oral (Saint [Decadron] Tablet [place] Decadron 4 mg [Decadron] Medical tablet [place]) Lenvima 4 mg lenvatinib 4 ORAL active Le nvima 4 MG NEXTGEN capsule MG Oral (as lenvatinib ([facility] Capsule mesylate) [place] Daily Dose 30 Medica l [employer] Center) Pack per oncology Vosevi 400 sofosbuvir 400 1.00 ORAL completed sofosbuvir 400 NEXTGEN mg-100 MG / {tbl} MG / (Saint mg-100 mg velpatasvir 100 velp atasvir 100 [place] tablet MG / MG / Medical voxilaprevir voxilaprevir Center) 100 MG Oral 100 MG Oral Tablet Tablet [Vosevi] through ! Folic Acid 1 MG Oral folic acid 1.00 ORAL active take 1 NEXTGEN Tablet folic acid 1 1 mg {tablet} t ablet (Saint mg tablet tablet by oral Johnny hs route Medical every Center) day Hydrochlorothiazide losartan 1.00 {tbl} ORAL completed take 1 NEXTGEN 25 MG / Losartan 100 tablet ( [facility] Potassium 100 MG Oral mg-hydroch by oral [place] Tablet losartan 100 lorothiazi route Medical mg-hydrochlorothiazid de 25 mg every Center) e 25 mg tablet tablet day Insurance Providers Payer name Policy type Policy ID Covered Covered green party's Policy P iesha / Coverage green party ID relationship to Loaiza Inf ormation type loaiza MVP MEDICAID [id number] SP [id number] O MVP/HHP [id number] self [id number] MVP/HHP O [id number] 01 [id number] METHADONE [id number] SP [id number] [employer]TE[employer] [id number] self [id number] MVP PSYCH OP O [id number] 01 [id number] MVP/HHP O [id number] 01 [id number] 1VP/HHP [id number] self [id number] [facility] O [id number] 01 [id number] [facility] [facility] [id number] self [id number] [employer]ION [facility] [id number] SP [id number] HEALTH-MVP MEDICAID OP [id number] Self [id number] [facility] [id number] self [id number] [facility] [id number] SP [id number] HEALTH-MVP "" O [id number] 01 [id number] [facility] O [id number] 01 [id number] [employer]IONS [facility] O [id number] 01 [id number] OPTIONS MVP [id number] self [id number] MVP HEALTH [id number] self [id number] [employer] Problems, Conditions, and Diagnoses Code Display Name Description Problem Type Effective Data Dates Source(s) 125448554 Combined opioid Combined opioid Problem 04/25/2013 NEXT GEN with other drug with other drug 12:00:00 AM ([facility] int dependence in dependence in [facility]) [id number] Child attention Child attention Problem 04/25/2013 NEXT GEN deficit disorder deficit disorder 12:00:00 AM ( [facility]) [id number] Benign essential Benign essential Problem 04/25/2013 [place] XTGEN hypertension hypertension 12:00:00 AM ([facility]) [id number] Bipolar disorder Bipolar disorder Problem 04/25/2013 [place] XTGEN 12:00:00 AM ([facility]) [id number] Acute hepatitis C Acute hepatitis C Problem 06/17/2012 NEXTGEN 12:00:00 AM ([facility]) Z71.9 Counseling, COUNSELING, Diagnosis 02/20/2020 [place] [facility] unspecified UNSPECIFIED 10:37:00 AM Medical EDT Center Z71.3 Dietary counseling DIETARY Diagnosis 02/20/2020 [facility] and surveillance COUNSELING AND 10:37:00 AM Med [facility] SURVEILLANCE EDT Center F11.29 Opioid dependence OPIOID DEPENDENCE Diagnosis 02/20/2020 [facility] with unspecified WITH UNSPECIFIED 10:37:00 AM M edical opioid-induced OPIOID-INDUCED EDT Center disorder DISORDER C22.0 Liver cell LIVER CELL Diagnosis 02/20/2020 [facility] carcinoma CARCINOMA 10:37:00 AM Medical EDT Center Z71.51 Drug abuse DRUG ABUSE Diagnosis 01/30/2020 [facility] counseling and COUNSELING AND 11:21:00 AM Medic al surveillance of SURVEILLANCE OF EDT Cent er drug abuser DRUG ABUSER R60.9 Edema, unspecified EDEMA, Diagnosis 01/30/2020 [facility] UNSPECIFIED 11:21:00 AM Medical EDT Center F11.20 Opioid dependence, OPIOID Diagnosis 01/24/2020 [facility] uncomplicated DEPENDENCE, 05:23:00 PM Medical UNCOMPLICATED EDT Center F32.9 Major depressive MAJOR DEPRESSIVE Diagnosis 01/24/2020 [facility] disorder, single DISORDER, SINGLE 05:23:00 PM M edical episode, EPISODE, EDT Center unspecified UNSPECIFIED E78.5 Hyperlipidemia, HYPERLIPIDEMIA, Diagnosis 10/05/2019 [place] [facility] unspecified UNSPECIFIED 09:09:00 AM Medical EDT Center I10 Essential (primary) ESSENTIAL Diagnosis 10/05/2019 [facility] hypertension (PRIMARY) 09:09:00 AM Medical HYPERTENSION EDT Center R16.0 Hepatomegaly, not HEPATOMEGALY, NOT Diagnosis 10/05/2019 [facility] elsewhere ELSEWHERE 09:09:00 AM Medical classified CLASSIFIED EDT Center R93.2 Abnormal findings ABNORMAL FINDINGS Diagnosis 10/03/2019 [facility] on diagnostic ON DX IMAGING OF 10:09:00 AM Medi kurtis imaging of liver LIVER AND BILIARY EDT C enter and biliary tract TRACT R93.5 Abnormal findings ABN FINDINGS ON Diagnosis 09/15/2019 [facility] on diagnostic DX IMAGING OF ABD 03:20:00 PM Med ical imaging of other [employer], INC EDT Center abdominal regions, RETROPERITON including retroperitoneum L84 Corns and CORNS AND Diagnosis 08/08/2019 [facility] callosities CALLOSITIES 09:50:00 AM Medical EST Center M79.672 Pain in left foot PAIN IN LEFT FOOT Diagnosis 08/08/2019 [place] 09:50:00 AM Medical EST Center M72.2 Plantar fascial PLANTAR FASCIAL Diagnosis 08/08/2019 [place] fibromatosis FIBROMATOSIS 09:50:00 AM Medical EST Center Z71.89 Other specified OTHER SPECIFIED Diagnosis 07/26/2019 [place] counseling COUNSELING 06:13:00 PM Medical EST Center Z71.6 Tobacco abuse TOBACCO ABUSE Diagnosis 07/26/2019 [facility] counseling COUNSELING 06:13:00 PM Medical EST Center F17.200 Nicotine NICOTINE Diagnosis 07/26/2019 [facility] dependence, DEPENDENCE, 06:13:00 PM Medical unspecified, UNSPECIFIED, EST Center uncomplicated UNCOMPLICATED J68.3 Other acute and OTH AC and SUBAC Diagnosis 07/26/2019 A[facility] subacute RESP COND D/T 06:13:00 PM Medical respiratory CHEMICALS, GAS, EST Center conditions due to FUMES and VAPORS chemicals, gases, fumes and vapors E78.00 Pure PURE Diagnosis 07/18/2019 [facility] hypercholesterolemi HYPERCHOLESTEROLE 03:14:00 PM Medical a, unspecified CLARENCE, UNSPECIFIED EST Cent er Z12.2 Encounter for ENCNTR SCREEN FOR Diagnosis 07/18/2019 [place] screening for MALIGNANT 03:14:00 PM Medical malignant neoplasm NEOPLASM OF EST Cente r of respiratory RESPIRATORY organs ORGANS F31.9 Bipolar disorder, BIPOLAR DISORDER, Diagnosis 06/24/2019 [facility] unspecified UNSPECIFIED 01:40:00 PM Medical EST Center Z68.39 Body mass index BODY MASS INDEX Diagnosis 03/22/2019 [facility] (BMI) 39.0-39.9, (BMI) 39.0-39.9, 05:27:[address] [facility] adult ADULT EDT Center E66.9 Obesity, OBESITY, Diagnosis 03/22/2019 [facility] unspecified UNSPECIFIED 05:27:00 PM Medical EDT Center E11.9 Type 2 diabetes TYPE 2 DIABETES Diagnosis 03/22/2019 [place] [place] mellitus without MELLITUS WITHOUT 05:27:00 PM edical complications COMPLICATIONS EDT Center M54.5 Low back pain LOW BACK PAIN Diagnosis 03/22/2019 [facility] 05:27:00 PM Medical EDT Center B18.2 Chronic viral CHRONIC VIRAL Diagnosis 03/22/2019 [facility] hepatitis C HEPATITIS C 05:27:00 PM Medical EDT Center Z68.41 Body mass index BODY MASS INDEX Diagnosis 02/03/2019 [place] [place] (BMI) 40.0-44.9, (BMI) 40.0-44.9, 03:09[facility]00 [facility] Z23 Encounter for ENCOUNTER FOR Diagnosis 02/03/2019 [facility] immunization IMMUNIZATION 03:09:00 PM Medical EDT Center 799.9 OTHER UNKNOWN AND UNKN CAUSE Diagnosis 12/12/2013 [facility] UNSPECIFIED CAUSE MORB/MORT NEC 12:00:00 AM Rohit cents OF MORBIDITY OR EDT Hospital MORTALITY [facility] Diagnosis [facility] Diagnosis [facility] Diagnosis [facility]) Diagnosis [facility]) Diagnosis [facility] ([facility]) Diagnosis [facility] ([facility]) Diagnosis [facility] ([facility]) Surgeries/Procedures Procedure Description Date Indications Data Source(s) OFFICE/OUTPATIENT VISIT, 02/20/2020 NEX TGEN ([facility] EST 12:00:00 AM EDT [facility] - 02/20/2020 [place]) 12:00:00 AM EDT OFFICE/OUTPATIENT VISIT, 02/06/2020 NEX TGEN ([facility] EST 12:00:00 AM EDT [facility] - 02/06/2020 [place]) 12:00:00 AM EDT OFFICE/OUTPATIENT VISIT, 01/30/2020 NEX TGEN ([facility] EST 12:00:00 AM EDT [facility] - 01/30/2020 [place]) 12:00:00 AM EDT OFFICE/OUTPATIENT VISIT, 01/24/2020 NEX TGEN ([facility] EST 12:00:00 AM EDT [facility] - 01/24/2020 [place]) 12:00:00 AM EDT Individual Psychotherapy 10/19/2019 NEX TGEN ([facility] (30 Min) 12:00:00 AM EDT [facility] - 10/19/2019 [place]) 12:00:00 AM EDT PHONE E/M BY PHYS 1110/11/2019 NEXT GEN ([facility] MIN 12:00:00 AM EDT [facility] - 10/11/2019 [place]) 12:00:00 AM EDT OFFICE/OUTPATIENT VISIT, 10/03/2019 NEX TGEN ([facility] EST 12:00:00 AM EDT [facility] 10/03/2019 [place]) 12:00:00 AM EDT PHONE E/M BY PHYS 11-20 09/15/2019 NEXT GEN ([facility] MIN 12:00:00 AM EDT [facility] 09/15/2019 [place]) 12:00:00 AM EDT Individual Psychotherapy 08/09/2019 NEX TGEN ([facility] (30 Min) 12:00:00 AM EST [facility] 08/09/2019 [place]) 12:00:00 AM EST OFFICE/OUTPATIENT VISIT, 08/08/2019 NEX TGEN ([facility] EST 12:00:00 AM EST [facility] 08/08/2019 [place]) 12:00:00 AM EST DEBRIDE SKIN/TISSUE 08/08/2019 NEXTGEN ([facility] 12:00:00 AM EST [facility] 08/08/2019 [place]) 12:00:00 AM EST INJ TENDON SHEATH/LIGAMENT 08/08/2019 N EXTGEN ([facility] 12:00:00 AM EST [facility] 08/08/2019 [place]) 12:00:00 AM EST Triamcinolone acetonide 08/08/2019 NEXT GEN ([facility] inj 12:00:00 AM EST [facility] 08/08/2019 [place]) 12:00:00 AM EST Dexamethasone sodium phos 08/08/2019 NE XTGEN ([facility] 12:00:00 AM EST [facility] 08/08/2019 [place]) 12:00:00 AM EST Psychotherapy (30 Mins) W/ 08/02/2019 N EXTGEN ([facility] E&M 12:00:00 AM EST [facility] 08/02/2019 [place]) 12:00:00 AM EST OFFICE/OUTPATIENT VISIT, 08/02/2019 NEX TGEN ([facility] EST 12:00:00 AM EST [facility] 08/02/2019 [place]) 12:00:00 AM EST OFFICE/OUTPATIENT VISIT, 07/26/2019 NEX TGEN ([facility] EST 12:00:00 AM EST [facility] 07/26/2019 [place]) 12:00:00 AM EST OFFICE/OUTPATIENT VISIT, 07/18/2019 NEX TGEN ([facility] EST 12:00:00 AM EST [facility] 07/18/2019 [place]) 12:00:00 AM EST ROUTINE VENIPUNCTURE 07/18/2019 NEXTGEN ([facility] 12:00:00 AM EST [facility] 07/18/2019 [place]) 12:00:00 AM EST OFFICE/OUTPATIENT VISIT, 03/22/2019 NEX TGEN ([facility] EST 12:00:00 AM EDT [facility] - 03/22/2019 [place]) 12:00:00 AM EDT Individual Psychotherapy 03/16/2019 NEX TGEN ([facility] (30 Min) 12:00:00 AM EDT [facility] - 03/16/2019 [place]) 12:00:00 AM EDT OFFICE/OUTPATIENT VISIT, 03/14/2019 NEX TGEN ([facility] EST 12:00:00 AM EDT [facility] - 03/14/2019 [place]) 12:00:00 AM EDT OFFICE/OUTPATIENT VISIT, 02/03/2019 NEX TGEN ([facility] EST 12:00:00 AM EDT [facility] - 02/03/2019 [place]) 12:00:00 AM EDT OFFICE/OUTPATIENT VISIT, 12/14/2018 NEX TGEN ([facility] EST 12:00:00 AM EDT [facility] 12/14/2018 [place]) 12:00:00 AM EDT Individual Psychotherapy 12/14/2018 NEX TGEN ([facility] (30 Min) 12:00:00 AM EDT [facility] - 12/14/2018 Center) 12:00:00 AM EDT OFFICE/OUTPATIENT VISIT, 10/19/2018 NEX TGEN ([facility] EST 12:00:00 AM EDT [facility] - 10/19/2018 [place]) 12:00:00 AM EDT Individual Psychotherapy 09/12/2018 NEX TGEN ([facility] (45 Min) 12:00:00 AM EDT [facility] - 09/12/2018 [place]) 12:00:00 AM EDT OFFICE/OUTPATIENT VISIT, 08/24/2018 NEX TGEN ([facility] EST 12:00:00 AM EDT [facility] - 08/24/2018 [place]) 12:00:00 AM EDT Individual Psychotherapy 08/24/2018 NEX TGEN ([facility] (30 Min) 12:00:00 AM EDT [facility] - 08/24/2018 [place]) 12:00:00 AM EDT Individual Psychotherapy 07/20/2018 NEX TGEN ([facility] (30 Min) 12:00:00 AM EST [facility] - 07/20/2018 [place]) 12:00:00 AM EST OFFICE/OUTPATIENT VISIT, 07/01/2018 NEX TGEN ([facility] EST 12:00:00 AM EST [facility] 07/01/2018 [place]) 12:00:00 AM EST OFFICE/OUTPATIENT VISIT, 06/22/2018 NEX TGEN ([facility] EST 12:00:00 AM EST [facility] 06/22/2018 [place]) 12:00:00 AM EST Individual Psychotherapy 06/22/2018 NEX TGEN ([facility] (30 Min) 12:00:00 AM EST [facility] 06/22/2018 Center) 12:00:00 AM EST OFFICE/OUTPATIENT VISIT, 03/29/2018 NEX TGEN ([facility] EST 12:00:00 AM EDT [facility] 03/29/2018 [place]) 12:00:00 AM EDT Individual Psychotherapy 03/08/2018 NEX TGEN ([facility] (45 Min) 12:00:00 AM EDT [facility] 03/08/2018 [place]) 12:00:00 AM EDT OFFICE/OUTPATIENT VISIT, 03/02/2018 NEX TGEN ([facility] EST 12:00:00 AM EDT [facility] 03/02/2018 [place]) 12:00:00 AM EDT Individual Psychotherapy 02/22/2018 NEX TGEN ([facility] (45 Min) 12:00:00 AM EDT [facility] - 02/22/2018 Center) 12:00:00 AM EDT Individual Psychotherapy 02/18/2018 NEX TGEN ([facility] (30 Min) 12:00:00 AM EDT [facility] 02/18/2018 Center) 12:00:00 AM EDT OFFICE/OUTPATIENT VISIT, 01/28/2018 NEX TGEN ([facility] EST 12:00:00 AM EDT [facility] 01/28/2018 [place]) 12:00:00 AM EDT OFFICE/OUTPATIENT VISIT, 12/29/2017 NEX TGEN ([facility] EST 12:00:00 AM EDT [facility] - 12/29/2017 Center) 12:00:00 AM EDT OFFICE/OUTPATIENT VISIT, 12/17/2017 NEX TGEN ([facility] EST 12:00:00 AM EDT [facility] 12/17/2017 [place]) 12:00:00 AM EDT OFFICE/OUTPATIENT VISIT, 11/30/2017 NEX TGEN ([facility] EST 12:00:00 AM EDT [facility] 11/30/2017 [place]) 12:00:00 AM EDT OFFICE/OUTPATIENT VISIT, 11/16/2017 NEX TGEN ([facility] EST 12:00:00 AM EDT [facility] - 11/16/2017 Center) 12:00:00 AM EDT OFFICE/OUTPATIENT VISIT, 11/02/2017 NEX TGEN ([facility] EST 12:00:00 AM EDT [facility] - 11/02/2017 Center) 12:00:00 AM EDT OFFICE/OUTPATIENT VISIT, 10/19/2017 NEX TGEN ([facility] EST 12:00:00 AM EDT [facility] - 10/19/2017 Center) 12:00:00 AM EDT OFFICE/OUTPATIENT VISIT, 10/05/2017 NEX TGEN ([facility] EST 12:00:00 AM EDT [facility] - 10/05/2017 Center) 12:00:00 AM EDT OFFICE/OUTPATIENT VISIT, 09/20/2017 NEX TGEN ([facility] EST 12:00:00 AM EDT [facility] - 09/20/2017 Center) 12:00:00 AM EDT OFFICE/OUTPATIENT VISIT, 08/31/2017 NEX TGEN ([facility] EST 12:00:00 AM EDT [facility] - 08/31/2017 Center) 12:00:00 AM EDT OFFICE/OUTPATIENT VISIT, 08/17/2017 NEX TGEN ([facility] EST 12:00:00 AM EST [facility] - 08/17/2017 Center) 12:00:00 AM EST OFFICE/OUTPATIENT VISIT, 07/30/2017 NEX TGEN ([facility] EST 12:00:00 AM EST [facility] - 07/30/2017 Center) 12:00:00 AM EST OFFICE/OUTPATIENT VISIT, 07/23/2017 NEX TGEN ([facility] 12:00:00 AM EST [facility] - 07/23/2017 Center) 12:00:00 AM EST OFFICE/OUTPATIENT VISIT, 07/09/2017 NEX TGEN ([facility] 12:00:00 AM EST [facility] - 07/09/2017 Center) 12:00:00 AM EST OFFICE/OUTPATIENT VISIT, 06/29/2017 NEX TGEN ([facility] EST 12:00:00 AM EST [facility] - 06/29/2017 Center) 12:00:00 AM EST OFFICE/OUTPATIENT VISIT, 03/01/2017 NEX TGEN ([facility] EST 12:00:00 AM EDT [facility] - 03/01/2017 Center) 12:00:00 AM EDT OFFICE/OUTPATIENT VISIT, 01/26/2017 NEX TGEN ([facility] EST 12:00:00 AM EDT [facility] - 01/26/2017 Center) 12:00:00 AM EDT Psychiatric Diagnostic 01/12/2017 NEXTG EN ([facility] Interview (45+ Min) 12:00:00 AM EDT [facility] - 01/12/2017 [facility]) 12:00:00 AM EDT OFFICE/OUTPATIENT VISIT, 01/12/2017 NEX TGEN ([facility] EST 12:00:00 AM EDT [facility] - 01/12/2017 Center) 12:00:00 AM EDT OFFICE/OUTPATIENT VISIT, 12/01/2016 NEX TGEN ([facility] EST 12:00:00 AM EDT [facility] - 12/01/2016 Center) 12:00:00 AM EDT OFFICE/OUTPATIENT VISIT, 11/20/2016 NEX TGEN ([facility] EST 12:00:00 AM EDT [facility] - 11/20/2016 Center) 12:00:00 AM EDT OFFICE/OUTPATIENT VISIT, 10/20/2016 NEX TGEN ([facility] EST 12:00:00 AM EDT [facility] - 10/20/2016 Center) 12:00:00 AM EDT OFFICE/OUTPATIENT VISIT, 10/06/2016 NEX TGEN ([facility] EST 12:00:00 AM EDT [facility] - 10/06/2016 Center) 12:00:00 AM EDT OFFICE/OUTPATIENT VISIT, 09/23/2016 NEX TGEN ([facility] EST 12:00:00 AM EDT [facility] - 09/23/2016 Center) 12:00:00 AM EDT OFFICE/OUTPATIENT VISIT, 09/10/2016 NEX TGEN ([facility] EST 12:00:00 AM EDT [facility] - 09/10/2016 Center) 12:00:00 AM EDT OFFICE/OUTPATIENT VISIT, 08/28/2016 NEX TGEN ([facility] EST 12:00:00 AM EDT [facility] - 08/28/2016 Center) 12:00:00 AM EDT OFFICE/OUTPATIENT VISIT, 08/17/2016 NEX TGEN ([facility] EST 12:00:00 AM EST [facility] - 08/17/2016 Center) 12:00:00 AM EST OFFICE/OUTPATIENT VISIT, 07/21/2016 NEX TGEN ([facility] EST 12:00:00 AM EST [facility] - 07/21/2016 Center) 12:00:00 AM EST OFFICE/OUTPATIENT VISIT, 06/24/2016 NEX TGEN ([facility] EST 12:00:00 AM EST [facility] - 06/24/2016 Center) 12:00:00 AM EST OFFICE/OUTPATIENT VISIT, 05/26/2016 NEX TGEN ([facility] EST 12:00:00 AM EST [facility] - 05/26/2016 Center) 12:00:00 AM EST OFFICE/OUTPATIENT VISIT, 04/20/2016 NEX TGEN ([facility] EST 12:00:00 AM EST [facility] - 04/20/2016 Center) 12:00:00 AM EST OFFICE/OUTPATIENT VISIT, 03/19/2016 NEX TGEN ([facility] EST 12:00:00 AM EDT [facility] - 03/19/2016 Center) 12:00:00 AM EDT OFFICE/OUTPATIENT VISIT, 02/19/2016 NEX TGEN ([facility] EST 12:00:00 AM EDT [facility] - 02/19/2016 Center) 12:00:00 AM EDT OFFICE/OUTPATIENT VISIT, 02/06/2016 NEX TGEN ([facility] EST 12:00:00 AM EDT [facility] - 02/06/2016 Center) 12:00:00 AM EDT OFFICE/OUTPATIENT VISIT, 01/09/2016 NEX TGEN ([facility] EST 12:00:00 AM EDT [facility] - 01/09/2016 Center) 12:00:00 AM EDT OFFICE/OUTPATIENT VISIT, 12/18/2015 NEX TGEN ([facility] EST 12:00:00 AM EDT [facility] - 12/18/2015 Center) 12:00:00 AM EDT OFFICE/OUTPATIENT VISIT, 11/21/2015 NEX TGEN ([facility] EST 12:00:00 AM EDT [facility] - 11/21/2015 Center) 12:00:00 AM EDT OFFICE/OUTPATIENT VISIT, 11/08/2015 NEX TGEN ([facility] EST 12:00:00 AM EDT [facility] - 11/08/2015 Center) 12:00:00 AM EDT OFFICE/OUTPATIENT VISIT, 10/24/2015 NEX TGEN ([facility] EST 12:00:00 AM EDT [facility] - 10/24/2015 Center) 12:00:00 AM EDT OFFICE/OUTPATIENT VISIT, 10/10/2015 NEX TGEN ([facility] EST 12:00:00 AM EDT [facility] - 10/10/2015 Center) 12:00:00 AM EDT OFFICE/OUTPATIENT VISIT, 09/26/2015 NEX TGEN ([facility] EST 12:00:00 AM EDT [facility] - 09/26/2015 Center) 12:00:00 AM EDT OFFICE/OUTPATIENT VISIT, 09/12/2015 NEX TGEN ([facility] EST 12:00:00 AM EDT [facility] - 09/12/2015 Center) 12:00:00 AM EDT OFFICE/OUTPATIENT VISIT, 08/29/2015 NEX TGEN ([facility] EST 12:00:00 AM EDT [facility] - 08/29/2015 Center) 12:00:00 AM EDT OFFICE/OUTPATIENT VISIT, 08/09/2015 NEX TGEN ([facility] EST 12:00:00 AM EST [facility] - 08/09/2015 Center) 12:00:00 AM EST OFFICE/OUTPATIENT VISIT, 07/25/2015 NEX TGEN ([facility] 12:00:00 AM EST [facility] - 07/25/2015 Center) 12:00:00 AM EST OFFICE/OUTPATIENT VISIT, 06/21/2015 NEX TGEN ([facility] 12:00:00 AM EST [facility] - 06/21/2015 Center) 12:00:00 AM EST OFFICE/OUTPATIENT VISIT, 05/23/2015 NEX TGEN ([facility] 12:00:00 AM EST [facility] - 05/23/2015 Center) 12:00:00 AM EST OFFICE/OUTPATIENT VISIT, 05/07/2015 NEX TGEN ([facility] 12:00:00 AM EST [facility] - 05/07/2015 Center) 12:00:00 AM EST OFFICE/OUTPATIENT VISIT, 04/25/2015 NEX TGEN ([facility] 12:00:00 AM EST [facility] - 04/25/2015 Center) 12:00:00 AM EST OFFICE/OUTPATIENT VISIT, 04/05/2015 NEX TGEN ([facility] EST 12:00:00 AM EDT [facility] - 04/05/2015 Center) 12:00:00 AM EDT OFFICE/OUTPATIENT VISIT, 03/22/2015 NEX TGEN ([facility] EST 12:00:00 AM EDT [facility] - 03/22/2015 Center) 12:00:00 AM EDT OFFICE/OUTPATIENT VISIT, 02/21/2015 NEX TGEN ([facility] EST 12:00:00 AM EDT [facility] - 02/21/2015 Center) 12:00:00 AM EDT OFFICE/OUTPATIENT VISIT, 01/24/2015 NEX TGEN ([facility] EST 12:00:00 AM EDT [facility] - 01/24/2015 Center) 12:00:00 AM EDT OFFICE/OUTPATIENT VISIT, 12/21/2014 NEX TGEN ([facility] EST 12:00:00 AM EDT [facility] - 12/21/2014 Center) 12:00:00 AM EDT OFFICE/OUTPATIENT VISIT, 11/23/2014 NEX TGEN ([facility] EST 12:00:00 AM EDT [facility] - 11/23/2014 Center) 12:00:00 AM EDT OFFICE/OUTPATIENT VISIT, 10/26/2014 NEX TGEN ([facility] EST 12:00:00 AM EDT [facility] - 10/26/2014 Center) 12:00:00 AM EDT Focused History/exam - 09/26/2014 NEXTG EN ([facility] 12:00:00 AM EDT OFFICE/OUTPATIENT VISIT, 08/23/2014 [facility]EX TGEN [facility] 12:00:00 AM EDT OFFICE/OUTPATIENT VISIT, 07/27/2014 NEX TGEN ([facility] EST 12:00:00 AM EST [facility] - 07/27/2014 Center) 12:00:00 AM EST OFFICE/OUTPATIENT VISIT, 07/06/2014 NEX TGEN ([facility] EST 12:00:00 AM EST [facility] - 07/06/2014 Center) 12:00:00 AM EST OFFICE/OUTPATIENT VISIT, 06/22/2014 NEX TGEN ([facility] EST 12:00:00 AM EST [facility] - 06/22/2014 Center) 12:00:00 AM EST OFFICE/OUTPATIENT VISIT, 05/03/2014 NEX TGEN ([facility] 12:00:00 AM EST [facility] - 05/03/2014 Center) 12:00:00 AM EST OFFICE/OUTPATIENT VISIT, 04/26/2014 NEX TGEN ([facility] EST 12:00:00 AM EST [facility] - 04/26/2014 Center) 12:00:00 AM EST OFFICE/OUTPATIENT VISIT, 03/22/2014 NEX TGEN ([facility] EST 12:00:00 AM EDT [facility] - 03/22/2014 Center) 12:00:00 AM EDT OFFICE/OUTPATIENT VISIT, 02/23/2014 NEX TGEN ([facility] EST 12:00:00 AM EDT [facility] - 02/23/2014 Center) 12:00:00 AM EDT OFFICE/OUTPATIENT VISIT, 01/23/2014 NEX TGEN ([facility] EST 12:00:00 AM EDT [facility] - 01/23/2014 Center) 12:00:00 AM EDT OFFICE/OUTPATIENT VISIT, 12/21/2013 NEX TGEN ([facility] EST 12:00:00 AM EDT [facility] - 12/21/2013 Center) 12:00:00 AM EDT OFFICE/OUTPATIENT VISIT, 10/20/2013 NEX TGEN ([facility] EST 12:00:00 AM EDT [facility] - 10/20/2013 Center) 12:00:00 AM EDT OFFICE/OUTPATIENT VISIT, 09/20/2013 NEX TGEN ([facility] EST 12:00:00 AM EDT [facility] - 09/20/2013 Center) 12:00:00 AM EDT OFFICE/OUTPATIENT VISIT, 08/24/2013 NEX TGEN ([facility] EST 12:00:00 AM EDT [facility] - 08/24/2013 Center) 12:00:00 AM EDT OFFICE/OUTPATIENT VISIT, 07/26/2013 NEX TGEN ([facility] 12:00:00 AM EST [facility] - 07/26/2013 Center) 12:00:00 AM EST OFFICE/OUTPATIENT VISIT, 06/23/2013 NEX TGEN ([facility] 12:00:00 AM EST [facility] - 06/23/2013 Center) 12:00:00 AM EST OFFICE/OUTPATIENT VISIT, 05/25/2013 NEX TGEN ([facility] 12:00:00 AM EST [facility] - 05/25/2013 Center) 12:00:00 AM EST OFFICE CONSULTATION 04/25/2013 NEXTGEN ([facility] 12:00:00 AM EST [facility] - 04/25/2013 Center) 12:00:00 AM EST OFFICE/OUTPATIENT VISIT, 03/24/2013 NEX TGEN ([facility] EST 12:00:00 AM EDT [facility] - 03/24/2013 Center) 12:00:00 AM EDT OFFICE/OUTPATIENT VISIT, 02/23/2013 NEX TGEN ([facility] EST 12:00:00 AM EDT [facility] - 02/23/2013 [place]) 12:00:00 AM EDT OFFICE CONSULTATION 06/01/2012 NEXTGEN ([facility] 12:00:00 AM EST [facility] - 06/01/2012 [place]) 12:00:00 AM EST Results ID Date Data Source Liver 01/30/2020 12:52:00 PM EDT [facility] Profile.[id number] Name Value Range Interpretation Description Data Sup porting Code Source(s) Document(s ) Alanine 7-30 Above high <content [facility] aminotransferase normal styleCode="Bold"> [facility] [Enzymatic Alanine Medical activity/volume] Aminotransferase Center in Serum or Plasma (ALT) </content>36 IU/L H<content styleCode="Italic s"> (7-30 IU/L)</content> Aspartate 14-36 Above high <content [facility] aminotransferase normal styleCode="Bold"> [facility] [Enzymatic Aspartate Medical activity/volume] Aminotransferase Center in Serum or Plasma (AST) </content>52 IU/L H<content styleCode="Italic s"> (14-36 IU/L)</content> Alkaline 38-126 Above high <content [facility] phosphatase normal styleCode="Bold"> [facility] [Enzymatic Alkaline Medical activity/volume] Phosphatase (ALP) Cente r in Serum or Plasma </content>200 IU/L H<content styleCode="Italic s"> (38-126 IU/L)</content> Bilirubin.total 0.2-1.3 <content [facility] [Mass/volume] in styleCode="Bold"> [facility] Serum or Plasma Bilirubin Total Medical </content>0.7 Center MG/DL<content styleCode="Italic s"> (0.2-1.3 MG/DL)</content> Albumin 3.5-5.0 Below low <content [facility] [Mass/volume] in normal styleCode="Bold"> [facility] Serum or Plasma Albumin Medical </content>3.1 Center G/DL L<content styleCode="Italic s"> (3.5-5.0 G/DL)</content> ID Date Data Source GFR(Creatinine).[id number] 01/30/2020 12:52:[address] [facility] 0-0400 Name Value Range Interpretation Code Description Data Misa rce(s) Supporting Document(s ) UNK > 60 <content [facility] styleCode="Bold"> Medical Cent er EGFR </content>82 GFR<content styleCode="Italic s"> (> 60 GFR)</content> ID Date Data Source [facility]OUTINE[facility]DA.[id number] 01/30/2020 12:52:[address] [facility] -0400 Name Value Range Interpretation Description Data Sup porting Code Source(s) Document(s ) Magnesium 1.6-2.3 <content [facility] [Mass/volume] styleCode="[place] [facility] in Serum or d">Magnesium Medical Plasma </content>1.7 Center MG/DL<content styleCode="Vashti lics"> (1.6-2.3 MG/DL)</conten t> UNK >= 1.0 <content [facility] styleCode="[place] Lyssa d">AG Ratio Medical </content>1.1 Center <content styleCode="Vashti lics"> (>= 1.0 )</content> UNK 2.3-3.5 <content [facility] styleCode="[place] Lyssa d">Globulin Medical </content>2.9 Center G/DL<content styleCode="Vashti lics"> (2.3-3.5 G/DL)</content > Protein 6.3-8.2 Below low normal <content [facility] [Mass/volume] styleCode="[place] in Serum or d">Total Medical Plasma Protein Center </content>6.0 G/DL L<content styleCode="Vashti lics"> (6.3-8.2 G/DL)</content > ID Date Data Source [facility].[id number] 01/30/2020 12:52:00 PM EDT [facility] Name Value Range Interpretation Description Data Sup porting Code Source(s) Document(s ) Sodium 137-145 <content [facility] [Moles/volume] in styleCode="Bold"> [place] [facility] Serum or Plasma Sodium Medical </content>139 Center MEQ/L<content styleCode="Italic s"> (137-145 MEQ/L)</content> Carbon dioxide, 22-30 <content [facility] total styleCode="Bold"> [place] [Moles/volume] in Carbon Dioxide Medical Serum or Plasma </content>29 Center MEQ/L<content styleCode="Italic s"> (22-30 MEQ/L)</content> UNK 7-17 Above high <content [facility] normal styleCode="Bold"> [place] BUN </content>20 Medical MG/DL H<content Center styleCode="Italic s"> (7-17 MG/DL)</content> Potassium 3.5-5.3 <content [facility] [Moles/volume] in styleCode="Bold"> [place] Serum or Plasma Potassium Medical </content>4.0 Center MEQ/L<content styleCode="Italic s"> (3.5-5.3 MEQ/L)</content> Chloride 98-107 <content [facility] [Moles/volume] in styleCode="Bold"> [place] Serum or Plasma Chloride Medical </content>103 Center MEQ/L<content styleCode="Italic s"> (98-107 MEQ/L)</content> Creatinine 0.5-1.3 <content [facility] [Mass/volume] in styleCode="Bold"> [facility] Serum or Plasma Creatinine Medical </content>0.9 Center MG/DL<content styleCode="Italic s"> (0.5-1.3 MG/DL)</content> Calcium 8.4-10. <content [facility] [Mass/volume] in 2 styleCode="Bold"> [facility] Serum or Plasma Calcium Medical </content>8.8 Center MG/DL<content styleCode="Italic s"> (8.4-10.2 MG/DL)</content> Glucose 74-106 Above high <content [facility] [Mass/volume] in normal styleCode="Bold"> [facility] Serum or Plasma Glucose Medical </content>206 Center MG/DL H<content styleCode="Italic s"> (74-106 MG/DL)</content> Aspartate 14-36 Above high <content [facility] aminotransferase normal styleCode="Bold"> [facility] [Enzymatic Aspartate Medical activity/volume] Aminotransferase Center in Serum or Plasma (AST) </content>52 IU/L H<content styleCode="Italic s"> (14-36 IU/L)</content> Alanine 7-30 Above high <content [facility] aminotransferase normal styleCode="Bold"> [facility] [Enzymatic Alanine Medical activity/volume] Aminotransferase Center in Serum or Plasma (ALT) </content>36 IU/L H<content styleCode="Italic s"> (7-30 IU/L)</content> Alkaline 38-126 Above high <content [facility] phosphatase normal styleCode="Bold"> [place] [Enzymatic Alkaline Medical activity/volume] Phosphatase (ALP) Cente r in Serum or Plasma </content>200 IU/L H<content styleCode="Italic s"> (38-126 IU/L)</content> UNK > 60 <content [facility] styleCode="Bold"> [place] EGFR </content>82 Medical GFR<content Center styleCode="Italic s"> (> 60 GFR)</content> Albumin 3.5-5.0 Below low <content [facility] [Mass/volume] in normal styleCode="Bold"> [facility] Serum or Plasma Albumin Medical </content>3.1 Center G/DL L<content styleCode="Italic s"> (3.5-5.0 G/DL)</content> Bilirubin.total 0.2-1.3 <content [facility] [Mass/volume] in styleCode="Bold"> [facility] Serum or Plasma Bilirubin Total Medical </content>0.7 Center MG/DL<content styleCode="Italic s"> (0.2-1.3 MG/DL)</content> ID Date Data Source [id number] 01/07/2020 02:34:00 PM EDT [facility] Name Value Range Interpretation Description Data Sup porting Code Source(s) Document(s ) SARS [facility] coronavirus 2 RNA This lab was ordered by [facility] and reported by [facility]. ID Date Data Source [id number] 01/02/2020 03:00:00 PM EDT [facility] Name Value Range Interpretation Description Data Sup porting Code Source(s) Document(s ) SARS [facility] coronavirus 2 RNA This lab was ordered by [facility] and reported by [facility]. ID Date Data Source [id number] 11/14/2019 08:12:00 AM EDT [facility] Name Value Range Interpretation Code Description Data Misa rce(s) Supporting Document(s ) SARS-CoV-2 [facility] RNA [facility] Ql ARIANNA+probe This lab was ordered by [facility] and reported by [facility]. ID Date Data Source [id number] 11/09/2019 09:02:00 AM EDT [facility] Name Value Range Interpretation Code Description Data Misa rce(s) Supporting Document(s ) SARS-CoV-2 [facility] Ql ARIANNA+probe This lab was ordered by [facility] AT 1695 and reported by [facility]. ID Date Data Source [id number] 10/12/2019 12:00:00 AM EDT [facility] Name Value Range Interpretation Code Description Data Misa rce(s) Supporting Document(s ) 2019-nCoV [facility] RNA XXX ARIANNA+probe- Imp This lab was ordered by [facility] and reported by [employer] INC. ID Date Data Source HematologyRou.[id number] 10/06/2019 06:50:[address] [facility] 0400 Name Value Range Interpretation Description Data Sup porting Code Source(s) Document(s ) Erythrocytes 4.0-5.1 Below low normal <content [facility] [#/volume] in styleCode="Bold [facility] Blood by ">Red Blood Medical Automated count Cell Count Center </content>3.92 MCUMM L<content styleCode="Ital ics"> (4.0-5.1 MCUMM)</content > Leukocytes 4.4-11.0 <content [facility] [#/volume] in styleCode="Bold [facility] Blood by ">White Blood Medical Automated count Cell Count Center </content>6.96 KCUMM<content styleCode="Ital ics"> (4.4-11.0 KCUMM)</content > Hematocrit 36.0-46. Below low normal <content [facility] [Volume 0 styleCode="Bold [facility] Fraction] of ">Hematocrit Medical Blood by </content>33.9 Center Automated count % L<content styleCode="Ital ics"> (36.0-46.0 %)</content> Erythrocyte mean 80.0-100 <content [facility] corpuscular .0 styleCode="Bold [facility] volume [Entitic ">Mean Medical volume] by Corpuscular Center Automated count Volume </content>86.5 FL<content styleCode="Ital ics"> (80.0-100.0 FL)</content> Hemoglobin 12.3-16. Below low normal <content [facility] [Mass/volume] in 0 styleCode="Bold [facility] Blood ">Hemoglobin Medical </content>10.9 Center G/DL L<content styleCode="Ital ics"> (12.3-16.0 G/DL)</content> Erythrocyte mean 32.0-37. <content [facility] corpuscular 0 styleCode="Bold [place] hemoglobin ">Mean Corpus. Medical concentration Hgb Center [Mass/volume] by Concentration Automated count (MCHC) </content>32.2 G/DL<content styleCode="Ital ics"> (32.0-37.0 G/DL)</content> Erythrocyte mean 26.0-34. <content [facility] corpuscular 0 styleCode="Bold [facility] hemoglobin ">Mean Medical [Entitic mass] Corposcular Center by Automated Hemoglobin count </content>27.8 PG<content styleCode="Ital ics"> (26.0-34.0 PG)</content> Erythrocyte 11.5-14. Above high <content [facility] distribution 5 normal styleCode="Bold [place] width [Ratio] by ">Red Cell Medical Automated count Distribution Center Width </content>15.2 % H<content styleCode="Ital ics"> (11.5-14.5 %)</content> Platelets 130-400 <content [facility] [#/volume] in styleCode="Bold [place] Blood by ">Platelet Medical Automated count Count Center </content>224 KCUMM<content styleCode="Ital ics"> (130-400 KCUMM)</content > Platelet mean 8.0-11.0 Above high <content [facility] volume [Entitic normal styleCode="Bold [facility] volume] in Blood ">Mean Platelet Medical by Automated Volume Center count </content>11.7 FL H<content styleCode="Ital ics"> (8.0-11.0 FL)</content> UNK 0 <content [facility] styleCode="Bold [place] ">Nucleated Red Medical Blood Cell Center </content>0.0 /100<content styleCode="Ital ics"> (0 /100)</content> UNK 0.0 <content [facility] styleCode="Bold [facility] ">Nucleated Red Medical Blood Cell Center Count </content>0.00 KCUMM<content styleCode="Ital ics"> (0.0 KCUMM)</content > ID Date Data Source Liver 10/05/2019 05:27:00 PM EDT [facility] Profile.[id number] Name Value Range Interpretation Description Data Sup porting Code Source(s) Document(s ) Alanine 7-30 Above high <content [facility] aminotransferase normal styleCode="Bold"> [facility] [Enzymatic Alanine Medical activity/volume] Aminotransferase Center in Serum or Plasma (ALT) </content>39 IU/L H<content styleCode="Italic s"> (7-30 IU/L)</content> Aspartate 14-36 Above high <content [facility] aminotransferase normal styleCode="Bold"> [facility] [Enzymatic Aspartate Medical activity/volume] Aminotransferase Center in Serum or Plasma (AST) </content>45 IU/L H<content styleCode="Italic s"> (14-36 IU/L)</content> Bilirubin.total 0.2-1.3 <content [facility] [Mass/volume] in styleCode="Bold"> [facility] Serum or Plasma Bilirubin Total Medical </content>0.4 Center MG/DL<content styleCode="Italic s"> (0.2-1.3 MG/DL)</content> Alkaline 38-126 <content [facility] phosphatase styleCode="Bold"> [facility] [Enzymatic Alkaline Medical activity/volume] Phosphatase (ALP) Cente r in Serum or Plasma </content>104 IU/L<content styleCode="Italic s"> (38-126 IU/L)</content> Albumin 3.5-5.0 Below low <content [facility] [Mass/volume] in normal styleCode="Bold"> [facility] Serum or Plasma Albumin Medical </content>3.0 Center G/DL L<content styleCode="Italic s"> (3.5-5.0 G/DL)</content> ID Date Data Source HematologyRou.[id number] 10/05/2019 05:27:[address] [facility] 0400 Name Value Range Interpretation Description Data Sup porting Code Source(s) Document(s ) Leukocytes 4.4-11.0 <content [facility] [#/volume] in styleCode="Bold [place] Blood by ">White Blood Medical Automated count Cell Count Center </content>7.26 KCUMM<content styleCode="Ital ics"> (4.4-11.0 KCUMM)</content > Erythrocytes 4.0-5.1 <content [facility] [#/volume] in styleCode="Bold [place] Blood by ">Red Blood Medical Automated count Cell Count Center </content>4.02 MCUMM<content styleCode="Ital ics"> (4.0-5.1 MCUMM)</content > Hematocrit 36.0-46. Below low normal <content [facility] [Volume 0 styleCode="Bold [place] Fraction] of ">Hematocrit Medical Blood by </content>35.0 Center Automated count % L<content styleCode="Ital ics"> (36.0-46.0 %)</content> Hemoglobin 12.3-16. Below low normal <content [facility] [Mass/volume] in 0 styleCode="Bold [place] Blood ">Hemoglobin Medical </content>11.1 Center G/DL L<content styleCode="Ital ics"> (12.3-16.0 G/DL)</content> Erythrocyte mean 80.0-100 <content [facility] corpuscular .0 styleCode="Bold [place] volume [Entitic ">Mean Medical volume] by Corpuscular Center Automated count Volume </content>87.1 FL<content styleCode="Ital ics"> (80.0-100.0 FL)</content> Erythrocyte mean 26.0-34. <content [facility] corpuscular 0 styleCode="Bold [place] hemoglobin ">Mean Medical [Entitic mass] Corposcular Center by Automated Hemoglobin count </content>27.6 PG<content styleCode="Ital ics"> (26.0-34.0 PG)</content> Erythrocyte mean 32.0-37. Below low normal <content [facility] corpuscular 0 styleCode="Bold [place] hemoglobin ">Mean Corpus. Medical concentration Hgb Center [Mass/volume] by Concentration Automated count (MCHC) </content>31.7 G/DL L<content styleCode="Ital ics"> (32.0-37.0 G/DL)</content> Platelets 130-400 <content [facility] [#/volume] in styleCode="Bold [place] Blood by ">Platelet Medical Automated count Count Center </content>236 KCUMM<content styleCode="Ital ics"> (130-400 KCUMM)</content > Erythrocyte 11.5-14. Above high <content [facility] distribution 5 normal styleCode="Bold [place] width [Ratio] by ">Red Cell Medical Automated count Distribution Center Width </content>15.3 % H<content styleCode="Ital ics"> (11.5-14.5 %)</content> UNK 1.6-7.3 <content [facility] styleCode="Bold [facility] ">Neutrophil Medical Count Center </content>5.01 KCUMM<content styleCode="Ital ics"> (1.6-7.3 KCUMM)</content > Neutrophils 36-66 Above high <content [facility] [#/volume] in normal styleCode="Bold [place] Blood by ">Neutrophil Medical Automated count </content>68.9 Center % H<content styleCode="Ital ics"> (36-66 %)</content> Platelet mean 8.0-11.0 Above high <content [facility] volume [Entitic normal styleCode="Bold [facility] volume] in Blood ">Mean Platelet Medical by Automated Volume Center count </content>11.2 FL H<content styleCode="Ital ics"> (8.0-11.0 FL)</content> Lymphocytes 24.0-44. Below low normal <content [facility] [#/volume] in 0 styleCode="Bold [place] Blood by ">Lymphocyte Medical Automated count </content>22.2 Center % L<content styleCode="Ital ics"> (24.0-44.0 %)</content> Monocytes 3.0-10.0 <content [facility] [#/volume] in styleCode="Bold [place] Blood by ">Monocyte Medical Automated count </content>5.8 Center %<content styleCode="Ital ics"> (3.0-10.0 %)</content> UNK 1.0-4.8 <content [facility] styleCode="Bold [facility] ">Lymphocyte Medical Count Center </content>1.61 KCUMM<content styleCode="Ital ics"> (1.0-4.8 KCUMM)</content > Eosinophils 0-5.0 <content [facility] [#/volume] in styleCode="Bold [place] Blood by ">Eosinophil Medical Automated count </content>2.2 Center %<content styleCode="Ital ics"> (0-5.0 %)</content> UNK 0.2-0.9 <content [facility] styleCode="Bold [place] ">Monocyte Medical Count Center </content>0.42 KCUMM<content styleCode="Ital ics"> (0.2-0.9 KCUMM)</content > UNK 0.0-0.6 <content [facility] styleCode="Bold [facility] ">Eosinophil Medical Count Center </content>0.16 KCUMM<content styleCode="Ital ics"> (0.0-0.6 KCUMM)</content > Basophils 0.0-1.0 <content [facility] [#/volume] in styleCode="Bold [place] Blood by ">Basophil Medical Automated count </content>0.6 Center %<content styleCode="Ital ics"> (0.0-1.0 %)</content> UNK 0.0-0.3 <content [facility] styleCode="Bold [facility] ">Basophil Medical Count Center </content>0.04 KCUMM<content styleCode="Ital ics"> (0.0-0.3 KCUMM)</content > UNK 0.0 <content [facility] styleCode="Bold [place] ">Nucleated Red Medical Blood Cell Center Count </content>0.00 KCUMM<content styleCode="Ital ics"> (0.0 KCUMM)</content > UNK 0 <content [facility] styleCode="Bold [place] ">Nucleated Red Medical Blood Cell Center </content>0.0 /100<content styleCode="Ital ics"> (0 /100)</content> UNK 0-0.1 <content [facility] styleCode="Bold [facility] ">Immature Medical Granulocyte Center Count </content>0.02 KCUMM<content styleCode="Ital ics"> (0-0.1 KCUMM)</content > UNK < 1 <content [facility] styleCode="Bold [facility] ">Immature Medical Granulocyte Center Ratio </content>0.3 %<content styleCode="Ital ics"> (< 1 %)</content> ID Date Data Source GFR(Creatinine).[id number] 10/05/2019 05:27:[address] [facility] 0-0400 Name Value Range Interpretation Code Description Data Misa rce(s) Supporting Document(s ) UNK > 60 <content [facility] styleCode="Bold"> Medical Cent er EGFR </content>72 GFR<content styleCode="Italic s"> (> 60 GFR)</content> ID Date Data Source CHMROUTINECCDA.[id number] 10/05/2019 05:27:[address] [facility] -0400 Name Value Range Interpretation Description Data Sup porting Code Source(s) Document(s ) UNK >= 1.0 Below low normal <content [facility] styleCode="Bold Medical ">AG Ratio Center </content>0.9 L<content styleCode="Ital ics"> (>= 1.0 )</content> UNK 2.3-3.5 <content [facility] styleCode="Bold Medical ">Globulin Center </content>3.2 G/DL<content styleCode="Ital ics"> (2.3-3.5 G/DL)</content> Protein 6.3-8.2 Below low normal <content [facility] [Mass/volum styleCode="Bold Medical e] in Serum ">Total Protein Center or Plasma </content>6.2 G/DL L<content styleCode="Ital ics"> (6.3-8.2 G/DL)</content> ID Date Data Source BloodBank.[id number] 10/05/2019 05:27:[address] [facility] Name Value Range Interpretation Code Description Data Misa rce(s) Supporting Document(s ) UNK NEGATIVE <content [facility] styleCode="Bold" Medical Cente r >Antibody Screen </content>NEGATI VE <content styleCode="Itali cs"> (NEGATIVE )</content> UNK <content [facility] styleCode="Bold" Medical Cente r >Blood Type </content>GROUP O (Reference Range: not available)
UNK <content [facility] styleCode="Bold" Medical Cente r >RH Type </content>POSITI VE (Reference Range: not available)
ID Date Data Source BMP.[id number] 10/05/2019 05:27:00 PM EDT [facility] Name Value Range Interpretation Description Data Sup porting Code Source(s) Document(s ) Potassium 3.5-5.3 <content [facility] [Moles/volume] in styleCode="Bold"> [place] [facility] Serum or Plasma Potassium Medical </content>3.7 Center MEQ/L<content styleCode="Italic s"> (3.5-5.3 MEQ/L)</content> Sodium 137-145 <content [facility] [Moles/volume] in styleCode="Bold"> [place] [facility] Serum or Plasma Sodium Medical </content>140 Center MEQ/L<content styleCode="Italic s"> (137-145 MEQ/L)</content> Chloride 98-107 <content [facility] [Moles/volume] in styleCode="Bold"> [place] [facility] Serum or Plasma Chloride Medical </content>104 Center MEQ/L<content styleCode="Italic s"> (98-107 MEQ/L)</content> UNK 7-17 Above high <content [facility] normal styleCode="Bold"> [facility] BUN </content>19 Medical MG/DL H<content Center styleCode="Italic s"> (7-17 MG/DL)</content> Carbon dioxide, 22-30 Above high <content [facility] total normal styleCode="Bold"> [facility] [Moles/volume] in Carbon Dioxide Medical Serum or Plasma </content>31 Center MEQ/L H<content styleCode="Italic s"> (22-30 MEQ/L)</content> Calcium 8.4-10. <content [facility] [Mass/volume] in 2 styleCode="Bold"> [facility] hs Serum or Plasma Calcium Medical </content>9.3 Center MG/DL<content styleCode="Italic s"> (8.4-10.2 MG/DL)</content> Glucose 74-106 Above high <content [facility] [Mass/volume] in normal styleCode="Bold"> [facility] Serum or Plasma Glucose Medical </content>124 Center MG/DL H<content styleCode="Italic s"> (74-106 MG/DL)</content> Creatinine 0.5-1.3 <content [facility] [Mass/volume] in styleCode="Bold"> [facility] Serum or Plasma Creatinine Medical </content>1.0 Center MG/DL<content styleCode="Italic s"> (0.5-1.3 MG/DL)</content> Aspartate 14-36 Above high <content [facility] aminotransferase normal styleCode="Bold"> [facility] [Enzymatic Aspartate Medical activity/volume] Aminotransferase Center in Serum or Plasma (AST) </content>45 IU/L H<content styleCode="Italic s"> (14-36 IU/L)</content> Alkaline 38-126 <content [facility] phosphatase styleCode="Bold"> [facility] [Enzymatic Alkaline Medical activity/volume] Phosphatase (ALP) Cente r in Serum or Plasma </content>104 IU/L<content styleCode="Italic s"> (38-126 IU/L)</content> Alanine 7-30 Above high <content [facility] aminotransferase normal styleCode="Bold"> [facility] [Enzymatic Alanine Medical activity/volume] Aminotransferase Center in Serum or Plasma (ALT) </content>39 IU/L H<content styleCode="Italic s"> (7-30 IU/L)</content> UNK > 60 <content [facility] styleCode="Bold"> [facility] EGFR </content>72 Medical GFR<content Center styleCode="Italic s"> (> 60 GFR)</content> Albumin 3.5-5.0 Below low <content [facility] [Mass/volume] in normal styleCode="Bold"> [facility] Serum or Plasma Albumin Medical </content>3.0 Center G/DL L<content styleCode="Italic s"> (3.5-5.0 G/DL)</content> Bilirubin.total 0.2-1.3 <content [facility] [Mass/volume] in styleCode="Bold"> [facility] Serum or Plasma Bilirubin Total Medical </content>0.4 Center MG/DL<content styleCode="Italic s"> (0.2-1.3 MG/DL)</content> ID Date Data Source Liver 10/03/2019 12:50:00 PM EDT [facility] Profile.[id number] Name Value Range Interpretation Description Data Sup porting Code Source(s) Document(s ) Alanine 7-30 Above high <content [facility] aminotransferase normal styleCode="Bold"> [facility] [Enzymatic Alanine Medical activity/volume] Aminotransferase Center in Serum or Plasma (ALT) </content>44 IU/L H<content styleCode="Italic s"> (7-30 IU/L)</content> Aspartate 14-36 Above high <content [facility] aminotransferase normal styleCode="Bold"> [facility] [Enzymatic Aspartate Medical activity/volume] Aminotransferase Center in Serum or Plasma (AST) </content>45 IU/L H<content styleCode="Italic s"> (14-36 IU/L)</content> Alkaline 38-126 Above high <content [facility] phosphatase normal styleCode="Bold"> [facility] [Enzymatic Alkaline Medical activity/volume] Phosphatase (ALP) Cente r in Serum or Plasma </content>127 IU/L H<content styleCode="Italic s"> (38-126 IU/L)</content> Bilirubin.total 0.2-1.3 <content [facility] [Mass/volume] in styleCode="Bold"> [facility] Serum or Plasma Bilirubin Total Medical </content>0.7 Center MG/DL<content styleCode="Italic s"> (0.2-1.3 MG/DL)</content> Albumin 3.5-5.0 <content [facility] [Mass/volume] in styleCode="Bold"> [facility] hs Serum or Plasma Albumin Medical </content>3.5 Center G/DL<content styleCode="Italic s"> (3.5-5.0 G/DL)</content> ID Date Data Source HematologyRou.[id number] 10/03/2019 12:50:00 PM EDT [facility] 0400 Name Value Range Interpretation Description Data Sup porting Code Source(s) Document(s ) Leukocytes 4.4-11.0 <content [facility] [#/volume] in styleCode="Bold [facility] Blood by ">White Blood Medical Automated count Cell Count Center </content>8.06 KCUMM<content styleCode="Ital ics"> (4.4-11.0 KCUMM)</content > Erythrocytes 4.0-5.1 <content [facility] [#/volume] in styleCode="Bold [place] Blood by ">Red Blood Medical Automated count Cell Count Center </content>4.34 MCUMM<content styleCode="Ital ics"> (4.0-5.1 MCUMM)</content > Hemoglobin 12.3-16. Below low normal <content [facility] [Mass/volume] in 0 styleCode="Bold [facility] Blood ">Hemoglobin Medical </content>11.9 Center G/DL L<content styleCode="Ital ics"> (12.3-16.0 G/DL)</content> Erythrocyte mean 26.0-34. <content [facility] corpuscular 0 styleCode="Bold [facility] hemoglobin ">Mean Medical [Entitic mass] Corposcular Center by Automated Hemoglobin count </content>27.4 PG<content styleCode="Ital ics"> (26.0-34.0 PG)</content> Hematocrit 36.0-46. <content [facility] [Volume 0 styleCode="Bold [facility] Fraction] of ">Hematocrit Medical Blood by </content>37.9 Center Automated count %<content styleCode="Ital ics"> (36.0-46.0 %)</content> Erythrocyte mean 80.0-100 <content [facility] corpuscular .0 styleCode="Bold [facility] volume [Entitic ">Mean Medical volume] by Corpuscular Center Automated count Volume </content>87.3 FL<content styleCode="Ital ics"> (80.0-100.0 FL)</content> Erythrocyte 11.5-14. Above high <content [facility] distribution 5 normal styleCode="Bold [facility] width [Ratio] by ">Red Cell Medical Automated count Distribution Center Width </content>15.2 % H<content styleCode="Ital ics"> (11.5-14.5 %)</content> Erythrocyte mean 32.0-37. Below low normal <content [facility] corpuscular 0 styleCode="Bold [place] hemoglobin ">Mean Corpus. Medical concentration Hgb Center [Mass/volume] by Concentration Automated count (MCHC) </content>31.4 G/DL L<content styleCode="Ital ics"> (32.0-37.0 G/DL)</content> Platelets 130-400 <content [facility] [#/volume] in styleCode="Bold [place] Blood by ">Platelet Medical Automated count Count Center </content>241 KCUMM<content styleCode="Ital ics"> (130-400 KCUMM)</content > UNK 0 <content [facility] styleCode="Bold [facility] ">Nucleated Red Medical Blood Cell Center </content>0.0 /100<content styleCode="Ital ics"> (0 /100)</content> Platelet mean 8.0-11.0 Above high <content [facility] volume [Entitic normal styleCode="Bold [facility] volume] in Blood ">Mean Platelet Medical by Automated Volume Center count </content>11.8 FL H<content styleCode="Ital ics"> (8.0-11.0 FL)</content> UNK 0.0 <content [facility] styleCode="Bold [facility] ">Nucleated Red Medical Blood Cell Center Count </content>0.00 KCUMM<content styleCode="Ital ics"> (0.0 KCUMM)</content > ID Date Data Source GFR(Creatinine).[id number] 10/03/2019 12:50:[address] [facility] 0-0400 Name Value Range Interpretation Code Description Data Misa rce(s) Supporting Document(s ) UNK > 60 <content [facility] styleCode="Bold"> Medical Cent er EGFR </content>72 GFR<content styleCode="Italic s"> (> 60 GFR)</content> ID Date Data Source Coagulation 10/03/2019 12:50:00 PM [facility] ical Center Rout.[id number] EDT Name Value Range Interpretation Description Data Sup porting Code Source(s) Document(s ) UNK 9.0-13.0 <content [facility] styleCode="Bold" [facility] >Protime Medical </content>12.7 Center SEC<content styleCode="Itali cs"> (9.0-13.0 SEC)</content> INR in 0.80-1.2 <content [facility] Platelet poor 0 styleCode="Bold" [place] plasma by >INR Medical Coagulation </content>1.14 Center assay #<content styleCode="Itali cs"> (0.80-1.20 #)</content> aPTT in 25.1-36. Above high normal <content [facility] Platelet poor 5 styleCode="Bold" [facility] plasma by >Partial [facility] Coagulation Thromboplastin Center assay Time </content>38.9 SEC H<content styleCode="Itali cs"> (25.1-36.5 SEC)</content> ID Date Data Source CHMROUTINECCDA.[id number] 10/03/2019 12:50:[address] [facility] -0400 Name Value Range Interpretation Description Data Sup porting Code Source(s) Document(s ) UNK >= 1.0 <content [facility] styleCode="Bold Medical ">AG Ratio Center </content>1.1 <content styleCode="Ital ics"> (>= 1.0 )</content> Protein 6.3-8.2 <content [facility] [Mass/volum styleCode="Bold Medical e] in Serum ">Total Protein Center or Plasma </content>6.8 G/DL<content styleCode="Ital ics"> (6.3-8.2 G/DL)</content> UNK 2.3-3.5 <content [facility] styleCode="Bold Medical ">Globulin Center </content>3.3 G/DL<content styleCode="Ital ics"> (2.3-3.5 G/DL)</content> ID Date Data Source BloodBank.[id number] 10/03/2019 12:50:[address] [facility] Name Value Range Interpretation Code Description Data Misa rce(s) Supporting Document(s ) UNK <content [facility] styleCode="Bold" Medical Cente r >Blood Type </content>GROUP O (Reference Range: not available)
UNK <content [facility] styleCode="Bold" Medical Cente r >RH Type </content>POSITI VE (Reference Range: not available)
UNK NEGATIVE <content [facility] styleCode="Bold" Medical Cente r >Antibody Screen </content>NEGATI VE <content styleCode="Itali cs"> (NEGATIVE )</content> ID Date Data Source [facility].[id number] 10/03/2019 12:50:00 PM EDT [facility] Name Value Range Interpretation Description Data Sup porting Code Source(s) Document(s ) Potassium 3.5-5.3 <content [facility] [Moles/volume] in styleCode="Bold"> [place] [facility] Serum or Plasma Potassium Medical </content>3.7 Center MEQ/L<content styleCode="Italic s"> (3.5-5.3 MEQ/L)</content> Sodium 137-145 <content [facility] [Moles/volume] in styleCode="Bold"> [place] [facility] Serum or Plasma Sodium Medical </content>142 Center MEQ/L<content styleCode="Italic s"> (137-145 MEQ/L)</content> Chloride 98-107 <content [facility] [Moles/volume] in styleCode="Bold"> [place] [facility] Serum or Plasma Chloride Medical </content>104 Center MEQ/L<content styleCode="Italic s"> (98-107 MEQ/L)</content> UNK 7-17 Above high <content [facility] normal styleCode="Bold"> [facility] BUN </content>20 Medical MG/DL H<content Center styleCode="Italic s"> (7-17 MG/DL)</content> Carbon dioxide, 22-30 <content [facility] total styleCode="Bold"> [facility] [Moles/volume] in Carbon Dioxide Medical Serum or Plasma </content>30 Center MEQ/L<content styleCode="Italic s"> (22-30 MEQ/L)</content> Calcium 8.4-10. <content [facility] [Mass/volume] in 2 styleCode="Bold"> [facility] hs Serum or Plasma Calcium Medical </content>9.6 Center MG/DL<content styleCode="Italic s"> (8.4-10.2 MG/DL)</content> Glucose 74-106 Above high <content [facility] [Mass/volume] in normal styleCode="Bold"> [facility] hs Serum or Plasma Glucose Medical </content>131 Center MG/DL H<content styleCode="Italic s"> (74-106 MG/DL)</content> Creatinine 0.5-1.3 <content [facility] [Mass/volume] in styleCode="Bold"> [facility] hs Serum or Plasma Creatinine Medical </content>1.0 Center MG/DL<content styleCode="Italic s"> (0.5-1.3 MG/DL)</content> UNK > 60 <content [facility] styleCode="Bold"> [facility] EGFR </content>72 Medical GFR<content Center styleCode="Italic s"> (> 60 GFR)</content> Aspartate 14-36 Above high <content [facility] aminotransferase normal styleCode="Bold"> [facility] [Enzymatic Aspartate Medical activity/volume] Aminotransferase Center in Serum or Plasma (AST) </content>45 IU/L H<content styleCode="Italic s"> (14-36 IU/L)</content> Alanine 7-30 Above high <content [facility] aminotransferase normal styleCode="Bold"> [facility] [Enzymatic Alanine Medical activity/volume] Aminotransferase Center in Serum or Plasma (ALT) </content>44 IU/L H<content styleCode="Italic s"> (7-30 IU/L)</content> Bilirubin.total 0.2-1.3 <content [facility] [Mass/volume] in styleCode="Bold"> [facility] hs Serum or Plasma Bilirubin Total Medical </content>0.7 Center MG/DL<content styleCode="Italic s"> (0.2-1.3 MG/DL)</content> Alkaline 38-126 Above high <content [facility] phosphatase normal styleCode="Bold"> [facility] [Enzymatic Alkaline Medical activity/volume] Phosphatase (ALP) Cente r in Serum or Plasma </content>127 IU/L H<content styleCode="Italic s"> (38-126 IU/L)</content> Albumin 3.5-5.0 <content [facility] [Mass/volume] in styleCode="Bold"> [facility] Serum or Plasma Albumin Medical </content>3.5 Center G/DL<content styleCode="Italic s"> (3.5-5.0 G/DL)</content> ID Date Data Source HematologySpeci.[id number] 09/15/2019 04:29:00 PM EDT [facility] nt [facility] 0-0400 Name Value Range Interpretation Code Description Data Misa rce(s) Supporting Document(s ) UNK 9-67 Above high normal <content [place] [facility] styleCode="Bold"> [facility] </content>111 U/L H<content styleCode="Italic s"> (9-67 U/L)</content> ID Date Data Source Genetics.[id number] 09/15/2019 04:29:[address] [facility] Name Value Range Interpretation Description Data Sup porting Code Source(s) Document(s ) Mpgdt-6-Live < 7.51 <content [facility] protein styleCode="Bold Medical [Units/volum ">AFP Center e] in </content>4.95 Amniotic NG/ML<content fluid styleCode="Ital ics"> (< 7.51 NG/ML)</content > ID Date Data Source Coagulation 09/15/2019 04:29:00 PM [facility] ical Center Rout.[id number] EDT Name Value Range Interpretation Description Data Sup porting Code Source(s) Document(s ) INR in 0.80-1.2 <content [facility] Platelet poor 0 styleCode="Bold" [place] plasma by >INR Medical Coagulation </content>1.08 Center assay #<content styleCode="Itali cs"> (0.80-1.20 #)</content> UNK 9.0-13.0 <content [facility] styleCode="Bold" [facility] >Protime Medical </content>12.0 Center SEC<content styleCode="Itali cs"> (9.0-13.0 SEC)</content> aPTT in 25.1-36. <content [facility] Platelet poor 5 styleCode="Bold" [place] plasma by >Partial Medical Coagulation Thromboplastin Center assay Time </content>36.0 SEC<content styleCode="Itali cs"> (25.1-36.5 SEC)</content> ID Date Data Source Liver 09/05/2019 12:42:00 PM EDT [facility] Profile.[id number] Name Value Range Interpretation Description Data Sup porting Code Source(s) Document(s ) Alanine 7-30 Above high <content [facility] aminotransferase normal styleCode="Bold"> Johnny hs [Enzymatic Alanine Medical activity/volume] Aminotransferase Center in Serum or Plasma (ALT) </content>44 IU/L H<content styleCode="Italic s"> (7-30 IU/L)</content> Aspartate 14-36 Above high <content [facility] aminotransferase normal styleCode="Bold"> [facility] hs [Enzymatic Aspartate Medical activity/volume] Aminotransferase Center in Serum or Plasma (AST) </content>50 IU/L H<content styleCode="Italic s"> (14-36 IU/L)</content> Bilirubin.total 0.2-1.3 <content [facility] [Mass/volume] in styleCode="Bold"> [facility] hs Serum or Plasma Bilirubin Total Medical </content>1.0 Center MG/DL<content styleCode="Italic s"> (0.2-1.3 MG/DL)</content> Alkaline 38-126 <content [facility] phosphatase styleCode="Bold"> [place] [Enzymatic Alkaline Medical activity/volume] Phosphatase (ALP) Cente r in Serum or Plasma </content>121 IU/L<content styleCode="Italic s"> (38-126 IU/L)</content> Albumin 3.5-5.0 <content [facility] [Mass/volume] in styleCode="Bold"> Johnny hs Serum or Plasma Albumin Medical </content>3.7 Center G/DL<content styleCode="Italic s"> (3.5-5.0 G/DL)</content> ID Date Data Source HematologyRou.[id number] 09/05/2019 12:42:00 PM EDT [facility] 0400 Name Value Range Interpretation Description Data Sup porting Code Source(s) Document(s ) Erythrocytes 4.0-5.1 <content [facility] [#/volume] in styleCode="Bold [facility] Blood by ">Red Blood Medical Automated count Cell Count Center </content>4.59 MCUMM<content styleCode="Ital ics"> (4.0-5.1 MCUMM)</content > Hemoglobin 12.3-16. <content [facility] [Mass/volume] in 0 styleCode="Bold [place] Blood ">Hemoglobin Medical </content>12.6 Center G/DL<content styleCode="Ital ics"> (12.3-16.0 G/DL)</content> Leukocytes 4.4-11.0 <content [facility] [#/volume] in styleCode="Bold [place] Blood by ">White Blood Medical Automated count Cell Count Center </content>9.68 KCUMM<content styleCode="Ital ics"> (4.4-11.0 KCUMM)</content > Erythrocyte mean 80.0-100 <content [facility] corpuscular .0 styleCode="Bold [place] volume [Entitic ">Mean Medical volume] by Corpuscular Center Automated count Volume </content>87.6 FL<content styleCode="Ital ics"> (80.0-100.0 FL)</content> Hematocrit 36.0-46. <content [facility] [Volume 0 styleCode="Bold [place] Fraction] of ">Hematocrit Medical Blood by </content>40.2 Center Automated count %<content styleCode="Ital ics"> (36.0-46.0 %)</content> Erythrocyte mean 32.0-37. Below low normal <content [facility] corpuscular 0 styleCode="Bold [place] hemoglobin ">Mean Corpus. Medical concentration Hgb Center [Mass/volume] by Concentration Automated count (MCHC) </content>31.3 G/DL L<content styleCode="Ital ics"> (32.0-37.0 G/DL)</content> Erythrocyte 11.5-14. Above high <content [facility] distribution 5 normal styleCode="Bold [place] width [Ratio] by ">Red Cell Medical Automated count Distribution Center Width </content>15.4 % H<content styleCode="Ital ics"> (11.5-14.5 %)</content> Erythrocyte mean 26.0-34. <content [facility] corpuscular 0 styleCode="Bold [place] hemoglobin ">Mean Medical [Entitic mass] Corposcular Center by Automated Hemoglobin count </content>27.5 PG<content styleCode="Ital ics"> (26.0-34.0 PG)</content> Platelet mean 8.0-11.0 Above high <content [facility] volume [Entitic normal styleCode="Bold Lyssa volume] in Blood ">Mean Platelet Medical by Automated Volume Center count </content>11.8 FL H<content styleCode="Ital ics"> (8.0-11.0 FL)</content> UNK 0 <content [facility] styleCode="Bold [place]sa ">Nucleated Red Medical Blood Cell Center </content>0.0 /100<content styleCode="Ital ics"> (0 /100)</content> Platelets 130-400 <content [facility] [#/volume] in styleCode="Bold [place] Blood by ">Platelet Medical Automated count Count Center </content>179 KCUMM<content styleCode="Ital ics"> (130-400 KCUMM)</content > UNK 0.0 <content [facility] styleCode="Bold Lyssa ">Nucleated Red Medical Blood Cell Center Count </content>0.00 KCUMM<content styleCode="Ital ics"> (0.0 KCUMM)</content > ID Date Data Source GFR(Creatinine).[id number] 09/05/2019 12:42:[address] [facility] 0-0400 Name Value Range Interpretation Code Description Data Misa rce(s) Supporting Document(s ) UNK > 60 <content [facility] styleCode="Bold"> Medical Cent er EGFR </content>72 GFR<content styleCode="Italic s"> (> 60 GFR)</content> ID Date Data Source CHMROUTINECCDA.[id number] 09/05/2019 12:42:[address] [facility] -0400 Name Value Range Interpretation Description Data Sup porting Code Source(s) Document(s ) UNK 2.3-3.5 <content [facility] styleCode="Bold Medical ">Globulin Center </content>3.3 G/DL<content styleCode="Ital ics"> (2.3-3.5 G/DL)</content> UNK >= 1.0 <content [facility] styleCode="Bold Medical ">AG Ratio Center </content>1.1 <content styleCode="Ital ics"> (>= 1.0 )</content> Protein 6.3-8.2 <content [facility] [Mass/volum styleCode="Bold Medical e] in Serum ">Total Protein Center or Plasma </content>7.0 G/DL<content styleCode="Ital ics"> (6.3-8.2 G/DL)</content> ID Date Data Source [facility].[id number] 09/05/2019 12:42:00 PM EDT [facility] Name Value Range Interpretation Description Data Sup porting Code Source(s) Document(s ) Sodium 137-145 <content [facility] [Moles/volume] in styleCode="Bold"> [facility] Serum or Plasma Sodium Medical </content>140 Center MEQ/L<content styleCode="Italic s"> (137-145 MEQ/L)</content> Potassium 3.5-5.3 <content [facility] [Moles/volume] in styleCode="Bold"> [facility] Serum or Plasma Potassium Medical </content>4.0 Center MEQ/L<content styleCode="Italic s"> (3.5-5.3 MEQ/L)</content> Chloride 98-107 <content [facility] [Moles/volume] in styleCode="Bold"> [facility] Serum or Plasma Chloride Medical </content>104 Center MEQ/L<content styleCode="Italic s"> (98-107 MEQ/L)</content> Carbon dioxide, 22-30 Above high <content [facility] total normal styleCode="Bold"> [place] [Moles/volume] in Carbon Dioxide Medical Serum or Plasma </content>31 Center MEQ/L H<content styleCode="Italic s"> (22-30 MEQ/L)</content> UNK 7-17 Above high <content [facility] normal styleCode="Bold"> [place] BUN </content>19 Medical MG/DL H<content Center styleCode="Italic s"> (7-17 MG/DL)</content> Calcium 8.4-10. <content [facility] [Mass/volume] in 2 styleCode="Bold"> Johnny hs Serum or Plasma Calcium Medical </content>9.5 Center MG/DL<content styleCode="Italic s"> (8.4-10.2 MG/DL)</content> Glucose 74-106 <content [facility] [Mass/volume] in styleCode="Bold"> Johnny hs Serum or Plasma Glucose Medical </content>100 Center MG/DL<content styleCode="Italic s"> (74-106 MG/DL)</content> Creatinine 0.5-1.3 <content [facility] [Mass/volume] in styleCode="Bold"> [facility] hs Serum or Plasma Creatinine Medical </content>1.0 Center MG/DL<content styleCode="Italic s"> (0.5-1.3 MG/DL)</content> UNK > 60 <content [facility] styleCode="Bold"> [place] EGFR </content>72 Medical GFR<content Center styleCode="Italic s"> (> 60 GFR)</content> Aspartate 14-36 Above high <content [facility] aminotransferase normal styleCode="Bold"> Johnny hs [Enzymatic Aspartate Medical activity/volume] Aminotransferase Center in Serum or Plasma (AST) </content>50 IU/L H<content styleCode="Italic s"> (14-36 IU/L)</content> Alanine 7-30 Above high <content [facility] aminotransferase normal styleCode="Bold"> Johnny hs [Enzymatic Alanine Medical activity/volume] Aminotransferase Center in Serum or Plasma (ALT) </content>44 IU/L H<content styleCode="Italic s"> (7-30 IU/L)</content> Alkaline 38-126 <content [facility] phosphatase styleCode="Bold"> [place] [Enzymatic Alkaline Medical activity/volume] Phosphatase (ALP) Cente r in Serum or Plasma </content>121 IU/L<content styleCode="Italic s"> (38-126 IU/L)</content> Bilirubin.total 0.2-1.3 <content [facility] [Mass/volume] in styleCode="Bold"> Johnny hs Serum or Plasma Bilirubin Total Medical </content>1.0 Center MG/DL<content styleCode="Italic s"> (0.2-1.3 MG/DL)</content> Albumin 3.5-5.0 <content [facility] [Mass/volume] in styleCode="Bold"> Johnny hs Serum or Plasma Albumin Medical </content>3.7 Center G/DL<content styleCode="Italic s"> (3.5-5.0 G/DL)</content> ID Date Data Source LIPID.[id number] 07/18/2019 06:27:00 PM EST [facility] Name Value Range Interpretation Description Data Sup porting Code Source(s) Document(s ) Triglyceride < 150 <content [facility] [Mass/volume] in styleCode="[facility] Serum or Plasma d">Triglycerid Medical Center </content>116 MG/DL<content styleCode="Vashti lics"> (< 150 MG/DL)</conten t> Cholesterol -<200 <content [facility] [Mass/volume] in styleCode="[facility] Serum or Plasma d">Cholesterol Medical </content>148 Center MG/DL<content styleCode="Vashti lics"> (-<200 MG/DL)</conten t> UNK < 100 <content [facility] styleCode="[place] d">[facility]olest [facility] </content>88 MG/DL<content styleCode="Vashti lics"> (< 100 MG/DL)</conten t> UNK > 60 Below low normal <content [facility] styleCode="[place] d">HDL- Medical Cholesterol Center </content>37 MG/DL L<content styleCode="Vashti lics"> (> 60 MG/DL)</conten t> ID Date Data Source CHMROUTINECCDA.[id number] 07/18/2019 06:27:00 PM EST [facility] -0500 Name Value Range Interpretation Code Description Data Misa rce(s) Supporting Document(s ) UNK 4.2-5.8 Above high normal <content [facility] styleCode="Bold" Medical Cente r >Hemoglobin A1C </content>6.3 % H<content styleCode="Itali cs"> (4.2-5.8 %)</content> ID Date Data Source Liver 03/24/2019 09:40:00 AM EDT [facility] Profile.[id number] Name Value Range Interpretation Description Data Sup porting Code Source(s) Document(s ) Aspartate 14-36 <content [facility] aminotransferase styleCode="Bold"> Johnny hs [Enzymatic Aspartate Medical activity/volume] Aminotransferase Center in Serum or Plasma (AST) </content>25 IU/L<content styleCode="Italic s"> (14-36 IU/L)</content> Alkaline 38-126 <content [facility] phosphatase styleCode="Bold"> [place] [Enzymatic Alkaline Medical activity/volume] Phosphatase (ALP) Cente r in Serum or Plasma </content>96 IU/L<content styleCode="Italic s"> (38-126 IU/L)</content> Alanine 7-30 <content [facility] aminotransferase styleCode="Bold"> Johnny hs [Enzymatic Alanine Medical activity/volume] Aminotransferase Center in Serum or Plasma (ALT) </content>17 IU/L<content styleCode="Italic s"> (7-30 IU/L)</content> Albumin 3.5-5.0 <content [facility] [Mass/volume] in styleCode="Bold"> Johnny hs Serum or Plasma Albumin Medical </content>3.8 Center G/DL<content styleCode="Italic s"> (3.5-5.0 G/DL)</content> Bilirubin.total 0.2-1.3 <content [facility] [Mass/volume] in styleCode="Bold"> Johnny hs Serum or Plasma Bilirubin Total Medical </content>0.4 Center MG/DL<content styleCode="Italic s"> (0.2-1.3 MG/DL)</content> ID Date Data Source LIPID.[id number] 03/24/2019 09:40:00 AM EDT [facility] Name Value Range Interpretation Description Data Sup porting Code Source(s) Document(s ) Cholesterol -<200 <content [facility] [Mass/volume] in styleCode="[place] Serum or Plasma d">Cholesterol Medical </content>180 Center MG/DL<content styleCode="Vashti lics"> (-<200 MG/DL)</conten t> Triglyceride < 150 <content [facility] [Mass/volume] in styleCode="[place] Serum or Plasma d">Triglycerid [facility] Center </content>102 MG/DL<content styleCode="Vashti lics"> (< 150 MG/DL)</conten t> UNK < 100 Above high normal <content [facility] styleCode="[place] d">LDL-Cholest [facility] </content>121 MG/DL H<content styleCode="Vashti lics"> (< 100 MG/DL)</conten t> UNK > 60 Below low normal <content [facility] styleCode="[place] d">HDL- Medical Cholesterol Center </content>39 MG/DL L<content styleCode="Vashti lics"> (> 60 MG/DL)</conten t> ID Date Data Source Hormones.[id number] 03/24/2019 09:40:[address] [facility] Name Value Range Interpretation Description Data Sup porting Code Source(s) Document(s ) Thyrotropin 0.465-4. <content [facility] [Units/volume] 68 styleCode="[place] in Serum or d">Thyroid Medical Plasma by Stimulating Center Detection Hormone limit <= 0.05 </content>1.61 mIU/L MIU/L<content styleCode="Vashti lics"> (0.465-4.68 MIU/L)</conten t> ID Date Data Source HematologyRou.[id number] 03/24/2019 09:40:[address] [facility] 0400 Name Value Range Interpretation Description Data Sup porting Code Source(s) Document(s ) Erythrocytes 4.0-5.1 <content [facility] [#/volume] in styleCode="[facility] Blood by ">Red Blood Medical Automated count Cell Count Center </content>4.56 MCUMM<content styleCode="Ital ics"> (4.0-5.1 MCUMM)</content > Leukocytes 4.4-11.0 <content [facility] [#/volume] in styleCode="Bold [place] Blood by ">White Blood Medical Automated count Cell Count Center </content>6.90 KCUMM<content styleCode="Ital ics"> (4.4-11.0 KCUMM)</content > Erythrocyte mean 80.0-100 <content [facility] corpuscular .0 styleCode="Bold [place] volume [Entitic ">Mean Medical volume] by Corpuscular Center Automated count Volume </content>87.9 FL<content styleCode="Ital ics"> (80.0-100.0 FL)</content> Hematocrit 36.0-46. <content [facility] [Volume 0 styleCode="Bold [place] Fraction] of ">Hematocrit Medical Blood by </content>40.1 Center Automated count %<content styleCode="Ital ics"> (36.0-46.0 %)</content> Hemoglobin 12.3-16. <content [facility] [Mass/volume] in 0 styleCode="Bold [place] Blood ">Hemoglobin Medical </content>12.5 Center G/DL<content styleCode="Ital ics"> (12.3-16.0 G/DL)</content> Erythrocyte mean 26.0-34. <content [facility] corpuscular 0 styleCode="Bold [place] hemoglobin ">Mean Medical [Entitic mass] Corposcular Center by Automated Hemoglobin count </content>27.4 PG<content styleCode="Ital ics"> (26.0-34.0 PG)</content> Erythrocyte mean 32.0-37. Below low normal <content [facility] corpuscular 0 styleCode="Bold [place] hemoglobin ">Mean Corpus. Medical concentration Hgb Center [Mass/volume] by Concentration Automated count (MCHC) </content>31.2 G/DL L<content styleCode="Ital ics"> (32.0-37.0 G/DL)</content> Erythrocyte 11.5-14. <content [facility] distribution 5 styleCode="Bold Lyssa width [Ratio] by ">Red Cell Medical Automated count Distribution Center Width </content>14.0 %<content styleCode="Ital ics"> (11.5-14.5 %)</content> Platelets 130-400 Below low normal <content [facility] [#/volume] in styleCode="Bold [facility] Blood by ">Platelet Medical Automated count Count Center </content>114 KCUMM L<content styleCode="Ital ics"> (130-400 KCUMM)</content > Platelet mean 8.0-11.0 Above high <content [facility] volume [Entitic normal styleCode="Bold Lyssa volume] in Blood ">Mean Platelet Medical by Automated Volume Center count </content>12.8 FL H<content styleCode="Ital ics"> (8.0-11.0 FL)</content> UNK 0.0 <content [facility] styleCode="Bold Lyssa ">Nucleated Red Medical Blood Cell Center Count </content>0.00 KCUMM<content styleCode="Ital ics"> (0.0 KCUMM)</content > UNK 0 <content [facility] styleCode="Bold Lyssa ">Nucleated Red Medical Blood Cell Center </content>0.0 /100<content styleCode="Ital ics"> (0 /100)</content> ID Date Data Source GFR(Creatinine).[id number] 03/24/2019 09:40:[address] [facility] 0-0400 Name Value Range Interpretation Code Description Data Misa rce(s) Supporting Document(s ) UNK > 60 <content [facility] styleCode="Bold"> Medical Cent er EGFR </content>73 GFR<content styleCode="Italic s"> (> 60 GFR)</content> ID Date Data Source [facility].[id number] 03/24/2019 09:40:00 AM EDT [facility] Name Value Range Interpretation Description Data Sup porting Code Source(s) Document(s ) Chloride 98-107 <content [facility] [Moles/volume] in styleCode="Bold"> [place] [facility] Serum or Plasma Chloride Medical </content>103 Center MEQ/L<content styleCode="Italic s"> (98-107 MEQ/L)</content> Sodium 137-145 <content [facility] [Moles/volume] in styleCode="Bold"> [place] [facility] Serum or Plasma Sodium Medical </content>141 Center MEQ/L<content styleCode="Italic s"> (137-145 MEQ/L)</content> Potassium 3.5-5.3 <content [facility] [Moles/volume] in styleCode="Bold"> [place] [facility] Serum or Plasma Potassium Medical </content>4.0 Center MEQ/L<content styleCode="Italic s"> (3.5-5.3 MEQ/L)</content> UNK 7-17 <content [facility] styleCode="Bold"> [place] BUN </content>17 Medical MG/DL<content Center styleCode="Italic s"> (7-17 MG/DL)</content> Carbon dioxide, 22-30 Above high <content [facility] total normal styleCode="Bold"> [place] [Moles/volume] in Carbon Dioxide Medical Serum or Plasma </content>33 Center MEQ/L H<content styleCode="Italic s"> (22-30 MEQ/L)</content> Creatinine 0.5-1.3 <content [facility] [Mass/volume] in styleCode="Bold"> Johnny hs Serum or Plasma Creatinine Medical </content>1.0 Center MG/DL<content styleCode="Italic s"> (0.5-1.3 MG/DL)</content> UNK > 60 <content [facility] styleCode="Bold"> [place] EGFR </content>73 Medical GFR<content Center styleCode="Italic s"> (> 60 GFR)</content> Calcium 8.4-10. <content [facility] [Mass/volume] in 2 styleCode="Bold"> Johnny hs Serum or Plasma Calcium Medical </content>9.8 Center MG/DL<content styleCode="Italic s"> (8.4-10.2 MG/DL)</content> Glucose 74-106 <content [facility] [Mass/volume] in styleCode="Bold"> Johnny hs Serum or Plasma Glucose Medical </content>103 Center MG/DL<content styleCode="Italic s"> (74-106 MG/DL)</content> Alkaline 38-126 <content [facility] phosphatase styleCode="Bold"> [facility] [Enzymatic Alkaline Medical activity/volume] Phosphatase (ALP) Cente r in Serum or Plasma </content>96 IU/L<content styleCode="Italic s"> (38-126 IU/L)</content> Alanine 7-30 <content [facility] aminotransferase styleCode="Bold"> Johnny hs [Enzymatic Alanine Medical activity/volume] Aminotransferase Center in Serum or Plasma (ALT) </content>17 IU/L<content styleCode="Italic s"> (7-30 IU/L)</content> Aspartate 14-36 <content [facility] aminotransferase styleCode="Bold"> Johnny hs [Enzymatic Aspartate Medical activity/volume] Aminotransferase Center in Serum or Plasma (AST) </content>25 IU/L<content styleCode="Italic s"> (14-36 IU/L)</content> Albumin 3.5-5.0 <content [facility] [Mass/volume] in styleCode="Bold"> Johnny hs Serum or Plasma Albumin Medical </content>3.8 Center G/DL<content styleCode="Italic s"> (3.5-5.0 G/DL)</content> Bilirubin.total 0.2-1.3 <content [facility] [Mass/volume] in styleCode="Bold"> Johnny hs Serum or Plasma Bilirubin Total Medical </content>0.4 Center MG/DL<content styleCode="Italic s"> (0.2-1.3 MG/DL)</content> ID Date Data Source CHMROUTINECCDA.[id number] 03/24/2019 09:40:[address] [facility] -0400 Name Value Range Interpretation Description Data Sup porting Code Source(s) Document(s ) UNK >= 1.0 <content [facility] styleCode="Bold Medical ">AG Ratio Center </content>1.2 <content styleCode="Ital ics"> (>= 1.0 )</content> UNK 4.2-5.8 Above high normal <content [facility] styleCode="Bold Medical ">Hemoglobin Center A1C </content>6.3 % H<content styleCode="Ital ics"> (4.2-5.8 %)</content> Protein 6.3-8.2 <content [facility] [Mass/volum styleCode="Bold Medical e] in Serum ">Total Protein Center or Plasma </content>7.1 G/DL<content styleCode="Ital ics"> (6.3-8.2 G/DL)</content> UNK 2.3-3.5 <content [facility] styleCode="Bold Medical ">Globulin Center </content>3.3 G/DL<content styleCode="Ital ics"> (2.3-3.5 G/DL)</content> ID Date Data Source Urinalysis.[id number] 03/22/2019 07:50:[address] [facility] 0 Name Value Range Interpretation Description Data Sup porting Code Source(s) Document(s ) Color of Urine YELLOW <content [facility] styleCode="[place] d">Color, Medical Urine Center </content>YELL OW <content styleCode="Vashti lics"> (YELLOW )</content> UNK CLEAR <content [facility] styleCode="[place] d">Urine Medical Clarity Center </content>YAYA R <content styleCode="Vashti lics"> (CLEAR )</content> UNK NEGATIVE <content [facility] styleCode="[place] d">Urine Medical Bilirubin Center </content>NEGA TIVE <content styleCode="Vashti lics"> (NEGATIVE )</content> Glucose NEGATIVE <content [facility] [Mass/volume] styleCode="[place] in Urine by d">Urine Medical Test strip Glucose Center </content>NEGA TIVE MG/DL<content styleCode="Vashti lics"> (NEGATIVE MG/DL)</conten t> Hemoglobin NEGATIVE <content [facility] [Presence] in styleCode="[place] Urine by Test d">Urine Blood Medical strip </content>NEGA Center TIVE <content styleCode="Vashti lics"> (NEGATIVE )</content> Ketones NEGATIVE <content [facility] [Mass/volume] styleCode="[place] in Urine by d">Urine Medical Test strip Ketone Center </content>NEGA TIVE MG/DL<content styleCode="Vashti lics"> (NEGATIVE MG/DL)</conten t> Specific 1.015-1.02 <content [facility] gravity of 5 styleCode="[place] Urine by Test d">Urine Medical strip Specific Center [place] </content>1.01 5 <content styleCode="Vashti lics"> (1.015-1.025 )</content> Protein NEGATIVE <content [facility] [Mass/volume] styleCode="[place] in Urine by d">Urine Medical Test strip Protein Center </content>NEGA TIVE MG/DL<content styleCode="Vashti lics"> (NEGATIVE MG/DL)</conten t> pH of Urine by 4.5-8.0 <content [facility] Test strip styleCode="[place] Lys[place] d">Urine pH Medical </content>6.0 Center <content styleCode="Vashti lics"> (4.5-8.0 )</content> Urobilinogen 0.2-1.0 <content [facility] [Units/volume] styleCode="[place] in Urine by d">Urine Medical Test strip Urobilinogen Center </content>1.0 MG/DL<content styleCode="Vashti lics"> (0.2-1.0 MG/DL)</conten t> Nitrite NEGATIVE <content [facility] [Presence] in styleCode="[place] Urine by Test d">Urine Medical strip Nitrite Center </content>NEGA TIVE <content styleCode="Vashti lics"> (NEGATIVE )</content> Leukocyte NEGATIVE <content [facility] esterase styleCode="[place] [Presence] in d">Urine Medical Urine by Test Leukocyte Center strip </content>NEGA TIVE <content styleCode="Vashti lics"> (NEGATIVE )</content> ID Date Data Source CHMROUTINECCDA.[id number] 03/22/2019 07:50:[address] [facility] -0400 Name Value Range Interpretation Description Data Sup porting Code Source(s) Document(s ) UNK Not <content [facility] Established styleCode="[place] Lyssa ld">[facility] Center </content>0.2 mg/dL<content styleCode="It alics"> (Not Established mg/dL)</constance nt> Cannabinoids <content Saint [Presence] in styleCode="[place] Urine by ld">Cannabino Medical Screen method ids Center >50 ng/mL </content>NEG ATIVE NG/ML (Reference Range: not available)
ID Date Data Source MROUTINECCDA.[id number] 02/03/2019 05:15:[address] [facility] [facility] Name Value Range Interpretation Description Data Sup porting Code Source(s) Document(s ) Cannabinoids <content [facility] [Presence] in styleCode="[place] Urine by Screen d">Cannabinoid Medical method >50 ng/mL s Center </content>NEGA TIVE NG/ML (Reference Range: not available)<br/ > ID Date Data Source [id number] 06/15/2018 01:45:[address] [facility] Name Value Range Interpretation Description Data Sup porting Code Source(s) Document(s ) Thyrotropin 0.465-4. <content [facility] [Units/volume] 68 styleCode="[place] in Serum or d">Thyroid Medical Plasma by Stimulating Center Detection Hormone limit <= 0.05 </content>1.74 mIU/L MIU/L<content styleCode="Vashti lics"> (0.465-4.68 MIU/L)</conten t> Thyroxine (T4) 0.78-2.1 <content [facility] free 9 styleCode="[place] [Mass/volume] d">T4 Free Medical in Serum or </content>1.04 Center Plasma NG/DL<content styleCode="Vashti lics"> (0.78-2.19 NG/DL)</conten t> ID Date Data Source Electrophoresis.[id number] 06/15/2018 01:45:[address] [facility] 0-0500 Name Value Range Interpretation Code Description Data Misa rce(s) Supporting Document(s ) UNK 6.1-8.1 <content [facility] styleCode="[place]" Medical Cente r >Protein,Total,S miguel a </content>6.6 g/dL<content styleCode="Itali cs"> (6.1-8.1 g/dL)</content> UNK 3.8-4.8 Below low normal <content [facility] [place] styleCode="[facility]" Medical Cente r >Albumin-SPE </content>3.4 g/dL L<content styleCode="Itali cs"> (3.8-4.8 g/dL)</content> UNK 0.2-0.3 <content [facility] styleCode="Bold" Medical Cente r >Ecimn-5-Xnvcjjd n </content>0.3 g/dL<content styleCode="Itali cs"> (0.2-0.3 g/dL)</content> UNK 0.4-0.6 <content [facility] styleCode="Bold" Medical Cente r >Beta Globulin </content>0.4 g/dL<content styleCode="Itali cs"> (0.4-0.6 g/dL)</content> UNK 0.5-0.9 <content [facility] styleCode="Bold" Medical Cente r >Bwlac-6-Bsqyfaa n </content>0.8 g/dL<content styleCode="Itali cs"> (0.5-0.9 g/dL)</content> UNK 0.8-1.7 <content [facility] styleCode="[facility]old" Medical Cente r >Gamma Globulin </content>1.2 g/dL<content styleCode="Itali cs"> (0.8-1.7 g/dL)</content> UNK 0.2-0.5 <content [facility] [place] styleCode="[facility]" Medical Cente r >Beta 2 Globulin </content>0.5 g/dL<content styleCode="Itali cs"> (0.2-0.5 g/dL)</content> UNK <content [facility] [place] styleCode="[facility]old" Medical Cente r >Prot.Electropho resis,Ser </content>SEE NOTE (Reference Range: not available)
ID Date Data Source ChemistrySpecia.[id number] 06/15/2018 01:45:00 PM [facility] 0-0500 Name Value Range Interpretation Description Data Sup porting Code Source(s) Document(s ) UNK <content [facility] styleCode="[place] d">Vitamin B6 Medical </content>11.3 Center (Reference Range: not available)<br/ > Cobalamin 239-931 <content [facility] (Vitamin B12) styleCode="[place] [Mass/volume] d">Vitamin B12 Medical in Serum or </content>489 Center Plasma PG/ML<content styleCode="Vashti lics"> (239-931 PG/ML)</conten t> ID Date Data Source CHMROUTINECCDA.[id number] 06/15/2018 01:45:00 PM [facility] -0500 Name Value Range Interpretation Code Description Data Misa rce(s) Supporting Document(s ) UNK 4.2-5.8 Above high normal <content [place] s styleCode="Bold" Medical Cente r >Hemoglobin A1C </content>6.3 % H<content styleCode="Itali cs"> (4.2-5.8 %)</content> ID Date Data Source Hormones 06/15/2018 01:45:00 PM [facility] Name Value Range Interpretation Description Data Sup porting Code Source(s) Document(s ) Thyroxine (T4) 0.78-2.1 <content [facility] free 9 styleCode="[place] [Mass/volume] d">T4 Free Medical in Serum or </content>1.04 Center Plasma NG/DL<content styleCode="Vashti lics"> (0.78-2.19 NG/DL)</conten t> Thyrotropin 0.465-4. <content [facility] [Units/volume] 68 styleCode="[place] in Serum or d">Thyroid Medical Plasma by Stimulating Center Detection Hormone limit <= 0.05 </content>1.74 mIU/L MIU/L<content styleCode="Vashti lics"> (0.465-4.68 MIU/L)</conten t> ID Date Data Source Electrophoresis 06/15/2018 01:45:00 PM [facility] Name Value Range Interpretation Code Description Data Misa rce(s) Supporting Document(s ) UNK 6.1-8.1 <content [facility] styleCode="Bold" Medical Cente r >Protein,Total,S miguel a </content>6.6 g/dL<content styleCode="Itali cs"> (6.1-8.1 g/dL)</content> ID Date Data Source ChemistrySpecia 06/15/2018 01:45:00 PM [facility] Name Value Range Interpretation Description Data Sup porting Code Source(s) Document(s ) Cobalamin 239-931 <content [facility] (Vitamin B12) styleCode="[facility] [Mass/volume] d">Vitamin B12 Medical in Serum or </content>489 Center Plasma PG/ML<content styleCode="Vashti lics"> (239-931 PG/ML)</conten t> ID Date Data Source JOVANAMROUTINECCDA 06/15/2018 01:45:00 PM [facility] Name Value Range Interpretation Code Description Data Misa rce(s) Supporting Document(s ) UNK 4.2-5.8 Above high normal <content [place] s styleCode="Bold" Medical Cente r >Hemoglobin A1C </content>6.3 % H<content styleCode="Itali cs"> (4.2-5.8 %)</content> ID Date Data Source MROUTINECCSUSANA.[id number] 02/22/2018 07:00:[address] [facility] -0400 Name Value Range Interpretation Description Data Sup porting Code Source(s) Document(s ) Cannabinoids <content [facility] [Presence] in styleCode="[facility] Urine by Screen d">Cannabinoid Medical method >50 ng/mL s [place] </content>PRES UMPTIVE POSITIVE NG/ML (Reference Range: not available)<br/ > ID Date Data Source [id number] 01/28/2018 06:00:[address] [facility] -0400 Name Value Range Interpretation Description Data Sup porting Code Source(s) Document(s ) Cannabinoids <content [facility] [Presence] in styleCode="[place] Urine by Screen d">Cannabinoid Medical method >50 ng/mL s Center </content>PRES UMPTIVE POSITIVE NG/ML (Reference Range: not available)<br/ > ID Date Data Source [id number] 12/29/2017 11:43:[address] [facility] -0400 Name Value Range Interpretation Description Data Sup porting Code Source(s) Document(s ) Cannabinoids <content [facility] [Presence] in styleCode="[place] Urine by Screen d">Cannabinoid Medical method >50 ng/mL s Center </content>NEGA TIVE NG/ML (Reference Range: not available)<br/ > ID Date Data Source MROUTINECCDA.[id number] 12/17/2017 05:48:[address] [facility] -0400 Name Value Range Interpretation Description Data Sup porting Code Source(s) Document(s ) Cannabinoids <content [facility] [Presence] in styleCode="[place] Urine by Screen d">Cannabinoid Medical method >50 ng/mL s Center </content>PRES UMPTIVE POSITIVE NG/ML (Reference Range: not available)<br/ > Procedure Social History Code Duration Value Status Description Data Source(s ) Caffeine Use 02/20/2020 completed NEXTGEN (Aly nt Details 12:00:00 AM EDT [facility]) Smoking 02/20/2020 Unknown if completed Unknown if ever NEXTGEN ( [facility] 12:00:00 AM EDT ever smoked smoked [facility]) Caffeine Use 12/19/2019 completed NEXTGEN ([facility]ly nt Details 12:00:00 AM EDT [facility]) Alcohol Use completed NEXTGEN ([facility] t Details [facility]) Smoking Unknown if completed Unknown if ever [facility] ever smoked smoked Medical Cente r Vital Signs ID Date Data Source UNK Name Value Range Interpretation Code Description Data Source(s) Oxygen saturation 95 % 95 % NEXTGEN ([facility] in Arterial blood [facility] by Pulse oximetry Center) Body mass index 32.22 kg/m2 Overweight 32.22 kg/m2 NEXTGEN ([facility] (BMI) [Ratio] [facility]) Respiratory rate 17 /min 17 /min NEXT[facility] ([facility]) Body temperature 36.17 Nicole 36.17 [facility] Heart rate 90 /min 90 /min NEXTGEN ([facility]) Diastolic blood 83 mm[Hg] 83 mm[Hg] NEXTGEN ( [facility]) Systolic blood 120 mm[Hg] 120 mm[Hg] NEXTGEN ([facility]) Body weight 87.815 kg 87.815 [facility] Body height 165.10 cm 165.10 cm [facility] ([facility]) Oxygen saturation 99 % 99 % NEXTGEN ([facility] in Arterial blood [facility] by Pulse oximetry Center) Body mass index 35.28 kg/m2 Overweight 35.28 kg/m2 NEXTGEN ([facility] (BMI) [Ratio] [facility]) Respiratory rate 19 /min 19 /min NEXTGEN ([facility]) Body temperature 36.61 Nicole 36.61 Nicole [facility] Heart rate 67 /min 67 /min NEXT[facility] ([facility]) Diastolic blood 73 mm[Hg] 73 mm[Hg] [facility] Systolic blood 133 mm[Hg] 133 mm[Hg] [facility] Body weight 96.162 kg 96.162 kg [facility]) Body height 165.10 cm 165.10 cm [facility] ([facility]) Oxygen saturation 96 % 96 % NEXTGEN ([facility] in Arterial blood [facility] by Pulse oximetry Center) Body mass index 35.61 kg/m2 Overweight 35.61 kg/m2 NEXTGEN ([facility] (BMI) [Ratio] [facility]) Respiratory rate 17 /min 17 /min [facility] Body temperature 36.33 Nicole 36.33 Nicole [facility]) Heart rate 50 /min 50 /min NEXTGEN ([facility]) Diastolic blood 61 mm[Hg] 61 mm[Hg] NEXTGEN ( [facility] pressure [facility]) Systolic blood 127 mm[Hg] 127 mm[Hg] NEXTGEN (S aint pressure [facility]) Body weight 97.069 kg 97.069 kg NEXTGEN ([facility] t [facility]) Body height 165.10 cm 165.10 cm [facility]EXT[facility]) Body temperature 36.251289 36.642082 [facility] Respiratory rate 18 /min 18 /min [facility] Heart rate 66 /min 66 /min [facility] Diastolic blood 55 mm[Hg] 55 mm[Hg] [facility] Medical [place] Systolic blood 117 mm[Hg] 117 mm[Hg] [facility] Body temperature 36.458693 36.725490 [facility] Respiratory rate 20 /min 20 /min [facility] Oxygen saturation 95 % 95 % [facility] blood [facility] by Pulse oximetry Heart rate 74 /min 74 /min [facility] Diastolic blood 73 mm[Hg] 73 mm[Hg] [facility] pressure Medical [place] Systolic blood 138 mm[Hg] 138 mm[Hg] [facility] Medical [place] Body temperature 36.434527 36.305548 [facility] Respiratory rate 18 /min 18 /min [facility] Heart rate 93 /min 93 /min [facility] Diastolic blood 56 mm[Hg] 56 mm[Hg] [facility] Medical [place] Systolic blood 95 mm[Hg] 95 mm[Hg] [facility] Medical [place] Body temperature 36.313581 36.129613 [facility] Respiratory rate 20 /min 20 /min [facility] Heart rate 68 /min 68 /min [facility] Diastolic blood 71 mm[Hg] 71 mm[Hg] [facility] Medical [place] Systolic blood 126 mm[Hg] 126 mm[Hg] [facility] Body temperature 36.715813 36.026179 [facility] Respiratory rate 18 /min 18 /min [facility] Heart rate 67 /min 67 /min [facility] Diastolic blood 78 mm[Hg] 78 mm[Hg] [facility] Systolic blood 136 mm[Hg] 136 mm[Hg] [facility] Oxygen saturation 94 % 94 % NEXTGEN ([facility] in Arterial blood [facility] by Pulse oximetry Center) Body mass index 38.71 kg/m2 Overweight 38.71 kg/m2 NEXTGEN ([facility] (BMI) [Ratio] [facility]) Respiratory rate 20 /min 20 /min NEXTGEN ([facility]) Body temperature 37.06 Nicole 37.06 Nicole NEXT[facility] ([facility]) Heart rate 78 /min 78 /min NEXTGEN ([facility]) Diastolic blood 63 mm[Hg] 63 mm[Hg] NEXTGEN ( [facility]) Systolic blood 110 mm[Hg] 110 mm[Hg] [facility] Body weight 105.506 kg 105.506 kg [facility]) Body height 165.10 cm 165.10 cm [facility] ([facility]) Body surface area 2.24 m2 2.24 m2 NEXTGEN ([facility]) Body mass index 40.04 kg/m2 Overweight 40.04 kg/m2 NEXTGEN ([facility] (BMI) [Ratio] [facility]) Respiratory rate 18 /min 18 /min [facility] ([facility]) Body temperature 37.00 Nicole 37.00 Nicole [facility] ([facility]) Heart rate 62 /min 62 /min [facility]) Diastolic blood 72 mm[Hg] 72 mm[Hg] NEXTGEN ( [facility]) Systolic blood 122 mm[Hg] 122 mm[Hg] [facility] (S aint pressure [facility]) Body weight 109.134 kg 109.134 kg [facility] ([facility]) Body height 165.10 cm 165.10 cm [facility] ([facility]) Oxygen saturation 93 % 93 % [facility] ([facility] in Arterial blood [facility] by Pulse oximetry Center) Body mass index 40.04 kg/m2 Overweight 40.04 kg/m2 NEXTGEN ([facility] (BMI) [Ratio] [facility]) Respiratory rate 16 /min 16 /min NEXTGEN ([facility]) Body temperature 36.67 Nicole 36.67 Nicole NEXT[facility] ([facility]) Heart rate 66 /min 66 /min NEXTGEN ([facility]) Diastolic blood 69 mm[Hg] 69 mm[Hg] NEXTGEN ( [facility]) Systolic blood 106 mm[Hg] 106 mm[Hg] NEXTGEN ([facility]) Body weight 109.134 kg 109.134 [facility]) Body height 165.10 cm 165.10 cm [facility] ([facility]) Oxygen saturation 94 % 94 % NEXTGEN ([facility] in Arterial blood [facility] by Pulse oximetry Center) Body mass index 40.10 kg/m2 Overweight 40.10 kg/m2 NEXTGEN ([facility] (BMI) [Ratio] [facility]) Respiratory rate 18 /min 18 /min NEXT[facility] ([facility]) Body temperature 37.22 Nicole 37.22 Nicole [facility]) Heart rate 74 /min 74 /min NEXT[facility] ([facility]) Diastolic blood 72 mm[Hg] 72 mm[Hg] [facility] ( [facility]) Systolic blood 112 mm[Hg] 112 mm[Hg] NEXTGEN ([facility]) Body weight 109.316 kg 109.316 [facility]) Body height 165.10 cm 165.10 cm [facility]) Oxygen saturation 97 % 97 % NEXTGEN ([facility] in Arterial blood [facility] by Pulse oximetry Center) Body mass index 39.60 kg/m2 Overweight 39.60 kg/m2 NEXTGEN ([facility] (BMI) [Ratio] [facility]) Respiratory rate 18 /min 18 /min NEXT[facility] ([facility]) Body temperature 36.83 Nicole 36.83 Nicole [facility]) Heart rate 56 /min 56 /min NEXT[facility] ([facility]) Diastolic blood 75 mm[Hg] 75 mm[Hg] NEXTGEN ( [facility]) Systolic blood 136 mm[Hg] 136 mm[Hg] NEXTGEN (S aint pressure [facility]) Body weight 107.955 kg 107.955 [facility]) Body height 165.10 cm 165.10 cm [facility]) Oxygen saturation 93 % 93 % NEXTGEN ([facility] in Arterial blood [facility] by Pulse oximetry Center) Body mass index 40.44 kg/m2 Overweight 40.44 kg/m2 NEXTGEN ([facility] (BMI) [Ratio] [facility]) Respiratory rate 18 /min 18 /min [facility]) Body temperature 36.17 Nicole 36.17 Nicole [facility] ([facility]) Heart rate 73 /min 73 /min [facility]) Diastolic blood 72 mm[Hg] 72 mm[Hg] [facility] ( [facility]) Systolic blood 114 mm[Hg] 114 mm[Hg] [facility]) Body weight 110.223 kg 110.223 kg [facility]) Body height 165.10 cm 165.10 cm [facility] ([facility]) Oxygen saturation 96 % 96 % NEXTGEN ([facility] in Arterial [facility] by Pulse oximetry Center) Body mass index 41.77 kg/m2 Overweight 41.77 kg/m2 NEXTGEN ([facility] (BMI) [Ratio] [facility]) Respiratory rate 20 /min 20 /min [facility]) Body temperature 36.67 Nicole 36.67 Nicole [facility]) Heart rate 71 /min 71 /min [facility]) Diastolic blood 69 mm[Hg] 69 mm[Hg] [facility] ( [facility]) Systolic blood 132 mm[Hg] 132 mm[Hg] [facility] (S [facility]) Body weight 113.852 kg 113.852 kg [facility]) Body height 165.10 cm 165.10 cm NEXTGEN ([facility]) Patient Treatment Plan of Care Planned Activity Planned Date Details Description Data Source (s) Furosemide 20 MG Oral Tablet 02/26/2020 NEXTGEN ([facility] 12:00:00 AM [facility]) Methadone Hydrochloride 2 02/26/2020 NE XTGEN ([facility] MG/ML Oral Solution 12:00:00 AM [facility]) Furosemide 20 MG Oral Tablet 02/26/2020 NEXTGEN ([facility] 12:00:00 AM [facility]) 120 ACTUAT Budesonide 0.16 02/20/2020 N EXTGEN (Saint MG/ACTUAT / formoterol 12:00:00 AM [facility] sephs Medical fumarate 0.0045 MG/ACTUAT Ce nter) Metered Dose Inhaler [Symbicort] Furosemide 20 MG Oral Tablet 02/13/2020 NEXTGEN ([facility] 12:00:00 AM [facility]) Hydrochlorothiazide 25 MG / 02/09/2020 NEXTGEN ([facility] Losartan Potassium 100 MG 12:00:00 AM [facility] Oral Tablet [place]) Fluoxetine 10 MG Oral Capsule 02/06/2020 NEXTGEN ([facility] [Prozac] 12:00:00 AM [facility]) aripiprazole 20 MG Oral 02/06/2020 NEXT GEN ([facility] Tablet [Abilify] 12:00:00 AM [facility]) Methadone Hydrochloride 2 01/24/2020 NE XTGEN ([facility] MG/ML Oral Solution 12:00:00 AM [facility]) 120 ACTUAT Budesonide 0.16 01/24/2020 N EXTGEN ([facility] MG/ACTUAT / formoterol 12:00:00 AM [facility] sephs Medical fumarate 0.0045 MG/ACTUAT Ce nter) Metered Dose Inhaler [Symbicort] Furosemide 20 MG Oral Tablet 01/24/2020 NEXTGEN ([facility] 12:00:00 AM [facility]) atorvastatin 20 MG Oral 12/25/2019 NEXT GEN ([facility] Tablet 12:00:00 AM [facility]) 200 ACTUAT Albuterol 0.09 11/23/2019 NE XTGEN (Saint MG/ACTUAT Metered Dose 12:00:00 AM [facility] Inhaler [[facility]] [place]) Hydrochlorothiazide 25 MG / 10/29/2019 NEXTGEN ([facility] Losartan Potassium 100 MG 12:00:00 AM [facility] Oral Tablet [place]) atorvastatin 20 MG Oral 09/24/2019 NEXT GEN ([facility] Tablet 12:00:00 AM [facility]) aripiprazole 20 MG Oral 09/20/2019 NEXT GEN ([facility] Tablet [Abilify] 12:00:00 AM [facility]) Fluoxetine 10 MG Oral Capsule 09/20/2019 NEXTGEN ([facility] [Prozac] 12:00:00 AM [facility]) Fluoxetine 10 MG Oral Capsule 08/02/2019 NEXTGEN ([facility] [Prozac] 12:00:00 AM [facility]) aripiprazole 20 MG Oral 08/02/2019 NEXT GEN ([facility] Tablet [Abilify] 12:00:00 AM [facility]) 200 ACTUAT Albuterol 0.09 07/26/2019 NE XTGEN ([facility] MG/ACTUAT Metered Dose 12:00:00 AM [facility] Inhaler [[facility]] [place]) Methadone Hydrochloride 2 07/18/2019 NE XTGEN ([facility] MG/ML Oral Solution 12:00:00 AM [facility]) atorvastatin 20 MG Oral 07/18/2019 NEXT GEN ([facility] Tablet 12:00:00 AM [facility]) aripiprazole 20 MG Oral 05/09/2019 NEXT GEN ([facility] Tablet [Abilify] 12:00:00 AM [facility]) Fluoxetine 10 MG Oral Capsule 05/09/2019 NEXTGEN ([facility] [Prozac] 12:00:00 AM [facility]) Hydrochlorothiazide 25 MG / 03/22/2019 NEXTGEN ([facility] Losartan Potassium 100 MG 12:00:00 AM [facility] Oral Tablet [place]) Fluoxetine 10 MG Oral Capsule 03/14/2019 NEXTGEN ([facility] [Prozac] 12:00:00 AM [facility]) aripiprazole 20 MG Oral 03/14/2019 NEXT GEN ([facility] Tablet [Abilify] 12:00:00 AM [facility]) Nicotine 2 MG Oral Lozenge 02/03/2019 N EXTGEN ([facility] 12:00:00 AM [facility]) Buprenorphine 12 MG / 02/03/2019 NEXTGE N (Saint Naloxone 3 MG Oral Strip 12:00:00 AM [facility] [Suboxone] Center) Buprenorphine 8 MG / Naloxone 02/03/2019 NEXTGEN ([facility] 2 MG Oral Strip [Suboxone] 12:00:00 AM [facility]) Hydrochlorothiazide 25 MG / 01/06/2019 NEXTGEN ([facility] Losartan Potassium 100 MG 12:00:00 AM [facility] Oral Tablet [place]) aripiprazole 20 MG Oral 12/14/2018 NEXT GEN ([facility] Tablet [Abilify] 12:00:00 AM [facility]) Fluoxetine 10 MG Oral Capsule 12/14/2018 NEXTGEN ([facility] [Prozac] 12:00:00 AM [facility]) aripiprazole 20 MG Oral 10/19/2018 NEXT GEN ([facility] Tablet [Abilify] 12:00:00 AM [facility]) Fluoxetine 10 MG Oral Capsule 10/19/2018 NEXTGEN ([facility] [Prozac] 12:00:00 AM [facility]) Buprenorphine 8 MG / Naloxone 09/12/2018 NEXTGEN ([facility] 2 MG Oral Strip [Suboxone] 12:00:00 AM [facility]) Fluoxetine 10 MG Oral Capsule 08/24/2018 NEXTGEN ([facility] [Prozac] 12:00:00 AM [facility]) aripiprazole 20 MG Oral 08/24/2018 NEXT GEN ([facility] Tablet [Abilify] 12:00:00 AM [facility]) Hydrochlorothiazide 25 MG / 08/15/2018 NEXTGEN ([facility] Losartan Potassium 100 MG 12:00:00 AM [facility] Oral Tablet Center) Fluoxetine 10 MG Oral Capsule 06/22/2018 NEXTGEN ([facility] [Prozac] 12:00:00 AM [facility]) aripiprazole 20 MG Oral 06/22/2018 NEXT GEN ([facility] Tablet [Abilify] 12:00:00 AM [facility]) Buprenorphine 8 MG / Naloxone 02/22/2018 NEXTGEN ([facility] 2 MG Oral Strip [Suboxone] 12:00:00 AM [facility]) Aspirin 81 MG Delayed Release 12/29/2017 NEXTGEN ([facility] Oral Tablet 12:00:00 AM [facility]) Acetaminophen 500 MG Oral 11/16/2017 NE XTGEN ([facility] Tablet 12:00:00 AM [facility]) 24 HR Nicotine 0.583 MG/HR 07/23/2017 N EXTGEN ([facility] Transdermal Patch 12:00:00 AM [facility]) Narcan 4 mg/actuation nasal 06/29/2017 NEXTGEN ([facility] spray 12:00:00 AM [facility]) [facility]ide 20 [facility] Potassium Chloride 20 MEQ NE XTGEN ([facility] Extended Release Oral Tablet [facility]) Lenvima 4 mg capsule NEXTGEN ([facility]) Folic Acid 1 MG [facility] Dexamethasone 4 MG Oral NEXT GEN ([facility] Tablet [Decadron] [facility] dical [place]) Clotrimazole 10 MG Oral NEXT GEN ([facility] Lozenge [facility]) Fluoxetine 10 MG Oral Tablet NEXTGEN ([facility]) Methadone Hydrochloride 2 NE XTGEN (Saint MG/ML Oral Solution [facility]) Vosevi 400 mg-100 mg-100 mg NEXTGEN ([facility]) Hydrochlorothiazide 25 MG / NEXTGEN ([facility] Losartan Potassium 100 MG [facility] Oral Tablet [place]) Abilify 15 mg tablet NEXTGEN ([facility]) Fluoxetine 20 MG Oral Capsule NEXTGEN ([facility] [Prozac] [facility])
--- NOTE | 2020-03-02 19:08 | PDOC ---
History of Present Illness - General Chief Complaint: Pain Stated Complaint: ABDOMINAL PAIN Time Seen by Provider: 03/02/20 19:06 - History of Present Illness Initial Comments: 59 YOF h/o hepatocellular carcinoma, hepatitis C (treated), alcohol and heroin abuse presents with right upper quadrant pain, decreased appetite, abdominal distension, nausea, vomiting, diarrhea since 3 days. Pain is primary in RUQ, sharp in quality, 10/10 in intensity, no radiation, nothing better or worse, patient not taking anything. Patient has also experienced some dark colored urine and light colored stools. She vomited this AM but no blood. No blood in stool or urine. Endorses lethargy and confusion. Reports feeling feverish. Denies CP, SOB, chills, swelling. Denies sick contacts or recent travel. Constitutional: No Weight Change, + Fever, No Chills, No Night Sweats, + Fatigue, + Malaise ENT/Mouth: No Hearing Changes, No Ear Pain, No Nasal Congestion, No Sinus Pain, No Hoarseness, No sore throat, No Rhinorrhea, No Swallowing Difficulty Eyes: No Eye Pain, No Swelling, No Redness, No Foreign Body, No Discharge, No Vision Changes Cardiovascular: No Chest Pain, No SOB, No PND, No Dyspnea on Exertion, No Orthopnea, No Claudication, No Edema, No Palpitations Respiratory: No Cough, No Sputum, No Wheezing, No Smoke Exposure, No Dyspnea Gastrointestinal: + Nausea, + Vomiting, + Diarrhea, No Constipation, + Pain, No Heartburn, No Anorexia, No Dysphagia, No Hematochezia, No Melena, No Flatulence, No Jaundice Genitourinary: No Dysmenorrhea, No DUB, No Dyspareunia, No Dysuria, No Urinary Frequency, No Hematuria, No Urinary Incontinence, No Urgency, No Flank Pain, No Urinary Flow Changes, No Hesitancy Musculoskeletal: No Arthralgias, No Myalgias, No Joint Swelling, No Joint Stiffness, No Back Pain, No Neck Pain, No Injury History Skin: No Skin Lesions, No Pruritis, No Hair Changes, No Breast/Skin Changes, No Nipple Discharge Neuro: + Weakness, No Numbness, No Paresthesias, No Loss of Consciousness, No Syncope, No Dizziness, No Headache, No Coordination Changes, No Recent Falls Psych: No Anxiety/Panic, No Depression, No Insomnia, No Personality Changes, No Delusions, No Rumination, No SI/HI/AH/VH, No Social Issues, No Memory Changes, No Violence/Abuse Hx., No Eating Concerns Heme/Lymph: No Bruising, No Bleeding, No Transfusions History, No Lymphadenopathy Endocrine: No Polyuria, No Polydipsia, No Temperature Intolerance Past History - Medical History Allergies/Adverse Reactions: Allergies Allergy/AdvReac Type Severity Reaction Status Date / Time Penicillins Allergy Severe Rash Verified 03/02/20 18:21 Home Medications: Ambulatory Orders Folic Acid 1 mg PO DAILY 03/02/20 Furosemide [Lasix -] 20 mg PO DAILY 03/02/20 Lenvatinib Mesylate [Lenvima] 12 mg PO DAILY 03/02/20 Methadone [Dolophine -] 30 mg PO DAILY 03/02/20 Anemia: No Asthma: Yes (on albuterol inhaler and symbicort) Cancer: No Cardiac Disorders: No CVA: No COPD: Yes CHF: No Dementia: No Diabetes: No GI Disorders: No Disorders: No HTN: Yes (on med) Hypercholesterolemia: No Kidney Stones: No Liver Disease: Yes (liver cancer) Seizures: No Thyroid Disease: No - Surgical History Abdominal Surgery: No Appendectomy: No Cardiac Surgery: No Cholecystectomy: No Lung Surgery: No Neurologic Surgery: No Orthopedic Surgery: No - Reproductive History Is Patient Now?: No PID: No - Immunization History Immunization Up to Date: Yes - Psycho-Social/Smoking History Smoking History: Former smoker Have you smoked in the past 12 months: No Number of Cigarettes Smoked Daily: 20 If you are a former smoker, when did you quit?: 1 month ago Cigars Per Day: 0 Information on smoking cessation initiated: No 'Breaking Loose' booklet given: 01/18/19 *Physical Exam - Vital Signs Last Vital Signs Temp Pulse Resp BP Pulse Ox 102 H 18 114/73 96 03/02/20 18:15 03/02/20 18:15 03/02/20 18:15 03/02/20 18:15 - Physical Exam General Appearance: Yes: Appropriately Dressed, Moderate Distress HEENT: positive: EOMI, ROBERTA, Normal ENT Inspection, Normal Voice, Symmetrical Neck: positive: Trachea midline, Normal Thyroid Respiratory/Chest: positive: Lungs Clear, Normal Breath Sounds Cardiovascular: positive: Regular Rhythm, Regular Rate, S1, S2 Gastrointestinal/Abdominal: positive: Normal Bowel Sounds, Tender, Organomegaly, Protuberent, Tenderness, Hepatomegaly Musculoskeletal: positive: Normal Inspection Extremity: positive: Normal Capillary Refill, Normal Inspection, Normal Range of Motion Integumentary: positive: Normal Color, Dry, Warm Neurologic: positive: top inventory control executive II-XII NML intact, Fully Oriented, Alert, Normal Mood/Affect, Normal Response, Motor Strength 10/16 ED Treatment Course - LABORATORY CBC & Chemistry Diagram: 03/02/20 21:07 03/02/20 21:07 Medical Decision Making - Medical Decision Making 59 YOF h/o hepatocellular carcinoma, hepatitis C (treated), alcohol and heroin abuse presents with right upper quadrant pain, decreased appetite, abdominal distension, nausea, vomiting, diarrhea since 3 days. - patient tachy on arrival - exam reveals protuberant abdomen with ttp in RUQ - will do labs and CT abdomen - labs revealing of bili to 3, elevated AST and ALK phos, CT confirms liver lesions - will admit patient for inadequately controlled pain in the context of HCC 03/03/20 06:43 Discharge - Discharge Information Problems reviewed: Yes Clinical Impression/Diagnosis: Liver cancer - Follow up/Referral - Patient Discharge Instructions - Post Discharge Activity
[2020-03-02] MEDS ORDERED: MORPHINE SULFATE 2 MG/ML VIAL IVPUSH ONE (19:51)
[2020-03-02] MEDS ORDERED: ONDANSETRON 4 MG/2 ML VIAL IVPUSH ONE (19:52)
--- NOTE | 2020-03-02 21:01 | PDOC ---
Attending Attestation - Resident Resident Name: Rk Malik - ED Attending Attestation I have performed the following: I have examined & evaluated the patient, The case was reviewed & discussed with the resident, I agree w/resident's findings & plan - HPI HPI: 03/02/20 21:03 Pt has a hx of hiatal gernia and schatski ring as well as hep C, hep A and liver cancer. She comes with nausea and inability to eat. She has opioid abd methadone use as well as hx of alcoholism. - Physicial Exam PE: 03/02/20 21:04 Agree with resident exam 03/02/20 21:52 Pt is warm to the touch. No skin rashes. Heart tachy Lungs CTAB abd distended; enlarged liver. No ascites appreciated. Pt has no rebound, but guarding and tenderness Right side >> left side. - Medical Decision Making 03/02/20 21:53 Pt's WBC is elevated at 12 Hb/HCT low stable chem pending 03/02/20 22:32 US abd pending read Pt went for her CT scan now 03/03/20 00:53 Referring Physician: ELLYN WEBER Patient Name: YASMIN SOTO THIS IS A PRELIMINARY REPORT DATE OF SERVICE: 2020-03-02 21:57:08 IMAGES: 43 EXAM: ULTRASOUND ABDOMEN INCOMPLETE Probable enlarged liver, measurements unavailable due to patient positioning. Heterogeneous liver echotexture with multiple masses, largest 6.0, suspicious for metastatic disease. Unremarkable gallbladder, right kidney and visualized aorta and pancreas. Normal common duct diameter, 3 mm. Pancreas and IVC not well seen. 03/03/20 02:32 Patient Name: YASMIN SOTO THIS IS A PRELIMINARY REPORT DATE OF SERVICE: 2020-03-03 01:27:44 IMAGES: [id number] EXAM: CT ABDOMEN AND PELVIS WITH CONTRAST Enlarged liver containing multiple masses, probably metastases. Intrahepatic and suprarenal IVC partly compressed by the masses. Left adrenal masses up to 3.8 cm, probably metastases. 20-30% compression fracture L2, age uncertain. Collateral vessels in left pararenal space. No bowel obstruction or inflammation. No free fluid or free air. Normal appendix. Unremarkable stomach, pancreas, kidneys and gallbladder. Small splenic cyst. Heterogeneous uterus. Small ascites. Discharge - Discharge Information Problems reviewed: Yes Clinical Impression/Diagnosis: Liver cancer - Follow up/Referral - Patient Discharge Instructions - Post Discharge Activity
[2020-03-02] MEDS ORDERED: morphine SULFATE 4 MG/ML VIAL ONE (21:04)
[2020-03-02 21:13] LABS: HEMATOCRIT 26.8 % (32.4-45.2); HEMOGLOBIN 8.7 GM/dL (10.7-15.3); MCH 28.5 pg (25.7-33.7); MCHC 32.4 g/dl (32.0-36.0); MEAN PLT VOLUME 9.1 fl (7.5-11.1); PLATELET COUNT 482 K/MM3 (134-434); RBC 3.05 M/mm3 (3.60-5.2); RDW 18.1 % (11.6-15.6); WHITE BLOOD COUNT 12.8 K/mm3 (4.0-10.0)
[2020-03-02 21:20] LABS: INR 1.4 (0.83-1.09); PROTHROMBIN TIME (PATIENT) 16.6 SEC (9.7-13.0)
[2020-03-02 21:23] LABS: ACTIVATED PTT 50.2 SECONDS (25.2-36.5)
[2020-03-02] MEDS ORDERED: SODIUM CHLORIDE 0.9% 500 ML INFUS.BAG IV ONE (21:27)
[2020-03-02 21:53] LABS: ALBUMIN 1.7 g/dl (3.4-5.0); CALCIUM 8.6 mg/dL (8.5-10.1); CREATININE 0.7 mg/dL (0.55-1.3); POTASSIUM 3.9 mmol/L (3.5-5.1); TOT PROT 6.1 g/dl (6.4-8.2)
[2020-03-02] MEDS ORDERED: POLYETHYLENE GLYCOL 3350 119 GM BTL PO ONE (21:54)
[2020-03-02 23:06] LABS: PLATELET ESTIMATE NORMAL
[2020-03-03] MEDS ORDERED: dilTIAZem HCL 30 MG TABLET ONE (01:59)
[2020-03-03] MEDS ORDERED: ACETAMINOPHEN INJECTION 100 ML IVPB ONE (01:59)
--- NOTE | 2020-03-03 03:11 | PN ---
Teaching Attending Note Name of Resident: Migel Edward ATTENDING PHYSICIAN STATEMENT I saw and evaluated the patient. I reviewed the resident's note and discussed the case with the resident. I agree with the resident's findings and plan as documented. SUBJECTIVE: Patient is a 59 year old woman with a PMH of Hepatocellular carcinoma, Penicill in allergy, GI bleeding, Recent H.Pylori infection (treated), Hiatal hernia, Hepatitis A infection, Schatski ring, Hepatitis C disease (treated), Alcohol and Heroin abuse (?on Methadone) who presents with right upper quadrant pain, decreased appetite, abdominal distension, nausea, vomiting, diarrhea for three days. Pain is primary in RUQ, sharp in quality, 10/10 in intensity, no radiation, no alleviating or aggravating factors and patient is not taking anything. Patient feels feverish. Has also experienced some dark colored urine and light colored stools. She had nonbloody vomitus this morning, feels lethargic with confusion. Reports that he was started on Lenvima 9 days ago and her Methadone dose has been recently tapered to 30 mg qd. Patient denies chest pain, shortness of breath, headache, palpitations, dizziness, dysuria, frequency, urgency, melena, hematochezia or hematuria. Denies tobacco use. No sick contacts or recent travels. Family history is unremarkable. OBJECTIVE: Alert Vital Signs Period Temp Pulse Resp BP Sys/[place] Pulse Ox Last 24 Hr 99.5 F 102-103 16-18 109-114/63-73 92-96 HEENT: No Jaundice, eye redness or discharge, PERRLA, EOMI. Normocephalic, atraumatic. External ears are normal and hearing is grossly intact. No nasal discharge. Neck: Supple, nontender. No palpable adenopathy or thyromegaly. No JVD Chest: Good effort. Clear to auscultation and percussion. Heart: Regular. No S3, rub or murmur Abdomen: +Distended, soft, hepatomegaly with tender upper abdomen; no HSM. No rebound or guarding. Normal bowel sounds. Ext: Peripheral pulses intact. No leg edema. Skin: Warm and dry. No petechiae, rash or ecchymosis. Neuro: Alert. Oriented x3. CN 2-12 grossly intact. Sensation grossly intact in all four extremities and DTR are symmetric. Psych: Appropriate mood and affect. Good insight. Home Medications Medication Instructions Recorded Folic Acid 1 mg PO DAILY 03/02/20 Furosemide [Lasix -] 20 mg PO DAILY 03/02/20 Lenvatinib Mesylate [Lenvima] 12 mg PO DAILY 03/02/20 Methadone [Dolophine -] 30 mg PO DAILY 03/02/20 Abnormal Lab Results 03/02/20 03/02/20 03/02/20 21:07 21:07 21:07 WBC 12.8 H RBC 3.05 L Hgb 8.7 L Hct 26.8 L RDW 18.1 H Plt Count 482 H Monocytes % (Manual) 3 L PT with INR 16.60 H INR 1.40 H PTT (Actin FS) 50.2 H Anion Gap 7 L Total Bilirubin 3.0 H AST 116 H Alkaline Phosphatase 311 H Ammonia Total Protein 6.1 L Albumin 1.7 L Lipase 34 L 03/02/20 21:17 WBC RBC Hgb Hct RDW Plt Count Monocytes % (Manual) PT with INR INR PTT (Actin FS) Anion Gap Total Bilirubin AST Alkaline Phosphatase Ammonia < 10.0 L Total Protein Albumin Lipase Current Medications Generic Name Dose Route Start Last Admin Trade Name Freq PRN Reason Stop Dose Admin Sodium Chloride 1,000 mls @ 42 mls/hr 03/03/20 05:30 Normal Saline - IV ASDIR LISSETH Morphine Sulfate 2 mg 03/03/20 05:10 Morphine Sulfate IVPUSH Q4H PRN PAIN LEVEL 7 - 10 ASSESSMENT AND PLAN: 1. Liver cancer/?Drug withdrawal - Ultrasound of abdomen report - Probable enlarged liver, measurements unavailable due to patient positioning. Heterogeneous liver echotexture with multiple masses, largest 6.0, suspicious for metastatic disease. Unremarkable gallbladder, right kidney and visualized aorta and pancreas. Normal common duct diameter, 3 mm. Pancreas and IVC not well seen. CT abdomen/pelvis with IV contrast report - Enlarged liver containing multiple masses, probably metastases. Intrahepatic and suprarenal IVC partly compressed by the masses. Left adrenal masses up to 3.8 cm, probably metastases. 20-30% compression fracture L2, age uncertain. Collateral vessels in left pararenal space. No bowel obstruction or inflammation. No free fluid or free air. Normal appendix. Unremarkable stomach, pancreas, kidneys and gallbladder. Small splenic cyst. Heterogeneous uterus. Small ascites. EKG shows NSR at 100/minute and QTc 497 with no significant acute ischemic ST-T wave changes. Will avoid drugs that may prolong QTc. Will get blood cultures, CXR and urinalysis STAT to rule out infection, get urine toxicology, trend LFTs, confirm methadone dose, continue IV NS, avoid hepatotoxic drugs, use IV Morphine for pain control and consult Oncology/GI. Stool for culture, Ova&Parasites, C. Difficile toxin and Novovirus if diarrhea persists. Viral testing for COVID-19 ordered and patient placed on airborne, droplet and contact isolation. Will continue comprehensive care for all of patients comorbid conditions. 2. Severe hypoalbuminemia - Possibly due to combined effects of malnutrition and inflammation associated with comorbid conditions. Will ensure adequate dietary protein intake and also consult field sales associate. Urinalysis pending. 3. Tobacco Use Counseled on risks associated with tobacco use. We will provide patient all the necessary assistance to facilitate smoking cessation and prescribe Nicotine patch. 4. Anemia Likely multifactorial. Iron saturation was 9% on 01/03/2020. Will benefit from IV iron when stable. Will do serial stool guaiacs. 5. Alcohol/Heroin abuse Monitor for drug withdrawal and verify methadone dose. Will admit to telemetry, implement [facility] Librium alcohol withdrawal protocol and do neurochecks. Implement seizure, fall and aspiration precautions. Treat with IV Banana bag, thiamine and folic acid. Monitor and replete electrolytes (Ca,Mg,K,P). Counseled patient about abstaining from illicit drugs/alcohol. Will consult accounting support specialist and refer to drug/alcohol detox upon discharge. 6. DVT prophylaxis - Lovenox 40 mg SQ q 24 hours. 7. Advance directives - Full code
--- OUTSIDE RECORDS SUMMARY | 2020-03-03 03:56 | XMS ---
:1960 Author Organization [facility] Care Team Providers Name Role Phone Wesley-Banchs, Sandraliz Unavailable [phone] Wesley-Banchs, Sandraliz Unavailable [phone] Wesley-Banchs, Sandraliz Unavailable [phone] DANITA ESPINOZA Unavailable Unavailable Jossy Samayoa [...] Ringstad, Meghan Unavailable Unavailable William Ghotra Unavailable [phone] Paradise William Unavailable [phone] Aszalos, Ella Katina Unavailable Unavailable Aszalos, Katina Unavailable Unavailable Aszalos, Katina Unavailable Unavailable Aszalos, Katina Unavailable Unavailable Aszalos, Katina Unavailable Unavailable Aszalos, Katina Unavailable Unavailable Aszalos, Katina Unavailable Unavailable Aszalos, Katina Unavailable Unavailable Aszalos, Katina Unavailable Unavailable HELLER ADRIENNE-LILY R Unavailable Unavailable Gabby Chun MD Unavailable Unavailable Gabyb Chun MD Unavailable Unavailable Gabby Chun MD [...] Gabby Chun MD Unavailable Unavailable Nlam Unavailable [phone] Nlam Unavailable [phone] Veselinovic Unavailable [phone] Veselinovic Unavailable [phone] Stout Unavailable [phone] Stout Unavailable [phone] Heller Unavailable [phone] Heller Unavailable [phone] Pieter Unavailable [phone] Renee, C Unavailable Unavailable Renee, C Unavailable Unavailable Renee, C Unavailable Unavailable Renee, C Unavailable Unavailable Renee, C Unavailable Unavailable Renee, C Unavailable Unavailable Renee, C Unavailable Unavailable Renee, C Unavailable Unavailable Renee, C Unavailable Unavailable Luis Alberto Unavailable [phone] VESELINOVIC REBECCA Unavailable Unavailable Jenkins Unavailable Unavailable Jenkins Unavailable Unavailable Jenkins Unavailable Unavailable Coon Unavailable Unavailable Coon Unavailable Unavailable Coon Unavailable Unavailable Coon Unavailable Unavailable Coon Unavailable Unavailable Coon Unavailable Unavailable Eun-Edmond Unavailable [phone] Eun-Edmond Unavailable [phone] JASS KHRIS P Unavailable Unavailable Valerio Unavailable [...] Unavailable Unavailable [facility] Unavailable Unavailable Toumeh Unavailable [phone] Javier, J MD Unavailable Unavailable Javier, J [...] Javier, J MD Unavailable Unavailable Dre Unavailable [phone] Dre Unavailable [phone] Re-disclosure Warning The records that you are [...] is protected by Article 27-F of the [facility] Public Health law. If you continue you may haveaccess to information: Regarding HIV / AIDS; Provided by facilities licensed or operated by the [facility] Office of Mental Health; or Provided by the [facility] Office for People With Developmental Disabilities. If such information is present, then the following [facility] mandated warning applies: This information has [...] law may result in a fine or fdc sentence or both. A general authorization for the release of medical or other information is NOT sufficient authorization for further disclosure. Allergies and Adverse Reactions Type Description Substance Reaction Status Data Source(s ) propensity to Substance with Penicillins Anaphylaxis Active NEXT EN ([facility] adverse reactions penicillin [facility] to drug and antibacterial Center) mechanism of action (substance) Family History Family Member Family Member Family Member Date of Description Data Source(s) Name Gender Status Status Unknown Female Problem 06/23/2013 NEXTGEN ([facility] (finding) 12:00:00 AM [facility] EST [place]) Unknown Female Problem 06/23/2013 NEXTGEN ([facility] (finding) 12:00:00 AM [facility] EST [place]) Encounters Encounter Providers Location Date Indications Data Source(s ) Outpatient 03/05/2020 [facility] 01:12:00 [facility] PM EDT Outpatient 03/05/2020 [facility] 12:00:00 [facility] AM EDT Attender: [facility] 02/26/2020 ANA N ([facility] 10:54:00 [facility] - Center) 02/26/2020 10:54:00 AM EDT Outpatient 02/20/2020 [facility] 02:29:00 [facility] PM EDT Outpatient Attender: Ella 02/20/2020 [facility] AszalosAdmitter: 10:37:00 [facility] EDT AszalosReferrer: Ella Manny OutpatientOFFICE/ Attender: [facility] 02/20/2020 CAIT ([facility] OUTPATIENT VISIT, [facility] 10:37:00 [facility] EDT - Center) 02/20/2020 10:37:00 AM EDT Outpatient 02/20/2020 [facility] 12:00:00 [facility] AM EDT Attender: [facility] 02/13/2020 NEXT ([facility] 02:31:00 [facility] [place] PM EDT - Center) 02/13/2020 02:31:00 PM EDT Attender: [facility] 02/09/2020 MARIEGE N ([facility] 02:50:00 [facility] PM [facility]T - Center) 02/09/2020 02:50:00 PM EDT Attender: [facility] 02/07/2020 NEXTGE N ([facility] 02:11:00 [facility] PM [facility]T - Center) 02/07/2020 02:11:00 PM EDT OutpatientOFFICE/ Attender: Mental Health 02/06/2020 NEXT GEN ([facility] OUTPATIENT VISIT, [facility] 03:19:00 [facility] EST [facility] PM EDT - Center) 02/06/2020 03:19:00 PM EDT Outpatient Attender: Ella Pati 01/30/2020 [facility] AszalosAdmitter: 11:21:00 [facility] AM EDT AszalosReferrer: Ella Krissmariisahara OutpatientOFFICE/ Attender: [facility] 01/30/2020 CAIT ([facility] OUTPATIENT VISIT, [facility] 11:21:00 [facility] EST AM EDT - Center) 01/30/2020 11:21:00 AM EDT 01/30/2020 [facility] 12:00:00 Medical [place] AM EDT Attender: [facility] 01/25/2020 NEXTGE N ([facility] 11:37:00 [facility] AM [facility]T - Center) 01/25/2020 11:37:00 AM EDT Outpatient Attender: Ella Krueger 01/24/2020 [facility] AskarleesAdmitter: 05:23:00 [facility] PM EDT AszalosReferrer: Ella Krissmariisahara OutpatientOFFICE/ Attender: [facility] 01/24/2020 CAIT ([facility] OUTPATIENT VISIT, [facility] 05:23:00 [facility] Medical EST PM EDT - Center) 01/24/2020 05:23:00 PM EDT Outpatient 01/24/2020 [facility] 03:57:00 Medical [place] PM EDT Outpatient 01/24/2020 [facility] 12:00:00 Medical Center AM EDT Attender: [facility] 01/03/2020 NEXT N ([facility] 01:40:00 [facility] - Center) 01/03/2020 01:40:00 PM EDT Attender: [facility] 12/25/2019 NEXT N ([facility] 09:55:00 [facility] AM [facility]T - Center) 12/25/2019 09:55:00 AM EDT Attender: [facility] 12/19/2019 [facility] ([facility] 11:48:00 [facility] EDT - Center) 12/19/2019 11:48:00 AM EDT Outpatient Attender: [facility] 12/06/2019 GSI ([facility] 11:36:37 [facility] EDT Collaborative) Patient admitted. Outpatient Attender: [address] 12/06/2019 11:33:36 AM [facility] ([facility] EDT Collaborative) Patient admitted. Outpatient Attender: [address] 12/06/2019 11:31:51 AM [facility] ([facility] EDT [facility]) Patient admitted. Attender: [facility] 11/23/2019 [facility] 09:36:00 AM EDT ([facility] 11/23/2019 [facility] 09:36:00 AM EDT Medical Center) Attender: [facility] 11/03/2019 [facility] 04:45:00 PM EDT ([facility] 11/03/2019 [facility] 04:45:00 PM EDT Medical Center) Attender: [facility] 11/02/2019 [facility] 01:20:00 PM EDT ([facility] 11/02/2019 [facility] 01:20:00 PM EDT Medical Center) Attender: [facility] 10/29/2019 [facility] 11:30:00 PM EDT ([facility] 10/29/2019 [facility] 11:30:00 PM EDT Medical Center) Attender: [facility] 10/20/2019 [facility] 04:04:00 PM EDT ([facility] 10/20/2019 [facility] 04:04:00 PM EDT Medical Center) Attender: [facility] Mental Health 10/20/2019 LUZ E[facility] 08:24:00 AM EDT ([facility] 10/20/2019 [facility] 08:24:00 AM EDT Medical Center) [facility] 10/19/2019 NEXTGE N Psych[facility] ([facility] 12:02:00 PM EDT ( [facility] - 10/19/2019 [facility] 12:02:00 PM EDT Medical Center) [facility]: [facility] 03:[facility] PM [facility] ([facility]oc[facility] 10/17/2019 [facility] 03:36:00 PM EDT Medical Center) Attender: [facility] 10/12/2019 ANA Bryant [place] 02:00:00 PM EDT ([facility] 10/12/2019 [facility] 02:00:00 PM EDT Medical Center) Attender: [facility] 10/12/2019 ANA Chun MD [place] 09:34:00 AM EDT ([facility] 10/12/2019 [facility] 09:34:00 AM EDT Medical Center) Outpatient Attender: [facility] 10/11/2019 [facility] Mc[facility]onitter: 11:43:00 AM EDT [facility] AszalosReferrer: Ella Bryant PHONE E/M BY PHYS Attender: [facility] 10/11/2019 [facility] 11:43:00 AM EDT ([facility] 10/11/2019 [facility] 11:43:00 AM EDT Medical Center) Attender: [facility] 10/09/2019 ANA Chun MD [place] 02:04:00 PM EDT ([facility] 10/09/2019 [facility] 02:04:00 PM EDT Medical Center) Attender[facility] 10/09/2019 [facility] 10:59[facility]00 AM EDT ([facility] 10/09/2019 [facility] 10:59:00 AM EDT Medical Center) Outpatient Attender: Ella 10/05/2019 [facility] AsKelindmitter: 09:09:00 AM EDT [facility] 10/05/2019 [place] AszalosReferrer: 11:45:00 AM EDT [facility] Manny Attender: [facility] 09:09[facility]00 AM EDT ([facility] 10/05/2019 [facility] 09:09:00 AM EDT Medical Center) Attender: [facility]03[facility] 12:50:00 PM EDT ([facility] 10/03/2019 [facility] 12:50:00 PM EDT Medical Center) Outpatient 10/03/2019 [facility] 10:30:00 AM EDT Medical Center Outpatient Attender: Ella Krueger 10/03/2019 [facility] Hyattdmitter: 10:09:00 AM EDT [facility] AszalosReferrer: Ella Manny OutpatientOFFICE/OUT Attender: [facility] 10/03/2019 [facility] PATIENT VISIT, [facility] 10:09:00 AM EDT ( [facility] 10/03/2019 [facility] 10:09:00 AM EDT Medical Center) Outpatient 10/03/2019 [facility] 12:00:00 AM EDT Medical Center Attender: [facility] 10/02/2019 [facility] 10:21:00 AM EDT ([facility] 10/02/2019 [facility] 10:21:00 AM EDT Medical Center) Attender: [facility] 09/29/2019 [facility] 05:05:00 PM EDT ([facility] 09/29/2019 [facility] 05:05:00 PM EDT Medical Center) Attender: [facility] 09/29/2019 [facility] 12:48[facility]00 PM EDT ([facility] 09/29/2019 [facility] 12:48:00 PM EDT Medical Center) Attender: [facility] 09/25/2019 [facility] 04:41:00 PM EDT ([facility] 09/25/2019 [facility] 04:41:00 PM EDT Medical Center) Attender: [facility] 09/24/2019 [facility] 09:41:00 AM EDT ([facility] 09/24/2019 [facility] 09:41:00 AM EDT Medical Center) Attender: Mental Health 09/20/2019 [facility] 04:51:00 PM EDT ([facility] 09/20/2019 [facility] 04:51:00 PM EDT Medical Center) Attender: [facility] 09/18/2019 [facility] 04:23:00 PM EDT ([facility] 09/18/2019 [facility] 04:23:00 PM EDT Medical Center) Outpatient Attender: Ella 09/15/2019 [facility] AszalosAdmitter: 03:20:00 PM EDT [facility] AszalosReferrer: Ella Bryant PHONE E/M BY PHYS Attender: Ella [facility] 09/15/2019 [facility] 11-20 MIN Aszalos [place] 03:20:00 PM EDT ([facility] 09/15/2019 [facility] 03:20:00 PM EDT Medical Center) Attender: Sheron [facility] 09/08/2019 [facility] Renee [place] 01:36:00 PM EDT ([facility] 09/08/2019 [facility] 01:36:00 PM EDT Medical Center) Attender: Ella 09/05/2019 [facility] 12:42:00 PM EDT ([facility] 09/05/2019 [facility] 12:42:00 PM EDT Medical Center) Attender: [facility] 08/29/2019 [facility] 02:52:00 PM EDT ([facility] 08/29/2019 [facility] 02:52:00 PM EDT Medical Center) Attender: Kaitlynn [facility] 08/24/2019 [facility] EN Stout [place] 11:56:00 AM EDT ([facility] 08/24/2019 [facility] 11:56:00 AM EDT Medical Center) Outpatient 08/24/2019 [facility] 10:49:00 AM EDT Medical Center Outpatient 08/24/2019 [facility] 12:00:00 AM EDT Medical Center Outpatient 08/22/2019 [facility] 11:10:00 AM EDT Medical Center Outpatient 08/22/2019 [facility] 12:00:00 AM EDT Medical Center Attender: [facility] 08/18/2019 [facility] N [facility] 05:07:00 PM EST ([facility] 08/18/2019 [facility] 05:07:00 PM EST Medical Center) Attender: [facility] 08/16/2019 [facility] N [facility] 10:33:00 AM EST ([facility] 08/16/2019 [facility] 10:33:00 AM EST Medical Center) Individual Attender: [facility] 08/09/2019 [facility] N Psychotherapy (30 [facility] 01:29:00 PM EST ( [facility]) - 08/09/2019 [facility] 01:29:00 PM EST Medical Center) Outpatient 08/08/2019 [facility] 03:38:00 PM [facility] Medical Center Outpatient Attender: KHRIS Krueger 08/08/2019 Shania franky JASS PINEDO 09:50:00 AM EST Medical PAdmitter: KHRIS PINEDO PReferrer: KHRIS Mary OutpatientOFFICE/OUT Attender: [facility] 08/08/2019 [facility] PATIENT VISIT, EST Sunday [facility] 09:50:00 AM EST ([facility] 08/08/2019 [facility] 09:50:00 AM [facility] Medical Center) Outpatient 08/08/2019 [facility] 12[facility]00:00 AM [facility] Medical Center Attender: [facility] 08/07/2019 [facility] 11:04:00 AM [facility] ([facility] 08/07/2019 [facility] 11:04:00 AM [facility] Medical [place]) OutpatientOFFICE/OUT Attender: [facility] 08/02/2019 [facility] PATIENT VISIT, EST [facility] 02:43:00 PM [facility] ( [facility] 08/02/2019 [facility] 02:43:00 PM [facility] Medical [place]) Outpatient Attender: [facility] 08/01/2019 [facility] ([facility] 12:16:00 PM [facility]) Patient admitted. Outpatient Attender: Ella Krueger 07/26/2019 [facility] AskarleesAdmitter: Ella 06:13:00 PM [facility] Medical AszalosReferrer: Ella Bryant OutpatientOFFICE/OUT Attender: Ella Silveira 07/26/2019 [facility] PATIENT VISIT, EST [facility] 06:13:00 PM [facility] ( [facility] - 07/26/2019 [facility] 06:13:00 PM [facility] Medical [place]) Outpatient 07/26/2019 [facility] 04:49:00 PM [facility] Medical Center Outpatient 07/26/2019 [facility] 12:00:00 AM [facility] Medical Center Attender: [facility] 07/20/[address] [facility] 11[facility]23:00 AM [facility] ([facility] 07/20/2019 [facility] 11:23:00 AM [facility] Medical [place]) Attender: [facility] 07/19/2019 [facility] 04:41:00 PM EST ([facility] - 07/19/2019 [facility] 04:41:00 PM [facility] Medical [place]) Outpatient Attender: Ella Pati 07/18/2019 [facility] AszalosAdmitter: Ella 03:14:00 PM EST Medical AszalosReferrer: Ella Bryant OutpatientOFFICE/OUT Attender: Ella Silveira 07/18/2019 [facility] 03:[facility] PM [facility] ( [facility] - 07/18/2019 [facility] 03:14:00 PM [facility] Medical [place]) Outpatient 07/18/2019 [facility] 12:43:00 PM [facility] Medical Center Outpatient 07/18/2019 [facility] 12:00:00 AM [facility] Center Attender: Wanda [facility] 07/10/2019 MICA SORTO MD Health 03:50:00 PM EST ([facility] - 07/10/2019 [facility] 03:50:00 PM [facility] Medical [place]) Outpatient Attender: DANITA Krueger 06/24/2019 [facility] 01:40:00 PM EST Medic al [facility]Att[facility] DANITA Diaz Att[facility]: [facility] 06/24/2019 [facility] 01:40:00 PM EST ([facility] - 06/24/2019 [facility] 01:40:00 PM [facility] Medical [place]) Attender: Tess Mental 05/09/2019 YADIRA RANDLE [facility] 04:17:00 PM EST ([facility] - 05/09/2019 [facility] 04:17:00 PM [facility] Medical [place]) Attender: Wanda Chun Family 04/28/2019 MICA SORTO MD Health 11:35:00 AM EST ([facility] - 04/28/2019 [facility] 11:35:00 AM [facility] Medical [place]) Outpatient Attender: Ella Pati 04/25/2019 [facility] AszalosAdmitter: Ella 02:16:00 PM EST Medical AszalosReferrer: Ella Bryant Attender: Ella Silveira 04/25/2019 [facility] 02:16:00 PM EST ([facility] - 04/25/2019 [facility] 02:16:00 PM [facility] Medical [place]) Outpatient 04/25/2019 [facility] 12:23:00 PM [facility] Medical Center Outpatient 04/25/2019 [facility] 12:00:00 AM EST Medical Center Attender: Nacarey [facility]att [facility] 04/21/2019 [facility] N [facility] 09:39:00 AM EST ([facility] - 04/21/2019 [facility] 09:39:00 AM [facility] Medical Center) Attender: Wanda Adiel Family 04/19/2019 MICA SORTO MD Health 02:33:00 PM EST ([facility] - 04/19/2019 [place] 02:33:00 PM [facility] Medical Center) Outpatient Attender: Ella Krueger 03/22/2019 [facility] AszalosAdmitter: Ella 05:27:00 PM EDT Medical AszalosReferrer: Ella Proctor [facility]ggy [facility] OutpatientOFFICE/OUT Attender: Ella Silveira [facility] 05:27:00 PM EDT ( [facility] - 03/22/2019 [facility] 05:27:00 PM EDT Medical Center) Outpatient 03/22/2019 [facility] 01:42:00 PM EDT Medical Center Outpatient 03/22/2019 [facility] 12:00:00 AM EDT Medical Center Attender: Ella Silveira [facility]21[facility] 10:00:00 AM EDT ([facility] - 03/21/2019 [facility] 10:00:00 AM EDT Medical Center) Individual Attender: Alberto Brand Mental 03/16/2019 NEXT GEN Psychotherapy (30 Luis Alberto Health 04:49:00 PM EDT (S aint Min) [facility] - 03/16/2019 [facility] 04:49:00 PM EDT Medical Center) OutpatientOFFICE/OUT Attender: Tess Mental [facility] 04:06:00 PM EDT ( [facility] - 03/14/2019 [facility] 04:06:00 PM EDT Medical Center) Attender: Ella Silveira [facility]/25/[facility] 02:33:00 PM EDT ([facility] - 02/25/2019 [facility] 02:33:00 PM EDT Medical Center) Outpatient 02/22/2019 [facility] 04:48:00 PM EDT Medical Center Attender: Wanda Adiel Family 02/22/2019 MICA SORTO MD Health 02:35:00 PM EDT ([facility] - 02/22/2019 [place] 02:35:00 PM EDT Medical Center) Outpatient 02/22/2019 [facility] 12:00:00 AM EDT Medical Center Attender: Ella Silveira 02/21/2019 [facility] 04:57:00 PM EDT ([facility] 02/21/2019 [facility] 04:57:00 PM EDT Medical Center) Outpatient Attender: Ella Krueger 02/03/2019 [facility] AszalosAdmitter: Ella 03:09:00 PM EDT Medical AszalosReferrer: Ella Proctor peggyleo Bryant OutpatientOFFICE/OUT Attender: Ella Silveira 02/03/2019 [facility], [facility] 03:09:00 PM EDT ( [facility] - 02/03/2019 [facility] 03:09:00 PM EDT Medical Center) Outpatient 02/03/2019 [facility] 02:25:00 PM EDT Medical Center Outpatient 02/03/2019 [facility] 12:00:00 AM EDT Medical Center Attender: Ella Silveira 01/30/2019 [facility] 10:10:00 AM EDT ([facility] 01/30/2019 [facility] 10:10:00 AM EDT Medical Center) Attender: Wanda Silveira 01/27/2019 [facility] 02:56:00 PM EDT ([facility] - 01/27/2019 [facility] 02:56:00 PM EDT Medical Center) Outpatient 01/27/2019 [facility] 01:56:00 PM EDT Medical Center Outpatient 01/27/2019 [facility] 12:00:00 AM EDT Medical Center Attender: Ella Silveira 01/25/2019 [facility] 10:41:00 AM EDT ([facility] - 01/25/2019 [facility] 10:41:00 AM EDT Medical Center) Outpatient 01/13/2019 [facility] ([place] 11:31:59 AM EDT [facility]) Patient admitted. Outpatient 01/13/2019 11:31:56 AM EDT [facility] ([facility]) Patient admitted. Attender: [facility] 04:13:00 PM EDT [facility] 01/06/2019 Medical 04:13:00 PM EDT Center) Attender: [facility] 01/04/2019 NEXTGEN (Sa int Louis Herrera MD [place] 02:46:00 PM EDT [facility] - 01/04/2019 Medical 02:46:00 PM EDT Center) Individual Psychotherapy Attender: [facility] 12/14/2018 [facility] ([facility] (30 Min) [facility] 11[facility]59:00 AM EDT [facility] - 12/14/2018 Medical 11:59:00 AM EDT Center) OutpatientOFFICE/OUTPATI Attender: Mental Health 12/14/2018 [facility] ([facility] ENT VISIT, EST [facility] 11:51:00 AM EDT [facility] Heller - 12/14/2018 Medical 11:51:00 AM EDT Center) OutpatientOFFICE/OUTPATI Attender: Mental [facility] 10[facility]19[facility], EST [facility] 11:12:00 AM EDT [place] Heller - 10/19/2018 Medical 11:12:00 AM EDT Center) Attender: [facility] 10/18/2018 NEXTGE N ([facility] Ad[facility] SEGOVIA [facility] 04:09:00 PM EDT [facility] - 10/18/2018 Medical 04:09:00 PM EDT Center) Attender: [facility] 10/14/2018 [facility] N ([facility] Ad[facility] SEGOVIA [facility] 09:03:00 AM EDT [facility] - 10/14/2018 Medical 09:03:00 AM EDT Center) Attender: [facility] 10/13/2018 [facility] ([facility] 02:54:00 PM EDT [facility] - 10/13/2018 Medica l 02:54:00 PM EDT Center) Attender: Lizbet [facility] 10/11/2018 NEXTG EN ([facility] 03:59:00 PM EDT [facility] - 10/11/2018 Medical 03:59:00 PM EDT Center) Attender: Ella [facility] 09/21/2018 NEXTGE N ([facility] 10:50:00 AM EDT [facility] - 09/21/2018 Medical 10:50:00 AM EDT Center) Outpatient 09/20/2018 [facility] 12:19:00 PM EDT Medical C enter Outpatient 09/20/2018 [facility] 12:00:00 AM EDT Medical C enter Outpatient 09/12/2018 [facility] 03:01:00 PM EDT Medical C enter Attender: [facility] 09/12/2018 NEXTGE N ([facility] 01:01:00 PM EDT [facility] - 09/12/2018 Medical 01:01:00 PM EDT Center) Outpatient Attender: Kaelyn Krueger 09/12/2018 [facility] andre DaniezAdmitter: 11:45:00 AM EDT Medic al Center Kaelyn ValerioReferrer: Kaelyn Valerio Individual Psychotherapy Attender: [facility] 09[facility]12/[facility] (45 Min) [facility] 11:45:00 AM EDT [facility] - 09/12/2018 Medical 11:45:00 AM EDT Center) Outpatient 09/12/2018 [facility] 12:00:00 AM EDT Medical C enter Attender: [facility] 09/02/2018 [facility] N ([facility] 09:40:00 AM EDT [facility] - 09/02/2018 Medical 09:40:00 AM EDT Center) Individual Psychotherapy Attender: [facility] 08/24/2018 [facility] ([facility] (30 Min) [facility] 05:03:00 PM EDT [facility] - 08/24/2018 Medical 05:03:00 PM EDT Center) OutpatientOFFICE/OUTPATI Attender: [facility] 08/24/2018 [facility] ([facility] ENT VISIT, [facility] 03:18:00 PM EDT [facility] Heller - 08/24/2018 Medical 03:18:00 PM EDT Center) Attender: [facility] 08/15/2018 [facility] N ([facility] 02:20:00 PM [facility] - 08/15/2018 Medical 02:20:00 PM EST Center) Individual Psychotherapy Attender: [facility] 07/20/2018 [facility] ([facility] (30 Min) [facility] 04:42:00 PM [facility] - 07/20/2018 Medical 04:42:00 PM EST Center) OutpatientOFFICE/OUTPATI Attender: [facility] 07/01/2018 [facility] E[facility], [facility] 03:00:00 PM EST Johnny taylor - 07/01/2018 Medical 03:00:00 PM EST Center) Individual Psychotherapy Attender: [facility] 06/22/2018 [facility] (30 Min[facility] 04:56:00 PM EST [facility] - 06/22/2018 Medical 04:56:00 PM EST Center) OutpatientOFFICE/OUTPATI Attender: Mental Health 06/22/2018 [facility], [facility] 04:10:00 PM [facility] armando Lavina - 06/22/2018 Medical 04:10:00 PM EST Center) Outpatient Attender: 06/22/2018 [facility] 10:05:00 AM [facility] Medical [facility] NOLAN PULIDO RAdmitter: TESS Beaulieu OutpatientOFFICE/OUTPATI Attender: [facility] 03/29/2018 [facility] ([facility] ENT VISIT, [facility] 02:00:00 PM EDT [facility] 03/29/2018 Medical 02:00:00 PM EDT Center) Individual Psychotherapy Attender: [facility] 03/08/2018 [facility] ([facility] (45 Min) [facility] 12:20:00 PM EDT [facility] - 03/08/2018 Medical 12:20:00 PM EDT Center) OutpatientOFFICE/OUTPATI Attender: [facility] 03/02/2018 [facility] ([facility] ENT VISIT, [facility] 11:08:00 AM EDT [facility] - 03/02/2018 Medical 11:08:00 AM EDT Center) Individual Psychotherapy Attender: [facility] 02/22/2018 [facility] ([facility] (45 Min) [facility] 03:17:00 PM EDT [facility] - 02/22/2018 Medical 03:17:00 PM EDT Center) Attender: [facility] 02/22/2018 [facility] N ([facility] 02:30:00 PM EDT [facility] - 02/22/2018 Medical 02:30:00 PM EDT Center) Individual Psychotherapy Attender: [facility] 02/18/2018 [facility] ([facility] (30 Min) [facility] 10:56:00 AM EDT [facility] - 02/18/2018 Medical 10:56:00 AM EDT Center) OutpatientOFFICE/OUTPATI Attender: [facility] 01/28/2018 [facility] ([facility], [facility] 03:50:00 PM EDT Johnny hs - 01/28/2018 Medical 03:50:00 PM EDT Center) OutpatientOFFICE/OUTPATI Attender: [facility] 12/29/2017 [facility] ([facility]ISIT, EST [facility] 10:13:00 AM EDT Johnny hs - 12/29/2017 Medical 10:13:00 AM EDT Center) OutpatientOFFICE/OUTPATI Attender: [facility] 12/17/[facility] 02:49:00 PM EDT Johnny hs - 12/17/2017 Medical 02:49:00 PM EDT Center) OutpatientOFFICE/OUTPATI Attender: [facility] 11/30/2017 [facility], [facility] 02:21:00 PM EDT Johnny hs - 11/30/2017 Medical 02:21:00 PM EDT Center) Attender: [facility] 11/16/2017 NEXT EN ([facility] 04:43:00 PM EDT [facility] - 11/16/2017 Medical 04:43:00 PM EDT Center) OutpatientOFFICE/OUTPATI Attender: [facility] 11/16/2017 [facility] 01:44:00 PM [facility] 11/16/2017 Medical 01:44:00 PM EDT Center) OutpatientOFFICE/OUTPATI Attender: [facility] 11/02/2017 [facility] ([facility]ISIT, EST [facility] 02:47:00 PM [facility] 11/02/2017 Medical 02:47:00 PM EDT Center) OutpatientOFFICE/OUTPATI Attender: [facility] 10/19/2017 [facility] ([facility] ENT VISIT, EST [facility] 01:06:00 PM EDT Johnny hs - 10/19/2017 Medical 01:06:00 PM EDT Center) OutpatientOFFICE/OUTPATI Attender: [facility] 10/05/2017 [facility] ([facility]NT VISIT, EST [facility] 01:57:00 PM EDT Johnny hs - 10/05/2017 Medical 01:57:00 PM EDT Center) OutpatientOFFICE/OUTPATI Attender: [facility] 09/20/2017 [facility], [facility] 01:43:00 PM EDT Johnny - 09/20/2017 Medical 01:43:00 PM EDT Center) OutpatientOFFICE/OUTPATI Attender: [facility] 08/31/2017 [facility], [facility] 01:20:00 PM EDT Jhonny - 08/31/2017 Medical 01:20:00 PM EDT Center) OutpatientOFFICE/OUTPATI Attender: [facility] 08/17/2017 [facility], [facility] 02:59:00 PM EST Johnny - 08/17/2017 Medical 02:59:00 PM EST Center) OutpatientOFFICE/OUTPATI Attender: [facility] 07/30/2017 [facility] ([facility] ENT VISIT, EST [facility] 03:37:00 PM EST Johnny - 07/30/2017 Medical 03:37:00 PM EST Center) OutpatientOFFICE/OUTPATI Attender: [facility] 07/23/2017 [facility] ([facility] ENT VISIT, EST [facility] 02:17:00 PM EST Johnny - 07/23/2017 Medical 02:17:00 PM EST Center) OutpatientOFFICE/OUTPATI Attender: [facility] 07/09/2017 [facility] ([facility] ENT VISIT, EST [facility] 02:21:00 PM EST Johnny - 07/09/2017 Medical 02:21:00 PM EST Center) OutpatientOFFICE/OUTPATI Attender: [facility] 06/29/2017 [facility] ([facility] ENT VISIT, EST [facility] 03:02:00 PM EST Johnny - 06/29/2017 Medical 03:02:00 PM EST Center) OutpatientOFFICE/OUTPATI Attender: [facility] 03/01/2017 [facility] ([facility] ENT VISIT, EST [facility] 10:37:00 AM EDT Johnny - 03/01/2017 Medical 10:37:00 AM EDT Center) OutpatientOFFICE/OUTPATI Attender: [facility] 01/26/2017 [facility], [facility] 03:32:00 PM [facility]T [facility] 01/26/2017 Medical 03:32:00 PM EDT Center) OutpatientOFFICE/OUTPATI Attender: [facility] 01/12/2017 [facility], [facility] 01:53:00 PM EDT Johnny hs - 01/12/2017 Medical 01:53:00 PM EDT Center) Psychiatric Diagnostic Attender: [facility] 01/12/2017 [facility] Interview (45+ Min) [facility] 12:09:00 PM EDT [facility] - 01/12/2017 Medical 12:09:00 PM EDT Center) OutpatientOFFICE/OUTPATI Attender: [facility] 12/01/2016 [facility], EST [facility] 03:20:00 PM EDT [facility] 12/01/2016 Medical 03:20:00 PM EDT Center) OutpatientOFFICE/OUTPATI Attender: [facility] 11/20/2016 [facility] ENT VISIT, EST [facility] 02:15:00 PM EDT [facility] 11/20/2016 Medical 02:15:00 PM EDT Center) OutpatientOFFICE/OUTPATI Attender: [facility] 10/20/2016 [facility], EST [facility] 01:44:00 PM EDT [facility] 10/20/2016 Medical 01:44:00 PM EDT Center) OutpatientOFFICE/OUTPATI Attender: [facility] 10/06/2016 [facility], [facility] 03:14:00 PM EDT [facility] 10/06/2016 Medical 03:14:00 PM EDT Center) OutpatientOFFICE/OUTPATI Attender: [facility] 09/23/2016 [facility], [facility] 10:42:00 AM EDT [facility] 09/23/2016 Medical 10:42:00 AM EDT Center) OutpatientOFFICE/OUTPATI Attender: [facility] 09/10/2016 [facility], [facility] 12:39:00 PM EDT [facility] 09/10/2016 Medical 12:39:00 PM EDT Center) OutpatientOFFICE/OUTPATI Attender: [facility] 08/28/2016 [facility] ([facility] E[facility]ISIT, EST [facility] 01:52:00 PM EDT Johnny - 08/28/2016 Medical 01:52:00 PM EDT Center) OutpatientOFFICE/OUTPATI Attender: [facility] 08/17/2016 [facility] 10:51:00 AM EST Johnny - 08/17/2016 Medical 10:51:00 AM EST Center) OutpatientOFFICE/OUTPATI Attender: [facility] 07/21/2016 [facility] 01:42:00 PM EST Johnny - 07/21/2016 Medical 01:42:00 PM EST Center) OutpatientOFFICE/OUTPATI Attender: [facility] 06/24/2016 [facility], [facility] 09:50:00 AM EST Johnny - 06/24/2016 Medical 09:50:00 AM EST Center) OutpatientOFFICE/OUTPATI Attender: [facility] 05/26/2016 [facility], [facility] 03:03:00 PM EST Johnny - 05/26/2016 Medical 03:03:00 PM EST Center) OutpatientOFFICE/OUTPATI Attender: [facility] 04/20/2016 [facility], [facility] 10:08:00 AM EST Johnny - 04/20/2016 Medical 10:08:00 AM EST Center) OutpatientOFFICE/OUTPATI Attender: [facility] 03/19/2016 [facility] ([facility] ENT VISIT, EST [facility] 02:13:00 PM EDT Johnny - 03/19/2016 Medical 02:13:00 PM EDT Center) OutpatientOFFICE/OUTPATI Attender: [facility] 02/19/2016 [facility], [facility] 11:33:00 AM EDT Johnny - 02/19/2016 Medical 11:33:00 AM EDT Center) OutpatientOFFICE/OUTPATI Attender: [facility] 02/06/2016 [facility] ([facility] ENT [facility]ISIT, EST [facility] 10:56:00 AM EDT Johnny - 02/06/2016 Medical 10:56:00 AM EDT Center) OutpatientOFFICE/OUTPATI Attender: [facility] 01/09/2016 [facility], [facility] 09:54:00 AM EDT [facility] 01/09/2016 Medical 09:54:00 AM EDT Center) OutpatientOFFICE/OUTPATI Attender: [facility] 12/18/2015 [facility], [facility] 10:28:00 AM EDT [facility] 12/18/2015 Medical 10:28:00 AM EDT Center) OutpatientOFFICE/OUTPATI Attender: [facility] 11/21/2015 [facility], [facility] 10:49:00 AM EDT Johnny hs - 11/21/2015 Medical 10:49:00 AM EDT Center) OutpatientOFFICE/OUTPATI Attender: [facility] 11/08/2015 [facility] ENT VISIT, EST Jessica Contre[facility] 11:45:00 AM EDT [facility] - 11/08/2015 Medical 11:45:00 AM EDT Center) OutpatientOFFICE/OUTPATI Attender: [facility] 10/24/2015 [facility], [facility] 01:42:00 PM EDT [facility] 10/24/2015 Medical 01:42:00 PM EDT Center) OutpatientOFFICE/OUTPATI Attender: [facility] 10/10/2015 [facility] ([facility] ENT VISIT, EST [facility] 10:01:00 AM EDT [facility] 10/10/2015 Medical 10:01:00 AM EDT Center) [facility]OFF[facility]PATI [facility] ENT VISIT, EST [facility] 11:32:00 AM EDT [facility] 09/26/2015 Medical 11:32:00 AM EDT Center) OutpatientOFFICE/OUTPATI Attender: [facility] 09/12/2015 [facility], [facility] 11:33:00 AM EDT [facility] 09/12/2015 Medical 11:33:00 AM EDT Center) OutpatientOFFICE/OUTPATI Attender: [facility] 08/29/2015 [facility], [facility] 11:30:00 AM EDT [facility] 08/29/2015 Medical 11:30:00 AM EDT Center) OutpatientOFFICE/OUTPATI Attender: [facility] 08/09/2015 [facility], [facility] 10:53:00 AM EST Johnny - 08/09/2015 Medical 10:53:00 AM EST Center) OutpatientOFFICE/OUTPATI Attender: [facility] 07/25/2015 [facility] 01:36:00 PM EST Johnny - 07/25/2015 Medical 01:36:00 PM EST Center) OutpatientOFFICE/OUTPATI Attender: [facility] 06/21/2015 [facility], [facility] 11:12:00 AM EST Johnny - 06/21/2015 Medical 11:12:00 AM EST Center) OutpatientOFFICE/OUTPATI Attender: [facility] 05/23/2015 [facility], [facility] 10:47:00 AM EST Johnny - 05/23/2015 Medical 10:47:00 AM EST Center) OutpatientOFFICE/OUTPATI Attender: [facility] 05/07/2015 [facility], [facility] 11:06:00 AM [facility] 05/07/2015 Medical 11:06:00 AM EST Center) OutpatientOFFICE/OUTPATI Attender: [facility] 04/25/2015 [facility], [facility] 01:31:00 PM EST Johnny hs - 04/25/2015 Medical 01:31:00 PM EST Center) OutpatientOFFICE/OUTPATI Attender: [facility] 04/05/2015 [facility], [facility] 11:31:00 AM EDT [facility] 04/05/2015 Medical 11:31:00 AM EDT Center) OutpatientOFFICE/OUTPATI Attender: [facility] 03/22/2015 [facility], [facility] 10:13:00 AM EDT [facility] 03/22/2015 Medical 10:13:00 AM EDT Center) OutpatientOFFICE/OUTPATI Attender: [facility] 02/21/2015 [facility] ([facility] ENT VISIT, EST [facility] 02:11:00 PM EDT Johnny hs - 02/21/2015 Medical 02:11:00 PM EDT Center) OutpatientOFFICE/OUTPATI Attender: [facility] 01/24/2015 [facility] 01:32:00 PM EDT Johnny hs - 01/24/2015 Medical 01:32:00 PM EDT Center) OutpatientOFFICE/OUTPATI Attender: [facility] 12/21/2014 [facility] 11:45:00 AM EDT Johnny hs - 12/21/2014 Medical 11:45:00 AM EDT Center) OutpatientOFFICE/OUTPATI Attender: [facility] 11/23/2014 [facility], [facility] 11:32:00 AM EDT Johnny hs - 11/23/2014 Medical 11:32:00 AM EDT Center) OutpatientOFFICE/OUTPATI Attender: [facility] 10/26/2014 [facility], [facility] 11:41:00 AM EDT Johnny hs - 10/26/2014 Medical 11:41:00 AM EDT Center) OutpatientFocused Attender: [facility] 09/26/2014 [facility] Medical 11:32:00 AM EDT Center) OutpatientOFFICE/OUTPATI Attender: [facility] 08/23/2014 [facility], [facility] 02:00:00 PM EDT Johnny hs - 08/23/2014 Medical 02:00:00 PM EDT Center) OutpatientOFFICE/OUTPATI Attender: [facility] 07/27/2014 [facility] 10:52:00 AM EST Johnny hs - 07/27/2014 Medical 10:52:00 AM EST Center) OutpatientOFFICE/OUTPATI Attender: [facility] 07/06/2014 [facility], [facility] 10:42:00 AM EST Johnny hs - 07/06/2014 Medical 10:42:00 AM EST Center) OutpatientOFFICE/OUTPATI Attender: [facility] 06/22/2014 [facility] ([facility]ISIT, [facility] 10:46:00 AM EST Johnny hs - 06/22/2014 Medical 10:46:00 AM EST Center) Attender: [facility] 06/01/2014 [facility] N ([facility] 12:54:00 PM EST [facility] - 06/01/2014 Medical 12:54:00 PM EST Center) Attender: [facility] 05/18/2014 NEXT N ([facility] 12:27:00 PM EST [facility] - 05/18/2014 Medical 12:27:00 PM EST Center) OutpatientOFFICE/OUTPATI Attender: [facility] 05/03/2014 [facility], [facility] 10:48:00 AM EST Johnny hs - 05/03/2014 Medical 10:48:00 AM EST Center) OutpatientOFFICE/OUTPATI Attender: [facility] 04/26/2014 [facility], [facility] 10:31:00 AM EST Johnny hs - 04/26/2014 Medical 10:31:00 AM EST Center) OutpatientOFFICE/OUTPATI Attender: [facility] 03/22/2014 [facility], [facility] 02:19:00 PM EDT [facility] - 03/22/2014 Medical 02:19:00 PM EDT Center) OutpatientOFFICE/OUTPATI Attender: [facility] 02/23/2014 [facility], [facility] 11:56:00 AM EDT [facility] - 02/23/2014 Medical 11:56:00 AM EDT Center) OutpatientOFFICE/OUTPATI Attender: [facility] 01/23/2014 [facility], [facility] 04:57:00 PM EDT [facility] - 01/23/2014 Medical 04:57:00 PM EDT Center) OutpatientOFFICE/OUTPATI Attender: [facility] 12/21/2013 [facility] ([facility] ENT VISIT, EST [facility] 11:22:00 AM EDT [facility] - 12/21/2013 Medical 11:22:00 AM EDT Center) Outpatient ST[facility] 12/12/2013 [facility] 02:40:00 PM EDT [facility] - 02/21/2014 04:32:00 PM EDT Attender: [facility] 11/23/2013 [facility] N ([facility] 01:30:00 PM EDT [facility] - 11/23/2013 Medical 01:30:00 PM EDT Center) OutpatientOFFICE/OUTPATI Attender: [facility] 10/20/2013 [facility] ([facility] ENT [facility]ISIT, [facility] 11:34:00 AM EDT Johnny hs - 10/20/2013 Medical 11:34:00 AM EDT Center) OutpatientOFFICE/OUTPATI Attender: [facility] 09/20/2013 [facility] 11:22:00 AM EDT Johnny hs - 09/20/2013 Medical 11:22:00 AM EDT Center) OutpatientOFFICE/OUTPATI Attender: [facility] 08/24/2013 [facility] ([facility]ISIT, [facility] 01:22:00 PM EDT Johnny hs - 08/24/2013 Medical 01:22:00 PM EDT Center) OutpatientOFFICE/OUTPATI Attender: [facility] 07/26/2013 [facility] ([facility]ISIT, [facility] 09:39:00 AM EST Johnny hs - 07/26/2013 Medical 09:39:00 AM EST Center) OutpatientOFFICE/OUTPATI Attender: [facility] 06/23/2013 [facility], [facility] 11:23:00 AM EST Johnny hs - 06/23/2013 Medical 11:23:00 AM EST Center) OutpatientOFFICE/OUTPATI Attender: [facility] 05/25/2013 [facility] ([facility] ENT [facility]ISIT, [facility] 01:33:00 PM EST Johnny - 05/25/2013 Medical 01:33:00 PM EST Center) [facility]OFFICE [facility] [facility] 04/25/2013 LUZ ELENA EN ([facility] 01:26:00 PM EST Lyssa Marylud - 04/25/2013 Medical 01:26:00 PM EST Center) OutpatientOFFICE/OUTPATI Attender: [facility] 03/24/2013 CAIT ([facility] ENT VISIT, EST [facility] 09:24:00 AM EDT Johnny hs - 03/24/2013 Medical 09:24:00 AM EDT Center) OutpatientOFFICE/OUTPATI Attender: [facility] 02/23/2013 NEXTGEN ([facility] ENT VISIT, EST [facility] 03:51:00 PM EDT Johnny taylor [place] - 02/23/2013 Medical 03:51:00 PM EDT Center) Attender: [facility] 06/17/2012 NEXTGE N ([facility] 10:46:00 AM [facility] - 06/17/2012 Medical 10:46:00 AM EST Center) OutpatientOFFICE Attender: [facility] 06/01/2012 NEXTGEN ([facility] 10:52:00 AM [facility] - 06/01/2012 Medical 10:52:00 AM EST Center) Immunizations Vaccine Date Status Description Data Source(s) Tdap 02/03/2019 12:00:00 AM completed Tdap NEXTG EN ([facility] EDT Center) Source: New Immunization Record IIV3. This is one 03/19/2016 12:00:00 completed Influenza, seaso nal, NEXTGEN ([facility] AM EDT injectable (3 yrs or [facility] Medical replacing CVX 15, older) Center) which is being retired. Source: New Immunization Record This CVX code has little completed Influenza vaccin e NEXTGEN ([facility] utility and should rarely be Medical Center) used. Source: New Immunization Record This CVX code has little completed Td vaccine NEX TGEN ([facility] utility and should rarely be Center) used. Source: New Immunization Record New in 2011. IIV4 completed Influenza, Injectable, NEXTGEN ([facility]) Note: Refused ; Source: New Immunization Record Medications Medication Brand Start Product Dose Route Administrative Pharmacy [facility] Indications Reaction Description Data Name Date Form Instructions Instructions Source(s) Furosemide FUROSE ORAL complet TAKE 1 NEXTGEN 20 MG Oral MIDE 2019 {tabl ed TABLET BY (Sa int Tablet 12:00: et} ORAL ROUTE Johnny taylor FUROSEMIDE 20MG 00 AM EVERY DAY Med [...] [place]sa mg tablet every day Medic al [facility]) Hydrochlorothi losartan 100 02/09/2020 1.00 ORAL complet [...] [place]sa [Prozac] [Prozac] Medical Prozac 10 mg [place]) capsule aripiprazole Abilify 20 mg 02/06/2020 1.00 ORAL active aripiprazole NEXTGEN 20 MG Oral tablet 12:00:00 AM {tablet 20 MG Oral ([facility] Tablet EDT } Tablet [place] [Abilify] [Abilify] Medic al Abilify 20 mg [place] ) tablet Methadone methadone 10 01/24/2020 42 [...] [place] mg tablet every day Medic al [facility]) atorvastatin ATORVASTATIN 12/25/2019 completed TAKE ONE NEXTGEN 20 MG Oral 20MG TAB 12:00:00 AM TABLET BY ([facility] Tablet EDT MOUTH DAILY Dhruv s ATORVASTATIN Medical 20MG TAB [place]) 200 ACTUAT ALBUTEROL 11/23/2019 active N [id number] NEXTGEN Albuterol 0.09 (VENTOLIN) 12:00:00 AM 200 ACTUAT ([facility] MG/ACTUAT 90MCG/ACT AER EDT albute rol [place]sa Metered Dose 0.09 Medical Inhaler MG/ACTUAT [place]) [Ventolin] Metered Dose ALBUTEROL Inhaler (VENTOLIN) [Ventolin] [...] DAILY Dhruv s ATORVASTATIN Medical CALCIUM 20MG [place]) TAB Fluoxetine 10 Prozac 10 mg 09/20/2019 3 ORAL completed fluoxetine NEXTGEN MG Oral capsule 12:00:00 AM {capsul 10 M G Oral ([facility] Capsule EDT e} Capsule [place] [Prozac] [Prozac] Medical Prozac 10 mg [place]) capsule aripiprazole Abilify 20 mg 09/20/2019 1.00 ORAL completed aripiprazole NEXTGEN 20 MG Oral tablet 12:00:00 AM {tablet 20 MG Oral ([facility] Tablet EDT } Tablet [place] [Abilify] [Abilify] Medic al Abilify 20 mg [place] ) tablet aripiprazole Abilify 20 mg 08/02/2019 1.00 ORAL completed aripiprazole NEXTGEN 20 MG Oral tablet 12:00:00 AM {tbl} 20 M G Oral ([facility] Tablet EST Tablet [place] [Abilify] [Abilify] Medic al Abilify 20 mg [place] ) tablet Fluoxetine 10 Prozac 10 mg 08/02/2019 3 ORAL completed Fluoxetine NEXTGEN MG Oral capsule 12:00:00 AM {capsul 10 M G Oral ([facility] Capsule EST e} Capsule [place] [Prozac] [Prozac] Medical Prozac 10 mg [place]) capsule 200 ACTUAT Ventolin HFA 07/26/2019 completed [id number] NEXTGEN Albuterol 0.09 90 12:00:00 AM 200 [...] EST Tablet [place]sa Abilify 20 mg [Abilify] M edical tablet Center) Fluoxetine 10 MG Prozac 10 05/09/2019 3 ORAL completed Fluoxetine 10 NEXTGEN Oral Capsule mg capsule 12:00:00 AM {capsu MG Oral (Saint [Prozac] Prozac EST le} Capsule J osephs 10 mg capsule [Prozac] Ny dical [place]) Hydrochlorothiaz losartan 03/22/2019 1.00 ORAL completed take [...] EDT Tablet [place]sa Abilify 20 mg [Abilify] M edical tablet Center) Fluoxetine 10 MG Prozac 10 03/14/2019 3 ORAL completed Fluoxetine 10 NEXTGEN Oral Capsule mg capsule 12:00:00 AM {capsu MG Oral (Saint [Prozac] Prozac EDT le} Capsule J osephs 10 mg capsule [Prozac] Ny dical [place]) Buprenorphine 8 Suboxone 8 02/03/2019 completed Buprenorphine NEXTGEN MG / Naloxone 2 mg-2 mg 12:00:00 AM 8 MG / (Saint MG Oral Strip sublingual EDT Nalox one 2 MG [place]sa [Suboxone] film Oral Strip Med ical Suboxone 8 mg-2 [Suboxone ] Center) mg sublingual film [id number] Buprenorphine Suboxone 12 02/03/2019 1 SUBLINGUAL complet [...] [Abilify] [Abilify] Medic al Abilify 20 mg [place] ) tablet Fluoxetine 10 Prozac 10 10/19/2018 [...] [Abilify] [Abilify] Medic al Abilify 20 mg [place] ) tablet Buprenorphine Suboxone 8 09/12/2018 completed Buprenorphine NEXTGEN 8 MG / mg-2 mg 12:00:00 AM 8 MG / ( [facility] Naloxone 2 MG sublingual EDT Nalox one 2 MG [place]sa Oral Strip film Oral Strip Med ical [Suboxone] [Suboxone] Alannah ter) Suboxone 8 mg-2 mg sublingual film [id number] Fluoxetine 10 Prozac 10 08/24/2018 3 ORAL completed Fluoxetine 10 NEXTGEN MG Oral mg capsule 12:00:00 AM {capsule} MG Oral ([facility] Capsule EDT Capsule [place] [Prozac] [Prozac] Medical Prozac 10 mg [place]) capsule aripiprazole Abilify 20 08/24/2018 1.00 {tbl} ORAL completed aripiprazole NEXTGEN 20 MG Oral mg tablet 12:00:00 AM 20 MG Oral ([facility] Tablet EDT Tablet [place] [Abilify] [Abilify] Medic al Abilify 20 mg [place] ) tablet Hydrochloroth losartan 08/15/2018 1.00 {tbl} ORAL completed take 1 tablet NEXTGEN iazide 25 MG 100 12:00:00 AM by or al route ([facility] / Losartan mg-hydroch EST every d ay Lyssa Potassium 100 lorothiazi Medical MG Oral de 25 mg [place]) Tablet tablet losartan 100 mg-hydrochlor othiazide 25 mg tablet aripiprazole fy 20 06/22/2018 1.00 {tbl} ORAL completed aripiprazole NEXTGEN 20 MG Oral mg tablet 12:00:00 AM 20 MG Oral ([facility] Tablet EST Tablet [place] [Abilify] [Abilify] Medic al Abilify 20 mg [place] ) tablet Fluoxetine 10 Prozac 10 06/22/2018 3 ORAL completed Fluoxetine 10 NEXTGEN MG Oral mg capsule 12:00:00 AM {capsule} MG Oral ([facility] Capsule EST Capsule [place] [Prozac] [Prozac] Medical Prozac 10 mg [place]) capsule Buprenorphine Suboxone 8 02/22/2018 active Buprenorphine NEXTGEN 8 MG / mg-2 mg 12:00:00 AM 8 MG / ( [facility] Naloxone 2 MG sublingual EDT Nalox one 2 MG [place] Oral Strip film Oral Strip Med ical [Suboxone] [Suboxone] Alannah ter) Suboxone 8 mg-2 mg sublingual film [id number] Aspirin 81 MG Aspir-81 81 mg 12/29/2017 1.00 ORAL completed take 1 NEXTGEN Delayed Release tablet,delayed 12:00:00 AM {tbl} tablet ( Oral Tablet release EDT by oral Shania wilkins Aspir-81 81 mg route [facility] tablet,delayed every Cent er) release day Acetaminophen [...] daily 12:00:00 AM patch RMAL patch by ([facility] Transdermal transdermal EST transd er [facility] Patch nicotine patch mal [facility] 14 mg/24 hr route Center) daily every transdermal day patch Narcan 4 naloxone 06/29/2017 0.10 NASAL active nal oxone NEXTGEN mg/actuation hydrochloride 12:00:00 AM mL hydrochl ( nasal spray 40 MG/ML Nasal EST genie de 40 [facility] [place] MG/ML Medical Nasal [place]) [place] [Narcan] Methadone methadone 10 25 mL ORAL completed t barb 25 NEXTGEN Hydrochloride 2 mg/5 mL oral m illilit ( MG/ML Oral solution er by [facility] Solution oral Medical methadone 10 [...] Oral capsule {capsule} 20 MG Ora l ([facility] Capsule Capsule [place] [Prozac] [Prozac] Medical Prozac 20 mg Center) capsule Abilify 15 mg aripiprazole 1.00 {tbl} ORAL completed take 1 NEXTGEN tablet 15 MG Oral tablet (Rochelle t Tablet (15MG) by Lyssa [Abilify] oral route [facility] every day Center) Clotrimazole clotrimazole 1.00 ORAL completed take 1 NEXTGEN 10 MG Oral 10 mg dani {tablet} ta blet by ([facility] Lozenge oral route 5 [place] [facility] clotrimazole times every Medical 10 mg dani [...] route Lyssa mg tablet every day in Ny dical the morning Center) takes 30mg Dexamethasone 4 Decadron 4 1 {tablet} ORAL completed dexamethasone NEXTGEN MG Oral Tablet mg tablet 4 MG Oral (Saint [Decadron] Tablet [place] Decadron 4 mg [Decadron] Medical tablet Center) Lenvima 4 mg lenvatinib 4 ORAL active [...] name Policy type Policy ID Covered Covered republican's Policy P iesha / Coverage republican ID relationship to Loaiza Inf ormation type loaiza MVP MEDICAID [id number] SP [id number] O MVP/HHP [id number] self [id number] MVP/HHP O [id number] [facility] METHADONE [phone] [id number] [employer]TE[employer] [id number] self [id number] MVP PSYCH OP O [id number] 01 [id number] MVP/HHP O [id number] 01 [id number] 1VP/HHP [id number] self [id number] [facility] O [id number] 01 [id number] [facility] [id number] self [id number] [facility]ION [facility] [id number] SP [id number] HEALTH-MVP MEDICAID OP [id number] Self [id number] [facility] [id number] self [id number] [facility] [id number] SP [id number] HEALTH-MVP "" O [id number] 01 [id number] [facility] O [id number] 01 [id number] [facility] O [id number] 01 [id number] OPTIONS MVP [id number] self [id number] [facility] HEALTH [id number] self [id number] [employer] 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 GEN with other drug with other drug 12:00:00 AM (Sa int dependence in dependence in [facility]) [id number] Child attention Child attention Problem 04/25/2013 NEXT GEN deficit disorder deficit disorder 12:00:00 [facility] [id number] Benign essential Benign essential Problem 04/25/2013 NE XTGEN hypertension hypertension 12:00:00 AM ([facility]) [id number] Bipolar disorder Bipolar disorder Problem 04/25/2013 NE XTGEN 12:00:00 AM ([facility]) [id number] Acute hepatitis C Acute hepatitis C Problem 06/17/2012 NEXTGEN 12:00:00 AM ([facility]) Z71.9 Counseling, COUNSELING, Diagnosis 02/20/2020 [facility] unspecified UNSPECIFIED 10:37:00 AM Medical EDT Center Z71.3 Dietary counseling DIETARY Diagnosis 02/20/2020 [facility] and surveillance COUNSELING AND 10:37:[address] [facility] SURVEILLANCE EDT Center F11.29 Opioid dependence OPIOID DEPENDENCE Diagnosis 02/20/2020 [facility] with unspecified WITH UNSPECIFIED 10:37:00 AM M edical opioid-induced OPIOID-INDUCED EDT Center disorder DISORDER C22.0 Liver cell LIVER CELL Diagnosis 02/20/2020 [facility] carcinoma CARCINOMA 10:37:00 AM Medical EDT Center Z71.51 Drug abuse DRUG ABUSE Diagnosis 01/30/2020 [facility] counseling and COUNSELING AND 11:21:00 AM Medic al surveillance of SURVEILLANCE OF EDT Cent er drug abuser DRUG ABUSER R60.9 Edema, unspecified EDEMA, Diagnosis 01/30/2020 [facility] UNSPECIFIED 11:21:00 AM Medical EDT Center F11.20 [...] foot PAIN IN LEFT FOOT Diagnosis 08/08/2019 [facility] 09:50:00 AM Medical EST Center M72.2 Plantar fascial PLANTAR FASCIAL Diagnosis 08/08/2019 [facility] fibromatosis FIBROMATOSIS 09:50:00 AM Medical EST Center Z71.89 Other specified OTHER SPECIFIED Diagnosis 07/26/2019 [facility] counseling COUNSELING 06:13:00 PM Medical EST Center Z71.6 Tobacco abuse TOBACCO ABUSE Diagnosis 07/26/2019 [facility] Shania wilkins counseling COUNSELING 06:13:00 PM Medical EST Center F17.200 Nicotine NICOTINE Diagnosis 07/26/2019 [facility] dependence, DEPENDENCE, 06:13:00 PM Medical unspecified, UNSPECIFIED, EST Center uncomplicated UNCOMPLICATED J68.3 Other acute and OTH AC and SUBAC Diagnosis 07/26/2019 A[facility] subacute RESP COND D/T 06:13:00 PM Medical respiratory CHEMICALS, GAS, EST Center conditions due to FUMES and VAPORS chemicals, gases, fumes and vapors E78.00 Pure PURE Diagnosis 07/18/2019 [facility] hypercholesterolemi HYPERCHOLESTEROLE 03:14:00 PM Medical a, unspecified CLARENCE, UNSPECIFIED EST Cent er Z12.2 Encounter for ENCNTR SCREEN FOR Diagnosis 07/18/2019 [facility] screening for MALIGNANT 03:14:00 PM Medical malignant neoplasm NEOPLASM OF EST Cente r of respiratory RESPIRATORY organs ORGANS F31.9 Bipolar disorder, BIPOLAR DISORDER, Diagnosis 06/24/2019 [facility] unspecified UNSPECIFIED 01:40:00 PM Medical EST Center Z68.39 Body mass index BODY MASS INDEX Diagnosis 03/22/2019 [facility] (BMI) 39.0-39.9, (BMI) 39.0-39.9, 05:27:00 PM [facility] adult ADULT EDT Center E66.9 Obesity, OBESITY, Diagnosis 03/22/2019 [facility] unspecified UNSPECIFIED 05:27:00 PM Medical EDT Center E11.9 Type 2 diabetes TYPE 2 DIABETES Diagnosis 03/22/2019 [facility] mellitus without MELLITUS WITHOUT 05:27:00 PM [facility] complications COMPLICATIONS EDT Center M54.5 Low back pain LOW BACK PAIN Diagnosis 03/22/2019 [facility] Shania wilkins 05:27:00 PM Medical EDT Center B18.2 Chronic viral CHRONIC VIRAL Diagnosis 03/22/2019 [facility] Shania wilkins hepatitis C HEPATITIS C 05:27:00 PM Medical EDT Center Z68.41 Body mass index BODY MASS INDEX Diagnosis 02/03/2019 [facility] [place] (BMI) 40.0-44.9, (BMI) 40.0-44.9, 03:09:00 PM [facility] adult ADULT EDT Center Z23 Encounter for ENCOUNTER FOR Diagnosis 02/03/2019 [facility] immunization IMMUNIZATION 03:09:00 PM Medical EDT Center 799.9 OTHER UNKNOWN AND UNKN CAUSE Diagnosis 12/12/2013 [facility] UNSPECIFIED CAUSE MORB/MORT NEC 12:00:00 AM Rohit cents OF MORBIDITY OR EDT Hospital MORTALITY Diagnosis NEXTGEN ([facility]) Diagnosis [facility] ([facility] Diagnosis NEXT[facility] ([facility]) Diagnosis [facility] Diagnosis [facility] Diagnosis [facility] ([facility]) Diagnosis [facility] ([facility]) Diagnosis [facility] ([facility]) Diagnosis [facility] ([facility]) Diagnosis [facility] ([facility]) Surgeries/Procedures Procedure Description Date Indications Data Source(s) OFFICE/OUTPATIENT VISIT, 02/20/2020 NEX TGEN ([facility] EST 12:00:00 AM EDT [facility] 02/20/2020 [place]) 12:00:00 AM EDT OFFICE/OUTPATIENT VISIT, 02/06/2020 NEX TGEN ([facility] EST 12:00:00 AM EDT [facility] 02/06/2020 [place]) 12:00:00 AM EDT OFFICE/OUTPATIENT VISIT, 01/30/2020 NEX TGEN ([facility] EST 12:00:00 AM EDT [facility] 01/30/2020 [place]) 12:00:00 AM EDT OFFICE/OUTPATIENT VISIT, 01/24/2020 NEX TGEN ([facility] EST 12:00:00 AM EDT [facility] 01/24/2020 [place]) 12:00:00 AM EDT Individual Psychotherapy 10/19/2019 NEX TGEN ([facility] (30 Min) 12:00:00 AM EDT [facility] - 10/19/2019 [place]) 12:00:00 AM EDT PHONE E/M BY PHYS -10/11/2019 NEXT GEN ([facility] MIN 12:00:00 AM EDT [facility] 10/11/2019 [place]) 12:00:00 AM EDT OFFICE/OUTPATIENT VISIT, 10/03/2019 NEX TGEN ([facility] EST 12:00:00 AM EDT [facility] 10/03/2019 [place]) 12:00:00 AM EDT PHONE E/M BY PHYS 11-20 09/15/2019 NEXT GEN ([facility] MIN 12:00:00 AM EDT [facility] 09/15/2019 [place]) 12:00:00 AM EDT Individual Psychotherapy 08/09/2019 NEX TGEN ([facility] (30 Min) 12:00:00 AM EST [facility] 08/09/2019 [place]) 12:00:00 AM EST OFFICE/OUTPATIENT VISIT, 08/08/2019 NEX TGEN ([facility] EST 12:00:00 AM EST [facility] 08/08/2019 [place]) 12:00:00 AM EST DEBRIDE SKIN/TISSUE 08/08/2019 NEXTGEN ([facility] 12:00:00 AM EST [facility] 08/08/2019 [place]) 12:00:00 AM EST INJ TENDON SHEATH/LIGAMENT 08/08/2019 N EXTGEN ([facility] 12:00:00 AM EST [facility] 08/08/2019 [place]) 12:00:00 AM EST Triamcinolone acetonide 08/08/2019 NEXT GEN ([facility] inj 12:00:00 AM EST [facility] 08/08/2019 [place]) 12:00:00 AM EST Dexamethasone sodium phos 08/08/2019 NE XTGEN ([facility] 12:00:00 AM EST [facility] 08/08/2019 [place]) 12:00:00 AM EST Psychotherapy (30 Mins) W/ 08/02/2019 N EXTGEN ([facility] E&M 12:00:00 AM EST [facility] 08/02/2019 [place]) 12:00:00 AM EST OFFICE/OUTPATIENT VISIT, 08/02/2019 NEX TGEN ([facility] EST 12:00:00 AM EST [facility] 08/02/2019 [place]) 12:00:00 AM EST OFFICE/OUTPATIENT VISIT, 07/26/2019 NEX TGEN ([facility] EST 12:00:00 AM EST [facility] 07/26/2019 [place]) 12:00:00 AM EST OFFICE/OUTPATIENT VISIT, 07/18/2019 NEX TGEN ([facility] EST 12:00:00 AM EST [facility] 07/18/2019 [place]) 12:00:00 AM EST ROUTINE VENIPUNCTURE 07/18/2019 NEXTGEN ([facility] 12:00:00 AM EST [facility] 07/18/2019 [place]) 12:00:00 AM EST OFFICE/OUTPATIENT VISIT, 03/22/2019 NEX TGEN ([facility] EST 12:00:00 AM EDT [facility] - 03/22/2019 [place]) 12:00:00 AM EDT Individual Psychotherapy 03/16/2019 NEX TGEN ([facility] (30 Min) 12:00:00 AM EDT [facility] - 03/16/2019 [place]) 12:00:00 AM EDT OFFICE/OUTPATIENT VISIT, 03/14/2019 NEX TGEN ([facility] EST 12:00:00 AM EDT [facility] - 03/14/2019 [place]) 12:00:00 AM EDT OFFICE/OUTPATIENT VISIT, 02/03/2019 NEX TGEN ([facility] EST 12:00:00 AM EDT [facility] - 02/03/2019 [place]) 12:00:00 AM EDT OFFICE/OUTPATIENT VISIT, 12/14/2018 NEX TGEN ([facility] EST 12:00:00 AM EDT [facility] - 12/14/2018 [place]) 12:00:00 AM EDT Individual Psychotherapy 12/14/2018 NEX TGEN ([facility] (30 Min) 12:00:00 AM EDT [facility] - 12/14/2018 [place]) 12:00:00 AM EDT OFFICE/OUTPATIENT VISIT, 10/19/2018 NEX TGEN ([facility] EST 12:00:00 AM EDT [facility] - 10/19/2018 [place]) 12:00:00 AM EDT Individual Psychotherapy 09/12/2018 NEX TGEN ([facility] (45 Min) 12:00:00 AM EDT [facility] - 09/12/2018 [place]) 12:00:00 AM EDT OFFICE/OUTPATIENT VISIT, 08/24/2018 NEX TGEN ([facility] EST 12:00:00 AM EDT [facility] - 08/24/2018 [place]) 12:00:00 AM EDT Individual Psychotherapy 08/24/2018 NEX TGEN ([facility] (30 Min) 12:00:00 AM EDT [facility] - 08/24/2018 [place]) 12:00:00 AM EDT Individual Psychotherapy 07/20/2018 NEX TGEN ([facility] (30 Min) 12:00:00 AM EST [facility] - 07/20/2018 [place]) 12:00:00 AM EST OFFICE/OUTPATIENT VISIT, 07/01/2018 NEX TGEN ([facility] EST 12:00:00 AM EST [facility] - 07/01/2018 Center) 12:00:00 AM EST OFFICE/OUTPATIENT VISIT, 06/22/2018 NEX TGEN ([facility] EST 12:00:00 AM EST [facility] - 06/22/2018 Center) 12:00:00 AM EST Individual Psychotherapy 06/22/2018 NEX TGEN ([facility] (30 Min) 12:00:00 AM EST [facility] - 06/22/2018 Center) 12:00:00 AM EST OFFICE/OUTPATIENT VISIT, 03/29/2018 NEX TGEN ([facility] EST 12:00:00 AM EDT [facility] - 03/29/2018 Center) 12:00:00 AM EDT Individual Psychotherapy 03/08/2018 NEX TGEN ([facility] (45 Min) 12:00:00 AM EDT [facility] 03/08/2018 Center) 12:00:00 AM EDT OFFICE/OUTPATIENT VISIT, 03/02/2018 NEX TGEN ([facility] EST 12:00:00 AM EDT [facility] 03/02/2018 [place]) 12:00:00 AM EDT Individual Psychotherapy 02/22/2018 NEX TGEN ([facility] (45 Min) 12:00:00 AM EDT [facility] - 02/22/2018 Center) 12:00:00 AM EDT Individual Psychotherapy 02/18/2018 NEX TGEN ([facility] (30 Min) 12:00:00 AM EDT [facility] - 02/18/2018 Center) 12:00:00 AM EDT OFFICE/OUTPATIENT VISIT, 01/28/2018 NEX TGEN ([facility] EST 12:00:00 AM EDT [facility] - 01/28/2018 Center) 12:00:00 AM EDT OFFICE/OUTPATIENT VISIT, 12/29/2017 NEX TGEN ([facility] EST 12:00:00 AM EDT [facility] - 12/29/2017 Center) 12:00:00 AM EDT OFFICE/OUTPATIENT VISIT, 12/17/2017 NEX TGEN ([facility] EST 12:00:00 AM EDT [facility] - 12/17/2017 [place]) 12:00:00 AM EDT OFFICE/OUTPATIENT VISIT, 11/30/2017 NEX TGEN ([facility] EST 12:00:00 AM EDT [facility] - 11/30/2017 [place]) 12:00:00 AM EDT OFFICE/OUTPATIENT VISIT, 11/16/2017 NEX TGEN ([facility] EST 12:00:00 AM EDT [facility] - 11/16/2017 Center) 12:00:00 AM EDT OFFICE/OUTPATIENT VISIT, 11/02/2017 NEX TGEN ([facility] EST 12:00:00 AM EDT [facility] - 11/02/2017 Center) 12:00:00 AM EDT OFFICE/OUTPATIENT VISIT, 10/19/2017 NEX TGEN ([facility] EST 12:00:00 AM EDT [facility] - 10/19/2017 Center) 12:00:00 AM EDT OFFICE/OUTPATIENT VISIT, 10/05/2017 NEX TGEN ([facility] EST 12:00:00 AM EDT [facility] - 10/05/2017 [place]) 12:00:00 AM EDT OFFICE/OUTPATIENT VISIT, 09/20/2017 NEX TGEN ([facility] EST 12:00:00 AM EDT [facility] - 09/20/2017 [place]) 12:00:00 AM EDT OFFICE/OUTPATIENT VISIT, 08/31/2017 NEX TGEN ([facility] EST 12:00:00 AM EDT [facility] - 08/31/2017 Center) 12:00:00 AM EDT OFFICE/OUTPATIENT VISIT, 08/17/2017 NEX TGEN ([facility] EST 12:00:00 AM EST [facility] - 08/17/2017 Center) 12:00:00 AM EST OFFICE/OUTPATIENT VISIT, 07/30/2017 NEX TGEN ([facility] EST 12:00:00 AM EST [facility] - 07/30/2017 Center) 12:00:00 AM EST OFFICE/OUTPATIENT VISIT, 07/23/2017 NEX TGEN ([facility] EST 12:00:00 AM EST [facility] - 07/23/2017 Center) 12:00:00 AM EST OFFICE/OUTPATIENT VISIT, 07/09/2017 NEX TGEN ([facility] EST 12:00:00 AM EST [facility] 07/09/2017 Center) 12:00:00 AM EST OFFICE/OUTPATIENT VISIT, 06/29/2017 NEX TGEN ([facility] EST 12:00:00 AM EST [facility] 06/29/2017 [place]) 12:00:00 AM EST OFFICE/OUTPATIENT VISIT, 03/01/2017 NEX TGEN ([facility] EST 12:00:00 AM EDT [facility] - 03/01/2017 Center) 12:00:00 AM EDT OFFICE/OUTPATIENT VISIT, 01/26/2017 NEX TGEN ([facility] EST 12:00:00 AM EDT [facility] - 01/26/2017 Center) 12:00:00 AM EDT Psychiatric Diagnostic 01/12/2017 NEXTG EN ([facility] Interview (45+ Min) 12:00:00 AM EDT [facility] - 01/12/2017 Center) 12:00:00 AM EDT OFFICE/OUTPATIENT VISIT, 01/12/2017 NEX TGEN ([facility] EST 12:00:00 AM EDT [facility] - 01/12/2017 Center) 12:00:00 AM EDT OFFICE/OUTPATIENT VISIT, 12/01/2016 NEX TGEN ([facility] EST 12:00:00 AM EDT [facility] - 12/01/2016 Center) 12:00:00 AM EDT OFFICE/OUTPATIENT VISIT, 11/20/2016 NEX TGEN ([facility] EST 12:00:00 AM EDT [facility] - 11/20/2016 Center) 12:00:00 AM EDT OFFICE/OUTPATIENT VISIT, 10/20/2016 NEX TGEN ([facility] EST 12:00:00 AM EDT [facility] - 10/20/2016 Center) 12:00:00 AM EDT OFFICE/OUTPATIENT VISIT, 10/06/2016 NEX TGEN ([facility] EST 12:00:00 AM EDT [facility] - 10/06/2016 Center) 12:00:00 AM EDT OFFICE/OUTPATIENT VISIT, 09/23/2016 NEX TGEN ([facility] EST 12:00:00 AM EDT [facility] - 09/23/2016 Center) 12:00:00 AM EDT OFFICE/OUTPATIENT VISIT, 09/10/2016 NEX TGEN ([facility] EST 12:00:00 AM EDT [facility] - 09/10/2016 Center) 12:00:00 AM EDT OFFICE/OUTPATIENT VISIT, 08/28/2016 NEX TGEN ([facility] EST 12:00:00 AM EDT [facility] - 08/28/2016 Center) 12:00:00 AM EDT OFFICE/OUTPATIENT VISIT, 08/17/2016 NEX TGEN ([facility] EST 12:00:00 AM EST [facility] - 08/17/2016 Center) 12:00:00 AM EST OFFICE/OUTPATIENT VISIT, 07/21/2016 NEX TGEN ([facility] EST 12:00:00 AM EST [facility] - 07/21/2016 Center) 12:00:00 AM EST OFFICE/OUTPATIENT VISIT, 06/24/2016 NEX TGEN ([facility] EST 12:00:00 AM EST [facility] - 06/24/2016 Center) 12:00:00 AM EST OFFICE/OUTPATIENT VISIT, 05/26/2016 NEX TGEN ([facility] EST 12:00:00 AM EST [facility] - 05/26/2016 Center) 12:00:00 AM EST OFFICE/OUTPATIENT VISIT, 04/20/2016 NEX TGEN ([facility] EST 12:00:00 AM EST [facility] - 04/20/2016 Center) 12:00:00 AM EST OFFICE/OUTPATIENT VISIT, 03/19/2016 NEX TGEN ([facility] EST 12:00:00 AM EDT [facility] - 03/19/2016 Center) 12:00:00 AM EDT OFFICE/OUTPATIENT VISIT, 02/19/2016 NEX TGEN ([facility] EST 12:00:00 AM EDT [facility] - 02/19/2016 Center) 12:00:00 AM EDT OFFICE/OUTPATIENT VISIT, 02/06/2016 NEX TGEN ([facility] EST 12:00:00 AM EDT [facility] - 02/06/2016 Center) 12:00:00 AM EDT OFFICE/OUTPATIENT VISIT, 01/09/2016 NEX TGEN ([facility] 12:00:00 AM EDT [facility] - 01/09/2016 Center) 12:00:00 AM EDT OFFICE/OUTPATIENT VISIT, 12/18/2015 NEX TGEN ([facility] 12:00:00 AM EDT [facility] - 12/18/2015 Center) 12:00:00 AM EDT OFFICE/OUTPATIENT VISIT, 11/21/2015 NEX TGEN ([facility] 12:00:00 AM EDT [facility] - 11/21/2015 Center) 12:00:00 AM EDT OFFICE/OUTPATIENT VISIT, 11/08/2015 NEX TGEN ([facility] 12:00:00 AM EDT [facility] - 11/08/2015 Center) 12:00:00 AM EDT OFFICE/OUTPATIENT VISIT, 10/24/2015 NEX TGEN ([facility] EST 12:00:00 AM EDT [facility] - 10/24/2015 Center) 12:00:00 AM EDT OFFICE/OUTPATIENT VISIT, 10/10/2015 NEX TGEN ([facility] 12:00:00 AM EDT [facility] - 10/10/2015 Center) 12:00:00 AM EDT OFFICE/OUTPATIENT VISIT, 09/26/2015 NEX TGEN ([facility] 12:00:00 AM EDT [facility] - 09/26/2015 Center) 12:00:00 AM EDT OFFICE/OUTPATIENT VISIT, 09/12/2015 NEX TGEN ([facility] 12:00:00 AM EDT [facility] - 09/12/2015 Center) 12:00:00 AM EDT OFFICE/OUTPATIENT VISIT, 08/29/2015 NEX TGEN ([facility] 12:00:00 AM EDT [facility] - 08/29/2015 Center) 12:00:00 AM EDT OFFICE/OUTPATIENT VISIT, 08/09/2015 NEX TGEN ([facility] 12:00:00 AM EST [facility] - 08/09/2015 Center) 12:00:00 AM EST OFFICE/OUTPATIENT VISIT, 07/25/2015 NEX TGEN ([facility] 12:00:00 AM EST [facility] - 07/25/2015 Center) 12:00:00 AM EST OFFICE/OUTPATIENT VISIT, 06/21/2015 NEX TGEN ([facility] 12:00:00 AM EST [facility] - 06/21/2015 Center) 12:00:00 AM EST OFFICE/OUTPATIENT VISIT, 05/23/2015 NEX TGEN ([facility] 12:00:00 AM EST [facility] - 05/23/2015 Center) 12:00:00 AM EST OFFICE/OUTPATIENT VISIT, 05/07/2015 NEX TGEN ([facility] 12:00:00 AM EST [facility] - 05/07/2015 Center) 12:00:00 AM EST OFFICE/OUTPATIENT VISIT, 04/25/2015 NEX TGEN ([facility] 12:00:00 AM EST [facility] - 04/25/2015 Center) 12:00:00 AM EST OFFICE/OUTPATIENT VISIT, 04/05/2015 NEX TGEN ([facility] 12:00:00 AM EDT [facility] - 04/05/2015 Center) 12:00:00 AM EDT OFFICE/OUTPATIENT VISIT, 03/22/2015 NEX TGEN ([facility] 12:00:00 AM EDT [facility] - 03/22/2015 Center) 12:00:00 AM EDT OFFICE/OUTPATIENT VISIT, 02/21/2015 NEX TGEN ([facility] 12:00:00 AM EDT [facility] - 02/21/2015 Center) 12:00:00 AM EDT OFFICE/OUTPATIENT VISIT, 01/24/2015 NEX TGEN ([facility] 12:00:00 AM EDT [facility] - 01/24/2015 Center) 12:00:00 AM EDT OFFICE/OUTPATIENT VISIT, 12/21/2014 NEX TGEN ([facility] 12:00:00 AM EDT [facility] - 12/21/2014 Center) 12:00:00 AM EDT OFFICE/OUTPATIENT VISIT, 11/23/2014 [facility]EX TGEN [facility] 12:00:00 AM EDT OFFICE/OUTPATIENT VISIT, 10/26/2014 NEX TGEN [facility] 12:00:00 AM EDT Focused History/exam - 09/26/2014 NEXTG EN [facility] 12:00:00 AM EDT OFFICE/OUTPATIENT VISIT, 08/23/2014 NEX TGEN [facility] 12:00:00 AM EDT OFFICE/OUTPATIENT VISIT, 07/27/2014 NEX TGEN ([facility] 12:00:00 AM EST [facility] - 07/27/2014 Center) 12:00:00 AM EST OFFICE/OUTPATIENT VISIT, 07/06/2014 NEX TGEN ([facility] 12:00:00 AM EST [facility] - 07/06/2014 Center) 12:00:00 AM EST OFFICE/OUTPATIENT VISIT, 06/22/2014 NEX TGEN ([facility] 12:00:00 AM EST [facility] - 06/22/2014 Center) 12:00:00 AM EST OFFICE/OUTPATIENT VISIT, 05/03/2014 NEX TGEN ([facility] 12:00:00 AM EST [facility] - 05/03/2014 Center) 12:00:00 AM EST OFFICE/OUTPATIENT VISIT, 04/26/2014 NEX TGEN ([facility] 12:00:00 AM EST [facility] - 04/26/2014 Center) 12:00:00 AM EST OFFICE/OUTPATIENT VISIT, 03/22/2014 NEX TGEN ([facility] 12:00:00 AM EDT [facility] - 03/22/2014 Center) 12:00:00 AM EDT OFFICE/OUTPATIENT VISIT, 02/23/2014 NEX TGEN ([facility] 12:00:00 AM EDT [facility] - 02/23/2014 Center) 12:00:00 AM EDT OFFICE/OUTPATIENT VISIT, 01/23/2014 NEX TGEN ([facility] 12:00:00 AM EDT [facility] - 01/23/2014 Center) 12:00:00 AM EDT OFFICE/OUTPATIENT VISIT, 12/21/2013 NEX TGEN ([facility] 12:00:00 AM EDT [facility] - 12/21/2013 Center) 12:00:00 AM EDT OFFICE/OUTPATIENT VISIT, 10/20/2013 NEX TGEN ([facility] 12:00:00 AM EDT [facility] - 10/20/2013 Center) 12:00:00 AM EDT OFFICE/OUTPATIENT VISIT, 09/20/2013 NEX TGEN ([facility] 12:00:00 AM EDT [facility] - 09/20/2013 Center) 12:00:00 AM EDT OFFICE/OUTPATIENT VISIT, 08/24/2013 NEX TGEN ([facility] 12:00:00 AM EDT [facility] - 08/24/2013 Center) 12:00:00 AM EDT OFFICE/OUTPATIENT VISIT, 07/26/2013 NEX TGEN ([facility] 12:00:00 AM EST [facility] - 07/26/2013 Center) 12:00:00 AM EST OFFICE/OUTPATIENT VISIT, 06/23/2013 NEX TGEN ([facility] 12:00:00 AM EST [facility] - 06/23/2013 Center) 12:00:00 AM EST OFFICE/OUTPATIENT VISIT, 05/25/2013 NEX TGEN ([facility] 12:00:00 AM EST [facility] - 05/25/2013 Center) 12:00:00 AM EST OFFICE CONSULTATION 04/25/2013 NEXTGEN ([facility] 12:00:00 AM EST [facility] - 04/25/2013 Center) 12:00:00 AM EST OFFICE/OUTPATIENT VISIT, 03/24/2013 NEX TGEN ([facility] EST 12:00:00 AM EDT [facility] - 03/24/2013 Center) 12:00:00 AM EDT OFFICE/OUTPATIENT VISIT, 02/23/2013 NEX TGEN ([facility] 12:00:00 AM EDT [facility] - 02/23/2013 [place]) 12:00:00 AM EDT OFFICE CONSULTATION 06/01/2012 NEXTGEN ([facility] 12:00:00 AM EST [facility] - 06/01/2012 [place]) 12:00:00 AM EST Results ID Date Data Source Liver 01/30/2020 12:52:00 PM EDT [facility] Profile.[id number] Name Value Range Interpretation Description Data Sup [...] s"> (3.5-5.0 G/DL)</content> ID Date Data Source GFR(Creatinine).[id number] 01/30/2020 12:52:00 PM EDT [facility] 0-0400 Name Value Range Interpretation Code Description Data Misa rce(s) Supporting Document(s ) UNK > 60 <content [facility] styleCode="Bold"> Medical Cent er EGFR </content>82 GFR<content styleCode="Italic s"> (> 60 GFR)</content> ID Date Data Source CHMROUTINECCDA.[id number] 01/30/2020 12:52:00 PM EDT [facility] -0400 Name Value Range Interpretation Description Data [...] (6.3-8.2 G/DL)</content > ID Date Data Source [facility].[id number] 01/30/2020 12:52:00 PM EDT [facility] Name Value Range Interpretation Description [...] 3.5-5.3 <content [facility] [Moles/volume] in styleCode="Bold"> [facility] Serum or Plasma Potassium Medical </content>4.0 Center MEQ/L<content styleCode="Italic s"> (3.5-5.3 MEQ/L)</content> Chloride 98-107 <content [facility] [Moles/volume] in styleCode="Bold"> [facility] Serum or Plasma Chloride Medical </content>103 Center [...] s"> (0.2-1.3 MG/DL)</content> ID Date Data Source [id number] 01/07/2020 02:34:00 PM EDT [facility] Name Value Range Interpretation Description Data Sup porting Code Source(s) Document(s ) SARS [facility] coronavirus 2 RNA This lab was ordered by [facility] and reported by [facility]. ID Date Data Source [id number] 01/02/2020 03:00:00 PM EDT [facility] Name Value Range Interpretation Description Data Sup porting Code Source(s) Document(s ) SARS [facility] coronavirus 2 RNA This lab was ordered by [facility] and reported by [facility]. ID Date Data Source [id number] 11/14/2019 08:12:00 AM EDT [facility] Name Value Range Interpretation Code Description Data Misa rce(s) Supporting Document(s ) SARS-CoV-2 [facility] Ql ARIANNA+probe This lab [facility] and reported by [facility]. ID Date Data Source [id number] 11/09/2019 09:02:00 AM EDT [facility] Name Value Range Interpretation Code Description Data Misa rce(s) Supporting Document(s ) SARS-CoV-2 [facility] Ql ARIANNA+probe This lab was ordered by [facility] and reported by [facility]. ID Date Data Source [id number] 10/12/2019 12:00:00 AM EDT [facility] Name Value Range Interpretation Code Description Data Misa rce(s) Supporting Document(s ) 2019-nCoV [facility] RNA XXX ARIANNA+probe- Imp This lab was ordered by [facility] and reported by [employer] ID Date Data Source HematologyRou.[id number] 10/06/2019 06:50:00 AM EDT [facility] 0400 Name Value Range Interpretation Description Data Sup porting Code Source(s) Document(s ) Erythrocytes 4.0-5.1 Below low normal <content [facility] [#/volume] in styleCode="Bold [facility] Blood by ">Red Blood Medical Automated count [...] Above high <content [facility] distribution 5 normal styleCode="Sandy [facility]malley width [Ratio] by ">Red Cell Medical Automated [...] Data Source Liver 10/05/2019 05:27:00 PM EDT [facility] Profile.[id number] Name Value Range Interpretation Description Data Sup [...] s"> (3.5-5.0 G/DL)</content> ID Date Data Source HematologyRou.[id number] 10/05/2019 05:27:00 PM EDT [facility] 0400 Name Value Range Interpretation Description [...] (< 1 %)</content> ID Date Data Source GFR(Creatinine).[id number] 10/05/2019 05:27:00 PM EDT [facility] 0-0400 Name Value Range Interpretation Code Description Data Misa rce(s) Supporting Document(s ) UNK > 60 <content [facility] styleCode="Bold"> Medical Cent er EGFR </content>72 GFR<content styleCode="Italic s"> (> 60 GFR)</content> ID Date Data Source OUTINEYEIMYDA.[id number] 10/05/2019 05:27:00 PM EDT [facility] -0400 Name Value Range Interpretation Description Data Sup porting Code Source(s) Document(s ) UNK >= 1.0 Below low normal <content [facility] styleCode="Bold Medical ">AG Ratio Center </content>0.9 L<content styleCode="Ital ics"> (>= 1.0 )</content> UNK 2.3-3.5 <content [facility] styleCode="Bold Medical ">Globulin Center </content>3.2 G/DL<content styleCode="Ital ics"> (2.3-3.5 G/DL)</content> Protein 6.3-8.2 Below low normal <content [facility] [Mass/volum styleCode="Bold Medical e] in Serum ">Total Protein Center or Plasma </content>6.2 G/DL L<content styleCode="Ital ics"> (6.3-8.2 G/DL)</content> ID Date Data Source [facility]Bank.[id number] 10/05/2019 05:27:00 PM EDT [facility] Name Value Range Interpretation Code Description Data Misa rce(s) Supporting Document(s ) UNK NEGATIVE <content [facility] styleCode="Bold" Medical Cente r >Antibody Screen </content>NEGATI VE <content styleCode="Itali cs"> (NEGATIVE )</content> UNK <content [facility] styleCode="Bold" Medical Cente r >Blood Type </content>GROUP O (Reference Range: not available)
UNK <content [facility] styleCode="Bold" Medical Cente r >RH Type </content>POSITI VE (Reference Range: not available)
ID Date Data Source BMP.[id number] 10/05/2019 05:27:00 PM EDT [facility] Name Value Range Interpretation Description [...] 98-107 <content [facility] [Moles/volume] in styleCode="Bold"> [facility] Serum or Plasma Chloride Medical </content>104 Center [...] Data Source Liver 10/03/2019 12:50:00 PM EDT [facility] Profile.[id number] Name Value Range Interpretation Description Data Sup [...] s"> (3.5-5.0 G/DL)</content> ID Date Data Source HematologyRou.[id number] 10/03/2019 12:50:00 PM EDT [facility] 0400 Name Value Range Interpretation Description Data Sup porting Code Source(s) Document(s ) Leukocytes 4.4-11.0 <content [facility] [#/volume] in styleCode="Bold [facility] Blood by ">White Blood Medical Automated count Cell Count Center </content>8.06 KCUMM<content styleCode="Ital ics"> (4.4-11.0 KCUMM)</content > Erythrocytes 4.0-5.1 <content [facility] [#/volume] in styleCode="Bold [facility] Blood by ">Red Blood Medical Automated count [...] (0.0 KCUMM)</content > ID Date Data Source GFR(Creatinine).[id number] 10/03/2019 12:50:00 PM EDT [facility] 0-0400 Name Value Range Interpretation Code Description Data Misa rce(s) Supporting Document(s ) UNK > 60 <content [facility] styleCode="Bold"> Medical Cent er EGFR </content>72 GFR<content styleCode="Italic s"> (> 60 GFR)</content> ID Date Data Source Coagulation 10/03/2019 12:50:00 PM [facility] Rout.[id number] EDT Name Value Range Interpretation Description Data Sup porting Code Source(s) Document(s ) UNK 9.0-13.0 <content [facility] styleCode="Bold" [place] >Protime Medical </content>12.7 Center SEC<content styleCode="Itali cs"> (9.0-13.0 SEC)</content> INR in 0.80-1.2 <content [facility] Platelet poor 0 styleCode="Bold" [facility] plasma by >INR Medical Coagulation </content>1.14 Center assay #<content styleCode="Itali cs"> (0.80-1.20 #)</content> aPTT in 25.1-36. Above high normal <content [facility] Platelet poor 5 styleCode="Bold" [facility] plasma by >[facility] [place] Coagulation Thromboplastin Center assay Time </content>38.9 SEC H<content styleCode="Itali cs"> (25.1-36.5 SEC)</content> ID Date Data Source MROUTINECCSUSANA.[id number] 10/03/2019 12:50:00 PM EDT [facility] -0400 Name Value Range Interpretation Description Data Sup porting Code Source(s) Document(s ) UNK >= 1.0 <content [facility] styleCode="Bold Medical ">AG Ratio Center </content>1.1 <content styleCode="Ital ics"> (>= 1.0 )</content> Protein 6.3-8.2 <content [facility] [Mass/volum styleCode="Bold Medical e] in Serum ">Total Protein Center or Plasma </content>6.8 G/DL<content styleCode="Ital ics"> (6.3-8.2 G/DL)</content> UNK 2.3-3.5 <content [facility] styleCode="Bold Medical ">Globulin Center </content>3.3 G/DL<content styleCode="Ital ics"> (2.3-3.5 G/DL)</content> ID Date Data Source BloodBank.[id number] 10/03/2019 12:50:00 PM EDT [facility] Name Value Range Interpretation Code Description Data Misa rce(s) Supporting Document(s ) UNK <content [facility] styleCode="Bold" Medical Cente r >Blood Type </content>GROUP O (Reference Range: not available)
UNK <content [facility] styleCode="Bold" Medical Cente r >RH Type </content>POSITI VE (Reference Range: not available)
UNK NEGATIVE <content [facility] styleCode="Bold" Medical Cente r >Antibody Screen </content>NEGATI VE <content styleCode="Itali cs"> (NEGATIVE )</content> ID Date Data Source [facility].[id number] 10/03/2019 12:50:00 PM EDT [facility] Name Value Range Interpretation Description [...] s"> (3.5-5.0 G/DL)</content> ID Date Data Source HematologySpeci.[id number] 09/15/2019 04:29:00 PM EDT [facility] nt [facility] 0-0400 Name Value Range Interpretation Code Description Data Misa rce(s) Supporting Document(s ) UNK 9-67 Above high normal <content [facility] styleCode="Bold"> Medical Cent er Augusto </content>111 U/L H<content styleCode="Italic s"> (9-67 U/L)</content> ID Date Data Source Genetics.[id number] 09/15/2019 04:29:00 PM EDT [place] Name Value Range Interpretation Description Data Sup porting Code Source(s) Document(s ) Rahdp-[id number]-Rpgh < 7.51 <content [facility] protein styleCode="Bold Medical [Units/volum ">AFP Center e] in </content>4.95 Amniotic NG/ML<content fluid styleCode="Ital ics"> (< 7.51 NG/ML)</content > ID Date Data Source Coagulation 09/15/2019 04:29:00 PM [facility] Center Rout.[id number] EDT Name Value Range Interpretation Description Data [...] Data Source Liver 09/05/2019 12:42:00 PM EDT [facility] Profile.[id number] Name Value Range Interpretation Description Data Sup [...] s"> (3.5-5.0 G/DL)</content> ID Date Data Source HematologyRou.[id number] 09/05/2019 12:42:[facility] Name Value Range Interpretation Description Data Sup porting Code Source(s) Document(s ) Erythrocytes 4.0-5.1 <content [facility] [#/volume] in styleCode="Bold [facility] Blood by ">Red Blood Medical Automated count [...] (0.0 KCUMM)</content > ID Date Data Source GFR(Creatinine).[id number] 09/05/2019 12:42:00 PM EDT [facility] 0-0400 Name Value Range Interpretation Code Description Data Misa rce(s) Supporting Document(s ) UNK > 60 <content [facility] styleCode="Bold"> Medical Cent er EGFR </content>72 GFR<content styleCode="Italic s"> (> 60 GFR)</content> ID Date Data Source CHMROUTINECCDA.[id number] 09/05/2019 12:42:00 PM EDT [facility] -0400 Name Value Range Interpretation Description Data Sup porting Code Source(s) Document(s ) UNK 2.3-3.5 <content [facility] styleCode="Bold Medical ">Globulin Center </content>3.3 G/DL<content styleCode="Ital ics"> (2.3-3.5 G/DL)</content> UNK >= 1.0 <content [facility] styleCode="Bold Medical ">AG Ratio Center </content>1.1 <content styleCode="Ital ics"> (>= 1.0 )</content> Protein 6.3-8.2 <content [facility] [Mass/volum styleCode="Bold Medical e] in Serum ">Total Protein Center or Plasma </content>7.0 G/DL<content styleCode="Ital ics"> (6.3-8.2 G/DL)</content> ID Date Data Source [facility].[id number] 09/05/2019 12:42:00 PM EDT [facility] Name Value Range Interpretation Description Data Sup porting Code Source(s) Document(s ) Sodium 137-145 <content [facility] [Moles/volume] in styleCode="Bold"> [facility] Serum or Plasma Sodium Medical </content>140 Center MEQ/L<content styleCode="Italic s"> (137-145 MEQ/L)</content> Potassium 3.5-5.3 <content [facility] [Moles/volume] in styleCode="Bold"> [facility] Serum or Plasma Potassium Medical </content>4.0 Center MEQ/L<content styleCode="Italic s"> (3.5-5.3 MEQ/L)</content> Chloride 98-107 <content [facility] [Moles/volume] in styleCode="Bold"> [facility] Serum or Plasma Chloride Medical </content>104 Center [...] s"> (3.5-5.0 G/DL)</content> ID Date Data Source LIPID.[id number] 07/18/2019 06:27:00 PM EST [facility] Name Value Range Interpretation Description Data Sup porting Code Source(s) Document(s ) Triglyceride < 150 <content [facility] [Mass/volume] in styleCode="[facility] Serum or Plasma d">Triglycerid Medical es Center </content>116 MG/DL<content styleCode="Vashti lics"> (< 150 MG/DL)</conten t> Cholesterol -<200 <content [facility] [Mass/volume] in styleCode="[facility] Serum or Plasma d">Cholesterol Medical </content>148 Center MG/DL<content styleCode="Vashti lics"> (-<200 MG/DL)</conten t> UNK < 100 <content [facility] styleCode="[facility] d">LDL-Cholest Medical kasi Center </content>88 MG/DL<content styleCode="Vashti lics"> (< 100 MG/DL)</conten t> UNK > 60 Below low normal <content [facility] styleCode="[facility] d">HDL- Medical Cholesterol Center </content>37 MG/DL L<content styleCode="Vashti lics"> (> 60 MG/DL)</conten t> ID Date Data Source CHMROUTINECCDA.[id number] 07/18/2019 06:27:00 PM EST [facility] -0500 Name Value Range Interpretation Code Description Data Misa rce(s) Supporting Document(s ) UNK 4.2-5.8 Above high normal <content [facility] styleCode="Bold" Medical Cente r >Hemoglobin A1C </content>6.3 % H<content styleCode="Itali cs"> (4.2-5.8 %)</content> ID Date Data Source Liver 03/24/2019 09:40:00 AM EDT [facility] Profile.[id number] Name Value Range Interpretation Description Data Sup [...] s"> (0.2-1.3 MG/DL)</content> ID Date Data Source LIPID.[id number] 03/24/2019 09:40:00 AM EDT [facility] Name Value Range Interpretation Description Data Sup porting Code Source(s) Document(s ) Cholesterol -<200 <content [facility] [Mass/volume] in styleCode="[place] [facility] Serum or Plasma d">Cholesterol Medical </content>180 Center MG/DL<content styleCode="Vashti lics"> (-<200 MG/DL)</conten t> Triglyceride < 150 <content [facility] [Mass/volume] in styleCode="[place] [facility] Serum or Plasma d">Triglycerid [facility] </content>102 MG/DL<content styleCode="Vashti lics"> (< 150 MG/DL)</conten t> UNK < 100 Above high normal <content [facility] styleCode="[place] d">[facility] </content>121 MG/DL H<content styleCode="Vashti lics"> (< 100 MG/DL)</conten t> UNK > 60 Below low normal <content [facility] styleCode="[place] [facility] d">HDL- Medical Cholesterol Center </content>39 MG/DL L<content styleCode="Vashti lics"> (> 60 MG/DL)</conten t> ID Date Data Source Hormones.[id number] 03/24/2019 09:40:00 AM EDT [facility] Name Value Range Interpretation Description Data Sup porting Code Source(s) Document(s ) Thyrotropin 0.465-4. <content [facility] [Units/volume] 68 styleCode="[place] in Serum or d">Thyroid Medical Plasma by Stimulating Center Detection Hormone limit <= 0.05 </content>1.61 mIU/L MIU/L<content styleCode="Vashti lics"> (0.465-4.68 MIU/L)</conten t> ID Date Data Source HematologyRou.[id number] 03/24/2019 09:40:00 AM EDT [facility] 0400 Name Value Range Interpretation Description Data Sup porting Code Source(s) Document(s ) Erythrocytes 4.0-5.1 <content [facility] [#/volume] in styleCode="[facility] Blood by ">Red Blood Medical Automated [...] low normal <content [facility] [#/volume] in styleCode="[facility] Blood [...] ics"> (0 /100)</content> ID Date Data Source GFR(Creatinine).[id number] 03/24/2019 09:40:00 AM EDT [facility] 0-0400 Name Value Range Interpretation Code Description Data Misa rce(s) Supporting Document(s ) UNK > 60 <content [facility] styleCode="Bold"> Medical Cent er EGFR </content>73 GFR<content styleCode="Italic s"> (> 60 GFR)</content> ID Date Data Source [facility].[id number] 03/24/2019 09:40:00 AM EDT [facility] Name Value Range Interpretation Description [...] s"> (74-106 MG/DL)</content> Alkaline 38-126 <content [facility] phosphatase styleCode="Bold"> [facility] [Enzymatic Alkaline Medical activity/volume] Phosphatase (ALP) Cente [...] s"> (0.2-1.3 MG/DL)</content> ID Date Data Source CHMROUTINECCDA.[id number] 03/24/2019 09:40:00 AM EDT [facility] -0400 Name Value Range Interpretation Description Data Sup porting Code Source(s) Document(s ) UNK >= 1.0 <content [facility] styleCode="Bold Medical ">AG Ratio Center </content>1.2 <content styleCode="Ital ics"> (>= 1.0 )</content> UNK 4.2-5.8 Above high normal <content [facility] styleCode="Bold Medical ">Hemoglobin Center A1C </content>6.3 % H<content styleCode="Ital ics"> (4.2-5.8 %)</content> Protein 6.3-8.2 <content [facility] [Mass/volum styleCode="Bold Medical e] in Serum ">Total Protein Center or Plasma </content>7.1 G/DL<content styleCode="Ital ics"> (6.3-8.2 G/DL)</content> UNK 2.3-3.5 <content [facility] styleCode="Bold Medical ">Globulin Center </content>3.3 G/DL<content styleCode="Ital ics"> (2.3-3.5 G/DL)</content> ID Date Data Source [id number] 03/22/2019 07:50:00 PM EDT [facility] 0 Name Value Range Interpretation Description Data [...] )</content> Glucose NEGATIVE <content Saint [Mass/volume] styleCode="[place] in Urine by d">Urine Medical Test strip Glucose Center </content>NEGA TIVE MG/DL<content styleCode="Vashti lics"> (NEGATIVE MG/DL)</conten t> Hemoglobin NEGATIVE <content Saint [Presence] in styleCode="[place] Urine by Test d">Urine Blood Medical strip </content>NEGA Center TIVE <content styleCode="Vashti lics"> (NEGATIVE )</content> Ketones NEGATIVE <content Saint [Mass/volume] styleCode="[place] in Urine by d">Urine Medical Test strip Ketone Center </content>NEGA TIVE MG/DL<content styleCode="Vashti lics"> (NEGATIVE MG/DL)</conten t> Specific 1.015-1.02 <content [facility] gravity of 5 styleCode="[place] Urine by Test d">Urine Medical strip Specific Center [place] </content>1.01 5 <content styleCode="Vashti lics"> (1.015-1.025 )</content> Protein NEGATIVE <content Saint [Mass/volume] styleCode="[place] in Urine by d">Urine Medical Test strip Protein Center </content>NEGA TIVE MG/DL<content styleCode="Vashti lics"> (NEGATIVE MG/DL)</conten t> pH of Urine by 4.5-8.0 <content Saint Test strip styleCode="[place] d">Urine pH Medical </content>6.0 Center <content styleCode="Vashti lics"> (4.5-8.0 )</content> Urobilinogen 0.2-1.0 <content [facility] [Units/volume] styleCode="[place] in Urine by d">Urine Medical Test strip Urobilinogen Center </content>1.0 MG/DL<content styleCode="Vashti lics"> (0.2-1.0 MG/DL)</conten t> Nitrite NEGATIVE <content [facility] [Presence] in styleCode="[place] Urine by Test d">Urine Medical strip Nitrite Center </content>NEGA TIVE <content styleCode="Vashti lics"> (NEGATIVE )</content> Leukocyte NEGATIVE <content Saint esterase styleCode="[place] [Presence] in d">Urine Medical Urine by Test Leukocyte Center strip </content>NEGA TIVE <content styleCode="Vashti lics"> (NEGATIVE )</content> ID Date Data Source CHMROUTINECCDA.[id number] 03/22/2019 07:50:00 PM EDT [facility] -0400 Name Value Range Interpretation Description Data Sup porting Code Source(s) Document(s ) UNK Not <content Saint Established styleCode="[place] ld">Microalbu Medical min Center </content>0.2 mg/dL<content styleCode="It alics"> (Not Established mg/dL)</constance nt> Cannabinoids <content Saint [Presence] in styleCode="[place] Urine by ld">Cannabino Medical Screen method ids Center >50 ng/mL </content>NEG ATIVE NG/ML (Reference Range: not available)
ID Date Data Source CHMROUTINECCDA.[id number] 02/03/2019 05:15:00 PM EDT [facility] -0400 Name Value Range Interpretation Description Data Sup porting Code Source(s) Document(s ) Cannabinoids <content [facility] [Presence] in styleCode="[place] Urine by Screen d">Cannabinoid Medical method >50 ng/mL s Center </content>NEGA TIVE NG/ML (Reference Range: not available)<br/ > ID Date Data Source [id number] 06/15/2018 01:45:00 PM EST [facility] Name Value Range Interpretation Description Data Sup [...] (0.78-2.19 NG/DL)</conten t> ID Date Data Source Electrophoresis.[id number] 06/15/2018 01:45:00 PM EST [facility] 0-0500 Name Value Range Interpretation Code Description Data Misa rce(s) Supporting Document(s ) UNK 6.1-8.1 <content [facility] [place] styleCode="[facility]" Medical Cente r >Protein,Total,S miguel a </content>6.6 g/dL<content styleCode="Itali cs"> (6.1-8.1 g/dL)</content> UNK 3.8-4.8 Below low normal <content [facility] [place] styleCode="[facility]" [facility] Cent[facility] r >Albumin-SPE </content>3.4 g/dL L<content styleCode="Itali cs"> (3.8-4.8 g/dL)</content> UNK 0.2-0.3 <content [facility] styleCode="[facility]" Medical Cente r >Bwrno-3-Dznfrbh n </content>0.3 g/dL<content styleCode="Itali cs"> (0.2-0.3 g/dL)</content> UNK 0.4-0.6 <content [facility] styleCode="[facility]" Medical Cente r >Beta Globulin </content>0.4 g/dL<content styleCode="Itali cs"> (0.4-0.6 g/dL)</content> UNK 0.5-0.9 <content [facility] styleCode="[facility]" Medical Cente r >Rzhja-5-Jtfajhx n </content>0.8 g/dL<content styleCode="Itali cs"> (0.5-0.9 g/dL)</content> UNK 0.8-1.7 <content [facility] styleCode="[place]" Medical Cente r >Gamma Globulin </content>1.2 g/dL<content styleCode="Itali cs"> (0.8-1.7 g/dL)</content> UNK 0.2-0.5 <content [facility] styleCode="[facility]" Medical Cente r >Beta 2 Globulin </content>0.5 g/dL<content styleCode="Itali cs"> (0.2-0.5 g/dL)</content> UNK <content [facility] styleCode="[facility]" Medical Cente r >Prot.Electropho resis,Ser </content>SEE NOTE (Reference Range: not available)
ID Date Data Source ChemistrySpecia.[id number] 06/15/2018 01:45:00 PM [facility] 0-0500 Name Value Range Interpretation Description Data Sup porting Code Source(s) Document(s ) UNK <content Saint styleCode="[place] d">Vitamin B6 Medical </content>11.3 Center (Reference Range: not available)<br/ > Cobalamin 239-931 <content Saint (Vitamin B12) styleCode="[place] [Mass/volume] d">Vitamin B12 Medical in Serum or </content>489 Center Plasma PG/ML<content styleCode="Vashti lics"> (239-931 PG/ML)</conten t> ID Date Data Source MROUTINECCDA.[id number] 06/15/2018 01:45:00 PM [facility] -0500 Name Value Range Interpretation Code Description Data Misa rce(s) Supporting Document(s ) UNK 4.2-5.8 Above high normal <content Cool s styleCode="[facility]" Medical Cente r >Hemoglobin A1C </content>6.3 % H<content styleCode="Itali cs"> (4.2-5.8 %)</content> ID Date Data Source Hormones 06/15/2018 01:45:00 PM [facility] Name Value Range Interpretation Description Data [...] Date Data Source Electrophoresis 06/15/2018 01:45:00 PM [facility] Name Value Range Interpretation Code Description Data Misa rce(s) Supporting Document(s ) UNK 6.1-8.1 <content [facility] styleCode="[facility]" Medical Cente r >Protein,Total,S miguel a </content>6.6 g/dL<content styleCode="Itali cs"> (6.1-8.1 g/dL)</content> ID Date Data Source ChemistrySpecia 06/15/2018 01:45:00 PM [facility] Name Value Range Interpretation Description Data Sup porting Code Source(s) Document(s ) Cobalamin 239-931 <content Saint (Vitamin B12) styleCode="[facility] [Mass/volume] d">Vitamin B12 Medical in Serum or </content>489 Center Plasma PG/ML<content styleCode="Vashti lics"> (239-931 PG/ML)</conten t> ID Date Data Source JOVANAMROUTINECCDA 06/15/2018 01:45:00 PM [facility] Name Value Range Interpretation Code Description Data Misa rce(s) Supporting Document(s ) UNK 4.2-5.8 Above high normal <content Cool s styleCode="[facility]" Medical Cente r >Hemoglobin A1C </content>6.3 % H<content styleCode="Itali cs"> (4.2-5.8 %)</content> ID Date Data Source CHMROUTINECCDA.[id number] 02/22/2018 07:00:00 PM [facility] Name Value Range Interpretation Description Data Sup porting Code Source(s) Document(s ) Cannabinoids <content [facility] [Presence] in styleCode="[facility] Urine by Screen d">Cannabinoid Medical method >50 ng/mL s [place] </content>PRES UMPTIVE POSITIVE NG/ML (Reference Range: not available)<br/ > ID Date Data Source [facility].[id number] 01/28/2018 06:00:00 PM EDT [facility] -0400 Name Value Range Interpretation Description Data Sup porting Code Source(s) Document(s ) Cannabinoids <content [facility] [Presence] in styleCode="[place] Urine by Screen d">Cannabinoid Medical method >50 ng/mL s Center </content>PRES UMPTIVE POSITIVE NG/ML (Reference Range: not available)<br/ > ID Date Data Source [facility].[id number] 12/29/2017 11:43:00 AM EDT [facility] -0400 Name Value Range Interpretation Description Data Sup porting Code Source(s) Document(s ) Cannabinoids <content [facility] [Presence] in styleCode="[place] Urine by Screen d">Cannabinoid Medical method >50 ng/mL s Center </content>NEGA TIVE NG/ML (Reference Range: not available)<br/ > ID Date Data Source [facility].[id number] 12/17/2017 05:48:00 PM EDT [facility] -0400 Name Value Range Interpretation Description Data Sup porting Code Source(s) Document(s ) Cannabinoids <content [facility] [Presence] in styleCode="[place] Urine by Screen d">Cannabinoid Medical method >50 ng/mL s Center </content>PRES UMPTIVE POSITIVE NG/ML (Reference Range: not available)<br/ > Procedure Social History Code Duration Value Status Description Data Source(s ) Caffeine Use 02/20/2020 completed NEXTGEN ([facility] nt Details 12:00:00 AM EDT [facility]) Smoking 02/20/2020 Unknown if completed Unknown if ever NEXTGEN ( [facility] 12:00:00 AM EDT ever smoked smoked [facility]) Caffeine Use 12/19/2019 completed NEXTGEN ([facility] nt Details 12:00:00 AM EDT [facility]) Alcohol Use completed NEXTGEN ([place]le t Details [facility]) Smoking Unknown if completed Unknown if ever [facility] ever smoked smoked Medical Cent[facility] r Vital Signs ID Date Data Source UNK Name Value Range Interpretation Code Description Data Source(s) Oxygen saturation 95 % 95 % NEXTGEN ([facility] in [facility] Pulse oximetry Center) Body mass index 32.22 kg/m2 Overweight 32.22 kg/m2 NEXTGEN ([facility] (BMI) [Ratio] [facility]) Respiratory rate 17 /min 17 /min NEXTGEN ([facility]) Body temperature 36.17 Nicole 36.17 [facility] Heart rate 90 /min 90 /min NEXTGEN ([facility]) Diastolic blood 83 mm[Hg] 83 mm[Hg] [facility]EXT[facility] ( [facility] Systolic blood 120 mm[Hg] 120 mm[facility] Body weight 87.815 kg 87.815 [facility] Body height 165.10 cm 165.10 cm [facility] ([facility]) Oxygen saturation 99 % 99 % NEXTGEN ([facility] in Arterial blood [facility]ulse [facility] Center) Body mass index 35.28 kg/m2 Overweight 35.28 kg/m2 NEXTGEN ([facility] (BMI) [Ratio] [facility]) Respiratory rate 19 /min 19 /[facility] Body temperature 36.61 Nicole 36.61 [facility]) Heart rate 67 /min 67 /min [facility] ([facility]) Diastolic blood 73 mm[Hg] 73 mm[Hg] [facility] ( [facility]) Systolic blood 133 mm[Hg] 133 mm[Hg] [facility]) Body weight 96.162 kg 96.162 [facility]) Body height 165.10 cm 165.10 cm [facility] ([facility]) Oxygen saturation 96 % 96 % NEXTGEN ([facility] in Arterial [facility]) Body mass index 35.61 kg/m2 Overweight 35.61 kg/m2 NEXTGEN ([facility] (BMI) [Ratio] [facility]) Respiratory rate 17 /min 17 /min [facility]) Body temperature 36.33 Nicole 36.33 Nicole [facility] ([facility]) Heart rate 50 /min 50 /min NEXTGEN ([facility]) Diastolic blood 61 mm[Hg] 61 mm[Hg] NEXTGEN ( [facility] pressure [facility]) Systolic blood 127 mm[Hg] 127 mm[Hg] NEXTGEN (S aint pressure [facility]) Body weight 97.069 kg 97.069 kg NEXTGEN ([facility]) Body height 165.10 cm 165.10 cm NEXTGEN ([facility]) Body temperature 36.859569 [id number] [facility] Respiratory rate 18 /min 18 /min [facility] Heart rate 66 /min 66 /min [facility] Diastolic blood 55 mm[Hg] 55 mm[Hg] [facility] Systolic blood 117 mm[Hg] 117 mm[Hg] [facility] Body temperature 36.464577 36.883236 [facility] Respiratory rate 20 /min 20 /min [facility] Oxygen saturation 95 % 95 % [facility] in [facility] blood [facility] by Pulse oximetry Heart rate 74 /min 74 /min [facility] Diastolic blood 73 mm[Hg] 73 mm[Hg] [facility] Systolic blood 138 mm[Hg] 138 mm[Hg] [facility] Body temperature 36.014294 36.572885 [facility] Respiratory rate 18 /min 18 /min [facility] Heart rate 93 /min 93 /min [facility] Diastolic blood 56 mm[Hg] 56 mm[Hg] [facility] Medical [place] Systolic blood 95 mm[Hg] 95 mm[Hg] [facility] Body temperature 36.994366 36.312589 [facility] Respiratory rate 20 /min 20 /min [facility] Heart rate 68 /min 68 /min [facility] Diastolic blood 71 mm[Hg] 71 mm[Hg] [facility] Systolic blood 126 mm[Hg] 126 mm[Hg] [facility] Body temperature 36.884736 36.693664 [facility] Respiratory rate 18 /min 18 /min [facility] Heart rate 67 /min 67 /min [facility] Diastolic blood 78 mm[Hg] 78 mm[Hg] [facility] Systolic blood 136 mm[Hg] 136 mm[Hg] [facility] Oxygen saturation 94 % 94 % NEXTGEN ([facility] in Arterial [facility]) Body mass index 38.71 kg/m2 Overweight 38.71 kg/m2 NEXTGEN ([facility] (BMI) [Ratio] [facility]) Respiratory rate 20 /min 20 /min NEXTGEN ([facility]) Body temperature 37.06 Nicole 37.06 Nicole [facility] ([facility]) Heart rate 78 /min 78 /[facility] Diastolic blood 63 mm[Hg] 63 mm[Hg] NEXTGEN ( [facility]) Systolic blood 110 mm[Hg] 110 mm[Hg] [facility]) Body weight 105.506 kg 105.506 [facility] ([facility]) Body height 165.10 cm 165.[address] [facility]) Body surface area 2.24 m2 2.24 m2 NEXTGEN ([facility]ived [facility]) Body mass index 40.04 kg/m2 Overweight 40.04 kg/m2 NEXTGEN ([facility] (BMI) [Ratio] [facility]) Respiratory rate 18 /min 18 /[facility]) Body temperature 37.00 Nicole 37.00 [facility]) Heart rate 62 /min 62 /min [facility]) Diastolic blood 72 mm[Hg] 72 mm[Hg] NEXTGEN ( [facility]) Systolic blood 122 mm[Hg] 122 mm[Hg] [facility] ([facility]) Body weight 109.134 kg 109.[address] [facility] ([facility]) Body height 165.10 cm 165.10 cm [facility] ([facility]) Oxygen saturation 93 % 93 % [facility] ([facility] in [facility]ial [facility]) Body mass index 40.04 kg/m2 Overweight 40.04 kg/m2 NEXTGEN ([facility] (BMI) [Ratio] [facility]) Respiratory rate 16 /min 16 /min NEXTGEN ([facility]) Body temperature 36.67 Nicole 36.67 Nicole NEXT[facility] ([facility]) Heart rate 66 /min 66 /min NEXT[facility] ([facility]) Diastolic blood 69 mm[Hg] 69 mm[Hg] NEXTGEN ( [facility] pressure [facility]) Systolic blood 106 mm[Hg] 106 mm[Hg] NEXTGEN ([facility]) Body weight 109.134 kg 109.[address] [facility] ([facility]) Body height 165.10 cm 165.10 cm [facility] ([facility]) Oxygen saturation 94 % 94 % NEXTGEN ([facility] in Arterial [facility]) Body mass index 40.10 kg/m2 Overweight 40.10 kg/m2 NEXTGEN ([facility] (BMI) [Ratio] [facility]) Respiratory rate 18 /min 18 /min NEXTGEN ([facility]) Body temperature 37.22 Nicole 37.22 [address] [facility]) Heart rate 74 /min 74 /min NEXTGEN ([facility]) Diastolic blood 72 mm[Hg] 72 mm[Hg] NEXTGEN ( [facility]) Systolic blood 112 mm[Hg] 112 mm[Hg] [facility]) Body weight 109.316 kg 109.316 [facility] ([facility]) Body height 165.10 cm 165.[address] [facility]) Oxygen saturation 97 % 97 % NEXTGEN ([facility] in Arterial [facility] by Pulse oximetry Center) Body mass index 39.60 kg/m2 Overweight 39.60 kg/m2 NEXTGEN ([facility] (BMI) [Ratio] [facility]) Respiratory rate 18 /min 18 /[facility]) Body temperature 36.83 Nicole 36.83 Nicole [facility]) Heart rate 56 /min 56 /min NEXTGEN ([facility]) Diastolic blood 75 mm[Hg] 75 mm[Hg] NEXTGEN ( [facility]) Systolic blood 136 mm[Hg] 136 mm[Hg] NEXTGEN (S aint pressure [facility]) Body weight 107.955 kg 107.[facility]) Body height 165.10 cm 165.[address] [facility]) Oxygen saturation 93 % 93 % NEXTGEN ([facility] in [facility]ial [facility]) Body mass index 40.44 kg/m2 Overweight 40.44 kg/m2 NEXTGEN ([facility] (BMI) [Ratio] [facility]) Respiratory rate 18 /min 18 /min [facility]) Body temperature 36.17 Nicole 36.17 [facility]) Heart rate 73 /min 73 /min [facility]) Diastolic blood 72 mm[Hg] 72 mm[Hg] [facility] ( [facility]) Systolic blood 114 mm[Hg] 114 mm[Hg] [facility] ([facility]) Body weight 110.223 kg 110.223 [facility] ([facility]) Body height 165.10 cm 165.[address] [facility]) Oxygen saturation 96 % 96 % NEXTGEN ([facility] in Arterial [facility] by Pulse oximetry Center) Body mass index 41.77 kg/m2 Overweight 41.77 kg/m2 NEXTGEN ([facility] (BMI) [Ratio] [facility]) Respiratory rate 20 /min 20 /min NEXTGEN ([facility]) Body temperature 36.67 Nicole 36.67 [address] [facility]) Heart rate 71 /min 71 /min NEXTGEN ([facility]) Diastolic blood 69 mm[Hg] 69 mm[Hg] NEXTGEN ( [facility]) Systolic blood 132 mm[Hg] 132 mm[Hg] [facility]) Body weight 113.852 kg 113.[facility]) Body height 165.10 cm 165.10 cm [facility] ([facility]) Patient Treatment Plan of Care Planned Activity Planned Date Details Description Data Source (s) Furosemide 20 MG Oral Tablet 02/26/2020 NEXTGEN (Saint 12:00:00 AM [facility]) Methadone Hydrochloride 2 02/26/2020 NE XTGEN (Saint MG/ML Oral Solution 12:00:00 AM [facility]) Furosemide 20 MG Oral Tablet 02/26/2020 NEXTGEN ([facility] 12:00:00 AM [facility]) 120 ACTUAT Budesonide 0.16 02/20/2020 N EXTGEN (Saint MG/ACTUAT / formoterol 12:00:00 AM [facility] Medical fumarate 0.0045 MG/ACTUAT Ce nter) Metered Dose Inhaler [Symbicort] Furosemide 20 MG Oral Tablet 02/13/2020 NEXTGEN ([facility] 12:00:00 AM [facility]) Hydrochlorothiazide 25 MG / 02/09/2020 NEXTGEN (Saint Losartan Potassium 100 MG 12:00:00 AM [facility] Oral Tablet [place]) Fluoxetine 10 MG Oral Capsule 02/06/2020 NEXTGEN (Saint [Prozac] 12:00:00 AM [facility]) aripiprazole 20 MG Oral 02/06/2020 NEXT GEN ([facility] Tablet [Abilify] 12:00:00 AM [facility]) Methadone Hydrochloride 2 01/24/2020 NE XTGEN (Saint MG/ML Oral Solution 12:00:00 AM [facility]) 120 ACTUAT Budesonide 0.16 01/24/2020 N EXTGEN (Saint MG/ACTUAT / formoterol 12:00:00 AM [facility] sephs Medical fumarate 0.0045 MG/ACTUAT Ce nter) Metered Dose Inhaler [Symbicort] Furosemide 20 MG Oral Tablet 01/24/2020 NEXTGEN (Saint 12:00:00 AM [facility]) atorvastatin 20 MG Oral 12/25/2019 NEXT GEN ([facility] Tablet 12:00:00 AM [facility]) 200 ACTUAT Albuterol 0.09 11/23/2019 NE XTGEN (Saint MG/ACTUAT Metered Dose 12:00:00 AM [facility] Inhaler [[facility]] [place]) Hydrochlorothiazide 25 MG / 10/29/2019 NEXTGEN (Saint Losartan Potassium 100 MG 12:00:00 AM [facility] Oral Tablet [place]) atorvastatin 20 MG Oral 09/24/2019 NEXT GEN (Saint Tablet 12:00:00 AM [facility]) aripiprazole 20 MG Oral 09/20/2019 NEXT GEN (Saint Tablet [Abilify] 12:00:00 AM [facility]) Fluoxetine 10 MG Oral Capsule 09/20/2019 NEXTGEN (Saint [Prozac] 12:00:00 AM [facility]) Fluoxetine 10 MG Oral Capsule 08/02/2019 NEXTGEN (Saint [Prozac] 12:00:[address] [facility]) aripiprazole 20 MG Oral 08/02/2019 NEXT GEN (Saint Tablet [Abilify] 12:00:00 AM [facility]) 200 ACTUAT Albuterol 0.09 07/26/2019 NE XTGEN (Saint MG/ACTUAT Metered Dose 12:00:00 AM [facility] Inhaler [[facility]] [place]) Methadone Hydrochloride 2 07/18/2019 NE XTGEN (Saint MG/ML Oral Solution 12:00:00 AM [facility]) atorvastatin 20 MG Oral 07/18/2019 NEXT GEN (Saint Tablet 12:00:[address] [facility]) aripiprazole 20 MG Oral 05/09/2019 NEXT GEN (Saint Tablet [Abilify] 12:00:00 AM [facility]) Fluoxetine 10 MG Oral Capsule 05/09/2019 NEXTGEN (Saint [Prozac] 12:00:[address] [facility]) Hydrochlorothiazide 25 MG / 03/22/2019 NEXTGEN (Saint Losartan Potassium 100 MG 12:00:00 AM [facility] Oral Tablet [place]) Fluoxetine 10 MG Oral Capsule 03/14/2019 NEXTGEN (Saint [Prozac] 12:00:00 AM [facility]) aripiprazole 20 MG Oral 03/14/2019 NEXT GEN (Saint Tablet [Abilify] 12:00:00 AM [facility]) Nicotine 2 MG Oral Lozenge 02/03/2019 N EXTGEN (Saint 12:00:00 AM [facility]) Buprenorphine 12 MG / 02/03/2019 NEXTGE N (Saint Naloxone 3 MG Oral Strip 12:00:00 AM [facility] [Suboxone] Center) Buprenorphine 8 MG / Naloxone 02/03/2019 NEXTGEN (Saint 2 MG Oral Strip [Suboxone] 12:00:00 AM [facility]) Hydrochlorothiazide 25 MG / 01/06/2019 NEXTGEN (Saint Losartan Potassium 100 MG 12:00:00 AM [facility] Oral Tablet Center) aripiprazole 20 MG Oral 12/14/2018 NEXT GEN (Saint Tablet [Abilify] 12:00:00 AM [facility]) Fluoxetine 10 MG Oral Capsule 12/14/2018 NEXTGEN (Saint [Prozac] 12:00:00 AM [facility]) aripiprazole 20 MG Oral 10/19/2018 NEXT GEN (Saint Tablet [Abilify] 12:00:00 AM [facility]) Fluoxetine 10 MG Oral Capsule 10/19/2018 NEXTGEN (Saint [Prozac] 12:00:00 AM [facility]) Buprenorphine 8 MG / Naloxone 09/12/2018 NEXTGEN (Saint 2 MG Oral Strip [Suboxone] 12:00:00 AM [facility]) Fluoxetine 10 MG Oral Capsule 08/24/2018 NEXTGEN ([facility] [Prozac] 12:00:00 AM [facility] [facility]) aripiprazole 20 MG Oral 08/24/2018 NEXT GEN ([facility] Tablet [Abilify] 12:00:00 AM [facility]) Hydrochlorothiazide 25 MG / 08/15/2018 NEXTGEN ([facility] Losartan Potassium 100 MG 12:00:00 AM [facility] Oral Tablet Center) Fluoxetine 10 MG Oral Capsule 06/22/2018 NEXTGEN ([facility] [Prozac] 12:00:[address] [facility]) aripiprazole 20 MG Oral 06/22/2018 NEXT GEN ([facility] Tablet [Abilify] 12:00:00 AM [facility]) Buprenorphine 8 MG / Naloxone 02/22/2018 NEXTGEN ([facility] 2 MG Oral Strip [Suboxone] 12:00:00 AM [facility]) Aspirin 81 MG Delayed Release 12/29/2017 NEXTGEN ([facility] Oral Tablet 12:00:00 AM [facility]) Acetaminophen 500 MG Oral 11/16/2017 NE XTGEN ([facility] Tablet 12:00:00 AM [facility]) 24 HR Nicotine 0.583 MG/HR 07/23/2017 N EXTGEN ([facility] Transdermal Patch 12:00:00 AM [facility]) Narcan 4 mg/actuation nasal 06/29/2017 NEXTGEN ([facility] spray 12:00:[address] [facility]) Furosemide 20 MG Oral Tablet NEXTGEN ([facility]) Potassium Chloride 20 MEQ NE XTGEN ([facility] Extended Release Oral Tablet [facility]) Lenvima 4 mg capsule NEXTGEN ([facility]) [facility] Dexamethasone 4 MG Oral NEXT GEN ([facility] Tablet [Decadron] [facility] dical [place]) Clotrimazole 10 MG Oral NEXT GEN ([facility] Lozenge [facility]) Fluoxetine 10 MG Oral Tablet NEXTGEN ([facility]) Methadone Hydrochloride 2 NE XTGEN ([facility] MG/ML Oral Solution [facility]) Vosevi 400 mg-100 mg-100 mg NEXTGEN ([facility]) Hydrochlorothiazide 25 MG / NEXTGEN ([facility] Losartan Potassium 100 MG [facility] Oral Tablet [facility]) Abilify 15 mg tablet NEXTGEN ([facility]) Fluoxetine 20 MG Oral Capsule NEXTGEN ([facility] [Prozac] [facility])
[2020-03-03] MEDS: SODIUM CHLORIDE 1,000 ML IV SCH (06:52)
--- NOTE | 2020-03-03 07:02 | HP ---
CHIEF COMPLAINT: Abdominal Pain. PCP: Dr. Dougherty HISTORY OF PRESENT ILLNESS: Pt. is a 59 y.o. F w/ PMHx. of HTN, COPD, Hep. C (treated) and HCC presents for abdominal pain that started 3-4 days ago. Pt. denies any inciting event such as trauma, or retching. Pt. follows with Dr. Gallego at [facility] and states that she was recently started on Levatinib 9 days ago. Pt. also endorses recent decrease in Methadone dosage because of interaction with her other medications. Pt. endorses headaches, decreased appetite, nausea, vomiting and diarrhea. Pt. endorses new difficulty swallowing both solids and liquids. Of note Pt. was admitted in December for the same. Workup indicated that her abdominal pain was caused my medication side effects, of which Pt. is no longer on. Pt. was given Dexamethasone to good effect. Hospital course was complicated by GI bleed for which Pt. underwent EGD and colonoscopy. Bleeding site was not found but biopsy was positive for H. Pylori. Pt. states she competed 2 weeks of medications to treat that infection. Pt. states she lives by herself but that she has some visiting nurse services and her daughter visits daily. Per daughter RN wanted to bring the Pt. in on Wednesday for decreased appetite as she was not eating anything, but the Pt. declined. ER course was notable for: (1)1L NS, Tylenol. Morphine (2) CT A/P, EKG. CBC, CMP, NH3 (3) Recent Travel: No PAST MEDICAL HISTORY: As above PAST SURGICAL HISTORY: Social History: Smoking: Quit in August, 06/15 PPD x 20 years Alcohol: Social drinking, not currently Drugs: IV and IH Heroin in the past, not currently. Allergies Penicillins Allergy (Severe, Verified 03/02/20 18:21) Rash HOME MEDICATIONS: Home Medications Medication Instructions Recorded Folic Acid 1 mg PO DAILY 03/02/20 Furosemide [Lasix -] 20 mg PO DAILY 03/02/20 Lenvatinib Mesylate [Lenvima] 12 mg PO DAILY 03/02/20 Methadone [Dolophine -] 30 mg PO DAILY 03/02/20 REVIEW OF SYSTEMS As above PHYSICAL EXAMINATION Vital Signs - 24 hr 03/02/20 03/03/20 03/03/20 18:15 02:28 06:29 Temperature 99.5 F 98.5 F Pulse Rate 102 H Pulse Rate [ 103 H 107 H Right Radial] Respiratory 18 16 18 Rate Blood Pressure 114/73 Blood Pressure 109/63 110/57 L [Left Arm] O2 Sat by Pulse 96 92 L 100 Oximetry (%) GENERAL: Awake, alert, and fully oriented, in no moderate distress 2/2 pain. HEAD: Normal with no signs of trauma. EYES: Sclera anicteric, conjunctiva clear. EARS, NOSE, THROAT: Dry mucous membranes. NECK: Normal range of motion, supple without lymphadenopathy, JVD, or masses. LUNGS: Breath sounds equal anteriorly, clear to auscultation bilaterally. No wheezes, and no crackles. No accessory muscle use. HEART: Regular rate and rhythm, normal S1 and S2 without murmur ABDOMEN: Soft, RUQ abdominal tenderness, not distended but protuberant abdomen, normoactive bowel sounds, no guarding, no rebound, no masses MUSCULOSKELETAL: Normal range of motion at all joints. No bony deformities or tenderness. No CVA tenderness. UPPER EXTREMITIES: 1+ radial pulses, warm, well-perfused. No cyanosis. No clubbing. No peripheral edema. LOWER EXTREMITIES: 1+ dorsal pedal pulses, warm, well-perfused. No calf tenderness. Trace edema. NEUROLOGICAL: No focal deficits appreciated. Moves all extrmeities. Normal speech. PSYCHIATRIC: Cooperative. Good eye contact. Appropriate mood and affect. SKIN: Warm, dry Laboratory Results - last 24 hr 03/02/20 03/02/20 03/02/20 21:07 21:07 21:07 WBC 12.8 H RBC 3.05 L Hgb 8.7 L Hct 26.8 L MCV 88.0 MCH 28.5 MCHC 32.4 RDW 18.1 H Plt Count 482 H MPV 9.1 Total Counted 100 Neutrophils % No Result Required. Neutrophils % (Manual) 81.0 Lymphocytes % No Result Required. Lymphocytes % (Manual) 16.0 Monocytes % (Manual) 3 L Nucleated RBC % 0 Platelet Estimate Normal Platelet Comment Few large platelets PT with INR 16.60 H INR 1.40 H PTT (Actin FS) 50.2 H Sodium 136 Potassium 3.9 Chloride 98 Carbon Dioxide 31 Anion Gap 7 L BUN 11.0 Creatinine 0.7 Est GFR (CKD-EPI)AfAm 108.38 Est GFR (CKD-EPI)NonAf 93.51 Random Glucose 101 Calcium 8.6 Total Bilirubin 3.0 H AST 116 H ALT 28 Alkaline Phosphatase 311 H Ammonia Total Protein 6.1 L Albumin 1.7 L Lipase 34 L 03/02/20 21:17 WBC RBC Hgb Hct MCV MCH MCHC RDW Plt Count MPV Total Counted Neutrophils % Neutrophils % (Manual) Lymphocytes % Lymphocytes % (Manual) Monocytes % (Manual) Nucleated RBC % Platelet Estimate Platelet Comment PT with INR INR PTT (Actin FS) Sodium Potassium Chloride Carbon Dioxide Anion Gap BUN Creatinine Est GFR (CKD-EPI)AfAm Est GFR (CKD-EPI)NonAf Random Glucose Calcium Total Bilirubin AST ALT Alkaline Phosphatase Ammonia < 10.0 L Total Protein Albumin Lipase ASSESSMENT/PLAN: Pt. is a 59 y.o. F w/ PMHx. of HTN, COPD, Hep. C (treated) and HCC presents for abdominal pain that started 3-4 days ago. Pt. admitted for abdominal pain and to r/o infection. #Abdominal Pain with diarrhea suspect that this is a side effect of Levatinib. Pt. had similar presentation when on Atezolizumab. Levanotiib causes abdominal pain in ~30% of Pt.s. CT A/ P reviewed, f/u official read. f/u RUQ US read F/u UA, Cultures and stool studies to r/o infectious etiology f/u Oncology consult c/w Morphine for pain control as Pt. had recent reduction in Methadone, this may be side effects of withdrawal, therefore will continue to monitor. #HTN hold Lasix #PSA c/w Methadone #FEN encourage PO intake monitor and replete PRN NPO, pending Speech and swallow consult and bedside swallow evaluation. #DVT Ppx. Lovenox 40 SQ #Dispo monitor on M/S Full Code Family Medical History Family History: As Documented Visit type - Emergency Visit Emergency Visit: Yes ED Registration Date: 03/03/20 Care time: The patient presented to the Emergency Department on the above date and was hospitalized for further evaluation of their emergent condition. - New Patient This patient is new to me today: Yes Date on this admission: 03/03/20 - Critical Care Critical Care patient: No ATTENDING PHYSICIAN STATEMENT I saw and evaluated the patient. I reviewed the resident's note and discussed the case with the resident. I agree with the resident's findings and plan as documented. SUBJECTIVE: OBJECTIVE: ASSESSMENT AND PLAN:
--- NOTE | 2020-03-03 09:30 | EKG ---
Test Reason : Blood Pressure : / mmHG Vent. Rate : 100 BPM Atrial Rate : 100 BPM P-R Int : 130 ms QRS Dur : 086 ms QT Int : 386 ms P-R-T Axes : 052 042 051 degrees QTc Int : 497 ms NORMAL SINUS RHYTHM PROLONGED QT ABNORMAL ECG WHEN COMPARED WITH ECG OF 02-JAN-2020 15:17, NO SIGNIFICANT CHANGE WAS FOUND Confirmed by Anjana Joiner ([id number]) on 03/03/2020 9:29:56 AM Referred By: Confirmed By:Anjana Joiner
[2020-03-03 09:36] LABS: INR 1.43 (0.83-1.09); PROTHROMBIN TIME (PATIENT) 16.9 SEC (9.7-13.0)
[2020-03-03 09:40] LABS: ACTIVATED PTT 48.4 SECONDS (25.2-36.5)
[2020-03-03 09:56] LABS: HEMATOCRIT 25.1 % (32.4-45.2); HEMOGLOBIN 8.1 GM/dL (10.7-15.3); MCH 28.6 pg (25.7-33.7); MCHC 32.4 g/dl (32.0-36.0); MEAN CELL VOLUME 88.5 fl (80-96); MEAN PLT VOLUME 9.6 fl (7.5-11.1); PLATELET COUNT 474 K/MM3 (134-434); RBC 2.84 M/mm3 (3.60-5.2); RDW 18.3 % (11.6-15.6); WHITE BLOOD COUNT 12.6 K/mm3 (4.0-10.0)
[2020-03-03 10:05] LABS: ALBUMIN 1.6 g/dl (3.4-5.0); BILIRUBIN,TOTAL 3.2 mg/dL (0.2-1); BLOOD UREA NITROGEN 11.3 mg/dL (7-18); CALCIUM 8.7 mg/dL (8.5-10.1); CREATININE 0.7 mg/dL (0.55-1.3); MAGNESIUM 1.8 mg/dL (1.8-2.4); PHOSPHOROUS 4.2 mg/dL (2.5-4.9); POTASSIUM 3.7 mmol/L (3.5-5.1); TOT PROT 5.8 g/dl (6.4-8.2)
[2020-03-03] MEDS ORDERED: FOLIC ACID 1 MG TABLET (FP) ONE (10:40)
[2020-03-03] MEDS ORDERED: ENOXAPARIN NA (PORCINE) 40 MG/0.4 ML DISP.SYRIN SQ ONE (10:40)
[2020-03-03] MEDS: ENOXAPARIN NA (PORCINE) 40 MG/0.4 ML DISP.SYRIN SQ SCH (10:44)
[2020-03-03] MEDS: FOLIC ACID 1 MG TABLET (FP) PO SCH (10:44)
--- NOTE | 2020-03-03 11:49 | PN ---
Progress Note, Physician - Current Medication List Current Medications: Active Medications Enoxaparin Sodium (Lovenox -) 40 mg SQ DAILY [facility] Last Admin: 03/03/20 10:44 Dose: 40 mg Documented by: Folic Acid (Folic Acid -) 1 mg PO DAILY [facility] Last Admin: 03/03/20 10:44 Dose: 1 mg Documented by: Sodium Chloride (Normal Saline -) 1,000 mls @ 42 mls/hr IV ASDIR [facility] Last Admin: 03/03/20 06:52 Dose: 42 mls/hr Documented by: Methadone HCl (Dolophine -) 30 mg PO DAILY [facility] Morphine Sulfate (Morphine Sulfate) 2 mg IVPUSH Q4H PRN PRN Reason: PAIN LEVEL 7 - 10 - Objective Vital Signs: Vital Signs Temperature 98.5 F 03/03/20 06:29 Pulse Rate 82 03/03/20 09:12 Respiratory Rate 03/03/20 09:12 Blood Pressure 110/69 03/03/20 09:12 O2 Sat by Pulse Oximetry (%) 100 03/03/20 09:12 Cardiovascular: Yes: Regular Rate and Rhythm Respiratory: Yes: Regular, CTA Bilaterally Gastrointestinal: Yes: Normal Bowel Sounds, Soft, Ascites, Distention, Tenderness Labs: CBC, BMP 03/03/20 08:33 03/03/20 08:33 INR, PTT INR 1.43 (0.83-1.09) H 03/03/20 08:33 Problem List - Problems (1) Abdominal pain Assessment/Plan: suspect that this is a side effect of Levatinib 03/02/20 22:32 US abd pending read Pt went for her CT scan now 03/03/20 00:53 Referring Physician: ELLYN WEBER Patient Name: YASMIN SOTO THIS IS A PRELIMINARY REPORT DATE OF SERVICE: 2020-03-02 21:57:08 IMAGES: 43 EXAM: ULTRASOUND ABDOMEN INCOMPLETE Probable enlarged liver, measurements unavailable due to patient positioning. Heterogeneous liver echotexture with multiple masses, largest 6.0, suspicious for metastatic disease. Unremarkable gallbladder, right kidney and visualized aorta and pancreas. Normal common duct diameter, 3 mm. Pancreas and IVC not well seen. 03/03/20 02:32 Patient Name: YASMIN SOTO THIS IS A PRELIMINARY REPORT DATE OF SERVICE: 2020-03-03 01:27:44 IMAGES: 498 EXAM: CT ABDOMEN AND PELVIS WITH CONTRAST Enlarged liver containing multiple masses, probably metastases. Intrahepatic and suprarenal IVC partly compressed by the masses. Left adrenal masses up to 3.8 cm, probably metastases. 20-30% compression fracture L2, age uncertain. Collateral vessels in left pararenal space. No bowel obstruction or inflammation. No free fluid or free air. Normal appendix. Unremarkable stomach, pancreas, kidneys and gallbladder. Small splenic cyst. Heterogeneous uterus. Small ascites. CT A/ P reviewed, f/u official read. f/u RUQ US read GI consult f/u Oncology consult c/w Morphine for pain control as Pt. had recent reduction in Methadone, this may be side effects of withdrawal, therefore will continue to monitor. Code(s): R10.9 - UNSPECIFIED ABDOMINAL PAIN (2) Liver cancer Assessment/Plan: Oncology consult Code(s): C22.9 - MALIG NEOPLASM OF LIVER, NOT SPECIFIED PRIMARY OR SEC (3) Anemia Assessment/Plan: follow trends transfuse if further drop Code(s): D64.9 - ANEMIA, UNSPECIFIED
[2020-03-03 13:03] LABS: ANISOCYTOSIS 0; MACROCYTOSIS 0; PLATELET ESTIMATE INCREASED
[2020-03-03] MEDS ORDERED: PANTOPRAZOLE SODIUM 40 MG VIAL ONE (14:06)
[2020-03-03] MEDS: PANTOPRAZOLE SODIUM 40 MG VIAL IVPUSH SCH (14:08)
--- NOTE | 2020-03-03 17:17 | CON.HO ---
Consult Consult Specialty:: Medical Oncology Reason for Consultation:: Evaluate for Lenvatinib Side Effects - History of Present Illness History of Present Illness: 59 y/o lady w/ PMHx. of HTN, COPD, Hep. C (treated) and HCC presents for abdominal pain that started 3-4 days ago. Pt. denies any inciting event such as trauma, or retching. Pt. follows with Dr. Gallego at [facility] and states that she was recently started on Lenvatinib 9 days ago. Pt. also endorses recent decrease in Methadone dosage because of interaction with her other medications. Pt. endorses headaches, decreased appetite, nausea, vomiting and diarrhea. She was tender in the RUQ during my evaluation. - History Source History Provided By: Patient, Medical Record - Past Medical History Cardio/Vascular: Yes: HTN Pulmonary: Yes: COPD Hepatobiliary: Yes: Other (hepatocellular ca) ...LMP: 03/02/20 ...: No Psych: Yes: Bipolar, Other (recoveing multisubstance abuser) - Past Surgical History Past Surgical History: Yes: - Alcohol/Substance Use Hx Alcohol Use: Yes History of Substance Use: reports: Cocaine, Marijuana, Prescription (opiates) - Smoking History Smoking history: Former smoker Have you smoked in the past 12 months: No Aproximately how many cigarettes per day: 20 If you are a former smoker, when did you quit?: 1 month ago - Social History Usual Living Arrangement: Alone ADL: Independent 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 [employer] History of Recent Travel: No Home Medications - Allergies Allergies/Adverse Reactions: Allergies Allergy/AdvReac Type Severity Reaction Status Date / Time Penicillins Allergy Severe Rash Verified 03/02/20 18:21 - Home Medications Home Medications: Ambulatory Orders Folic Acid 1 mg PO DAILY 03/02/20 Furosemide [Lasix -] 20 mg PO DAILY 03/02/20 Lenvatinib Mesylate [Lenvima] 12 mg PO DAILY 03/02/20 Methadone [Dolophine -] 30 mg PO DAILY 03/02/20 Family Medical History Family Hx Cancer: Mother (had lung xcancer) Review of Systems - Review of Systems Constitutional: reports: No Symptoms Eyes: reports: No Symptoms HENT: reports: No Symptoms Neck: reports: No Symptoms Cardiovascular: reports: No Symptoms Respiratory: reports: No Symptoms Gastrointestinal: reports: Abdominal Pain Genitourinary: reports: No Symptoms Musculoskeletal: reports: No Symptoms Integumentary: reports: No Symptoms Neurological: reports: No Symptoms Endocrine: reports: No Symptoms Hematology/Lymphatic: reports: No Symptoms Psychiatric: reports: No Symptoms Physical Exam Vital Signs: Vital Signs Temperature 98.5 F 03/03/20 06:29 Pulse Rate 88 03/03/20 17:09 Respiratory Rate 18 03/03/20 17:09 Blood Pressure 114/70 03/03/20 17:09 O2 Sat by Pulse Oximetry (%) 99 03/03/20 17:09 Constitutional: Yes: Well Nourished, No Distress, Mild Distress Eyes: Yes: WNL, Conjunctiva Clear HENT: Yes: WNL Neck: Yes: WNL Cardiovascular: Yes: WNL, Regular Rate and Rhythm Respiratory: Yes: WNL, Regular, CTA Bilaterally Gastrointestinal: Yes: Distention, Tenderness Renal/: Yes: WNL Musculoskeletal: Yes: WNL Extremities: Yes: WNL Labs: CBC, BMP 03/03/20 08:33 03/03/20 08:33 Assessment/Plan 59 y/o lady w/ PMHx. of HTN, COPD, Hep. C (treated) and HCC presents for abdominal pain that started 3-4 days ago. Pt. denies any inciting event such as trauma, or retching. Pt. follows with Dr. Gallego at [facility] and states that she was recently started on Lenvatinib 9 days ago. Pt. also endorses recent decrease in Methadone dosage because of interaction with her other medications. Pt. endorses headaches, decreased appetite, nausea, vomiting and diarrhea. She was tender in the RUQ during my evaluation. Medical Oncology consulted Recommend: 1) Official CT report pending. She is distended and has exquisite tenderness. May need MRCP 2) Lenvatinib maybe the cause of her abdominal pain but disease progression should be ruled out 3) Daily CBC, CMP 4) Will follow 5) Thank you for this consultation
[2020-03-04] MEDS: MORPHINE SULFATE 2 MG/ML VIAL IVPUSH PRN ×2 (02:10→06:45)
[2020-03-04 04:15] VITALS: BMI 24.7
[2020-03-04] MEDS: SODIUM CHLORIDE 1,000 ML IV SCH (06:46)
--- NOTE | 2020-03-04 09:09 | PN ---
Progress Note, Physician - Current Medication List Current Medications: Active Medications Enoxaparin Sodium (Lovenox -) 40 mg SQ DAILY [facility] Last Admin: 03/03/20 10:44 Dose: 40 mg Documented by: Folic Acid (Folic Acid -) 1 mg PO DAILY [facility] Last Admin: 03/03/20 10:44 Dose: 1 mg Documented by: Sodium Chloride (Normal Saline -) 1,000 mls @ 42 mls/hr IV ASDIR [facility] Last Admin: 03/04/20 06:46 Dose: 42 mls/hr Documented by: Methadone HCl (Dolophine -) 30 mg PO DAILY [facility] Morphine Sulfate (Morphine Sulfate) 2 mg IVPUSH Q4H PRN PRN Reason: PAIN LEVEL 7 - 10 Last Admin: 03/04/20 06:45 Dose: 2 mg Documented by: Pantoprazole Sodium (Protonix Iv) 40 mg IVPUSH DAILY [facility] Last Admin: 03/03/20 14:08 Dose: 40 mg Documented by: - Objective Vital Signs: Vital Signs Temperature 98.1 F 03/04/20 06:00 Pulse Rate 99 H 03/04/20 06:00 Respiratory Rate 18 03/04/20 06:00 Blood Pressure 107/61 03/04/20 06:00 O2 Sat by Pulse Oximetry (%) 95 03/04/20 06:00 Cardiovascular: Yes: S1, S2 Respiratory: Yes: Regular, CTA Bilaterally Gastrointestinal: Yes: Soft, Tenderness (RUQ) Labs: CBC, BMP 03/03/20 08:33 03/03/20 08:33 INR, PTT INR 1.43 (0.83-1.09) H 03/03/20 08:33 Problem List - Problems (1) Abdominal pain Assessment/Plan: suspect that this is a side effect of Levatinib 03/02/20 22:32 US abd pending read Pt went for her CT scan now 03/03/20 00:53 Referring Physician: ELLYN WEBER Patient Name: YASMIN SOTO THIS IS A PRELIMINARY REPORT DATE OF SERVICE: 2020-03-02 21:57:08 IMAGES: 43 EXAM: ULTRASOUND ABDOMEN INCOMPLETE Probable enlarged liver, measurements unavailable due to patient positioning. Heterogeneous liver echotexture with multiple masses, largest 6.0, suspicious for metastatic disease. Unremarkable gallbladder, right kidney and visualized aorta and pancreas. Normal common duct diameter, 3 mm. Pancreas and IVC not well seen. 03/03/20 02:32 Patient Name: YASMIN SOTO THIS IS A PRELIMINARY REPORT DATE OF SERVICE: 2020-03-03 01:27:44 IMAGES: 498 EXAM: CT ABDOMEN AND PELVIS WITH CONTRAST Enlarged liver containing multiple masses, probably metastases. Intrahepatic and suprarenal IVC partly compressed by the masses. Left adrenal masses up to 3.8 cm, probably metastases. 20-30% compression fracture L2, age uncertain. Collateral vessels in left pararenal space. No bowel obstruction or inflammation. No free fluid or free air. Normal appendix. Unremarkable stomach, pancreas, kidneys and gallbladder. Small splenic cyst. Heterogeneous uterus. Small ascites. CT A/ P reviewed, f/u official read. f/u RUQ US read GI consult f/u Oncology consult appreciated c/w Morphine for pain control Code(s): R10.9 - UNSPECIFIED ABDOMINAL PAIN (2) Liver cancer Assessment/Plan: Oncology consult appreciated Code(s): C22.9 - MALIG NEOPLASM OF LIVER, NOT SPECIFIED PRIMARY OR SEC (3) Anemia Assessment/Plan: follow trends transfuse if further drop Code(s): D64.9 - ANEMIA, UNSPECIFIED
--- NOTE | 2020-03-04 10:02 | PN ---
Physical Exam: HEME/ONC Service SUBJECTIVE: Patient seen and examined this AM. No acute overnight events as per nursing. Abdominal pain persists, Patient reports decreased PO Intake, Denies fevers, nausea, vomiting, diarrhea. OBJECTIVE: Vital Signs Period Temp Pulse Resp BP Sys/Del Rosario Pulse Ox Last 24 Hr 97.8 F-99.3 F 88-99 18-18 104-114/57-70 91-99 GENERAL: A&Ox3, NAD HEAD: NCAT EYES: EOMI, sclera icteric ENT: Dry mucous membranes NECK: Supple LUNGS: Diminished breath sounds at the bases, no wheezes HEART: Tachycardic, S1 S2 ABDOMEN: Soft, Diffuse tenderness to light palpation most prominent in the RUQ and RLQ, Distended + bowel sounds, no guarding, no rebound, MUSCULOSKELETAL: No CVA tenderness. EXTREMITIES: No edema. NEUROLOGICAL: Cranial nerves II through XII grossly intact. Normal speech SKIN: Warm, dry Laboratory Last Values WBC 12.6 K/mm3 (4.0-10.0) H 03/03/20 08:33 RBC 2.84 M/mm3 (3.60-5.2) L 03/03/20 08:33 Hgb 8.1 GM/dL (10.7-15.3) L 03/03/20 08:33 Hct 25.1 % (32.4-45.2) L 03/03/20 08:33 MCV 88.5 fl (80-96) 03/03/20 08:33 MCH 28.6 pg (25.7-33.7) 03/03/20 08:33 MCHC 32.4 g/dl (32.0-36.0) 03/03/20 08:33 RDW 18.3 % (11.6-15.6) H 03/03/20 08:33 Plt Count 474 K/MM3 (134-434) H 03/03/20 08:33 MPV 9.6 fl (7.5-11.1) 03/03/20 08:33 Total Counted 100 03/02/20 21:07 Neutrophils % No Result Required. 03/03/20 08:33 Neutrophils % (Manual) 79.2 % (42.8-82.8) 03/03/20 08:33 Band Neutrophils % 0.0 % 03/03/20 08:33 Lymphocytes % No Result Required. 03/03/20 08:33 Lymphocytes % (Manual) 12.9 % (8-40) 03/03/20 08:33 Monocytes % (Manual) 8 % (3.8-10.2) D 03/03/20 08:33 Eosinophils % (Manual) 0.0 % (0-4.5) 03/03/20 08:33 Basophils % (Manual) 0.0 % (0-2.0) 03/03/20 08:33 Myelocytes % (Man) 0 % (0-2) 03/03/20 08:33 Promyelocytes % (Man) 0 % (0-2) 03/03/20 08:33 Blast Cells % (Manual) 0 % (0-0) 03/03/20 08:33 Nucleated RBC % 0 % (0-0) 03/03/20 08:33 Metamyelocytes 0 % (0-2) 03/03/20 08:33 Hypochromia 0 03/03/20 08:33 Platelet Estimate Increased 03/03/20 08:33 Platelet Comment Few large platelets 03/02/20 21:07 Polychromasia 0 03/03/20 08:33 Poikilocytosis 0 03/03/20 08:33 Anisocytosis 0 03/03/20 08:33 Microcytosis 0 03/03/20 08:33 Macrocytosis 0 03/03/20 08:33 PT with INR 16.90 SEC (9.7-13.0) H 03/03/20 08:33 INR 1.43 (0.83-1.09) H 03/03/20 08:33 PTT (Actin FS) 48.4 SECONDS (25.2-36.5) H 03/03/20 08:33 Sodium 135 mmol/L (136-145) L 03/03/20 08:33 Potassium 3.7 mmol/L (3.5-5.1) 03/03/20 08:33 Chloride 99 mmol/L (98-107) 03/03/20 08:33 Carbon Dioxide 28 mmol/L (21-32) 03/03/20 08:33 Anion Gap 8 MMOL/L (8-16) 03/03/20 08:33 BUN 11.3 mg/dL (7-18) 03/03/20 08:33 Creatinine 0.7 mg/dL (0.55-1.3) 03/03/20 08:33 Est GFR (CKD-EPI)AfAm 108.38 03/03/20 08:33 Est GFR (CKD-EPI)NonAf 93.51 03/03/20 08:33 Random Glucose 98 mg/dL (74-106) 03/03/20 08:33 Calcium 8.7 mg/dL (8.5-10.1) 03/03/20 08:33 Phosphorus 4.2 mg/dL (2.5-4.9) 03/03/20 08:33 Magnesium 1.8 mg/dL (1.8-2.4) 03/03/20 08:33 Total Bilirubin 3.2 mg/dL (0.2-1) H 03/03/20 08:33 AST 116 U/L (15-37) H 03/03/20 08:33 ALT 27 U/L (13-61) 03/03/20 08:33 Alkaline Phosphatase 287 U/L (45-117) H 03/03/20 08:33 Ammonia < 10.0 umol/L (11-32) L 03/02/20 21:17 Total Protein 5.8 g/dl (6.4-8.2) L 03/03/20 08:33 Albumin 1.6 g/dl (3.4-5.0) L 03/03/20 08:33 Lipase 34 U/L (73-393) L 03/02/20 21:07 Stool Occult Blood Negative (NEGATIVE) 03/04/20 01:55 Blood Type O POSITIVE 03/03/20 08:33 Antibody Screen Negative 03/03/20 08:33 Microbiology 03/04/20 01:55 Stool Norovirus GI - Preliminary 03/04/20 01:55 Stool Norovirus GII - Preliminary Active Medications Enoxaparin Sodium (Lovenox -) 40 mg SQ DAILY [facility] Last Admin: 03/03/20 10:44 Dose: 40 mg Documented by: Folic Acid (Folic Acid -) 1 mg PO DAILY [facility] Last Admin: 03/03/20 10:44 Dose: 1 mg Documented by: Sodium Chloride (Normal Saline -) 1,000 mls @ 42 mls/hr IV ASDIR [facility] Last Admin: 03/04/20 06:46 Dose: 42 mls/hr Documented by: Methadone HCl (Dolophine -) 30 mg PO DAILY [facility] Morphine Sulfate (Morphine Sulfate) 2 mg IVPUSH Q4H PRN PRN Reason: PAIN LEVEL 7 - 10 Last Admin: 03/04/20 06:45 Dose: 2 mg Documented by: Pantoprazole Sodium (Protonix Iv) 40 mg IVPUSH DAILY [facility] Last Admin: 03/03/20 14:08 Dose: 40 mg Documented by: ASSESSMENT/PLAN: 59 y/o F PMHx HTN, COPD, HCV (s/p treatment), HCC admitted for abdominal pain. Recently started on Lenvatinib (now on hold). Abdominal pain persists with dimin ished PO Intake but denies any current fevers, nausea, vomiting, diarrhea. #Abdominal Pain -In the setting metastatic disease; Still consider Lenvatinib use -Today has diminished PO intake, Tachycardia likely due to pain, Leukocytosis, Rising TBili/LFTs -CT A/P consistent with metastatic neoplastic disease to the liver and b/l Adrenals, Possible metastatic splenic lesion -Hold Lenvatinib -Need to r/o infectious etiology; Follow Stool studies, Blood cx -Analgesia via Morphine, Methadone; Add PO Oxycodone -Will discuss the need for MRCP with GI given rising TBili and Sclera icteric today -Trend LFTs, Check D. Oniel -GI Evaluation pending -Avoid Hepatotoxic medications, Avoid QT prolonging medications -DVT PPx -Consider Palliative care and Pain Management consults #Normocytic Anemia -Likely Anemia of chronic inflammation in the setting of metastatic disease -FOBT Negative -Transfuse to keep Hgb > 7.0 #L2 Compression fracture -Found on CT in the setting of metastatic disease, Currently without Back pain -Consider NeuroSx evaluation and L-Spine MRI Visit type - Emergency Visit Emergency Visit: Yes ED Registration Date: 03/03/20 Care time: The patient presented to the Emergency Department on the above date and was hospitalized for further evaluation of their emergent condition. - New Patient This patient is new to me today: Yes Date on this admission: 03/04/20 - Critical Care Critical Care patient: No - Discharge Referral Referred to [facility] Med P.C.: No ATTENDING PHYSICIAN STATEMENT I saw and evaluated the patient. I reviewed the resident's note and discussed the case with the resident. I agree with the resident's findings and plan as documented. SUBJECTIVE: OBJECTIVE: ASSESSMENT AND PLAN:
--- NOTE | 2020-03-04 10:43 | CONSULT ---
Admitting History and Physical - Admission History of Present Illness: Pt. is a 59 y.o. F w/ PMHx. of HTN, COPD, Hep. C (treated) and HCC presents for abdominal pain that started 3-4 days ago. Pt. denies any inciting event such as trauma, or retching. Pt. follows with Dr. Gallego at [facility] and states that she was recently started on Levatinib 9 days ago. Pt. also endorses recent decrease in Methadone dosage because of interaction with her other medications. Pt. endorses headaches, decreased appetite, nausea, vomiting and diarrhea. Pt. endorses new difficulty swallowing both solids and liquids. Of note Pt. was admitted in December for the same. Workup indicated that her abdominal pain was caused my medication side effects, of which Pt. is no longer on. Pt. was given Dexamethasone to good effect. Hospital course was complicated by GI bleed for which Pt. underwent EGD and colonoscopy. Bleeding site was not found but biopsy was positive for H. Pylori. Pt. states she competed 2 weeks of medications to treat that infection. Reg diet/thin liquids ordered 03/03 Selected Entries 03/04/20 03/04/20 01:00 06:00 Temperature 99.3 F 98.1 F Pulse Rate 99 H 99 H Blood Pressure 108/58 L 107/61 Laboratory Tests 03/02/20 03/03/20 21:07 08:33 WBC 12.8 H 12.6 H Laboratory Tests 03/03/20 03/04/20 10:37 01:55 COVID-19 (ARIANNA) Pending O & P Permanent Slide Pending Selected Entries 03/04/20 03/04/20 03/04/20 01:00 03:00 06:00 Respiratory 18 18 18 Rate Respiratory Non-Labored Effort O2 Sat by Pulse 99 99 95 Oximetry (%) Oxygen Delivery Nasal Cannula Method Medical Oncology consulted-"Official CT report pending. She is distended and has exquisite tenderness. May need MRCP" CT results-Metastatic neoplastic disease EGD 12/2019-Dr Pruitt-- No esophageal or gastric varices. No source of melena found but has sliding hiatal hernia with patent Schatzki ring, - Mild sigmoid diverticulosis but no evidence of colitis - Hepatocellular carcinoma - H/O Multiple substance abuse - Past Medical History Cardiovascular: Yes: HTN Pulmonary: Yes: COPD Hepatobiliary: Yes: Other (hepatocellular ca) ...LMP: 03/02/20 ...: No Heme/Onc: Yes: Cancer (hepatocellular carcinoma dx'ed [address] Abel Gallego at [facility] who has been administering chemotherapy) Psych: Yes: Bipolar, Other (recoveing multisubstance abuser) - Past Surgical History Past Surgical History: Yes: - Smoking History Smoking history: Former smoker Have you smoked in the past 12 months: No Aproximately how many cigarettes per day: 20 If you are a former smoker, when did you quit?: 1 month ago - Alcohol/Substance Use Hx Alcohol Use: Yes History of Substance Use: reports: Cocaine, Marijuana, Prescription (opiates) - Social History ADL: Independent 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 [employer] History of Recent Travel: No History - Admission Reason For Visit: PAIN - General Mental Status: Alert and Oriented, Awake and Alert, Able to Follow Commands Attention: Intact - Hearing Hearing: Normal Speech Evaluation - Communication Primary Language: WELSH Communication: Yes: Within Normal Limits Oral Expression Ability: Yes: No Impairment - Speech Production Able to Make Needs Known: Yes: WNL Intelligibility: Yes: WNL - Swallow Evaluation/Bedside Assessment Current Nutritional Intake: Regular, Thin Liquids Recommendations - Speech Evaluation, Impression/Plan Impression: Per nursing, pt c/o abdominal pain, suggested full fluids. Schatzki's ring/H Pylori on December - Dysphagia Impressions/Plan Swallowing Skills: Impaired Dysphagia Impressions: Ongoing Evaluation *Silent aspiration: cannot be R/O at bedside Recommendations: GI Consult (Dietary recommendation. Full fluids? Abnormal CT.)
[2020-03-04] MEDS: FOLIC ACID 1 MG TABLET (FP) PO SCH (10:57)
[2020-03-04] MEDS: PANTOPRAZOLE SODIUM 40 MG VIAL IVPUSH SCH (10:57)
[2020-03-04] MEDS: ENOXAPARIN NA (PORCINE) 40 MG/0.4 ML DISP.SYRIN SQ SCH (10:57)
[2020-03-04 12:21] LABS: ALBUMIN 1.5 g/dl (3.4-5.0); BILIRUBIN,TOTAL 2.9 mg/dL (0.2-1); BLOOD UREA NITROGEN 12.6 mg/dL (7-18); CALCIUM 8.2 mg/dL (8.5-10.1); CREATININE 0.8 mg/dL (0.55-1.3); POTASSIUM 3.7 mmol/L (3.5-5.1); TOT PROT 5.4 g/dl (6.4-8.2)
[2020-03-04 12:23] LABS: HEMATOCRIT 24.5 % (32.4-45.2); HEMOGLOBIN 7.7 GM/dL (10.7-15.3); MCH 27.5 pg (25.7-33.7); MCHC 31.2 g/dl (32.0-36.0); MEAN CELL VOLUME 88.2 fl (80-96); MEAN PLT VOLUME 9.4 fl (7.5-11.1); PLATELET COUNT 455 K/MM3 (134-434); RBC 2.78 M/mm3 (3.60-5.2); RDW 17.8 % (11.6-15.6)
[2020-03-04 12:37] LABS: ADD RBC MORPHOLOGY YES
[2020-03-04 13:41] LABS: ANISOCYTOSIS 2+; MACROCYTOSIS 0; PLATELET ESTIMATE NORMAL
--- NOTE | 2020-03-04 14:30 | PN ---
Teaching Attending Note Name of Resident: Pippa Marrero ATTENDING PHYSICIAN STATEMENT I saw and evaluated the patient. I reviewed the resident's note and discussed the case with the resident. I agree with the resident's findings and plan as documented. 59F HTN, metastatic HCC recently started on Lenvatinib presents with abd pain; LFTs concerning for obstructive picture; US and CT abd confirming metastatic dz but no CBD dilation. Her abd is diffusely tender especially the right upper quadrant. Unclear if patient needs MRCP 2/2 icteric sclera and elevated tbili, currently pending GI consult. Although Lenvatinib may cause transaminitis or abd pain, would rule out other etiologies first. Also found to have L2 acute/subacute fracture; would obtain MRI/spine consult. Pain is not well controlled; consider palliative vs acute pain as patient recently had her methadone dose decreased.
[2020-03-05 07:49] LABS: ALBUMIN 1.4 g/dl (3.4-5.0); BILIRUBIN,TOTAL 2.2 mg/dL (0.2-1); BLOOD UREA NITROGEN 11.1 mg/dL (7-18); CALCIUM 7.8 mg/dL (8.5-10.1); CREATININE 0.7 mg/dL (0.55-1.3); POTASSIUM 3.5 mmol/L (3.5-5.1); TOT PROT 5.2 g/dl (6.4-8.2)
[2020-03-05] MEDS ORDERED: PT OWN MED DRAWER 7, Y5N ONE (08:42)
[2020-03-05 09:10] LABS: HEMOGLOBIN 7.4 GM/dL (10.7-15.3); MCH 28.4 pg (25.7-33.7); MCHC 32.1 g/dl (32.0-36.0); MEAN CELL VOLUME 88.4 fl (80-96); MEAN PLT VOLUME 9.4 fl (7.5-11.1); PLATELET COUNT 491 K/MM3 (134-434); RDW 17.8 % (11.6-15.6); WHITE BLOOD COUNT 9.5 K/mm3 (4.0-10.0)
[2020-03-05 09:55] LABS: ANISOCYTOSIS 0; MACROCYTOSIS 0; PLATELET ESTIMATE INCREASED
--- NOTE | 2020-03-05 10:30 | PN ---
Progress Note, MESSAGE BROKER DEVELOPER - Note Progress Note: Selected Entries 03/04/20 03/04/20 03/04/20 01:00 03:00 06:00 Breakfast Diet Tolerated Supper Temperature Pulse Rate Blood Pressure O2 Sat by Pulse 99 99 95 Oximetry (%) 03/04/20 03/04/20 03/04/20 09:00 10:00 10:45 Breakfast 0 Diet Tolerated Supper Temperature Pulse Rate Blood Pressure O2 Sat by Pulse 97 97 Oximetry (%) 03/04/20 03/04/20 03/04/20 21:00 22:00 23:00 Breakfast Diet Tolerated Refused Refused Supper 0 Temperature Pulse Rate Blood Pressure O2 Sat by Pulse 97 Oximetry (%) 03/05/20 03/05/20 03/05/20 01:57 05:46 05:54 Breakfast Diet Tolerated Refused Supper Temperature 99.1 F 98.4 F Pulse Rate 96 H 102 H Blood Pressure 100/48 L 107/57 L O2 Sat by Pulse 98 93 L Oximetry (%) Laboratory Tests 03/03/20 03/05/20 10:37 06:37 WBC 9.5 COVID-19 (ARIANNA) Not detected Reg diet/thin liquids ordered. Edentulous. Pt feeling a little better. Swallow reassessed, drinking water without signs of aspiration or pain Suggest downgrade to Reg chopped diet, lacking dentition. Pt in agreement f/u GI re: diet modification, as indicated.
--- NOTE | 2020-03-05 10:46 | PN ---
Physical Exam: HEME/ONC Service SUBJECTIVE: Patient seen and examined this AM. No acute overnight events as per nursing. Abdominal pain persists but mildly improved, Patient reports decreased PO Intake and one loose BM this AM. No new complaints. OBJECTIVE: Vital Signs Period Temp Pulse Resp BP Sys/Del Rosario Pulse Ox Last 24 Hr 98.4 F-99.1 F 96-102 18-18 100-107/48-57 93-98 GENERAL: A&Ox3, NAD HEAD: NCAT EYES: EOMI, sclera icteric but improved from prior ENT: Dry mucous membranes NECK: Supple LUNGS: Diminished breath sounds at the bases, no wheezes HEART: Tachycardic, S1 S2 ABDOMEN: Soft, Diffuse tenderness to light palpation most prominent in the RUQ, RLQ and suprapubic regions. Distended, + bowel sounds MUSCULOSKELETAL: No CVA tenderness. EXTREMITIES: No edema, Tender to palpation NEUROLOGICAL: Cranial nerves II through XII grossly intact. Normal speech SKIN: Warm, dry RECTAL: Refused Laboratory Last Values WBC 9.5 K/mm3 (4.0-10.0) 03/05/20 06:37 RBC 2.60 M/mm3 (3.60-5.2) L 03/05/20 06:37 Hgb 7.4 GM/dL (10.7-15.3) L 03/05/20 06:37 Hct 23.0 % (32.4-45.2) L 03/05/20 06:37 MCV 88.4 fl (80-96) 03/05/20 06:37 MCH 28.4 pg (25.7-33.7) 03/05/20 06:37 MCHC 32.1 g/dl (32.0-36.0) 03/05/20 06:37 RDW 17.8 % (11.6-15.6) H 03/05/20 06:37 Plt Count 491 K/MM3 (134-434) H 03/05/20 06:37 MPV 9.4 fl (7.5-11.1) 03/05/20 06:37 Total Counted 100 03/02/20 21:07 Neutrophils % No Result Required. 03/05/20 06:37 Neutrophils % (Manual) 67.0 % (42.8-82.8) 03/05/20 06:37 Band Neutrophils % 0.0 % 03/05/20 06:37 Lymphocytes % No Result Required. 03/05/20 06:37 Lymphocytes % (Manual) 26.0 % (8-40) D 03/05/20 06:37 Monocytes % (Manual) 7 % (3.8-10.2) 03/05/20 06:37 Eosinophils % (Manual) 0.0 % (0-4.5) 03/05/20 06:37 Basophils % (Manual) 0.0 % (0-2.0) 03/05/20 06:37 Myelocytes % (Man) 0 % (0-2) 03/05/20 06:37 Promyelocytes % (Man) 0 % (0-2) 03/05/20 06:37 Blast Cells % (Manual) 0 % (0-0) 03/05/20 06:37 Nucleated RBC % 0 % (0-0) 03/05/20 06:37 Metamyelocytes 0 % (0-2) 03/05/20 06:37 Hypochromia 0 03/05/20 06:37 Platelet Estimate Increased 03/05/20 06:37 Platelet Comment Few large platelets 03/02/20 21:07 Polychromasia 1+ 03/05/20 06:37 Poikilocytosis 0 03/05/20 06:37 Basophilic Stippling 1+ 03/05/20 06:37 Anisocytosis 0 03/05/20 06:37 Microcytosis 0 03/05/20 06:37 Macrocytosis 0 03/05/20 06:37 Stomatocytes 1+ 03/04/20 10:50 PT with INR 16.90 SEC (9.7-13.0) H 03/03/20 08:33 INR 1.43 (0.83-1.09) H 03/03/20 08:33 PTT (Actin FS) 48.4 SECONDS (25.2-36.5) H 03/03/20 08:33 Sodium 139 mmol/L (136-145) 03/05/20 06:37 Potassium 3.5 mmol/L (3.5-5.1) 03/05/20 06:37 Chloride 104 mmol/L (98-107) 03/05/20 06:37 Carbon Dioxide 28 mmol/L (21-32) 03/05/20 06:37 Anion Gap 7 MMOL/L (8-16) L 03/05/20 06:37 BUN 11.1 mg/dL (7-18) 03/05/20 06:37 Creatinine 0.7 mg/dL (0.55-1.3) 03/05/20 06:37 Est GFR (CKD-EPI)AfAm 108.38 03/05/20 06:37 Est GFR (CKD-EPI)NonAf 93.51 03/05/20 06:37 Random Glucose 98 mg/dL (74-106) 03/05/20 06:37 Calcium 7.8 mg/dL (8.5-10.1) L 03/05/20 06:37 Phosphorus 4.2 mg/dL (2.5-4.9) 03/03/20 08:33 Magnesium 1.8 mg/dL (1.8-2.4) 03/03/20 08:33 Total Bilirubin 2.2 mg/dL (0.2-1) H 03/05/20 06:37 Direct Bilirubin 2.1 mg/dL (0.0-0.2) H 03/04/20 10:50 AST 91 U/L (15-37) H 03/05/20 06:37 ALT 19 U/L (13-61) 03/05/20 06:37 Alkaline Phosphatase 237 U/L (45-117) H 03/05/20 06:37 Ammonia < 10.0 umol/L (11-32) L 03/02/20 21:17 Total Protein 5.2 g/dl (6.4-8.2) L 03/05/20 06:37 Albumin 1.4 g/dl (3.4-5.0) L 03/05/20 06:37 Lipase 62 U/L (73-393) L 03/04/20 10:50 Stool Occult Blood Negative (NEGATIVE) 03/04/20 01:55 COVID-19 (ARIANNA) Not detected (Not Detected) 03/03/20 10:37 Blood Type O POSITIVE 03/03/20 08:33 Antibody Screen Negative 03/03/20 08:33 Microbiology 03/04/20 03:15 Stool Salmonella/Shigella Culture - Preliminary NO ENTERIC PATHOGENS, 24 HOURS, ON PRIMARY PLATES 03/04/20 03:15 Stool Yersinia Culture - Preliminary NO ENTERIC PATHOGENS, 24 HOURS, ON PRIMARY PLATES 03/04/20 03:15 Stool Vibrio Culture - Final NO GROWTH OF VIBRIO SPECIES OBTAINED 03/04/20 03:15 Stool Escherichia coli 0157 Culture - Final NO GROWTH OF E COLI 0157 OBTAINED 03/03/20 08:40 Blood - Peripheral Venous Blood Culture - Preliminary NO GROWTH OBTAINED AFTER 48 HOURS, INCUBATION TO CONTINUE FOR 3 DAYS. 03/03/20 08:40 Blood - Peripheral Venous Blood Culture - Preliminary NO GROWTH OBTAINED AFTER 48 HOURS, INCUBATION TO CONTINUE FOR 3 DAYS. 03/04/20 01:55 Stool Norovirus GI - Preliminary 03/04/20 01:55 Stool Norovirus GII - Preliminary Active Medications Enoxaparin Sodium (Lovenox -) 40 mg SQ DAILY [facility] Last Admin: 03/04/20 10:57 Dose: 40 mg Documented by: Folic Acid (Folic Acid -) 1 mg PO DAILY [facility] Last Admin: 03/04/20 10:57 Dose: 1 mg Documented by: Sodium Chloride (Normal Saline -) 1,000 mls @ 42 mls/hr IV ASDIR [facility] Last Admin: 03/04/20 06:46 Dose: 42 mls/hr Documented by: Methadone HCl (Dolophine -) 30 mg PO DAILY [facility] Morphine Sulfate (Morphine Sulfate) 2 mg IVPUSH Q4H PRN PRN Reason: PAIN LEVEL 7 - 10 Last Admin: 03/04/20 06:45 Dose: 2 mg Documented by: Pantoprazole Sodium (Protonix Iv) 40 mg IVPUSH DAILY [facility] Last Admin: 03/04/20 10:57 Dose: 40 mg Documented by: ASSESSMENT/PLAN: 59 y/o F PMHx HTN, COPD, HCV (s/p treatment), HCC admitted for abdominal pain. Recently started on Lenvatinib (now on hold). Abdominal pain persists with diminished PO Intake. #Abdominal Pain -In the setting metastatic disease; Still consider Lenvatinib use -Tachycardia persists, Leukocytosis WNL, TBili/LFTs Trending down -Hold Lenvatinib -Need to r/o infectious etiology; Follow Stool studies, Blood cx -Analgesia via Morphine, Methadone; Consider adding PO Oxycodone -Trend LFTs, TBili -GI Evaluation pending, Will discuss the need for MRCP given acute rise and now downtrending TBili and Scleral icterus -Avoid Hepatotoxic medications, Avoid QT prolonging medications -DVT PPx -Consider Palliative care and Pain Management consults #Normocytic Anemia -Likely Anemia of chronic inflammation in the setting of metastatic disease -FOBT Negative; Rectal exam refused -Transfuse to keep Hgb > 7.0 #L2 Compression fracture -Found on CT in the setting of metastatic disease, Currently without Back pain -Consider NeuroSx evaluation and L-Spine MRI #LE Tenderness -Etiology to be determined however without associated edema -Duplex to r/o DVT Visit type - Emergency Visit Emergency Visit: Yes ED Registration Date: 03/03/20 Care time: The patient presented to the Emergency Department on the above date and was hospitalized for further evaluation of their emergent condition. - New Patient This patient is new to me today: Yes Date on this admission: 03/05/20 - Critical Care Critical Care patient: No - Discharge Referral Referred to [facility] Med P.C.: No ATTENDING PHYSICIAN STATEMENT I saw and evaluated the patient. I reviewed the resident's note and discussed the case with the resident. I agree with the resident's findings and plan as documented. SUBJECTIVE: OBJECTIVE: ASSESSMENT AND PLAN:
[2020-03-05] MEDS: SODIUM CHLORIDE 1,000 ML IV SCH (10:49)
[2020-03-05] MEDS: MORPHINE SULFATE 2 MG/ML VIAL IVPUSH PRN (10:49)
--- NOTE | 2020-03-05 10:49 | PN ---
Progress Note, Physician Chief Complaint: Abdominal pain Metastatic hepatocellular carcinoma Anemia History of Present Illness: 59 y/o F PMHx HTN, COPD, HCV (s/p treatment), HCC admitted for abdominal pain. Recently started on Lenvatinib (now on hold). Abdominal pain persists with diminished PO Intake but denies any current fevers, nausea, vomiting, diarrhea. Pt dollows up with Dr Walsh at [facility]. Pt is chronically on Methadone which has been tapered down to 30 mg po daily from originally 85 mg. Previously admitted on 12/2019 with similar symptoms after being treated with Atezolizumab with bidacizumab in December 2019 Repeat CTAP from this admission shows increased in metastatic features/lesions 03/05/20: NAD Decreased appetite Abd pain improved, on morphine PRN Total bili and LFT's trending down Loose stools All her symptoms are 2/2 to recent Lenvatinib treatment, last taken 03/02/20 - Current Medication List Current Medications: Active Medications Enoxaparin Sodium (Lovenox -) 40 mg SQ DAILY [facility] Last Admin: 03/04/20 10:57 Dose: 40 mg Documented by: Folic Acid (Folic Acid -) 1 mg PO DAILY [facility] Last Admin: 03/04/20 10:57 Dose: 1 mg Documented by: Sodium Chloride (Normal Saline -) 1,000 mls @ 42 mls/hr IV ASDIR [facility] Last Admin: 03/04/20 06:46 Dose: 42 mls/hr Documented by: Methadone HCl (Dolophine -) 30 mg PO DAILY [facility] Morphine Sulfate (Morphine Sulfate) 2 mg IVPUSH Q4H PRN PRN Reason: PAIN LEVEL 7 - 10 Last Admin: 03/04/20 06:45 Dose: 2 mg Documented by: Pantoprazole Sodium (Protonix Iv) 40 mg IVPUSH DAILY [facility] Last Admin: 03/04/20 10:57 Dose: 40 mg Documented by: - Objective Vital Signs: Vital Signs Temperature 98.4 F 03/05/20 05:54 Pulse Rate 102 H 03/05/20 05:54 Respiratory Rate 18 03/05/20 05:54 Blood Pressure 107/57 L 03/05/20 05:54 O2 Sat by Pulse Oximetry (%) 93 L 03/05/20 05:54 Constitutional: Yes: Well Nourished, No Distress, Calm Cardiovascular: Yes: Regular Rate and Rhythm Respiratory: Yes: Regular, CTA Bilaterally Gastrointestinal: Yes: Hypoactive Bowel Sounds, Tenderness (diffuse) Genitourinary: Yes: WNL Musculoskeletal: Yes: Muscle Weakness Extremities: Yes: WNL Edema: No Peripheral Pulses WNL: Yes Neurological: Yes: Alert, Oriented Psychiatric: Yes: Alert, Oriented Labs: CBC, BMP 03/05/20 06:37 03/05/20 06:37 INR, PTT INR 1.43 (0.83-1.09) H 03/03/20 08:33 Problem List - Problems (1) History of substance abuse Assessment/Plan: -Continue maintenance dose of Methadone 30 mg po daily -Morphine 2mg Q4H PRN Problems reviewed: Yes Code(s): F19.11 - OTHER PSYCHOACTIVE SUBSTANCE ABUSE, IN REMISSION (2) Abdominal pain Assessment/Plan: -Improved -pain management for now -GI consulted, was seen by GI last visit for similar reasons -Had EGD 12/2019: No colitis or varices found. Has a patent Schatzki ring above a hiatal hernia, mild sigmoid diverticulosis and large hemorrhoids. Problems reviewed: Yes Code(s): R10.9 - UNSPECIFIED ABDOMINAL PAIN (3) Anemia Assessment/Plan: -Multifactorial -H/H stable -Low Iron% -Hematology/oncology on board -monitor trend -Transfuse if Hg<7.0 to avoid fluid overload Problems reviewed: Yes Code(s): D64.9 - ANEMIA, UNSPECIFIED (4) Hepatocellular carcinoma Assessment/Plan: -Oncology consult -Awaiting evaluation whether to transfer pt to [facility] Problems reviewed: Yes Code(s): C22.0 - LIVER CELL CARCINOMA (5) Schatzki's ring of distal esophagus Problems reviewed: Yes Code(s): K22.2 - ESOPHAGEAL OBSTRUCTION (6) Decreased appetite Assessment/Plan: -Start Marinol 2.5 mg po daily -Add supplements- magic cup, ensure pudding Problems reviewed: Yes Code(s): R63.0 - ANOREXIA Assessment/Plan See problem list
[2020-03-05] MEDS: FOLIC ACID 1 MG TABLET (FP) PO SCH (10:50)
[2020-03-05] MEDS: ENOXAPARIN NA (PORCINE) 40 MG/0.4 ML DISP.SYRIN SQ SCH (10:50)
[2020-03-05] MEDS: PANTOPRAZOLE SODIUM 40 MG VIAL IVPUSH SCH (10:50)
[2020-03-05] MEDS: METHADONE HCL 10 MG TABLET PO SCH (14:49)
[2020-03-05] MEDS: DRONABINOL 2.5 MG CAPSULE PO SCH (14:50)
--- NOTE | 2020-03-05 16:36 | PN ---
Progress Note (short form) - Note Progress Note: NEUROSURGERY CONSULT DICTATED Pt examined Daughter at bedside CT Abd reviewed History obtained h/o HTN, COPD, Hep C/HCC presents for abdominal pain that started 3-4 days ago. Pt. denies any inciting event such as trauma, or retching. Recently started on Levatinib 9 days ago. Recent decrease in Methadone dosage. Had reportedly fallen trying to walk while hospitalized 2 months ago according to daughter. Denies any LBP or sciatica. No fever/chill. PE: AF, VSS General- unremarkable CN- intact; Motor- 4+-5/5 except L IP 4/5; Sensation- intact LT; DTR- decreased throughout; Back- NT BUN/Cr normal Abd CT- (focus on spine) L2 sup endplate depression with decreased height by 10- 15% mid body; no retropulsion Metastatic HCC Subacute-chronic L2 vertebral fx, no clear vertebral lytic lesion MRI LS spine without/with norm to assess acuity and canal involvement as well as to r/o metastatic dz to L2 Doubt L2 fx related to her abdominal pain All questions answered at bedside
--- NOTE | 2020-03-05 17:54 | PN ---
Teaching Attending Note Name of Resident: Rao Marrero ATTENDING PHYSICIAN STATEMENT I saw and evaluated the patient. I reviewed the resident's note and discussed the case with the resident. I agree with the resident's findings and plan as documented. SUBJECTIVE: Mentioned still pain in abdomen OBJECTIVE: Last Vital Signs Temp Pulse Resp BP Pulse Ox 98.3 F 95 H 20 101/56 L 98 03/05/20 13:43 03/05/20 13:43 03/05/20 13:43 03/05/20 13:43 03/05/20 13:43 Gen: NAD HEENT: MMM CVS: S1, S2 Lungs: CTAB Abd: + Tenderness RUQ/RLQ Ext: Mild edema 03/05/20 06:37 03/05/20 06:37 ASSESSMENT AND PLAN: 59 y/o lady w/ PMHx. of HTN, COPD, Hep. C (treated) and HCC presents for abdominal pain that started 3-4 days ago. Pt. denies any inciting event such as trauma, or retching. Pt. follows with Dr. Gallego at [facility] and states that she was recently started on Lenvatinib 9 days ago. Pt. also endorses recent decrease in Methadone dosage because of interaction with her other medications. Pt. endorses headaches, decreased appetite, nausea, vomiting and diarrhea. She was tender in the RUQ during my evaluation. Medical Oncology consulted Recommend: 1) CT Abdomen showing worsening of her disease, which may be the cause of her pain 2) Unclear if Lenvatinib effect but cannot rule out 3) Daily CBC, CMP 4) Consider pain management consultation 5) US LE to r/p DVT 6) Neurosurgery and MRI to characterize L2 fracture
--- NOTE | 2020-03-05 18:49 | CONS ---
DATE OF CONSULTATION: 03/05/2020 REASON FOR CONSULTATION: Neurosurgery. CONSULTING PHYSICIAN: Naveed Russell MD. REQUESTING PHYSICIAN: Nerissa Diaz MD. CHIEF COMPLAINT: Abdominal pain. HISTORY OF PRESENT ILLNESS: The patient is a 59-year-old right-handed female with a history of hypertension, COPD, hepatitis C, hepatocellular carcinoma undergoing chemotherapy treatment, who has complained of increasing abdominal pain. She denies any recent trauma or falls but has reportedly fallen about 2 months ago while she was hospitalized. At that time, she was attempting to walk without informing the staff and sustained a fall, which she does not remember the details of. However, history is partially provided by daughter, who was at the bedside. Patient has some headache, decreased appetite, loose vomiting and diarrhea. She has some difficulty with swallowing. She was at that time, the patient had been felt to have side effects from her chemotherapy and medications, and was given Decadron, which was unfortunately complicated by GI bleed. She was found to have H. pylori. Presently, she denies any lower back pain. She has not suffered additional fall episodes. She has no bowel, bladder incontinence by report. PAST MEDICAL HISTORY: Significant for hypertension, COPD, hepatitis C, hepatocellular carcinoma, chemotherapy. CURRENT MEDICATIONS: Include: 1. Lovenox. 2. Dronabinol. 3. Methadone. 4. Morphine. 5. Protonix. 6. Folic acid. ALLERGIES: PENICILLIN. SOCIAL HISTORY: She does not smoke or drink. She is retired. She lives at home. REVIEW OF SYSTEMS: Otherwise negative for other major constitutional, head/neck, cardiovascular, pulmonary, gastrointestinal, genitourinary, endocrinologic, neurologic, or psychological problems. There have been no significant recent weight loss, fever or chills, or cough. PHYSICAL EXAMINATION: Vital signs: Temperature is 98.3, blood pressure 100/56 with a pulse rate of 95, O2 saturation 98% on room air. HEENT: Normocephalic, atraumatic, anicteric. Neck: Supple. Coronary: Regular rhythm. Lungs: Clear but she has decreased breath sounds at the bases. Abdomen: Benign. She is somewhat obese. Extremities: No signs of DVT. Neurologic: The patient is awake, alert, oriented x3. Cranial nerves examination intact 2-12. Motor examination shows at least 4+/5 strength in upper and lower extremities. She does have proximal left lower extremity weakness including especially iliopsoas which is 4/5. Sensory examination is intact to light touch. Deep tendon reflexes are hyporeflexive throughout. There is no pathological long tract sine. Examination of her back shows minimal paraspinal muscle spasm. There is no tenderness to palpation. LABORATORY EXAMINATION: White blood cell count 9.5, hemoglobin 7.4, platelet count 491,000. INR is 1.43 and PTT is 48.4. Serum sodium is 139, potassium 3.5. BUN and creatinine are 111 and 0.7, respectively. Alkaline phosphatase is 237. AST and ALT are 91 and 19, respectively. Total bilirubin is 2.2. COVID-[address] scan of the abdomen with focus on the lumbar spine and lower thoracic spine demonstrated a mild T2 superior endplate depression with approximately 10 to 15 percent decrease in her vertebral column height in the mid body. There is also report of a metastatic disease with marked hepatomegaly. There is bilateral renal metastases. There is also a possible splenic lesion. IMPRESSION: 1. L2 vertebral fracture, possibly subacute/chronic. 2. Hepatitis C/hepatocellular carcinoma. 3. Hypertension. 4. Chronic obstructive pulmonary disease. RECOMMENDATION: The patient presents with increased abdominal pain likely secondary to progression of her intraperitoneal metastases. The CT scan of the abdomen does not demonstrate lytic or blastic activity of the vertebra. There is vertebral body depression L2, but there was an episode of a fall about 2 months ago. She denies any lower back pain at this time. MRI lumbar spine will be used to better delineate the nature of the L2 vertebral fracture as well as the timeframe of the fracture. NAVEED RUSSELL M.D. LEONOR/[id number] LEILA
--- NOTE | 2020-03-05 21:06 | CON.GI ---
Consult Consult Specialty:: Gastroenterology Referred by:: Ana Del Rio NP Reason for Consultation:: Abdominal pain - History of Present Illness Chief Complaint: RLQ abdominal pain History of Present Illness: 59F is admitted with abdominal pain which worsened this week after being started on a new agent Lenvatinib. She tells me that she has had this pain for several weeks but it was tolerable until her Methadone dosage was decreased. Her CT reveals increasing tumor load. Her appetite is poor. She tells me that she has diarrhea. She underwent EGD and colonoscopy with me on 01/09/20 when she had melena and diarrhea with concern for Keytruda colitis. The EGD revealed a patent Schatzki ring and hiatal hernia and mild sigmoid diverticulosis. An external concentric ring was found to be compressing the proximal transverse colon. No colitis was found. H. pylori was found and I eprescribed a course of therapy but she tells me that she could not tolerate it. She has hepatocellular carcinoma which developed despite having been cured of HCV by my partner Dr Jarrell. She had a history of recovering from alcoholism and multiple substance abuse. - History Source History Provided By: Patient, Medical Record Limitations to Obtaining History: No Limitations - Past Medical History Cardio/Vascular: Yes: HTN, Hyperlipdemia Pulmonary: Yes: COPD Gastrointestinal: Yes: Diverticulosis, Gastritis (H pylori on 12/31 EGD, could not tolerate the therapy), Hiatal Hernia, Other (patent Schatzki ring) Hepatobiliary: Yes: Hepatitis C (cured after course of therapy), Other (hepatocellular ca) ...LMP: 03/02/20 ...: No Heme/Onc: Yes: Cancer (advanced hepatocellular carcinoma) Psych: Yes: Addictions (recovering form alcoholism and multisubstance abuse), Bi polar, Other (recoveing multisubstance abuser) - Past Surgical History Past Surgical History: Yes: Colonoscopy, , Upper Endoscopy Additional Surgical History: Right ear cyst excision - Alcohol/Substance Use Hx Alcohol Use: Yes (recovering alcoholic) History of Substance Use: reports: Cocaine, Marijuana, Prescription (opiates) - Smoking History Smoking history: Former smoker Have you smoked in the past 12 months: No Aproximately how many cigarettes per day: 20 If you are a former smoker, when did you quit?: 1 month ago - Social History Usual Living Arrangement: Alone ADL: Independent 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 [employer] Place of : [facility] History of Recent Travel: No Home Medications - Allergies Allergies/Adverse Reactions: Allergies Allergy/AdvReac Type Severity Reaction Status Date / Time Penicillins Allergy Severe Rash Verified 03/02/20 18:21 - Home Medications Home Medications: Ambulatory Orders Folic Acid 1 mg PO DAILY 03/02/20 Furosemide [Lasix -] 20 mg PO DAILY 03/02/20 Lenvatinib Mesylate [Lenvima] 12 mg PO DAILY 03/02/20 Methadone [Dolophine -] 30 mg PO DAILY 03/02/20 Family Medical History Family Hx Cancer: Mother (had lung cancer) Review of Systems - Review of Systems Constitutional: reports: Lethargy, Loss of Appetite, Malaise, Unintentional Wgt. Loss, Weakness Eyes: reports: No Symptoms HENT: reports: No Symptoms Neck: reports: No Symptoms Cardiovascular: reports: Palpitations Respiratory: reports: Exercise Intolerance Gastrointestinal: reports: Abdominal Pain, Bloating, Diarrhea Musculoskeletal: reports: Joint Pain, Muscle Pain, Muscle Weakness Physical Exam-GI Vital Signs: Vital Signs Temperature 98.8 F 03/05/20 19:34 Pulse Rate 104 H 03/05/20 19:34 Respiratory Rate 18 03/05/20 19:34 Blood Pressure 98/50 L 03/05/20 19:34 O2 Sat by Pulse Oximetry (%) 95 03/05/20 19:34 CBC,CMP WBC 9.5 K/mm3 (4.0-10.0) 03/05/20 06:37 RBC 2.60 M/mm3 (3.60-5.2) L 03/05/20 06:37 Hgb 7.4 GM/dL (10.7-15.3) L 03/05/20 06:37 Hct 23.0 % (32.4-45.2) L 03/05/20 06:37 MCV 88.4 fl (80-96) 03/05/20 06:37 MCH 28.4 pg (25.7-33.7) 03/05/20 06:37 MCHC 32.1 g/dl (32.0-36.0) 03/05/20 06:37 RDW 17.8 % (11.6-15.6) H 03/05/20 06:37 Plt Count 491 K/MM3 (134-434) H 03/05/20 06:37 MPV 9.4 fl (7.5-11.1) 03/05/20 06:37 Total Counted 100 03/02/20 21:07 Neutrophils % No Result Required. 03/05/20 06:37 Neutrophils % (Manual) 67.0 % (42.8-82.8) 03/05/20 06:37 Band Neutrophils % 0.0 % 03/05/20 06:37 Lymphocytes % No Result Required. 03/05/20 06:37 Lymphocytes % (Manual) 26.0 % (8-40) D 03/05/20 06:37 Monocytes % (Manual) 7 % (3.8-10.2) 03/05/20 06:37 Eosinophils % (Manual) 0.0 % (0-4.5) 03/05/20 06:37 Basophils % (Manual) 0.0 % (0-2.0) 03/05/20 06:37 Myelocytes % (Man) 0 % (0-2) 03/05/20 06:37 Promyelocytes % (Man) 0 % (0-2) 03/05/20 06:37 Blast Cells % (Manual) 0 % (0-0) 03/05/20 06:37 Nucleated RBC % 0 % (0-0) 03/05/20 06:37 Metamyelocytes 0 % (0-2) 03/05/20 06:37 Hypochromia 0 03/05/20 06:37 Platelet Estimate Increased 03/05/20 06:37 Platelet Comment Few large platelets 03/02/20 21:07 Polychromasia 1+ 03/05/20 06:37 Poikilocytosis 0 03/05/20 06:37 Basophilic Stippling 1+ 03/05/20 06:37 Anisocytosis 0 03/05/20 06:37 Microcytosis 0 03/05/20 06:37 Macrocytosis 0 03/05/20 06:37 Stomatocytes 1+ 03/04/20 10:50 Sodium 139 mmol/L (136-145) 03/05/20 06:37 Potassium 3.5 mmol/L (3.5-5.1) 03/05/20 06:37 Chloride 104 mmol/L (98-107) 03/05/20 06:37 Carbon Dioxide 28 mmol/L (21-32) 03/05/20 06:37 Anion Gap 7 MMOL/L (8-16) L 03/05/20 06:37 BUN 11.1 mg/dL (7-18) 03/05/20 06:37 Creatinine 0.7 mg/dL (0.55-1.3) 03/05/20 06:37 Est GFR (CKD-EPI)AfAm 108.38 03/05/20 06:37 Est GFR (CKD-EPI)NonAf 93.51 03/05/20 06:37 Random Glucose 98 mg/dL (74-106) 03/05/20 06:37 Calcium 7.8 mg/dL (8.5-10.1) L 03/05/20 06:37 Phosphorus 4.2 mg/dL (2.5-4.9) 03/03/20 08:33 Magnesium 1.8 mg/dL (1.8-2.4) 03/03/20 08:33 Total Bilirubin 2.2 mg/dL (0.2-1) H 03/05/20 06:37 Direct Bilirubin 2.1 mg/dL (0.0-0.2) H 03/04/20 10:50 AST 91 U/L (15-37) H 03/05/20 06:37 ALT 19 U/L (13-61) 03/05/20 06:37 Alkaline Phosphatase 237 U/L (45-117) H 03/05/20 06:37 Ammonia < 10.0 umol/L (11-32) L 03/02/20 21:17 Total Protein 5.2 g/dl (6.4-8.2) L 03/05/20 06:37 Albumin 1.4 g/dl (3.4-5.0) L 03/05/20 06:37 Lipase 62 U/L (73-393) L 03/04/20 10:50 Current Medications Generic Name Dose Route Start Last Admin Trade Name Freq PRN Reason Stop Dose Admin Dronabinol 2.5 mg 03/05/20 13:15 03/05/20 14:50 Marinol - PO 2.5 mg DAILY LISSETH Administration Enoxaparin Sodium 40 mg 03/03/20 10:00 03/05/20 10:50 Lovenox - SQ 40 mg DAILY LISSETH Administration Folic Acid 1 mg 03/03/20 10:00 03/05/20 10:50 Folic Acid - PO 1 mg DAILY LISSETH Administration Sodium Chloride 1,000 mls @ 42 mls/hr 03/03/20 05:30 03/05/20 10:49 Normal Saline - IV 42 mls/hr ASDIR LISSETH Administration Methadone HCl 30 mg 03/05/20 13:45 03/05/20 14:49 Dolophine - PO 30 mg DAILY@0600 LISSETH Administration Morphine Sulfate 2 mg 03/03/20 05:10 03/05/20 10:49 Morphine Sulfate IVPUSH 2 mg Q4H PRN Administration PAIN LEVEL 7 - 10 Pantoprazole Sodium 40 mg 03/03/20 14:00 03/05/20 10:50 Protonix Iv IVPUSH 40 mg DAILY LISSETH Administration Constitutional: Yes: Anxious Eyes: Yes: Sclera Icterus HENT: Yes: Normocephalic Cardiovascular: Yes: Tachycardia Respiratory: Yes: CTA Bilaterally Gastrointestinal Inspection: Yes: Scars (healed Pfannensteil incision) ...Auscultate: Yes: Hypoactive Bowel Sounds ...Palpate: Yes: Mass, Soft, Tenderness (entire right abdomen but no peritoneal signs) ...Rectal Exam: Yes: Deferred (see recent colonoscopy) Labs: CBC, BMP 03/05/20 06:37 03/05/20 06:37 INR, PTT INR 1.43 (0.83-1.09) H 03/03/20 08:33 Problem List - Problems (1) Decreased appetite Code(s): R63.0 - ANOREXIA (2) History of substance abuse Code(s): F19.11 - OTHER PSYCHOACTIVE SUBSTANCE ABUSE, IN REMISSION (3) Abdominal pain Code(s): R10.9 - UNSPECIFIED ABDOMINAL PAIN (4) COPD (chronic obstructive pulmonary disease) Code(s): J44.9 - CHRONIC OBSTRUCTIVE PULMONARY DISEASE, UNSPECIFIED (5) Diarrhea Code(s): R19.7 - DIARRHEA, UNSPECIFIED (6) Hepatocellular carcinoma Code(s): C22.0 - LIVER CELL CARCINOMA (7) Hepatitis C Code(s): B19.20 - UNSPECIFIED VIRAL HEPATITIS C WITHOUT HEPATIC COMA Qualifiers: Viral hepatitis chronicity: chronic Hepatic coma status: without hepatic coma Qualified Code(s): B18.2 - Chronic viral hepatitis C Assessment/Plan Impression: - I believe that Nia's pain reflects her advancing abdominal and peritoneal carcinomatosis - Diarrhea despite poor intake, ? related to new agent Lenvatinib. ? Paradoxical diarrhea - H. pylori gastritis- too sick to treat Plan: - Return methadone to previous dose - Quantitate diarrhea. Will screen for pathogens and check WBCs - Continue mood elevators
[2020-03-06] MEDS: METHADONE HCL 10 MG TABLET PO SCH (06:36)
[2020-03-06 08:27] LABS: HEMOGLOBIN 7.5 GM/dL (10.7-15.3); MCH 28.8 pg (25.7-33.7); MCHC 32.4 g/dl (32.0-36.0); MEAN CELL VOLUME 88.8 fl (80-96); MEAN PLT VOLUME 9.5 fl (7.5-11.1); PLATELET COUNT 518 K/MM3 (134-434); RBC 2.59 M/mm3 (3.60-5.2); RDW 17.3 % (11.6-15.6); WHITE BLOOD COUNT 8.7 K/mm3 (4.0-10.0)
[2020-03-06 08:44] LABS: ALBUMIN 1.4 g/dl (3.4-5.0); BILIRUBIN,TOTAL 1.8 mg/dL (0.2-1); BLOOD UREA NITROGEN 11.2 mg/dL (7-18); CALCIUM 8.2 mg/dL (8.5-10.1); CREATININE 0.8 mg/dL (0.55-1.3); POTASSIUM 3.6 mmol/L (3.5-5.1); TOT PROT 5.4 g/dl (6.4-8.2)
--- NOTE | 2020-03-06 09:46 | PN ---
Progress Note (short form) - Note Progress Note: NEUROSURGERY Pt examined Daughter at bedside CT Abd reviewed History obtained h/o HTN, COPD, Hep C/HCC presents for abdominal pain that started 3-4 days ago. Pt. denies any inciting event such as trauma, or retching. Recently started on Levatinib 9 days ago. Recent decrease in Methadone dosage. Had reportedly fallen trying to walk while hospitalized 2 months ago according to daughter. Denies any LBP or sciatica. No fever/chill. PE: AF, VSS General- unremarkable CN- intact; Motor- 4+-5/5 except L IP 4/5; Sensation- intact LT; DTR- decreased throughout; Back- NT BUN/Cr normal Abd CT- (focus on spine) L2 sup endplate depression with decreased height by 10% mid body; no retropulsion MRI with norm- no clear metastatic vertebral lesion, progressive DDD, endplate sclerosis c/w -2018 MRI, mild ant L2 vertebral depression appears chronic in nature; endplate changes more prominent than previously Metastatic HCC Chronic L2 vertebral mild compression fx, no clear vertebral lytic lesion, asymptomatic Abdominal symptoms more likely related to HCC intra-abdominal spreading vs methadone dose reduction No neurosurgical intervention indicated nor recommended
--- NOTE | 2020-03-06 10:19 | PN ---
Progress Note, WIPING [employer]AG W[employer]ER - Note Progress Note: Selected Entries 03/05/20 03/05/20 03/05/20 05:46 11:17 13:43 Breakfast 0 Diet Tolerated Refused Refused Refused Lunch 0 Temperature Pulse Rate Blood Pressure 03/05/20 03/06/20 03/06/20 23:00 03:00 06:00 Breakfast Diet Tolerated Refused Refused Lunch 0 Temperature 99.0 F Pulse Rate 97 H Blood Pressure 103/62 Laboratory Tests 03/06/20 07:15 WBC 8.7 Downgraded diet to chopped/thin. Limited po intake, taking broth, yogurt, likes ensure enlive, not touching chopped food. Pt now feels her swallowing is improving and she would like to try reg,soft diet again. She says she does not use her dentures at home time. Followed by RD, providing supplements, yogurt Request-reg,soft diet-easy to chew ensure enlive
[2020-03-06] MEDS: DRONABINOL 2.5 MG CAPSULE PO SCH (10:23)
[2020-03-06] MEDS: FOLIC ACID 1 MG TABLET (FP) PO SCH (10:23)
[2020-03-06] MEDS: PANTOPRAZOLE SODIUM 40 MG VIAL IVPUSH SCH (10:23)
[2020-03-06] MEDS: SODIUM CHLORIDE 1,000 ML IV SCH (10:24)
[2020-03-06] MEDS: ENOXAPARIN NA (PORCINE) 40 MG/0.4 ML DISP.SYRIN SQ SCH (10:24)
--- NOTE | 2020-03-06 10:36 | PN ---
Progress Note, Physician Chief Complaint: Abdominal pain Metastatic hepatocellular carcinoma Anemia History of Present Illness: 59 y/o F PMHx HTN, COPD, HCV (s/p treatment), HCC admitted for abdominal pain. Recently started on Lenvatinib (now on hold). Abdominal pain persists with diminished PO Intake but denies any current fevers, nausea, vomiting, diarrhea. Pt dollows up with Dr Walsh at [facility]. Pt is chronically on Methadone which has been tapered down to 30 mg po daily from originally 85 mg. Previously admitted on 12/2019 with similar symptoms after being treated with Atezolizumab with bidacizumab in December 2019 Repeat CTAP from this admission shows increased in metastatic features/lesions 03/05/20: NAD Decreased appetite Abd pain improved, on morphine PRN Total bili and LFT's trending down Loose stools All her symptoms are 2/2 to recent Lenvatinib treatment, last taken 03/02/20 03/06/20: U/S BLLE doppler negative for DVT MRI L spine: no clear metastatic vertebral lesion, progressive DDD, endplate sclerosis c/w -2018 MRI, mild ant L2 vertebral depression appears chronic in nature,Chronic L2 vertebral mild compression fx, no clear vertebral lytic lesion Seen by NS- no intervention recommended at this time Still with decreased appetite - Current Medication List Current Medications: Active Medications Dronabinol (Marinol -) 2.5 mg PO DAILY [facility] Last Admin: 03/06/20 10:23 Dose: 2.5 mg Documented by: Enoxaparin Sodium (Lovenox -) 40 mg SQ DAILY [facility] Last Admin: 03/06/20 10:24 Dose: 40 mg Documented by: Folic Acid (Folic Acid -) 1 mg PO DAILY [facility] Last Admin: 03/06/20 10:23 Dose: 1 mg Documented by: Sodium Chloride (Normal Saline -) 1,000 mls @ 42 mls/hr IV ASDIR [facility] Last Admin: 03/06/20 10:24 Dose: Not Given Documented by: Methadone HCl (Dolophine -) 30 mg PO DAILY@0600 [facility] Last Admin: 03/06/20 06:36 Dose: 30 mg Documented by: Morphine Sulfate (Morphine Sulfate) 2 mg IVPUSH Q4H PRN PRN Reason: PAIN LEVEL 7 - 10 Last Admin: 03/05/20 10:49 Dose: 2 mg Documented by: Pantoprazole Sodium (Protonix Iv) 40 mg IVPUSH DAILY LISSETH Last Admin: 03/06/20 10:23 Dose: 40 mg Documented by: - Objective Vital Signs: Vital Signs Temperature 99.0 F 03/06/20 03:00 Pulse Rate 97 H 03/06/20 03:00 Respiratory Rate 18 03/06/20 03:00 Blood Pressure 103/62 03/06/20 03:00 O2 Sat by Pulse Oximetry (%) 95 03/06/20 03:00 Constitutional: Yes: Well Nourished, No Distress, Calm Cardiovascular: Yes: Regular Rate and Rhythm Respiratory: Yes: Regular, CTA Bilaterally Gastrointestinal: Yes: Normal Bowel Sounds, Soft Genitourinary: Yes: WNL Musculoskeletal: Yes: Muscle Weakness Extremities: Yes: WNL Edema: No Peripheral Pulses WNL: Yes Neurological: Yes: Alert, Oriented Psychiatric: Yes: Alert, Oriented Labs: CBC, BMP 03/06/20 07:15 03/06/20 06:00 INR, PTT INR 1.43 (0.83-1.09) H 03/03/20 08:33 Problem List - Problems (1) History of substance abuse Assessment/Plan: -Continue maintenance dose of Methadone 30 mg po daily -Morphine 2mg Q4H PRN Problems reviewed: Yes Code(s): F19.11 - OTHER PSYCHOACTIVE SUBSTANCE ABUSE, IN REMISSION (2) Abdominal pain Assessment/Plan: -Improved -pain management for now -GI consulted, was seen by GI last visit for similar reasons -Had EGD 12/2019: No colitis or varices found. Has a patent Schatzki ring above a hiatal hernia, mild sigmoid diverticulosis and large hemorrhoids. Problems reviewed: Yes Code(s): R10.9 - UNSPECIFIED ABDOMINAL PAIN (3) Anemia Assessment/Plan: -Multifactorial -H/H stable -Low [place]% -Hematology/oncology on board -monitor trend -Transfuse if Hg<7.0 to avoid fluid overload Problems reviewed: Yes Code(s): D64.9 - ANEMIA, UNSPECIFIED (4) Hepatocellular carcinoma Assessment/Plan: -Oncology consult -CTAP: worsening metastatic disease Problems reviewed: Yes Code(s): C22.0 - LIVER CELL CARCINOMA (5) Schatzki's ring of distal esophagus Problems reviewed: Yes Code(s): K22.2 - ESOPHAGEAL OBSTRUCTION (6) Decreased appetite Assessment/Plan: -Started Marinol 2.5 mg po daily -Add supplements- magic cup, ensure pudding Problems reviewed: Yes Code(s): R63.0 - ANOREXIA (7) Compression fracture of lumbar spine, non-traumatic Assessment/Plan: -Evaluated by NS, no surgical intervention recommended at this time. Problems reviewed: Yes Code(s): M48.56XA - COLLAPSED VERTEBRA, NEC, LUMBAR REGION, INIT Qualifiers: Encounter type: subsequent encounter Lumbar vertebra fracture level: L2 Fracture healing: with routine healing Qualified Code(s): M48.56XD - Collapsed vertebra, not elsewhere classified, lumbar region, subsequent encounter for fracture with routine healing Assessment/Plan See problem list
[2020-03-06 11:34] LABS: PLATELET ESTIMATE INCREASED
--- NOTE | 2020-03-06 11:48 | PN ---
Physical Exam: SUBJECTIVE: Patient seen and examined this AM. No acute overnight events as per nursing. In much better spirits, feels the Abdominal pain has improved. Appetite remains diminished. No new complaints. OBJECTIVE: Vital Signs Period Temp Pulse Resp BP Sys/[place]ario Pulse Ox Last 24 Hr 98.3 F-99.0 F 95-104 18-20 98-103/50-62 95-98 GENERAL: A&Ox3, NAD HEAD: NCAT EYES: EOMI, sclera amicteric ENT: Dry mucous membranes NECK: Supple LUNGS: Diminished breath sounds at the bases, no wheezes HEART: Tachycardic, S1 S2 ABDOMEN: Soft, Diffuse tenderness to light palpation most prominent in the RUQ, RLQ and suprapubic regions. Distended, + bowel sounds MUSCULOSKELETAL: No CVA tenderness. EXTREMITIES: No edema, Tender to palpation NEUROLOGICAL: Cranial nerves II through XII grossly intact. Normal speech SKIN: Warm, dry Laboratory Last Values WBC 8.7 K/mm3 (4.0-10.0) 03/06/20 07:15 RBC 2.59 M/mm3 (3.60-5.2) L 03/06/20 07:15 Hgb 7.5 GM/dL (10.7-15.3) L 03/06/20 07:15 Hct 23.0 % (32.4-45.2) L 03/06/20 07:15 MCV 88.8 fl (80-96) 03/06/20 07:15 MCH 28.8 pg (25.7-33.7) 03/06/20 07:15 MCHC 32.4 g/dl (32.0-36.0) 03/06/20 07:15 RDW 17.3 % (11.6-15.6) H 03/06/20 07:15 Plt Count 518 K/MM3 (134-434) H 03/06/20 07:15 MPV 9.5 fl (7.5-11.1) 03/06/20 07:15 Total Counted 100 03/02/20 21:07 Neutrophils % No Result Required. 03/06/20 07:15 Neutrophils % (Manual) 67.0 % (42.8-82.8) 03/05/20 06:37 Band Neutrophils % 0.0 % 03/05/20 06:37 Lymphocytes % No Result Required. 03/06/20 07:15 Lymphocytes % (Manual) 26.0 % (8-40) D 03/05/20 06:37 Monocytes % (Manual) 7 % (3.8-10.2) 03/05/20 06:37 Eosinophils % (Manual) 0.0 % (0-4.5) 03/05/20 06:37 Basophils % (Manual) 0.0 % (0-2.0) 03/05/20 06:37 Myelocytes % (Man) 0 % (0-2) 03/05/20 06:37 Promyelocytes % (Man) 0 % (0-2) 03/05/20 06:37 Blast Cells % (Manual) 0 % (0-0) 03/05/20 06:37 Nucleated RBC % 0 % (0-0) 03/06/20 07:15 Metamyelocytes 0 % (0-2) 03/05/20 06:37 Hypochromia 0 03/05/20 06:37 Platelet Estimate Increased 03/05/20 06:37 Platelet Comment Few large platelets 03/02/20 21:07 Polychromasia 1+ 03/05/20 06:37 Poikilocytosis 0 03/05/20 06:37 Basophilic Stippling 1+ 03/05/20 06:37 Anisocytosis 0 03/05/20 06:37 Microcytosis 0 03/05/20 06:37 Macrocytosis 0 03/05/20 06:37 Stomatocytes 1+ 03/04/20 10:50 PT with INR 16.90 SEC (9.7-13.0) H 03/03/20 08:33 INR 1.43 (0.83-1.09) H 03/03/20 08:33 PTT (Actin FS) 48.4 SECONDS (25.2-36.5) H 03/03/20 08:33 Sodium 139 mmol/L (136-145) 03/06/20 06:00 Potassium 3.6 mmol/L (3.5-5.1) 03/06/20 06:00 Chloride 104 mmol/L (98-107) 03/06/20 06:00 Carbon Dioxide 27 mmol/L (21-32) 03/06/20 06:00 Anion Gap 8 MMOL/L (8-16) 03/06/20 06:00 BUN 11.2 mg/dL (7-18) 03/06/20 06:00 Creatinine 0.8 mg/dL (0.55-1.3) 03/06/20 06:00 Est GFR (CKD-EPI)AfAm 92.22 03/06/20 06:00 Est GFR (CKD-EPI)NonAf 79.57 03/06/20 06:00 Random Glucose 117 mg/dL (74-106) H 03/06/20 06:00 Calcium 8.2 mg/dL (8.5-10.1) L 03/06/20 06:00 Phosphorus 4.2 mg/dL (2.5-4.9) 03/03/20 08:33 Magnesium 1.8 mg/dL (1.8-2.4) 03/03/20 08:33 Total Bilirubin 1.8 mg/dL (0.2-1) H 03/06/20 06:00 Direct Bilirubin 2.1 mg/dL (0.0-0.2) H 03/04/20 10:50 AST 82 U/L (15-37) H 03/06/20 06:00 ALT 20 U/L (13-61) 03/06/20 06:00 Alkaline Phosphatase 227 U/L (45-117) H 03/06/20 06:00 Ammonia < 10.0 umol/L (11-32) L 03/02/20 21:17 Total Protein 5.4 g/dl (6.4-8.2) L 03/06/20 06:00 Albumin 1.4 g/dl (3.4-5.0) L 03/06/20 06:00 Lipase 62 U/L (73-393) L 03/04/20 10:50 Stool Occult Blood Negative (NEGATIVE) 03/04/20 01:55 COVID-19 (ARIANNA) Not detected (Not Detected) 03/03/20 10:37 Blood Type O POSITIVE 03/03/20 08:33 Antibody Screen Negative 03/03/20 08:33 Microbiology 03/03/20 08:40 Blood - Peripheral Venous Blood Culture - Preliminary NO GROWTH OBTAINED AFTER 72 HOURS, INCUBATION TO CONTINUE FOR 2 DAYS. 03/03/20 08:40 Blood - Peripheral Venous Blood Culture - Preliminary NO GROWTH OBTAINED AFTER 72 HOURS, INCUBATION TO CONTINUE FOR 2 DAYS. 03/04/20 03:15 Stool Salmonella/Shigella Culture - Preliminary NO ENTERIC PATHOGENS, 24 HOURS, ON PRIMARY PLATES 03/04/20 03:15 Stool Yersinia Culture - Preliminary NO ENTERIC PATHOGENS, 24 HOURS, ON PRIMARY PLATES 03/04/20 03:15 Stool Vibrio Culture - Final NO GROWTH OF VIBRIO SPECIES OBTAINED 03/04/20 03:15 Stool Escherichia coli 0157 Culture - Final NO GROWTH OF E COLI 0157 OBTAINED 03/04/20 01:55 Stool Norovirus GI - Preliminary 03/04/20 01:55 Stool Norovirus GII - Preliminary Active Medications Dronabinol (Marinol -) 2.5 mg PO DAILY [facility] Last Admin: 03/06/20 10:23 Dose: 2.5 mg Documented by: Enoxaparin Sodium (Lovenox -) 40 mg SQ DAILY [facility] Last Admin: 03/06/20 10:24 Dose: 40 mg Documented by: Folic Acid (Folic Acid -) 1 mg PO DAILY [facility] Last Admin: 03/06/20 10:23 Dose: 1 mg Documented by: Sodium Chloride (Normal Saline -) 1,000 mls @ 42 mls/hr IV ASDIR [facility] Last Admin: 03/06/20 10:24 Dose: Not Given Documented by: Methadone HCl (Dolophine -) 30 mg PO DAILY@0600 [facility] Last Admin: 03/06/20 06:36 Dose: 30 mg Documented by: Morphine Sulfate (Morphine Sulfate) 2 mg IVPUSH Q4H PRN PRN Reason: PAIN LEVEL 7 - 10 Last Admin: 03/05/20 10:49 Dose: 2 mg Documented by: Pantoprazole Sodium (Protonix Iv) 40 mg IVPUSH DAILY [facility] Last Admin: 03/06/20 10:23 Dose: 40 mg Documented by: ASSESSMENT/PLAN: 59 y/o F PMHx HTN, COPD, HCV (s/p treatment), HCC admitted for abdominal pain. Recently started on Lenvatinib (now on hold). Abdominal pain persists with diminished PO Intake. #Abdominal Pain -In the setting metastatic disease; Still consider Lenvatinib use and methadone dose reduction -Tachycardia persists, Leukocytosis WNL, TBili/LFTs Trending down -Hold Lenvatinib -Need to r/o infectious etiology; Follow Stool studies, Blood cx -Analgesia via Morphine. Resume home dose Methadone prior to reduction once dose confirmed. Prior records from Dr. Gallego showed some improvement with Decadron 4mg x 7 days for liver capsule pain. -Trend LFTs, TBili -GI Evaluation appreciated, Will need to Quantitate diarrhea, Screen for pathogens/WBCs -Avoid Hepatotoxic medications, Avoid QT prolonging medications -DVT PPx -Consider Palliative care and Pain Management consults #Normocytic Anemia -Likely Anemia of chronic inflammation in the setting of metastatic disease -FOBT Negative; Rectal exam refused -Transfuse to keep Hgb > 7.0 #L2 Compression fracture -Found on CT in the setting of metastatic disease, Currently without Back pain -L-Spine MRI suggestive of metastatic disease (Liver, Adrenals), No mets to vertebrae, No Pathologic fx -NeuroSx evaluation appreciated #LE Tenderness -Etiology to be determined however without associated edema -Duplex negative for DVT Visit type - Emergency Visit Emergency Visit: Yes ED Registration Date: 03/03/20 Care time: The patient presented to the Emergency Department on the above date and was hospitalized for further evaluation of their emergent condition. - New Patient This patient is new to me today: Yes Date on this admission: 03/06/20 - Critical Care Critical Care patient: No - Discharge Referral Referred to [facility] Med [facility] No ATTENDING PHYSICIAN STATEMENT I saw and evaluated the patient. I reviewed the resident's note and discussed the case with the resident. I agree with the resident's findings and plan as documented. SUBJECTIVE: OBJECTIVE: ASSESSMENT AND PLAN:
--- NOTE | 2020-03-06 15:18 | PN ---
Progress Note (short form) - Note Progress Note: I have seen and evaluated pt. I have rev'd the hx,PE,labs,imaging,MDM w onc resident. I agree w findings/assessment as documented per Dr Marrero's note. My indept findings/recommendations are below. Ms. Jacinto has focal RLQ pain w movement, palpation in context of met HCC. No BM today, but had been reporting diarrhea. Lenvatinib is on hold (started 02/21). Unclear if the increased pain is related to recent dec in methadone dose and would obtain further mgmt per pain/palliative care svc. As noted, dex has been used for liver capsular pain and could institute if needed LFTs improving Cont hold lenvatinib, monitor BMs. LFTs
[2020-03-07] MEDS: METHADONE HCL 10 MG TABLET PO SCH (06:44)
[2020-03-07] MEDS: SODIUM CHLORIDE 1,000 ML IV SCH ×2 (06:46→10:15)
[2020-03-07] MEDS ORDERED: ACETAMINOPHEN 325 MG TABLET (FP) PO PRN (07:45)
--- NOTE | 2020-03-07 08:08 | PN ---
Progress Note, Physician Chief Complaint: Abdominal pain Metastatic hepatocellular carcinoma Anemia History of Present Illness: 59 y/o F PMHx HTN, COPD, HCV (s/p treatment), HCC admitted for abdominal pain. Recently started on Lenvatinib (now on hold). Abdominal pain persists with diminished PO Intake but denies any current fevers, nausea, vomiting, diarrhea. Pt dollows up with Dr Walsh at [facility]. Pt is chronically on Methadone which has been tapered down to 30 mg po daily from originally 85 mg. Previously admitted on 12/2019 with similar symptoms after being treated with Atezolizumab with bidacizumab in December 2019 Repeat CTAP from this admission shows increased in metastatic features/lesions 03/05/20: NAD Decreased appetite Abd pain improved, on morphine PRN Total bili and LFT's trending down Loose stools All her symptoms are 2/2 to recent Lenvatinib treatment, last taken 03/02/20 Seen by GI 03/06/20: U/S BLLE doppler negative for DVT MRI L spine: no clear metastatic vertebral lesion, progressive DDD, endplate sclerosis c/w -2018 MRI, mild ant L2 vertebral depression appears chronic in nature,Chronic L2 vertebral mild compression fx, no clear vertebral lytic lesion Seen by NS- no intervention recommended at this time Still with decreased appetite Stool cultures oending Diarrhea frequency decreased, stool more formed. - Current Medication List Current Medications: Active Medications Acetaminophen (Tylenol -) 650 mg PO Q4H PRN PRN Reason: PAIN Dronabinol (Marinol -) 2.5 mg PO DAILY [facility] Last Admin: 03/06/20 10:23 Dose: 2.5 mg Documented by: Enoxaparin Sodium (Lovenox -) 40 mg SQ DAILY [facility] Last Admin: 03/06/20 10:24 Dose: 40 mg Documented by: Folic Acid (Folic Acid -) 1 mg PO DAILY [facility] Last Admin: 03/06/20 10:23 Dose: 1 mg Documented by: Sodium Chloride (Normal Saline -) 1,000 mls @ 100 mls/hr IV ASDIR [facility] Methadone HCl (Dolophine -) 30 mg PO DAILY@0600 [facility] Last Admin: 03/07/20 06:44 Dose: 30 mg Documented by: Pantoprazole Sodium (Protonix Iv) 40 mg IVPUSH DAILY [facility] Last Admin: 03/06/20 10:23 Dose: 40 mg Documented by: - Objective Vital Signs: Vital Signs Temperature 97.9 F 03/07/20 06:00 Pulse Rate 91 H 03/07/20 06:00 Respiratory Rate 03/07/20 06:00 Blood Pressure 90/53 L 03/07/20 06:00 O2 Sat by Pulse Oximetry (%) 93 L 03/07/20 06:00 Constitutional: Yes: Well Nourished, No Distress, Calm Cardiovascular: Yes: Regular Rate and Rhythm Respiratory: Yes: Regular, CTA Bilaterally Gastrointestinal: Yes: Soft, Hypoactive Bowel Sounds, Tenderness (diffuse) Genitourinary: Yes: WNL Musculoskeletal: Yes: Muscle Weakness Extremities: Yes: WNL Edema: No Peripheral Pulses WNL: Yes Neurological: Yes: Alert, Oriented Psychiatric: Yes: Alert, Oriented Labs: CBC, BMP 03/06/20 07:15 03/06/20 06:00 INR, PTT INR 1.43 (0.83-1.09) H 03/03/20 08:33 Problem List - Problems (1) History of substance abuse Assessment/Plan: -Continue maintenance dose of Methadone 30 mg po daily -Morphine 2mg Q4H PRN Problems reviewed: Yes Code(s): F19.11 - OTHER PSYCHOACTIVE SUBSTANCE ABUSE, IN REMISSION (2) Abdominal pain Assessment/Plan: -Improved -pain management for now -GI consulted, was seen by GI last visit for similar reasons -Had EGD 12/2019: No colitis or varices found. Has a patent Schatzki ring above a hiatal hernia, mild sigmoid diverticulosis and large hemorrhoids. Problems reviewed: Yes Code(s): R10.9 - UNSPECIFIED ABDOMINAL PAIN (3) Anemia Assessment/Plan: -Multifactorial -H/H stable -Low Iron% -Hematology/oncology on board -monitor trend -Transfuse if Hg<7.0 to avoid fluid overload Problems reviewed: Yes Code(s): D64.9 - ANEMIA, UNSPECIFIED (4) Hepatocellular carcinoma Assessment/Plan: -Oncology consult -CTAP: worsening metastatic disease Problems reviewed: Yes Code(s): C22.0 - LIVER CELL CARCINOMA (5) Schatzki's ring of distal esophagus Problems reviewed: Yes Code(s): K22.2 - ESOPHAGEAL OBSTRUCTION (6) Decreased appetite Assessment/Plan: -Started Marinol 2.5 mg po daily -Add supplements- magic cup, ensure pudding Problems reviewed: Yes Code(s): R63.0 - ANOREXIA (7) Compression fracture of lumbar spine, non-traumatic Assessment/Plan: -Evaluated by NS, no surgical intervention recommended at this time. Problems reviewed: Yes Code(s): M48.56XA - COLLAPSED VERTEBRA, NEC, LUMBAR REGION, INIT Qualifiers: Encounter type: subsequent encounter Lumbar vertebra fracture level: L2 Fracture healing: with routine healing Qualified Code(s): M48.56XD - Collapsed vertebra, not elsewhere classified, lumbar region, subsequent encounter for fracture with routine healing Assessment/Plan See problem list
[2020-03-07] MEDS: ENOXAPARIN NA (PORCINE) 40 MG/0.4 ML DISP.SYRIN SQ SCH (10:13)
[2020-03-07] MEDS: FOLIC ACID 1 MG TABLET (FP) PO SCH (10:13)
[2020-03-07] MEDS: PANTOPRAZOLE SODIUM 40 MG VIAL IVPUSH SCH (10:14)
[2020-03-07] MEDS: DRONABINOL 2.5 MG CAPSULE PO SCH (10:14)
--- NOTE | 2020-03-07 10:43 | PN ---
Progress Note, UNATTENDED [employer]IST - Note Progress Note: Selected Entries 03/05/20 03/05/20 03/05/20 05:46 11:17 13:43 Breakfast 0 Diet Tolerated Refused Refused Refused Lunch 0 Temperature Pulse Rate Blood Pressure 03/05/20 03/06/20 03/06/20 23:00 03:00 06:00 Breakfast Diet Tolerated Refused Refused Lunch 0 Temperature 99.0 F Pulse Rate 97 H Blood Pressure 103/62 Laboratory Tests 03/06/20 07:15 WBC 8.7 Selected Entries 03/06/20 03/07/20 03/07/20 13:44 06:00 10:31 Breakfast 0 Lunch 25% Temperature 97.9 F 98 F Pulse Rate 91 H 92 H Blood Pressure 90/53 L 98/53 L Laboratory Tests 03/06/20 07:15 WBC 8.7 Improving PO intake, intermittent reg,soft diet-easy to chew ensure enlive
--- NOTE | 2020-03-07 11:12 | PN ---
Progress Note (short form) - Note Progress Note: NEUROSURGERY No LBP or sciatica. No fever/chill. PE: Tmax 99, AF, VSS General- unremarkable CN- intact; Motor- 4+-5/5 except L IP 4/5; Sensation- intact LT; DTR- decreased throughout; Back- NT BUN/Cr normal Abd CT- (focus on spine) L2 sup endplate depression with decreased height by 10% mid body; no retropulsion MRI with norm- no clear metastatic vertebral lesion, progressive DDD, endplate sclerosis c/w 2-2018 MRI, mild ant L2 vertebral depression appears chronic in nature; endplate changes more prominent than previously,?postop chemo? Metastatic HCC Chronic L2 vertebral mild compression deformity, no clear vertebral lytic lesion, asymptomatic Abdominal symptoms more likely related to HCC intra-abdominal spreading vs methadone dose reduction No neurosurgical intervention indicated nor recommended Pt and daughter aware
--- NOTE | 2020-03-07 12:07 | DS ---
Physical Examination Vital Signs: Vital Signs Temperature 98 F 03/07/20 10:31 Pulse Rate 92 H 03/07/20 10:31 Respiratory Rate 18 03/07/20 10:31 Blood Pressure 98/53 L 03/07/20 10:31 O2 Sat by Pulse Oximetry (%) 98 03/07/20 10:31 Findings/Remarks: 59 y/o F PMHx HTN, COPD, HCV (s/p treatment), HCC admitted for abdominal pain. Recently started on Lenvatinib (now on hold). Abdominal pain persists with diminished PO Intake but denies any current fevers, nausea, vomiting, diarrhea. Pt dollows up with Dr Walsh at [facility]. Pt is chronically on Methadone which has been tapered down to 30 mg po daily from originally 85 mg. Previously admitted on 12/2019 with similar symptoms after being treated with Atezolizumab with bidacizumab in December 2019 Repeat CTAP from this admission shows increased in metastatic features/lesions 03/05/20: NAD Decreased appetite Abd pain improved, on morphine PRN Total bili and LFT's trending down Loose stools All her symptoms are 2/2 to recent Lenvatinib treatment, last taken 03/02/20 Seen by GI 03/06/20: U/S BLLE doppler negative for DVT MRI L spine: no clear metastatic vertebral lesion, progressive DDD, endplate sclerosis c/w -2018 MRI, mild ant L2 vertebral depression appears chronic in nature,Chronic L2 vertebral mild compression fx, no clear vertebral lytic lesion Seen by NS- no intervention recommended at this time Still with decreased appetite Stool cultures oending Diarrhea frequency decreased, stool more formed. Constitutional: Yes: Well Nourished, No Distress, Calm Cardiovascular: Yes: Regular Rate and Rhythm Respiratory: Yes: Regular, CTA Bilaterally Gastrointestinal: Yes: Soft, Hypoactive Bowel Sounds, Tenderness (Diffuse) Musculoskeletal: Yes: Muscle Weakness Extremities: Yes: WNL Edema: No Peripheral Pulses WNL: Yes Neurological: Yes: Alert, Oriented Psychiatric: Yes: Alert, Oriented Labs: CBC, BMP 03/06/20 07:15 03/06/20 06:00 Discharge Summary Problems reviewed: Yes Reason For Visit: PAIN Current Active Problems Compression fracture of lumbar spine, non-traumatic (Acute) Decreased appetite (Acute) History of substance abuse (Acute) Liver cancer (Acute) Condition: Stable - Instructions Referrals: Abel Gallego MD [Staff Physician] - ON STAFF,NOT [Primary Care Provider] - Disposition: VNS/HOME HEALTH CARE - Home Medications Comprehensive Discharge Medication List: Ambulatory Orders Folic Acid 1 mg PO DAILY 03/02/20 Methadone [Dolophine -] 30 mg PO DAILY 03/02/20 Acetaminophen [Tylenol .Regular Strength -] 650 mg PO Q4H PRN tablet 03/07/20 Dexamethasone 4 mg PO BID #60 tablet 03/07/20 Dronabinol [Marinol -] 2.5 mg PO DAILY #30 capsule MDD 1 03/07/20 Pantoprazole Sodium [Protonix -] 40 mg PO DAILY #30 tablet.ec 03/07/20 Prescription Drug Monitoring Program (I-STOP) results: I-STOP reviewed and no issues identified
[2020-03-08] MEDS: SODIUM CHLORIDE 1,000 ML IV SCH (01:44)
[2020-03-08] MEDS: METHADONE HCL 10 MG TABLET PO SCH (06:22)
--- NOTE | 2020-03-08 09:00 | PN ---
Progress Note (short form) - Note Progress Note: NEUROSURGERY No LBP or sciatica PE: AF, VSS General- unremarkable CN- intact; Motor- 4+-5/5 except L IP 4/5; Sensation- intact LT; DTR- decreased throughout; Back- NT Abd CT- (focus on spine) L2 sup endplate depression with decreased height by 10% mid body; no retropulsion MRI with norm- no clear metastatic vertebral lesion, progressive DDD, endplate sclerosis c/w 2-2018 MRI, mild ant L2 vertebral depression appears chronic in nature; endplate changes more prominent than previously,?postop chemo? Metastatic HCC Chronic L2 vertebral mild compression deformity, no clear vertebral lytic lesion, asymptomatic Abdominal symptoms more likely related to HCC intra-abdominal spreading vs methadone dose reduction No neurosurgical intervention indicated nor recommended MRI findings communicated with pt and daughter earlier Will sign off Reconsult prn
[2020-03-08] MEDS: FOLIC ACID 1 MG TABLET (FP) PO SCH (09:55)
[2020-03-08] MEDS: PANTOPRAZOLE SODIUM 40 MG VIAL IVPUSH SCH ×2 (09:55→09:58)
[2020-03-08] MEDS: ENOXAPARIN NA (PORCINE) 40 MG/0.4 ML DISP.SYRIN SQ SCH ×2 (09:55→09:58)
[2020-03-08] MEDS: DRONABINOL 2.5 MG CAPSULE PO SCH (09:55)
[2020-03-08 11:15] VITALS: BP 111/67; PULSE 84; TEMP 98.8
[2020-03-08] MEDS ORDERED: DEXAMETHASONE 4 MG TABLET (FP) PO ONE (11:18)
--- NOTE | 2020-03-08 11:27 | PN ---
Progress Note, Physician Chief Complaint: Abdominal pain Metastatic hepatocellular carcinoma Anemia History of Present Illness: 59 y/o F PMHx HTN, COPD, HCV (s/p treatment), HCC admitted for abdominal pain. Recently started on Lenvatinib (now on hold). Abdominal pain persists with diminished PO Intake but denies any current fevers, nausea, vomiting, diarrhea. Pt dollows up with Dr Walsh at [facility]. Pt is chronically on Methadone which has been tapered down to 30 mg po daily from originally 85 mg. Previously admitted on 12/2019 with similar symptoms after being treated with Atezolizumab with bidacizumab in December 2019 Repeat CTAP from this admission shows increased in metastatic features/lesions 03/05/20: NAD Decreased appetite Abd pain improved, on morphine PRN Total bili and LFT's trending down Loose stools All her symptoms are 2/2 to recent Lenvatinib treatment, last taken 03/02/20 Seen by GI 03/06/20: U/S BLLE doppler negative for DVT MRI L spine: no clear metastatic vertebral lesion, progressive DDD, endplate sclerosis c/w -2018 MRI, mild ant L2 vertebral depression appears chronic in nature,Chronic L2 vertebral mild compression fx, no clear vertebral lytic lesion Seen by NS- no intervention recommended at this time Still with decreased appetite Stool cultures oending Diarrhea frequency decreased, stool more formed. 03/08/20: Is being discharged today Feels better - Current Medication List Current Medications: Active Medications Acetaminophen (Tylenol -) 650 mg PO Q4H PRN PRN Reason: PAIN Dronabinol (Marinol -) 2.5 mg PO DAILY [facility] Last Admin: 03/08/20 09:55 Dose: 2.5 mg Documented by: Enoxaparin Sodium (Lovenox -) 40 mg SQ DAILY [facility] Last Admin: 03/08/20 09:58 Dose: Not Given Documented by: Folic Acid (Folic Acid -) 1 mg PO DAILY [facility] Last Admin: 03/08/20 09:55 Dose: 1 mg Documented by: Sodium Chloride (Normal Saline -) 1,000 mls @ 100 mls/hr IV ASDIR [facility] Last Admin: 03/08/20 01:44 Dose: 100 mls/hr Documented by: Methadone HCl (Dolophine -) 30 mg PO DAILY@0600 [facility] Last Admin: 03/08/20 06:22 Dose: 30 mg Documented by: Pantoprazole Sodium (Protonix Iv) 40 mg IVPUSH DAILY [facility] Last Admin: 03/08/20 09:58 Dose: Not Given Documented by: - Objective Vital Signs: Vital Signs Temperature 98.8 F 03/08/20 10:00 Pulse Rate 84 03/08/20 10:00 Respiratory Rate 18 03/08/20 10:00 Blood Pressure 111/67 03/08/20 10:00 O2 Sat by Pulse Oximetry (%) 94 L 03/08/20 10:00 Labs: CBC, BMP 03/06/20 07:15 03/06/20 06:00 INR, PTT INR 1.43 (0.83-1.09) H 03/03/20 08:33 Problem List - Problems (1) History of substance abuse Assessment/Plan: -Continue maintenance dose of Methadone 30 mg po daily -Morphine 2mg Q4H PRN Problems reviewed: Yes Code(s): F19.11 - OTHER PSYCHOACTIVE SUBSTANCE ABUSE, IN REMISSION (2) Abdominal pain Assessment/Plan: -Improved -pain management for now -GI consulted, was seen by GI last visit for similar reasons -Had EGD 12/2019: No colitis or varices found. Has a patent Schatzki ring above a hiatal hernia, mild sigmoid diverticulosis and large hemorrhoids. Problems reviewed: Yes Code(s): R10.9 - UNSPECIFIED ABDOMINAL PAIN (3) Anemia Assessment/Plan: -Multifactorial -H/H stable -Low Iron% -Hematology/oncology on board -monitor trend -Transfuse if Hg<7.0 to avoid fluid overload Problems reviewed: Yes Code(s): D64.9 - ANEMIA, UNSPECIFIED (4) Hepatocellular carcinoma Assessment/Plan: -Oncology consult -CTAP: worsening metastatic disease -Dexamethasone 4 mg po BID Problems reviewed: Yes Code(s): C22.0 - LIVER CELL CARCINOMA (5) Schatzki's ring of distal esophagus Problems reviewed: Yes Code(s): K22.2 - ESOPHAGEAL OBSTRUCTION (6) Decreased appetite Assessment/Plan: -Started Marinol 2.5 mg po daily -Add supplements- magic cup, ensure pudding Problems reviewed: Yes Code(s): R63.0 - ANOREXIA (7) Compression fracture of lumbar spine, non-traumatic Assessment/Plan: -Evaluated by NS, no surgical intervention recommended at this time. Problems reviewed: Yes Code(s): M48.56XA - COLLAPSED VERTEBRA, NEC, LUMBAR REGION, INIT Qualifiers: Encounter type: subsequent encounter Lumbar vertebra fracture level: L2 Fracture healing: with routine healing Qualified Code(s): M48.56XD - Collapsed vertebra, not elsewhere classified, lumbar region, subsequent encounter for fracture with routine healing
== END 2020-03-08 12:58 | disposition home health service (06) | DRG 281 ==
LOC: SUPCPDRO 18:11 → JER 18:11 → JERBED 03-03 03:45 → J7W 03-03 20:02
PROVIDERS: ADMIT Internal Medicine; ATTEND Family Medicine
DX: C22.0 Liver cell carcinoma (principal); C79.9 Secondary malignant neoplasm of unspecified site; F11.20 Opioid dependence, uncomplicated; R63.0 Anorexia; F10.10 Alcohol abuse, uncomplicated; E88.09 Other disorders of plasma-protein metabolism, not elsewhere classified; I10 Essential (primary) hypertension; J44.9 Chronic obstructive pulmonary disease, unspecified; R19.7 Diarrhea, unspecified; E27.9 Disorder of adrenal gland, unspecified; E46 Unspecified protein-calorie malnutrition; Z68.24 Body mass index [BMI] 24.0-24.9, adult; F31.9 Bipolar disorder, unspecified; K57.90 Diverticulosis of intestine, part unspecified, without perforation or abscess without bleeding; F19.11 Other psychoactive substance abuse, in remission; M48.56XA Collapsed vertebra, not elsewhere classified, lumbar region, initial encounter for fracture; D64.9 Anemia, unspecified; M51.36 Other intervertebral disc degeneration, lumbar region; F17.210 Nicotine dependence, cigarettes, uncomplicated; K44.9 Diaphragmatic hernia without obstruction or gangrene; K22.2 Esophageal obstruction; Z86.19 Personal history of other infectious and parasitic diseases; Z88.0 Allergy status to penicillin
CPT/HCPCS: 36415; 72158-TC; 74177-TC; 76705-TC; 80053; 82140; 82248; 82272; 83690; 83735; 84100; 85025; 85610; 85730; 86850; 86900; 86901; 87040; 87045; 87046; 87177; 87186; 87209; 87798; 93005; 93010; 93970-TC; 97116-GP; 97162-GP; 99285-25; A9579; Q9967; U0003